=== PATIENT | female | born 1940 | race Caucasian/White ===

== ENCOUNTER → 2024-02-22 | Outpatient (CLI) | payer MEDICARE, BC, SELFPAY ==
[2024-02-22 13:33] LABS: Albumin, Serum 3.7 gm/dL (3.4-4.8); Anion Gap 9 (7-16); BUN/Creatinine Ratio 23 Ratio (12-20); Blood Urea Nitrogen 28 mg/dL (9-23); Calcium 9.8 mg/dL (8.3-10.6); Carbon Dioxide 28.5 mMol/L (20.0-31.0); Chloride 104 mMol/L (98-107); Creatinine (Component) 1.2 mg/dL (0.6-1.3); Glucose 147 mg/dL (74-106); Osmolality,Calculated 289 (275-295); Phosphorous 3.7 mg/dL (2.4-5.1); Sodium 141 mMol/L (136-145); eGFR 45 See Note
== END | disposition home or self-care (01) ==
LOC: COPL 12:21
PROVIDERS: PCP Internal Medicine; Referring Provider Internal Medicine Cardiovascular Disease; Visit Provider Internal Medicine Cardiovascular Disease
DX: Z95.0 Presence of cardiac pacemaker (principal)
CPT/HCPCS: 36415; 80069

== ENCOUNTER → 2024-03-06 | Outpatient (CLI) | payer MEDICARE, BC, SELFPAY ==
[2024-03-06 12:02] LABS: Basophils # (Auto) 0.1 Thou/mm3 (0.0-0.2); Basophils % (Auto) 1 % (0-2.5); Eosinophils # (Auto) 0.3 Thou/mm3 (0.0-0.5); Eosinophils % (Auto) 3 % (0-10); Hematocrit 37.8 % (36.0-46.0); Hemoglobin 12.1 g/dL (12.0-16.0); Immature Granulocytes % (Auto) 1 % (0-0); Immature Granulocytes Auto 0.05 Thou/mm3 (0.00-0.00); Lymphocytes # (Auto) 2.4 Thou/mm3 (1.0-4.8); Lymphocytes % (Auto) 26 % (10-50); Mean Corpuscular Volume 94 fL (80-100); Monocytes # (Auto) 0.6 Thou/mm3 (0.0-0.8); Monocytes % (Auto) 7 % (0-12); Neutrophils # (Auto) 5.5 Thou/mm3 (1.8-7.7); Neutrophils % (Auto) 62 % (37-80); Nucleated Red Blood Cell # 0.02 Thou/mm3 (0.00-0.00); Nucleated Red Blood Cell % 0 /100 WBC (0); Platelet Count 333 Thou/mm3 (140-440); RDW Standard Deviation 49.3 fL (36.4-46.3); Red Blood Count 4.04 Miln/mm3 (4.00-5.20); White Blood Count 8.9 Thou/mm3 (3.6-11.0)
[2024-03-06 12:14] LABS: Glucose Estimated Average 120 mg/dL (80-131); Hemoglobin A1C 5.8 % Hgb (4.8-6.0)
[2024-03-06 12:44] LABS: Alanine Aminotransferase 13 U/L (10-49); Alkaline Phosphatase 56 U/L (46-116); Anion Gap 8 (7-16); Aspartate Amino Transferase 16 U/L (0-34); BUN/Creatinine Ratio 43 Ratio (12-20); Bilirubin,Total 0.5 mg/dL (0.3-1.2); Blood Urea Nitrogen 52 mg/dL (9-23); Calcium 9.7 mg/dL (8.3-10.6); Calcium (Corrected) 9.7 mg/dL (8.5-10.1); Cardiac Risk Estimate 2.6 RATIO (3.7-5.6); Chloride 103 mMol/L (98-107); Cholesterol 130 mg/dL (132-200); Creatinine (Component) 1.2 mg/dL (0.6-1.3); Glucose 77 mg/dL (74-106); HDL Cholesterol 50 mg/dL (40-60); LDL Cholesterol,Calculated 49 mg/dL (0-130); Osmolality,Calculated 297 (275-295); Potassium 3.9 mMol/L (3.4-5.1); Sodium 143 mMol/L (136-145); Thyroid Stimulating Hormone 0.59 uIU/mL (0.55-4.78); Triglycerides 154 mg/dL (30-150); eGFR 45 See Note
[2024-03-06 12:46] LABS: Collection Type, Urine Clean Catch
[2024-03-06 13:51] LABS: Bilirubin,Urine Negative (Negative); Blood,Urine Negative (Negative); Clarity,Urine Clear (Clear/Hazy); Color,Urine Yellow (Lt Yel-Yel); Culture Indicated,Urine Not Indicated; Glucose, Urine Negative (Negative); Ketones,Urine Negative (Negative); Leukocyte Esterase,Urine Negative (Negative); Nitrite,Urine Negative (Negative); Protein,Urine 2+ (Neg - Trace); RBC,Urine 1 /hpf (0-3); Specific Gravity,Urine 1.018 (1.001-1.035); Squamous Epithelial Cell,Urine < 1 /hpf (0-5); Urobilinogen,Urine Negative mg/dL (0.0-1.0); WBC,Urine 2 /hpf (0-5)
[2024-03-06 13:59] LABS: Creatinine MALB Rnd Ur 56 mg/dL (30-125); Microalbumin Creat Ratio 805 mg/gCrea (<30); Microalbumin, Random Urine 451 mg/L (0-300)
== END | disposition home or self-care (01) ==
LOC: COPL 11:06
PROVIDERS: PCP Internal Medicine; Referring Provider Internal Medicine; Visit Provider Internal Medicine Cardiovascular Disease
DX: E11.9 Type 2 diabetes mellitus without complications (principal); I10 Essential (primary) hypertension; E78.5 Hyperlipidemia, unspecified; E03.9 Hypothyroidism, unspecified
CPT/HCPCS: 36415; 80053; 80061; 81001; 82043; 82570; 83036; 84443; 85025

== ENCOUNTER → 2024-03-20 | Outpatient (CLI) | payer MEDICARE, BC, SELFPAY | END | disposition home or self-care (01) | LOC: SWHD 09:54 | PROVIDERS: PCP Internal Medicine; Referring Provider Internal Medicine; Visit Provider Student in an Organized Health Care Education/Training Program | DX: L89.321 Pressure ulcer of left buttock, stage 1 (principal); L97.512 Non-pressure chronic ulcer of other part of right foot with fat layer exposed; I50.9 Heart failure, unspecified; I73.9 Peripheral vascular disease, unspecified; E11.40 Type 2 diabetes mellitus with diabetic neuropathy, unspecified; Z79.4 Long term (current) use of insulin; Z79.84 Long term (current) use of oral hypoglycemic drugs; M19.90 Unspecified osteoarthritis, unspecified site; G47.30 Sleep apnea, unspecified; I25.10 Atherosclerotic heart disease of native coronary artery without angina pectoris | CPT/HCPCS: 11042; 99203; A9270; G0463 ==

== ENCOUNTER → 2024-03-27 | Outpatient (CLI) | payer MEDICARE, BC, SELFPAY | END | disposition home or self-care (01) | LOC: SWHD 10:13 | PROVIDERS: PCP Internal Medicine; Referring Provider Internal Medicine; Visit Provider Student in an Organized Health Care Education/Training Program | DX: I87.312 Chronic venous hypertension (idiopathic) with ulcer of left lower extremity (principal); L97.512 Non-pressure chronic ulcer of other part of right foot with fat layer exposed; L89.322 Pressure ulcer of left buttock, stage 2; I50.9 Heart failure, unspecified; I73.9 Peripheral vascular disease, unspecified; E11.40 Type 2 diabetes mellitus with diabetic neuropathy, unspecified; Z79.4 Long term (current) use of insulin; Z79.84 Long term (current) use of oral hypoglycemic drugs; M19.90 Unspecified osteoarthritis, unspecified site; G47.30 Sleep apnea, unspecified; I25.10 Atherosclerotic heart disease of native coronary artery without angina pectoris | CPT/HCPCS: 11042; A9270 ==

== ENCOUNTER → 2024-04-03 | Outpatient (CLI) | payer MEDICARE, BC, SELFPAY | END | disposition home or self-care (01) | LOC: SWHD 10:41 | PROVIDERS: PCP Internal Medicine; Referring Provider Internal Medicine; Visit Provider Student in an Organized Health Care Education/Training Program | DX: I87.312 Chronic venous hypertension (idiopathic) with ulcer of left lower extremity (principal); L97.512 Non-pressure chronic ulcer of other part of right foot with fat layer exposed; L89.322 Pressure ulcer of left buttock, stage 2; I50.9 Heart failure, unspecified; I73.9 Peripheral vascular disease, unspecified; E11.40 Type 2 diabetes mellitus with diabetic neuropathy, unspecified; Z79.4 Long term (current) use of insulin; Z79.84 Long term (current) use of oral hypoglycemic drugs; M19.90 Unspecified osteoarthritis, unspecified site; G47.30 Sleep apnea, unspecified; I25.10 Atherosclerotic heart disease of native coronary artery without angina pectoris | CPT/HCPCS: 97597; A9270 ==

== ENCOUNTER → 2024-04-10 | Outpatient (CLI) | payer MEDICARE, BC, SELFPAY | END | disposition home or self-care (01) | LOC: SWHD 10:58 | PROVIDERS: PCP Internal Medicine; Referring Provider Internal Medicine; Visit Provider Surgery | DX: I87.312 Chronic venous hypertension (idiopathic) with ulcer of left lower extremity (principal); L97.512 Non-pressure chronic ulcer of other part of right foot with fat layer exposed; L89.322 Pressure ulcer of left buttock, stage 2; I50.9 Heart failure, unspecified; I73.9 Peripheral vascular disease, unspecified; E11.40 Type 2 diabetes mellitus with diabetic neuropathy, unspecified; Z79.84 Long term (current) use of oral hypoglycemic drugs; M19.90 Unspecified osteoarthritis, unspecified site; G47.30 Sleep apnea, unspecified; I25.10 Atherosclerotic heart disease of native coronary artery without angina pectoris | CPT/HCPCS: 29580; A9270 ==

== ENCOUNTER → 2024-04-17 | Outpatient (CLI) | payer MEDICARE, BC, SELFPAY | END | disposition home or self-care (01) | LOC: SWHD 10:55 | PROVIDERS: PCP Internal Medicine; Referring Provider Internal Medicine; Visit Provider Student in an Organized Health Care Education/Training Program | DX: L97.512 Non-pressure chronic ulcer of other part of right foot with fat layer exposed (principal); L89.322 Pressure ulcer of left buttock, stage 2; I50.9 Heart failure, unspecified; I73.9 Peripheral vascular disease, unspecified; E11.40 Type 2 diabetes mellitus with diabetic neuropathy, unspecified; Z79.84 Long term (current) use of oral hypoglycemic drugs; M19.90 Unspecified osteoarthritis, unspecified site; G47.30 Sleep apnea, unspecified; I25.10 Atherosclerotic heart disease of native coronary artery without angina pectoris | CPT/HCPCS: 11042; A9270 ==

== ENCOUNTER → 2024-04-18 | Outpatient (CLI) | payer MEDICARE, BC, SELFPAY ==
[2024-04-18 10:19] LABS: Basophils # (Auto) 0.1 Thou/mm3 (0.0-0.2); Basophils % (Auto) 1 % (0-2.5); Eosinophils # (Auto) 0.6 Thou/mm3 (0.0-0.5); Eosinophils % (Auto) 8 % (0-10); Hematocrit 36.6 % (36.0-46.0); Hemoglobin 11.9 g/dL (12.0-16.0); Immature Granulocytes % (Auto) 0 % (0-0); Immature Granulocytes Auto 0.02 Thou/mm3 (0.00-0.00); Lymphocytes # (Auto) 2.4 Thou/mm3 (1.0-4.8); Lymphocytes % (Auto) 35 % (10-50); Mean Corpuscular HGB Conc 32.5 g/dl (31.0-37.0); Mean Corpuscular Hemoglobin 29.9 pg (25.0-35.0); Mean Corpuscular Volume 92 fL (80-100); Monocytes # (Auto) 0.6 Thou/mm3 (0.0-0.8); Monocytes % (Auto) 8 % (0-12); Neutrophils # (Auto) 3.3 Thou/mm3 (1.8-7.7); Neutrophils % (Auto) 48 % (37-80); Nucleated Red Blood Cell % 0 /100 WBC (0); Platelet Count 281 Thou/mm3 (140-440); RDW Standard Deviation 47.1 fL (36.4-46.3); Red Blood Count 3.98 Miln/mm3 (4.00-5.20); White Blood Count 6.8 Thou/mm3 (3.6-11.0)
[2024-04-18 10:34] LABS: Glucose Estimated Average 123 mg/dL (80-131); Hemoglobin A1C 5.9 % Hgb (4.8-6.0)
[2024-04-18 10:38] LABS: Parathyroid Hormone Intact 57.1 pg/ml (18.5-88.0)
[2024-04-18 10:47] LABS: Alanine Aminotransferase 9 U/L (10-49); Anion Gap 6 (7-16); Aspartate Amino Transferase 15 U/L (0-34); BUN/Creatinine Ratio 37 Ratio (12-20); Bilirubin,Total 0.5 mg/dL (0.3-1.2); Blood Urea Nitrogen 52 mg/dL (9-23); Calcium 9.6 mg/dL (8.3-10.6); Carbon Dioxide 33.2 mMol/L (20.0-31.0); Chloride 103 mMol/L (98-107); Creatinine (Component) 1.4 mg/dL (0.6-1.3); Glucose 92 mg/dL (74-106); Osmolality,Calculated 297 (275-295); Potassium 4.6 mMol/L (3.4-5.1); Sodium 142 mMol/L (136-145); Total Protein 5.8 gm/dL (5.7-8.2); eGFR 38 See Note
[2024-04-18 10:48] LABS: Albumin, Serum 3.6 gm/dL (3.4-4.8); Albumin/Globulin Ratio 1.6 (1.2-2.2); Alkaline Phosphatase 58 U/L (46-116); Calcium (Corrected) 9.9 mg/dL (8.5-10.1); Cardiac Risk Estimate 3.1 RATIO (3.7-5.6); Cholesterol 131 mg/dL (132-200); Globulin 2.2 gm/dL (2.3-3.5); HDL Cholesterol 42 mg/dL (40-60); LDL Cholesterol,Calculated 54 mg/dL (0-130); Thyroid Stimulating Hormone 0.14 uIU/mL (0.55-4.78); Triglycerides 173 mg/dL (30-150)
[2024-04-18 10:49] LABS: Collection Type, Urine Clean Catch
[2024-04-18 11:27] LABS: Bilirubin,Urine Negative (Negative); Blood,Urine Negative (Negative); Clarity,Urine Clear (Clear/Hazy); Color,Urine Yellow (Lt Yel-Yel); Culture Indicated,Urine Not Indicated; Glucose, Urine Negative (Negative); Hyaline Casts,Urine < 1 /hpf (0-1); Ketones,Urine Negative (Negative); Leukocyte Esterase,Urine Positive (Negative); Nitrite,Urine Negative (Negative); Protein,Urine 1+ (Neg - Trace); RBC,Urine 2 /hpf (0-3); Specific Gravity,Urine 1.019 (1.001-1.035); Squamous Epithelial Cell,Urine 2 /hpf (0-5); Urobilinogen,Urine Negative mg/dL (0.0-1.0); WBC,Urine 6 /hpf (0-5)
[2024-04-18 11:45] LABS: Creatinine MALB Rnd Ur 58 mg/dL (30-125)
[2024-04-18 12:07] LABS: Microalbumin Creat Ratio 667 mg/gCrea (<30); Microalbumin, Random Urine 387 mg/L (0-300)
== END | disposition home or self-care (01) ==
LOC: COPL 09:28
PROVIDERS: PCP Internal Medicine; Referring Provider Internal Medicine; Visit Provider Internal Medicine
DX: N17.9 Acute kidney failure, unspecified (principal); I10 Essential (primary) hypertension; E11.9 Type 2 diabetes mellitus without complications; E78.5 Hyperlipidemia, unspecified
CPT/HCPCS: 36415; 80053; 80061; 81001; 82043; 82570; 83036; 83970; 84443; 85025

== ENCOUNTER → 2024-04-24 | Outpatient (CLI) | payer MEDICARE, BC, SELFPAY | END | disposition home or self-care (01) | PROVIDERS: PCP Internal Medicine; Referring Provider Internal Medicine; Visit Provider Student in an Organized Health Care Education/Training Program | DX: L97.512 Non-pressure chronic ulcer of other part of right foot with fat layer exposed (principal); L97.322 Non-pressure chronic ulcer of left ankle with fat layer exposed; M19.90 Unspecified osteoarthritis, unspecified site; G47.30 Sleep apnea, unspecified; I25.10 Atherosclerotic heart disease of native coronary artery without angina pectoris; I50.9 Heart failure, unspecified; I73.9 Peripheral vascular disease, unspecified; E11.40 Type 2 diabetes mellitus with diabetic neuropathy, unspecified; Z79.84 Long term (current) use of oral hypoglycemic drugs | CPT/HCPCS: 97597; A9270 ==

== ENCOUNTER → 2024-04-25 | Outpatient (BNVA) | payer MEDICARE, BC, SELFPAY | END | disposition home or self-care (01) | PROVIDERS: PCP Internal Medicine; Referring Provider Internal Medicine; Visit Provider Urology | DX: N32.81 Overactive bladder (principal); Z87.440 Personal history of urinary (tract) infections; I12.9 Hypertensive chronic kidney disease with stage 1 through stage 4 chronic kidney disease, or unspecified chronic kidney disease; E11.22 Type 2 diabetes mellitus with diabetic chronic kidney disease; N18.30 Chronic kidney disease, stage 3 unspecified; I25.10 Atherosclerotic heart disease of native coronary artery without angina pectoris; Z95.5 Presence of coronary angioplasty implant and graft; Z95.0 Presence of cardiac pacemaker; C50.919 Malignant neoplasm of unspecified site of unspecified female breast; Z92.3 Personal history of irradiation; Z92.21 Personal history of antineoplastic chemotherapy; E66.9 Obesity, unspecified; Z68.30 Body mass index [BMI] 30.0-30.9, adult; Z87.891 Personal history of nicotine dependence | CPT/HCPCS: 81003; 99212; G0463 ==

== ENCOUNTER → 2024-05-01 | Outpatient (CLI) | payer MEDICARE, BC, SELFPAY | END | disposition home or self-care (01) | LOC: SWHD 12:47 | PROVIDERS: PCP Internal Medicine; Referring Provider Internal Medicine; Visit Provider Student in an Organized Health Care Education/Training Program | DX: L97.512 Non-pressure chronic ulcer of other part of right foot with fat layer exposed (principal); L97.322 Non-pressure chronic ulcer of left ankle with fat layer exposed; M19.90 Unspecified osteoarthritis, unspecified site; G47.30 Sleep apnea, unspecified; I25.10 Atherosclerotic heart disease of native coronary artery without angina pectoris; I50.9 Heart failure, unspecified; I73.9 Peripheral vascular disease, unspecified; E11.40 Type 2 diabetes mellitus with diabetic neuropathy, unspecified; Z79.84 Long term (current) use of oral hypoglycemic drugs | CPT/HCPCS: 17250; A9270 ==

== ENCOUNTER → 2024-05-08 | Outpatient (CLI) | payer MEDICARE, BC, SELFPAY | END | disposition home or self-care (01) | LOC: SWHD 13:57 | PROVIDERS: PCP Internal Medicine; Referring Provider Internal Medicine; Visit Provider Student in an Organized Health Care Education/Training Program | DX: I87.312 Chronic venous hypertension (idiopathic) with ulcer of left lower extremity (principal); L97.322 Non-pressure chronic ulcer of left ankle with fat layer exposed; M19.90 Unspecified osteoarthritis, unspecified site; G47.30 Sleep apnea, unspecified; I25.10 Atherosclerotic heart disease of native coronary artery without angina pectoris; I50.9 Heart failure, unspecified; I73.9 Peripheral vascular disease, unspecified; E11.40 Type 2 diabetes mellitus with diabetic neuropathy, unspecified; Z79.84 Long term (current) use of oral hypoglycemic drugs | CPT/HCPCS: 97597; A9270 ==

== ENCOUNTER 2024-05-16 12:43 | Emergency (ER) | payer MEDICARE, BC, SELFPAY ==
[2024-05-16 12:55] VITALS: BP 159/81; PULSE 83; RESP 18; TEMP 36.8; O2SAT 95; BMI 28.5
--- NOTE | 2024-05-16 13:11 | XR_ITS ---
Examination: CT abdomen and pelvis without contrast. Coronal 3-D reconstructions. Sagittal 2-D reconstructions. Date and time of exam:May 16, 2024 1502 hours Comparison November 24, 2022 INDICATIONS: Bilateral flank pain today CTDI: vol (mGy): 12.8 DLP: (mGycm): 715 Technique: Axial images of the abdomen have been obtained, 3 mm slice thickness Intravenous contrast material has not been administered. Low dose protocols were performed. One or more of the following dose reduction techniques were used; automated exposure control, adjustment of the mA and/or KV according to patient size, use of iterative reconstruction technique. Findings: No focal liver lesions Splenic calcifications Tiny gallstones Pancreatic calcifications Minimal nodular thickening adrenal glands Significant bilateral renal parenchymal scar formation 1 mm nonobstructing lower pole right renal calculus image 92 No hydronephrosis or ureteral calculi Aorta normal size No bowel obstruction No pericecal inflammatory change Colonic diverticulosis No bladder mass Absent uterus No pelvic mass Lumbar fusion L4-L5 with satisfactory alignment IMPRESSION: Significant bilateral renal parenchymal scar formation 1 mm nonobstructing lower pole right renal calculus No hydronephrosis or ureteral calculi
--- NOTE | 2024-05-16 13:11 | PD.EDRME ---
Rapid Medical Screening Exam RME Arrival date/time: 05/16/24 12:43 83-year-old female presents emergency department complaint of abdominal pain and back pain Chief Complaint: Back Pain/Injury Time Seen by Provider: 05/16/24 13:02 Vital signs: Vital Signs Temperature 98.2 F 05/16/24 12:55 Pulse Rate 83 05/16/24 12:55 Respiratory Rate 18 05/16/24 12:55 Blood Pressure 159/81 H 05/16/24 12:55 Pulse Oximetry (%) 95 05/16/24 12:55 Oxygen Delivery Method Room Air 05/16/24 12:55
[2024-05-16 13:57] LABS: Collection Type, Urine Clean Catch; Squamous Epithelial Cell,Urine 0 /hpf (0-5)
[2024-05-16 13:58] LABS: Lactate (Lactic Acid) 0.9 mMol/L (0.4-2.0)
[2024-05-16 14:10] LABS: Basophils # (Auto) 0.1 Thou/mm3 (0.0-0.2); Basophils % (Auto) 1 % (0-2.5); Eosinophils # (Auto) 0.4 Thou/mm3 (0.0-0.5); Eosinophils % (Auto) 4 % (0-10); Hematocrit 42.4 % (36.0-46.0); Hemoglobin 13.8 g/dL (12.0-16.0); Immature Granulocytes % (Auto) 0 % (0-0); Immature Granulocytes Auto 0.02 Thou/mm3 (0.00-0.00); Lymphocytes # (Auto) 3.5 Thou/mm3 (1.0-4.8); Lymphocytes % (Auto) 35 % (10-50); Mean Corpuscular HGB Conc 32.5 g/dl (31.0-37.0); Mean Corpuscular Hemoglobin 29.1 pg (25.0-35.0); Mean Corpuscular Volume 90 fL (80-100); Monocytes # (Auto) 0.7 Thou/mm3 (0.0-0.8); Monocytes % (Auto) 7 % (0-12); Neutrophils # (Auto) 5.3 Thou/mm3 (1.8-7.7); Neutrophils % (Auto) 54 % (37-80); Nucleated Red Blood Cell % 0 /100 WBC (0); Platelet Count 322 Thou/mm3 (140-440); Red Blood Count 4.74 Miln/mm3 (4.00-5.20); White Blood Count 9.9 Thou/mm3 (3.6-11.0)
[2024-05-16 14:13] LABS: Bilirubin,Urine Negative (Negative); Blood,Urine Negative (Negative); Clarity,Urine Clear (Clear/Hazy); Color,Urine Lt-Yellow (Lt Yel-Yel); Culture Indicated,Urine Not Indicated; Glucose, Urine Negative (Negative); Ketones,Urine Negative (Negative); Leukocyte Esterase,Urine Negative (Negative); Nitrite,Urine Negative (Negative); Protein,Urine Trace (Neg - Trace); RBC,Urine 2 /hpf (0-3); Specific Gravity,Urine 1.008 (1.001-1.035); Urobilinogen,Urine Negative mg/dL (0.0-1.0); WBC,Urine 1 /hpf (0-5)
[2024-05-16 14:29] LABS: Alanine Aminotransferase < 7 U/L (10-49); Albumin/Globulin Ratio 1.5 (1.2-2.2); Alkaline Phosphatase 63 U/L (46-116); Anion Gap 7 (7-16); Aspartate Amino Transferase 33 U/L (0-34); BUN/Creatinine Ratio 32 Ratio (12-20); Bilirubin,Total 0.3 mg/dL (0.3-1.2); Blood Urea Nitrogen 51 mg/dL (9-23); Calcium 10.1 mg/dL (8.3-10.6); Calcium (Corrected) 10.1 mg/dL (8.5-10.1); Carbon Dioxide 30.7 mMol/L (20.0-31.0); Chloride 102 mMol/L (98-107); Creatinine (Component) 1.6 mg/dL (0.6-1.3); Estimated Creatinine Clearance 34.7 mL/min (>60); Globulin 2.7 gm/dL (2.3-3.5); Glucose 100 mg/dL (74-106); Lipase 26 U/L (12-53); Osmolality,Calculated 293 (275-295); Potassium 5.2 mMol/L (3.4-5.1); Sodium 140 mMol/L (136-145); Total Protein 6.7 gm/dL (5.7-8.2); eGFR 32 See Note
[2024-05-16 16:55] VITALS: BP 156/82; PULSE 80; RESP 16; TEMP 36.8; O2SAT 100
--- NOTE | 2024-05-16 17:51 | PD.EDADULT ---
ED General RME/HPI General Chief complaint: Back Pain/Injury Stated complaint: Left side lower back pain X 2 weeks Time Seen by Provider: 05/16/24 13:02 Arrival date/time: 05/16/24 12:43 CC: Body aches generalized fatigue, but also complains of generalized back pain and mild abdominal pain denies fever shortness of breath or difficulty breathing. Symptoms of bodyaches ongoing for past 3 weeks. Has no contacts that are ill at this time. Patient is seen by Dr. Samayoa and was referred from wound care management where she is having ulcers on her right leg treated. Patient denies chest pain shortness of breath or difficulty breathing. RME / HPI RME / HPI narrative: 05/16/24 12:43 83-year-old female presents emergency department complaint of abdominal pain and back pain Related Data Home Medications ?Medication ?Instructions ?Recorded ?Confirmed gabapentin 100 mg capsule 100 mg PO BID #0 caps 06/09/13 04/25/24 linagliptin 5 mg tablet (Tradjenta) 5 mg PO QDAY ##0 06/09/13 04/25/24 aspirin 81 mg tablet,delayed 81 mg PO HS 12/16/18 04/25/24 release (Aspir-) hydrochlorothiazide 25 mg tablet 12.5 mg PO BID 10/11/20 04/25/24 levothyroxine 175 mcg tablet 175 mcg PO QDAY 10/11/20 04/25/24 (Synthroid) metformin 500 mg tablet 500 mg PO QDAY 10/11/20 04/25/24 Held on 12/20/23. Instructions: Resume on 12/22/23. Hold for 2 days. May resume 12/22/23. nitroglycerin 0.4 mg sublingual 0.4 mg buccal Q3-4HRPRN PRN Chest 10/11/20 04/25/24 tablet (Nitrostat) Pain blood-glucose meter,continuous 01/01/22 04/25/24 (Dexcom G6 Side Panel Hanger) B-complex with vitamin C 1 tab PO QDAY 02/11/22 04/25/24 acetylcarnitine HCl 250 mg capsule 500 mg PO BID 02/11/22 04/25/24 alpha lipoic acid 300 mg capsule 600 mg PO QDAY 02/11/22 04/25/24 biotin 5,000 mcg-lutein 10 mg 1 tab PO DAILY 02/11/22 04/25/24 tablet (Biotin Plus) cinnamon bark 500 mg capsule 1,000 mg PO HS 02/11/22 04/25/24 (Cinnamon) dulaglutide 3 mg/0.5 mL 3 mg subcut QWEEK 02/11/22 04/25/24 subcutaneous pen injector (Trulicity) insulin glargine 100 unit/mL 50 unit subcut DAILY 02/11/22 04/25/24 subcutaneous solution (Lantus U-100 Insulin) insulin glargine 100 unit/mL 60 unit subcut HS 02/11/22 04/25/24 subcutaneous solution (Lantus U-100 Insulin) amlodipine 5 mg tablet (Norvasc) 5 mg PO QDAY 09/04/22 04/25/24 clopidogrel 75 mg tablet (Plavix) 75 mg PO QDAY 09/04/22 04/25/24 fenofibrate 150 mg capsule 145 mg PO DAILY 09/04/22 04/25/24 alpha lipoic acid 300 mg capsule 300 mg PO HS 11/25/22 04/25/24 tamoxifen 10 mg tablet 20 mg PO QDAY 11/25/22 04/25/24 nitrofurantoin 100 mg PO QDAY 10/26/23 04/25/24 monohydrate/macrocrystals 100 mg capsule (Macrobid) vibegron 75 mg tablet (Gemtesa) 75 mg PO QDAY 10/26/23 04/25/24 B-complex with vitamin C 1 tab PO DAILY 12/20/23 04/25/24 ascorbic acid (vitamin C) 500 mg 500 mg PO QDAY 12/20/23 04/25/24 tablet,extended release biotin 1,000 mcg chewable tablet 1,000 mcg PO QDAY 12/20/23 04/25/24 ranolazine 500 mg tablet,extended 500 mg PO BID 12/20/23 04/25/24 release,12 hr sacubitril 97 mg-valsartan 103 mg 1 tab PO BID 12/20/23 04/25/24 tablet (Entresto) spironolactone 25 mg tablet 25 mg PO DAILY 12/20/23 04/25/24 (Aldactone) Previous Rx's ?Medication ?Instructions ?Recorded metoprolol succinate 100 mg 50 mg (1/2 x 100 mg) PO BID #30 ea 10/29/23 capsule sprinkle, ext. release 24 hr oseltamivir 75 mg capsule (Tamiflu) 75 mg PO BID 5 days #10 caps 05/16/24 Allergies Allergy/AdvReac Type Severity Reaction Status Date / Time Sulfa (Sulfonamide Allergy Intermediate THROAT Verified 05/16/24 12:51 Antibiotics) SWELLS SHUT hydralazine Allergy Diarrhea Verified 05/16/24 12:51 codeine AdvReac Intermediate Vomiting Verified 05/16/24 12:51 midazolam (From Versed) AdvReac Insomnia Verified 05/16/24 12:51 Review of Systems Review of Systems Narrative Review of Systems: GEN: No fever, no chills, no weight loss EYES: No discharge, no visual changes, no pain HEENT: No ear pain, no congestion, no sore throat PULM: No shortness of breath, no cough, no congestion CV: No chest pain, no dyspnea on exertion, no palpitations GI: No nausea, no vomiting, no diarrhea, no pain, no constipation : No frequency, no urgency, no dysuria MUSC/SKEL: No joint pain, no back pain SKIN: No rash PSYCH: No hallucinations, no depression HEME/LYMPH: No easy bleeding or bruising tendencies NEURO: No weakness, no headache Past Medical History Past Medical History NEUROLOGIC: Negative Neurological Disorders, Cerebrovascular Accident, Transient Ischemic Attacks (TIA), Dementia, Alzheimer's Disease, Parkinson's Disease, Brain Tumor, Meningitis, Seizures, Epilepsy, Multiple Sclerosis, Cerebral Palsy, Amyotrophic Lateral Sclerosis (ALS/Chrissy Gehrig's), Guillain-[place] Syndrome, Spina Bifida, Paralysis, Peripheral Neuropathy, Grove's Palsy, Subdural Hematoma, Migraine, Head Trauma, Spinal Cord Injury or Traumatic Brain Injury CARDIAC: Positive Cardiac Disorders, Myocardial Infarction, Heart Murmur, Coronary Artery Disease, Atherosclerotic Heart Disease, Hypercholesterolemia, Congestive Heart Failure, Rheumatic Fever and Hypertension; Negative Edema, Cellulitis or Varicose Veins RESPIRATORY: Positive Asthma (in past), Pneumonia and Sleep Apnea (cpap at night); Negative Chronic Obstructive Pulmonary Disease (COPD) or Pulmonary Embolism GASTROINTESTINAL: Positive Gastrointestinal Disorders (open sore on buttock since 07/2023), Colitis, Diverticulitis, Irritable Bowel, Gastroesophageal Reflux Disease and Obesity; Negative Hepatitis or Colorectal Cancer GENITOURINARY: Positive Genitourinary Disorders (sees urologist for incontinance; HX UTI resolved now); Negative Renal Disease REPRODUCTIVE: Positive Breast Cancer (right partial mastectomy), Endometriosis and Previous Pregnancies (x4 ) MUSCULOSKELETAL: Positive Musculoskeletal Disorders, Arthritis and Fractures; Negative Muscular Dystrophy, Myasthenia Gravis, Marfan's Syndrome, Rheumatoid Arthritis, Osteoporosis or Degenerative Disk Disease ENT: Positive Cataracts and Macular Degeneration; Negative Head Trauma ENDOCRINE: Positive Endocrine Disorders, Diabetes Mellitus Type 2 and Hypothyroidism; Negative Diabetes Mellitus Type 1 HEMATOLOGIC: Negative Blood Disorders, Anemia, Leukemia, Hemophilia, Thalassemia, Sickle Cell Disease or Clotting Problems PSYCHO/SOCIAL: Positive Depression and Anxiety; Negative Psychiatric Problems, Schizophrenia, Recreational Drug Use, Bipolar Disorder, Behavior Problems, Self-Mutilation, Attention Deficit Disorder, Attention Deficit Hyperactivity Disorder, Depression, Post Traumatic Stress Disorder or Eating Disorder OTHER HISTORY: Positive Autoimmune Disease, Shingles, Radiation Therapy (august 2022), Chicken Pox, Measles, Mumps, Cancer and Breast Cancer (right partial mastectomy); Negative Hospitalization, Autism, Falls, Blood Transfusions, Anesthesia Reactions, Organ Transplant, Chemotherapy, MRSA, VRSA, Vancomycin-Resistant Enterococci, Clostridium Difficile, Cervical Cancer, Colorectal Cancer, Lung Cancer or Ovarian Cancer Family History FAMILY HISTORY: Positive Family Cardiac Disorders and Family Surgery; Negative Family Psychiatric Problems, Family Respiratory Disorders, Family Gastrointestinal Problems, Family Cancer or Family Anesthesia Reaction Surgical History SURGICAL: Positive Cardiac Surgery, Coronary Stent, Cardiac Catheterization, Pacemaker, Angiogram, Endocrine Surgery, Ear Surgery, Eye Surgery, Oral Surgery, Tonsillectomy, Abdominal Surgery, Joint Replacement, Mastectomy (right (right limb alert)), Lumpectomy and Hysterectomy; Negative Open Heart Surgery, Coronary Artery Bypass Graft, Valve Replacement, Vascular Surgery, Auto Implanted Cardiovert Defib, Carotid Endarterectomy, Thyroidectomy, Gastric Bypass Surgery, Gastrostomy, Bowel Surgery or Organ Transplant Social History SMOKING STATUS: Former smoker ED Exam Narrative Physical exam: [General: Not in any acute distress Head normocephalic HEENT: Within acceptable limits Neck is supple nontender Chest equal chest rise nontender to palpation Respiratory: Clear to auscultation no wheezes crackles or rubs CV: Rate rhythm is regular no murmurs rubs or clicks Abdomen is distended secondary to body habitus soft nontender no masses positive bowel sounds all 4 quadrants Back: No CVA tenderness no spinous process tenderness from cervical spine thoracic and lumbar spine Skin: Intact no petechiae rash induration ulceration or crepitus Extremities: Moving all extremity against resistance cap refill less than 2 seconds neurosensory intact Neuro: Awake alert oriented x3 Glascow coma 15 no focal deficits] Course Quality Measures none Orders Category Date Time Status Bedside Influenza A&B Antigen Test NOW Care 05/16/24 13:[address] abdomen pelvis wo con Stat Exams 05/16/24 13:11 Completed Blood Culture (Lab) Stat Lab 05/16/24 13:45 Received CBC Stat Lab 05/16/24 13:50 Completed Comprehensive Metabolic Panel Stat Lab 05/16/24 13:50 Completed Lactic Acid [Lactate (Lactic Acid)] Stat Lab 05/16/24 13:50 Completed Lipase Stat Lab 05/16/24 13:50 Completed Procalcitonin Stat Lab 05/16/24 13:50 Completed UA, C/S IF [Urinalysis, C/S if Indicated] Stat Lab 05/16/24 13:46 Completed Vital Signs Vital signs: Vital Signs Temperature 98.2 F 05/16/24 12:55 Pulse Rate 83 05/16/24 12:55 Respiratory Rate 18 05/16/24 12:55 Blood Pressure 159/81 H 05/16/24 12:55 Pulse Oximetry (%) 95 05/16/24 12:55 Oxygen Delivery Method Room Air 05/16/24 12:55 [facility] Patient data External records reviewed:: [facility] previous records Clinical information provided by:: patient Social determinants that could affect healthcare access:: none Patient has the following chronic illnesses:: Diabetes hypertension CKD hyperlipidemia CAD How is presenting disease/condition affected by chronic disease/condition?: uneffected by Evaluation data The following diagnostics were reviewed and interpreted by me:: lab results and radiology exam(s) Lab and/or radiology exams considered but not ordered:: Influenza A and B+ CBC shows no leukocytosis anemia thrombocytopenia CMP shows a potassium of 5.2 BUN of 51 creatinine 1.6 GFR of 32 Lactic acid of 0.9 T. bili of 0.3 no transaminitis elevation. Pro-Jaime of 0.10. Urine is negative for urinary tract infection CT of the abdomen shows the patient has parenchymal scarring with a 1 mm stone in the right renal pelvis no other acute finding Interpretation Summary: Influenza positive patient will be discharged home to follow-up with Dr. Samayoa is worsening symptoms return the PET emergency room immediately for further evaluation. Medications Medications considered but not ordered:: None Medication administrations:: None Consultations Consultation(s) initiated? (list below): No Diagnosis Differential Diagnosis ED Complaint MDM: UTI pyelonephritis acute renal failure influenza Most likely diagnosis given after review of the tests above:: Influenza Admission Indicated Admission indicated?: not indicated Explain why admission is indicated or not indicated:: Stable for outpatient follow-up Admission Request Was there a request for admission?: No Disposition Plan Disposition Plan: Discharge Discharge Attestation Discharge Attestation: The patient and all family members were given an opportunity to ask questions and understood the discharge instructions. Discharge instructions specifically effects, indications for sooner follow up or return to the emergency department, and the expected course of current diagnosis. Patient condition: Stable Medical Decision Making Differential Diagnosis Differential Diagnosis: UTI pyelonephritis acute renal failure influenza Lab Data 05/16/24 13:50 05/16/24 13:50 Labs: Lab Results 05/16/24 05/16/24 Range/Units 13:46 13:50 WBC 9.9 (3.6-11.0) Thou/mm3 RBC 4.74 (4.00-5.20) Miln/mm3 Hgb 13.8 (12.0-16.0) g/dL Hct 42.4 (36.0-46.0) % MCV 90 (80-100) fL MCH 29.1 (25.0-35.0) pg MCHC 32.5 (31.0-37.0) g/dl RDW Std Deviation 46.0 (36.4-46.3) fL Plt Count 322 D (140-440) Thou/mm3 Neut % (Auto) 54 (37-80) % Lymph % (Auto) 35 (10-50) % [place] % (Auto) 7 (0-12) % Eos % (Auto) 4 (0-10) % Baso % (Auto) 1 (0-2.5) % Neut # (Auto) 5.3 (1.8-7.7) Thou/mm3 Lymph # (Auto) 3.5 (1.0-4.8) Thou/mm3 [place] # (Auto) 0.7 (0.0-0.8) Thou/mm3 Eos # (Auto) 0.4 (0.0-0.5) Thou/mm3 Baso # (Auto) 0.1 (0.0-0.2) Thou/mm3 Immature Gran # (Auto) 0.02 H (0.00-0.00) Thou/mm3 Absolute Nucleated RBC 0.00 (0.00-0.00) Thou/mm3 Immature Gran % 0 (0-0) % Nucleated RBC % 0 (0) /100 WBC Sodium 140 (136-145) mMol/L Potassium 5.2 H (3.4-5.1) mMol/L Chloride 102 (98-107) mMol/L Carbon Dioxide 30.7 (20.0-31.0) mMol/L Anion Gap 7 (7-16) BUN 51 H (9-23) mg/dL Creatinine 1.6 H (0.6-1.3) mg/dL Estim Creat Clear Calc 34.7 L (>60) mL/min eGFR 32 L (60 - ) See Note BUN/Creatinine Ratio 32 H (12-20) Ratio Glucose 100 (74-106) mg/dL Calculated Osmolality 293 (275-295) Lactic Acid 0.9 (0.4-2.0) mMol/L Calcium 10.1 (8.3-10.6) mg/dL Corrected Calcium 10.1 (8.5-10.1) mg/dL Total Bilirubin 0.3 (0.3-1.2) mg/dL AST 33 (0-34) U/L ALT < 7 L (10-49) U/L Alkaline Phosphatase 63 (46-116) U/L Total Protein 6.7 (5.7-8.2) gm/dL Albumin 4.0 (3.4-4.8) gm/dL Globulin 2.7 (2.3-3.5) gm/dL Albumin/Globulin Ratio 1.5 (1.2-2.2) Lipase 26 (12-53) U/L Procalcitonin 0.10 (0.0-0.49) ng/ml Ur Collection Type Clean Catch Urine Color Lt-Yellow (Lt Yel-Yel) Urine Clarity Clear (Clear/Hazy) Urine pH 6.0 (5.0-7.0) Ur Specific [place] 1.008 (1.001-1.035) Urine Protein Trace (Neg - Trace) Urine Glucose (UA) Negative (Negative) Urine Ketones Negative (Negative) Urine Blood Negative (Negative) Urine Nitrite Negative (Negative) Urine Bilirubin Negative (Negative) Urine Urobilinogen (Auto) Negative (0.0-1.0) mg/dL Ur Leukocyte Esterase Negative (Negative) Urine RBC 2 (0-3) /hpf Urine WBC 1 (0-5) /hpf Ur Squamous Epith Cells 0 (0-5) /hpf Urine Bacteria None (None) Ur Culture Indicated? Not Indicated Discharge Plan Plan Patient Disposition: HOME (Self Care) Patient condition on transfer: Stable Prescriptions/Referrals Prescriptions/Med Rec: New oseltamivir [Tamiflu] 75 mg capsule 75 mg PO BID 5 Days Qty: 10 0RF No Action nitrofurantoin monohyd/m-cryst [Macrobid] 100 mg capsule 100 mg PO QDAY Rx Instructions: must administer with a meal/food Gemtesa 75 mg tablet 75 mg PO QDAY (DME) Dexcom G6 Side Panel Hanger Misc See Rx Instructions .Route Rx Instructions: As directed gabapentin 100 MG capsule 100 mg PO BID Qty: 0 Tradjenta 5 MG tablet 5 mg PO QDAY Qty: 0 aspirin [Aspir-81] 81 mg Tablet,Delayed Release (Dr/Ec) 81 mg PO HS Rx Instructions: take as instructed metformin 500 mg Tablet 500 mg PO QDAY Rx Instructions: Per MD Hold Metformin for 48 hours levothyroxine [Synthroid] 175 mcg Tablet 175 mcg PO QDAY nitroglycerin [Nitrostat] 0.4 mg Tablet, Sublingual 0.4 mg BUCCAL Q3-4HRPRN PRN (Reason: Chest Pain) Rx Instructions: take 1 sublingual tablet every 5 minutes for a max of 3 doses hydrochlorothiazide 25 mg Tablet 12.5 mg PO BID alpha lipoic acid 300 mg Capsule 300 mg PO HS tamoxifen 10 mg Tablet 20 mg PO QDAY insulin glargine [Lantus U-100 Insulin] 100 unit/mL solution 50 unit SUBCUT DAILY Rx Instructions: inject 50 units subcutaneously in the evening insulin glargine [Lantus U-100 Insulin] 100 unit/mL solution 60 unit SUBCUT HS Rx Instructions: inject 60 Subcutaneously in the morning B-complex with vitamin C Tablet 1 tab PO QDAY cinnamon bark [Cinnamon] 500 mg Capsule 1,000 mg PO HS acetylcarnitine HCl 250 mg Capsule 500 mg PO BID alpha lipoic acid 300 mg Capsule 600 mg PO QDAY Trulicity 3 mg/0.5 mL pen injector 3 mg SUBCUT QWEEK Rx Instructions: on wednesday Biotin Plus 5,000 mcg- 10 mg Tablet 1 tab PO DAILY clopidogrel [Plavix] 75 mg Tablet 75 mg PO QDAY amlodipine [Norvasc] 5 mg Tablet 5 mg PO QDAY fenofibrate 150 mg Capsule 145 mg PO DAILY metoprolol succinate 100 mg capsule,sprinkle,ER 24hr 50 mg PO BID Qty: 30 0RF Rx Instructions: start to take metoprolol 50mg twice a day spironolactone [Aldactone] 25 mg Tablet 25 mg PO DAILY ascorbic acid (vitamin C) 500 mg Tablet Extended Release 500 mg PO QDAY B-complex with vitamin C Tablet Extended Release 1 tab PO DAILY ranolazine 500 mg Tablet Extended Release 12 Hr 500 mg PO BID Entresto 97-103 mg Tablet 1 tab PO BID biotin 1,000 mcg Tablet,Chewable 1,000 mcg PO QDAY Referrals: Juan Luis Samayoa MD [Primary Care Provider] - In 1 week Problem List Clinical Impression: Influenza A, Influenza B Patient/Caregiver Discharge Instructions Education Materials: ED Influenza (Adult) Additional Instructions: Take the medications as prescribed rest drink plenty of fluids with his worsening of symptoms return the emergency room for reevaluation. Print Language: Azeri Stand Alone Forms: Nusrat Award Info., Patient Portal Info Letter PA/EXTRUDER TENDER Supervising Physician PA/EXTRUDER TENDER Supervising Physician: Fareed Ha ENP
== END 2024-05-16 18:01 | disposition home or self-care (01) ==
PROVIDERS: Nurse Practitioner Primary Care; Emergency Provider Emergency Medicine; PCP Internal Medicine
DX: J11.1 Influenza due to unidentified influenza virus with other respiratory manifestations (principal); M54.50 Low back pain, unspecified; R10.9 Unspecified abdominal pain
CPT/HCPCS: 36415; 74176; 80053; 81001; 83605; 83690; 84145; 85025; 87040; 87400; 99284

== ENCOUNTER → 2024-05-16 | Outpatient (CLI) | payer MEDICARE, BC, SELFPAY | END | disposition home or self-care (01) | PROVIDERS: PCP Internal Medicine; Referring Provider Internal Medicine; Visit Provider Student in an Organized Health Care Education/Training Program | DX: I87.312 Chronic venous hypertension (idiopathic) with ulcer of left lower extremity (principal); L97.321 Non-pressure chronic ulcer of left ankle limited to breakdown of skin; M19.90 Unspecified osteoarthritis, unspecified site; G47.30 Sleep apnea, unspecified; I25.10 Atherosclerotic heart disease of native coronary artery without angina pectoris; I50.9 Heart failure, unspecified; I73.9 Peripheral vascular disease, unspecified; E11.40 Type 2 diabetes mellitus with diabetic neuropathy, unspecified; Z79.84 Long term (current) use of oral hypoglycemic drugs | CPT/HCPCS: 97597; A9270 ==

== ENCOUNTER → 2024-05-22 | Outpatient (CLI) | payer MEDICARE, BC, SELFPAY | END | disposition home or self-care (01) | LOC: SWHD 10:17 | PROVIDERS: PCP Internal Medicine; Referring Provider Internal Medicine; Visit Provider Surgery | DX: L97.322 Non-pressure chronic ulcer of left ankle with fat layer exposed (principal); S91.104A Unspecified open wound of right lesser toe(s) without damage to nail, initial encounter; X58.XXXA Exposure to other specified factors, initial encounter; M19.90 Unspecified osteoarthritis, unspecified site; G47.30 Sleep apnea, unspecified; I25.10 Atherosclerotic heart disease of native coronary artery without angina pectoris; I50.9 Heart failure, unspecified; I73.9 Peripheral vascular disease, unspecified; E11.40 Type 2 diabetes mellitus with diabetic neuropathy, unspecified; Z79.84 Long term (current) use of oral hypoglycemic drugs; R60.0 Localized edema | CPT/HCPCS: 29580; A9270 ==

== ENCOUNTER → 2024-05-29 | Outpatient (CLI) | payer MEDICARE, BC, SELFPAY | END | disposition home or self-care (01) | LOC: SWHD 10:54 | PROVIDERS: PCP Internal Medicine; Referring Provider Internal Medicine; Visit Provider Student in an Organized Health Care Education/Training Program | DX: L97.322 Non-pressure chronic ulcer of left ankle with fat layer exposed (principal); S91.104A Unspecified open wound of right lesser toe(s) without damage to nail, initial encounter; S91.101A Unspecified open wound of right great toe without damage to nail, initial encounter; X58.XXXA Exposure to other specified factors, initial encounter; M19.90 Unspecified osteoarthritis, unspecified site; G47.30 Sleep apnea, unspecified; I25.10 Atherosclerotic heart disease of native coronary artery without angina pectoris; I50.9 Heart failure, unspecified; I73.9 Peripheral vascular disease, unspecified; E11.40 Type 2 diabetes mellitus with diabetic neuropathy, unspecified; Z79.84 Long term (current) use of oral hypoglycemic drugs | CPT/HCPCS: 97597; A9270 ==

== ENCOUNTER → 2024-06-05 | Outpatient (CLI) | payer MEDICARE, BC, SELFPAY | END | disposition home or self-care (01) | LOC: SWHD 11:00 | PROVIDERS: PCP Internal Medicine; Referring Provider Internal Medicine; Visit Provider Surgery | DX: M19.90 Unspecified osteoarthritis, unspecified site (principal); G47.30 Sleep apnea, unspecified; I25.10 Atherosclerotic heart disease of native coronary artery without angina pectoris; I50.9 Heart failure, unspecified; I73.9 Peripheral vascular disease, unspecified; E11.40 Type 2 diabetes mellitus with diabetic neuropathy, unspecified; Z79.84 Long term (current) use of oral hypoglycemic drugs; R60.0 Localized edema | CPT/HCPCS: 29580; A9270 ==

== ENCOUNTER → 2024-06-08 | Outpatient (CLI) | payer MEDICARE, BC, SELFPAY ==
--- NOTE | 2024-06-08 13:01 | XR_ITS ---
EXAMINATION: Ankle, right 2 views . Technique: Ankle AP, lateral 2 views Date and time of exam: June 08, 2024 at 1312 hrs. Indications: Nonhealing ankle beginning 3 months ago. Findings: Old fractures distal fibular shaft and medial malleolus No maged cortical bone destruction Plantar posterior bony calcaneal spurs. Impression: No maged cortical destruction, consider MRI ankle without contrast follow-up
== END | disposition home or self-care (01) ==
LOC: CDIM 12:48
PROVIDERS: Referring Provider Student in an Organized Health Care Education/Training Program; Visit Provider Student in an Organized Health Care Education/Training Program
DX: E11.621 Type 2 diabetes mellitus with foot ulcer (principal)
CPT/HCPCS: 73600

== ENCOUNTER → 2024-06-12 | Outpatient (CLI) | payer MEDICARE, BC, SELFPAY | END | disposition home or self-care (01) | LOC: SWHD 10:51 | PROVIDERS: PCP Internal Medicine; Referring Provider Internal Medicine; Visit Provider Student in an Organized Health Care Education/Training Program | DX: L97.322 Non-pressure chronic ulcer of left ankle with fat layer exposed (principal); S91.104A Unspecified open wound of right lesser toe(s) without damage to nail, initial encounter; X58.XXXA Exposure to other specified factors, initial encounter; N19 Unspecified kidney failure; I73.9 Peripheral vascular disease, unspecified; M19.90 Unspecified osteoarthritis, unspecified site; G47.30 Sleep apnea, unspecified; E11.40 Type 2 diabetes mellitus with diabetic neuropathy, unspecified; R60.0 Localized edema; Z79.84 Long term (current) use of oral hypoglycemic drugs | CPT/HCPCS: 97597; A9270 ==

== ENCOUNTER → 2024-06-19 | Outpatient (CLI) | payer MEDICARE, BC, SELFPAY | END | disposition home or self-care (01) | LOC: SWHD 13:06 | PROVIDERS: PCP Internal Medicine; Referring Provider Internal Medicine; Visit Provider Student in an Organized Health Care Education/Training Program | DX: L97.322 Non-pressure chronic ulcer of left ankle with fat layer exposed (principal); S91.104A Unspecified open wound of right lesser toe(s) without damage to nail, initial encounter; X58.XXXA Exposure to other specified factors, initial encounter; M19.90 Unspecified osteoarthritis, unspecified site; G47.30 Sleep apnea, unspecified; E11.40 Type 2 diabetes mellitus with diabetic neuropathy, unspecified; R60.0 Localized edema; Z79.84 Long term (current) use of oral hypoglycemic drugs | CPT/HCPCS: 17250; A9270 ==

== ENCOUNTER → 2024-06-21 | Outpatient (CLI) | payer MEDICARE, BC, SELFPAY ==
[2024-06-21 12:31] LABS: Albumin, Serum 3.5 gm/dL (3.4-4.8); Anion Gap 12 (7-16); BUN/Creatinine Ratio 36 Ratio (12-20); Blood Urea Nitrogen 80 mg/dL (9-23); Calcium 9.3 mg/dL (8.3-10.6); Calcium (Corrected) 9.7 mg/dL (8.5-10.1); Carbon Dioxide 25.5 mMol/L (20.0-31.0); Chloride 105 mMol/L (98-107); Creatinine (Component) 2.2 mg/dL (0.6-1.3); Glucose 171 mg/dL (74-106); Osmolality,Calculated 311 (275-295); Phosphorous 4.9 mg/dL (2.4-5.1); Potassium 4.8 mMol/L (3.4-5.1); Sodium 142 mMol/L (136-145); eGFR 22 See Note
== END | disposition home or self-care (01) ==
LOC: COPL 11:35
PROVIDERS: PCP Internal Medicine; Referring Provider Internal Medicine; Visit Provider Internal Medicine
DX: N17.9 Acute kidney failure, unspecified (principal)
CPT/HCPCS: 36415; 80069

== ENCOUNTER → 2024-06-28 | Outpatient (CLI) | payer MEDICARE, BC, SELFPAY ==
[2024-06-28 13:28] LABS: Albumin, Serum 3.5 gm/dL (3.4-4.8); Anion Gap 5 (7-16); BUN/Creatinine Ratio 35 Ratio (12-20); Blood Urea Nitrogen 45 mg/dL (9-23); Calcium 9.5 mg/dL (8.3-10.6); Calcium (Corrected) 9.9 mg/dL (8.5-10.1); Carbon Dioxide 27.2 mMol/L (20.0-31.0); Chloride 106 mMol/L (98-107); Creatinine (Component) 1.3 mg/dL (0.6-1.3); Glucose 186 mg/dL (74-106); Osmolality,Calculated 292 (275-295); Sodium 138 mMol/L (136-145); eGFR 41 See Note
[2024-06-28 14:03] LABS: Collection Type, Urine Clean Catch; WBC,Urine 0 /hpf (0-5)
[2024-06-28 14:36] LABS: Bacteria,Urine Rare; Bilirubin,Urine Negative (Negative); Blood,Urine Negative (Negative); Clarity,Urine Clear (Clear/Hazy); Color,Urine Lt-Yellow (Lt Yel-Yel); Glucose, Urine 1+ (Negative); Ketones,Urine Negative (Negative); Leukocyte Esterase,Urine Positive (Negative); Nitrite,Urine Negative (Negative); Protein,Urine 1+ (Neg - Trace); RBC,Urine 1 /hpf (0-3); Specific Gravity,Urine 1.012 (1.001-1.035); Squamous Epithelial Cell,Urine 4 /hpf (0-5); Urobilinogen,Urine Negative mg/dL (0.0-1.0)
== END | disposition home or self-care (01) ==
PROVIDERS: PCP Internal Medicine; Referring Provider Internal Medicine; Visit Provider Internal Medicine
DX: N17.9 Acute kidney failure, unspecified (principal)
CPT/HCPCS: 36415; 80069; 81001

== ENCOUNTER → 2024-06-28 | Outpatient (CLI) | payer MEDICARE, BC, SELFPAY | END | disposition home or self-care (01) | PROVIDERS: PCP Internal Medicine; Referring Provider Internal Medicine; Visit Provider Student in an Organized Health Care Education/Training Program | DX: L97.322 Non-pressure chronic ulcer of left ankle with fat layer exposed (principal); S91.104A Unspecified open wound of right lesser toe(s) without damage to nail, initial encounter; X58.XXXA Exposure to other specified factors, initial encounter; M19.90 Unspecified osteoarthritis, unspecified site; G47.30 Sleep apnea, unspecified; E11.40 Type 2 diabetes mellitus with diabetic neuropathy, unspecified; R60.0 Localized edema; Z79.84 Long term (current) use of oral hypoglycemic drugs | CPT/HCPCS: 17250; A9270 ==

== ENCOUNTER → 2024-07-05 | Outpatient (CLI) | payer MEDICARE, BC, SELFPAY | END | disposition home or self-care (01) | LOC: SWHD 12:57 | PROVIDERS: PCP Internal Medicine; Referring Provider Internal Medicine; Visit Provider Student in an Organized Health Care Education/Training Program | DX: L97.322 Non-pressure chronic ulcer of left ankle with fat layer exposed (principal); S91.104A Unspecified open wound of right lesser toe(s) without damage to nail, initial encounter; X58.XXXA Exposure to other specified factors, initial encounter; N19 Unspecified kidney failure; I73.9 Peripheral vascular disease, unspecified; M19.90 Unspecified osteoarthritis, unspecified site; G47.30 Sleep apnea, unspecified; E11.40 Type 2 diabetes mellitus with diabetic neuropathy, unspecified; R60.0 Localized edema; Z79.84 Long term (current) use of oral hypoglycemic drugs | CPT/HCPCS: 29580; A9270 ==

== ENCOUNTER → 2024-07-10 | Outpatient (CLI) | payer MEDICARE, BC, SELFPAY | END | disposition home or self-care (01) | LOC: SWHD 13:02 | PROVIDERS: PCP Internal Medicine; Referring Provider Internal Medicine; Visit Provider Surgery | DX: L97.322 Non-pressure chronic ulcer of left ankle with fat layer exposed (principal); S91.104A Unspecified open wound of right lesser toe(s) without damage to nail, initial encounter; X58.XXXA Exposure to other specified factors, initial encounter; N19 Unspecified kidney failure; I73.9 Peripheral vascular disease, unspecified; M19.90 Unspecified osteoarthritis, unspecified site; G47.30 Sleep apnea, unspecified; E11.40 Type 2 diabetes mellitus with diabetic neuropathy, unspecified; R60.0 Localized edema; Z79.84 Long term (current) use of oral hypoglycemic drugs | CPT/HCPCS: 99213; A9270; G0463 ==

== ENCOUNTER 2024-07-12 10:55 | Outpatient (RCR) | payer MEDICARE, BC, SELFPAY ==
--- NOTE | 2024-07-12 11:30 | CTCFLWUP_ITS ---
[facility] [address] [place], [place] [address] FOLLOW-UP NOTE Date: 07/12/2024 MR#: [id number] Name: STACY MEDRANO : 1940 Dx: C50.111 Malignant neoplasm of central portion of right female breast Identification. History of right breast CA [id number] ER positive [facility] negative HER2/saniya negative with right TSA status post right breast partial mastectomy 02/02/2022. Invasive carcinoma 2.8 cm with direct extension of skin hence T4. Low Oncotype DX score of 17 and BRCA gene negative. PET scan 04/17/2022 did not show any obvious mets. Postop XRT to residual right breast tissue and regional node bearing sites 6300 centigray to tumor site and [id number] centigray to the regional node sites completed 06/16/2022. Had bilateral mammogram 08/18/2023 right breast sonogram recommended. Right breast sonogram 09/10/2023 category 3 repeat in 6 months recommended. Right breast sonogram 01/21/2024 BI-RADS 2 benign findings. Exam of the breast bilaterally essentially unremarkable with good cosmetic result of the right breast which received radiation. Has been on tamoxifen under Dr. Mcclellan/DOMITILA Guzman direction I will see her again in 6 months time. Electronically signed by: Monster Jasso M.D. 07/12/2024 11:28 AM
== END 2024-07-26 23:59 | disposition home or self-care (01) ==
LOC: SCTC 10:55
PROVIDERS: PCP Internal Medicine; Referring Provider Internal Medicine; Visit Provider Radiology Therapeutic Radiology
DX: C50.111 Malignant neoplasm of central portion of right female breast (principal); Z17.0 Estrogen receptor positive status [ER+]; Z17.22 Progesterone receptor negative status; Z17.32 Human epidermal growth factor receptor 2 negative status; Z92.3 Personal history of irradiation; Z79.810 Long term (current) use of selective estrogen receptor modulators (SERMs)
CPT/HCPCS: 99213; G0463

== ENCOUNTER → 2024-07-17 | Outpatient (CLI) | payer MEDICARE, BC, SELFPAY | END | disposition home or self-care (01) | LOC: SWHD 12:48 | PROVIDERS: PCP Internal Medicine; Referring Provider Internal Medicine; Visit Provider Surgery | DX: L97.322 Non-pressure chronic ulcer of left ankle with fat layer exposed (principal); S91.104A Unspecified open wound of right lesser toe(s) without damage to nail, initial encounter; X58.XXXA Exposure to other specified factors, initial encounter; N19 Unspecified kidney failure; I73.9 Peripheral vascular disease, unspecified; M19.90 Unspecified osteoarthritis, unspecified site; G47.30 Sleep apnea, unspecified; E11.40 Type 2 diabetes mellitus with diabetic neuropathy, unspecified; R60.0 Localized edema; Z79.84 Long term (current) use of oral hypoglycemic drugs | CPT/HCPCS: 99212; G0463 ==

== ENCOUNTER 2024-07-31 14:00 | Outpatient (RCR) | payer MEDICARE, BC, SELFPAY | END 2024-08-26 23:59 | disposition home or self-care (01) | LOC: SCTC 14:00 | PROVIDERS: PCP Internal Medicine; Referring Provider Internal Medicine; Visit Provider Nurse Practitioner Family | DX: C50.111 Malignant neoplasm of central portion of right female breast (principal); Z17.0 Estrogen receptor positive status [ER+]; Z17.22 Progesterone receptor negative status; Z17.32 Human epidermal growth factor receptor 2 negative status; Z90.11 Acquired absence of right breast and nipple; Z92.3 Personal history of irradiation; Z79.810 Long term (current) use of selective estrogen receptor modulators (SERMs) | CPT/HCPCS: 99212; G0463 ==

== ENCOUNTER → 2024-08-14 | Outpatient (CLI) | payer MEDICARE, BC, SELFPAY ==
[2024-08-14 12:30] LABS: Collection Type, Urine Clean Catch
[2024-08-14 13:10] LABS: Basophils # (Auto) 0.1 Thou/mm3 (0.0-0.2); Basophils % (Auto) 2 % (0-2.5); Eosinophils # (Auto) 0.2 Thou/mm3 (0.0-0.5); Eosinophils % (Auto) 3 % (0-10); Hematocrit 42.3 % (36.0-46.0); Immature Granulocytes % (Auto) 0 % (0-0); Immature Granulocytes Auto 0.03 Thou/mm3 (0.00-0.00); Lymphocytes # (Auto) 2.1 Thou/mm3 (1.0-4.8); Lymphocytes % (Auto) 25 % (10-50); Mean Corpuscular HGB Conc 33.1 g/dl (31.0-37.0); Mean Corpuscular Hemoglobin 29.3 pg (25.0-35.0); Mean Corpuscular Volume 89 fL (80-100); Monocytes # (Auto) 0.6 Thou/mm3 (0.0-0.8); Monocytes % (Auto) 7 % (0-12); Neutrophils # (Auto) 5.1 Thou/mm3 (1.8-7.7); Neutrophils % (Auto) 63 % (37-80); Nucleated Red Blood Cell % 0 /100 WBC (0); Platelet Count 276 Thou/mm3 (140-440); RDW Standard Deviation 43.4 fL (36.4-46.3); Red Blood Count 4.78 Miln/mm3 (4.00-5.20); White Blood Count 8.1 Thou/mm3 (3.6-11.0)
[2024-08-14 13:12] LABS: Bilirubin,Urine Negative (Negative); Blood,Urine Negative (Negative); Clarity,Urine Clear (Clear/Hazy); Color,Urine Lt-Yellow (Lt Yel-Yel); Culture Indicated,Urine Not Indicated; Glucose, Urine Negative (Negative); Ketones,Urine Negative (Negative); Leukocyte Esterase,Urine Negative (Negative); Nitrite,Urine Negative (Negative); PH,Urine 6.5 (5.0-7.0); Protein,Urine Negative (Neg - Trace); RBC,Urine 1 /hpf (0-3); Specific Gravity,Urine 1.007 (1.001-1.035); Squamous Epithelial Cell,Urine 1 /hpf (0-5); Urobilinogen,Urine Negative mg/dL (0.0-1.0); WBC,Urine < 1 /hpf (0-5)
[2024-08-14 13:15] LABS: Alanine Aminotransferase 10 U/L (10-49); Albumin, Serum 3.6 gm/dL (3.4-4.8); Albumin/Globulin Ratio 1.4 (1.2-2.2); Alkaline Phosphatase 97 U/L (46-116); Anion Gap 8 (7-16); Aspartate Amino Transferase 15 U/L (0-34); BUN/Creatinine Ratio 31 Ratio (12-20); Bilirubin,Total 0.5 mg/dL (0.3-1.2); Blood Urea Nitrogen 28 mg/dL (9-23); Calcium 8.7 mg/dL (8.3-10.6); Chloride 102 mMol/L (98-107); Creatinine (Component) 0.9 mg/dL (0.6-1.3); Globulin 2.6 gm/dL (2.3-3.5); Glucose 239 mg/dL (74-106); Osmolality,Calculated 291 (275-295); Phosphorous 2.8 mg/dL (2.4-5.1); Potassium 3.8 mMol/L (3.4-5.1); Sodium 139 mMol/L (136-145); Total Protein 6.2 gm/dL (5.7-8.2); eGFR > 60 See Note
[2024-08-14 14:58] LABS: CA 15-3 24.4 U/mL (<32.4); Carcinoembryonic Antigen 1.6 ng/mL (0.0-5.0)
== END | disposition home or self-care (01) ==
LOC: SCTO 11:52
PROVIDERS: PCP Internal Medicine; Referring Provider Nurse Practitioner Family; Visit Provider Nurse Practitioner Family
DX: C50.111 Malignant neoplasm of central portion of right female breast (principal); I10 Essential (primary) hypertension; N17.9 Acute kidney failure, unspecified
CPT/HCPCS: 36415; 80053; 81001; 82378; 84100; 85025; 86300

== ENCOUNTER → 2024-08-23 | Outpatient (CLI) | payer MEDICARE, BC, SELFPAY ==
--- NOTE | 2024-08-23 12:43 | XR_ITS ---
Examination: Screening digital mammography, bilateral Computer aided detection 3-D breast Tomosynthesis, bilateral Date and time of exam: August 23, 2024 1334 hours Compared to mammograms dating to December 29, 2010 Indication: Screening Technique: Nonmagnified MLO, CC views of the breasts to been obtained, reconstructed from 3-D Tomosynthesis images. R2 computer aided detection program utilized for evaluation of suspicious masses and/or abnormal calcifications. 3-D Tomosynthesis images obtained. Findings: Scattered areas of fibroglandular density. Diffuse scar formation and skin thickening right breast again noted consistent with patient's history of treated right breast cancer Stable numerous calcifications No interval suspicious masses, however please see the right breast sonogram report today indicating 9:00 suspicious nodule right breast 5 x 5 mm Impression: BI-RADS Category 4: Suspicious for malignancy Suspicious mass on today's ultrasound right breast, 9:00 position, 5 x 5 mm, biopsy of this nodule is needed under ultrasound guidance to exclude breast carcinoma
--- NOTE | 2024-08-23 13:00 | XR_ITS ---
Examination: Breast ultrasound complete, bilateral Date and time of exam: August 23, 2024 1310 hours INDICATIONS: Palpable lump upper inner right breast one month, personal history right breast cancer lumpectomy January 2022, family history breast cancer Technique: Real-time grayscale ultrasonographic imaging bilateral breasts, including all 4 quadrants as well as nipple retroareolar and axillary regions. Findings: Sonographic images right breast 9:00 nodule indistinct margins 5 x 5 mm Retroareolar cyst 10 x 13 mm, seroma Sonographic images left breast 3:00 circumscribed nodule 3 x 4 mm IMPRESSION: BI-RADS Category 4: Suspicious for malignancy Suspicious nodule 9:00 position right breast, biopsy is needed to exclude breast carcinoma, this mass is amenable to ultrasound-guided breast biopsy for diagnosis
== END | disposition home or self-care (01) ==
LOC: CDIM 12:35
PROVIDERS: PCP Internal Medicine; Referring Provider Nurse Practitioner Family; Visit Provider Nurse Practitioner Family
DX: Z12.31 Encounter for screening mammogram for malignant neoplasm of breast (principal); R92.343 Mammographic extreme density, bilateral breasts; N63.15 Unspecified lump in the right breast, overlapping quadrants; C50.111 Malignant neoplasm of central portion of right female breast
CPT/HCPCS: 76641; 77063; 77067

== ENCOUNTER 2024-08-31 14:47 | Outpatient (RCR) | payer MEDICARE, BC, SELFPAY | END 2024-09-25 23:59 | disposition home or self-care (01) | LOC: SCTC 14:47 | PROVIDERS: PCP Internal Medicine; Referring Provider Internal Medicine; Visit Provider Nurse Practitioner Family | DX: C50.111 Malignant neoplasm of central portion of right female breast (principal); Z17.0 Estrogen receptor positive status [ER+]; Z17.22 Progesterone receptor negative status; Z17.32 Human epidermal growth factor receptor 2 negative status; Z79.810 Long term (current) use of selective estrogen receptor modulators (SERMs); Z90.11 Acquired absence of right breast and nipple; Z92.3 Personal history of irradiation; R06.02 Shortness of breath; R53.83 Other fatigue | CPT/HCPCS: 99212; G0463 ==

== ENCOUNTER → 2024-09-06 | Outpatient (CLI) | payer MEDICARE, BC, SELFPAY ==
--- NOTE | 2024-09-06 14:31 | XR_ITS ---
Examination: PA lateral chest 2 views TECHNIQUE: Upright PA lateral chest 2 views Date and time: September 06, 2024 1436 hours Comparison September 04, 2022 INDICATIONS: Difficulty breathing this week FINDINGS: Mild to moderate left pleural fluid Mild prominence left ventricle Cardiac leads satisfactory position No pulmonary edema IMPRESSION: Mild to moderate left pleural fluid
== END | disposition home or self-care (01) ==
PROVIDERS: PCP Internal Medicine; Referring Provider Nurse Practitioner Family; Visit Provider Nurse Practitioner Family
DX: C50.111 Malignant neoplasm of central portion of right female breast (principal)
CPT/HCPCS: 71046

== ENCOUNTER → 2024-09-14 | Outpatient (CLI) | payer MEDICARE, BC, SELFPAY ==
[2024-09-14 12:00] LABS: Albumin, Serum 3.9 gm/dL (3.4-4.8); Anion Gap 9 (7-16); BUN/Creatinine Ratio 35 Ratio (12-20); Blood Urea Nitrogen 38 mg/dL (9-23); Calcium 10.1 mg/dL (8.3-10.6); Calcium (Corrected) 10.2 mg/dL (8.5-10.1); Carbon Dioxide 30.7 mMol/L (20.0-31.0); Chloride 101 mMol/L (98-107); Creatinine (Component) 1.1 mg/dL (0.6-1.3); Glucose 115 mg/dL (74-106); Osmolality,Calculated 291 (275-295); Phosphorous 4.4 mg/dL (2.4-5.1); Sodium 141 mMol/L (136-145); eGFR 50 See Note
== END | disposition home or self-care (01) ==
LOC: COPL 10:29
PROVIDERS: PCP Internal Medicine; Referring Provider Internal Medicine Cardiovascular Disease; Visit Provider Internal Medicine Cardiovascular Disease
DX: I73.9 Peripheral vascular disease, unspecified (principal)
CPT/HCPCS: 36415; 80069

== ENCOUNTER → 2024-09-27 | Outpatient (CLI) | payer MEDICARE, BC, SELFPAY ==
--- NOTE | 2024-09-27 15:00 | XR_ITS ---
Examination: CTA chest with intravenous contrast 2-D reconstructions 3-D reconstructions, vascular Date and time of exam: September 27, 2024, 1437 hours INDICATIONS: Diagnosis malignant neoplasm central portion right female breast, shortness of breath 3 months, right breast carcinoma diagnosis 3 years ago CTDI: vol (mGy) 18.7 DLP: (mGycm) 432 Technique: Multiple axial sections of the thorax have been obtained. 3 mm slice thickness, from below the hemidiaphragms to above the apices of the lungs. Mediastinal and lung density settings have been obtained. 2-D sagittal and coronal reconstructions. 3-D angiographic renderings, 3-D volume renderings, 3D post processing, vascular maximum intensity projections obtained. Contrast administered is 100 cc Isovue-370. Intravenous Low dose protocols were performed. One or more of the following dose reduction techniques were used; automated exposure control, adjustment of the mA and/or KV according to patient size, use of iterative reconstruction technique. Findings: No thoracic aortic aneurysm dilatation or dissection No pulmonary artery filling defects Left anterior descending coronary artery stent Moderate enlargement cardiac contour Significant vascular congestion with small bilateral pleural effusions and septal edema at the lung bases Cardiac leads satisfactory position Small bilateral pleural effusions No current breast masses No liver splenic lesion Moderate thoracic spondylosis IMPRESSION: Mild CHF Negative for pulmonary artery emboli
== END | disposition home or self-care (01) ==
PROVIDERS: Referring Provider Nurse Practitioner Family; Visit Provider Nurse Practitioner Family
DX: I50.9 Heart failure, unspecified (principal); C50.111 Malignant neoplasm of central portion of right female breast
CPT/HCPCS: 71275; A4649; Q9967

== ENCOUNTER 2024-10-03 15:20 | Outpatient (RCR) | payer MEDICARE, BC, SELFPAY | END 2024-10-26 23:59 | disposition home or self-care (01) | LOC: SCTC 15:20 | PROVIDERS: PCP Internal Medicine; Referring Provider Internal Medicine; Visit Provider Nurse Practitioner Family | DX: C50.111 Malignant neoplasm of central portion of right female breast (principal); Z17.0 Estrogen receptor positive status [ER+]; Z17.22 Progesterone receptor negative status; Z17.32 Human epidermal growth factor receptor 2 negative status; Z79.810 Long term (current) use of selective estrogen receptor modulators (SERMs); Z90.11 Acquired absence of right breast and nipple; Z92.3 Personal history of irradiation; I50.9 Heart failure, unspecified; N18.9 Chronic kidney disease, unspecified; R53.83 Other fatigue | CPT/HCPCS: 99212; G0463 ==

== ENCOUNTER → 2024-10-05 | Outpatient (CLI) | payer MEDICARE, BC, SELFPAY ==
[2024-10-04 11:06] LABS: Basophils # (Auto) 0.2 Thou/mm3 (0.0-0.2); Basophils % (Auto) 2 % (0-2.5); Eosinophils # (Auto) 0.3 Thou/mm3 (0.0-0.5); Eosinophils % (Auto) 2 % (0-10); Hematocrit 45.5 % (36.0-46.0); Hemoglobin 14.6 g/dL (12.0-16.0); Immature Granulocytes Auto 0.04 Thou/mm3 (0.00-0.00); Lymphocytes # (Auto) 3.0 Thou/mm3 (1.0-4.8); Lymphocytes % (Auto) 28 % (10-50); Mean Corpuscular HGB Conc 32.1 g/dl (31.0-37.0); Mean Corpuscular Hemoglobin 27.9 pg (25.0-35.0); Mean Corpuscular Volume 87 fL (80-100); Monocytes # (Auto) 0.8 Thou/mm3 (0.0-0.8); Monocytes % (Auto) 7 % (0-12); Neutrophils # (Auto) 6.5 Thou/mm3 (1.8-7.7); Neutrophils % (Auto) 60 % (37-80); Nucleated Red Blood Cell # 0.00 Thou/mm3 (0.00-0.00); Nucleated Red Blood Cell % 0 /100 WBC (0); Platelet Count 313 Thou/mm3 (140-440); RDW Standard Deviation 47.3 fL (36.4-46.3); Red Blood Count 5.24 Miln/mm3 (4.00-5.20); White Blood Count 10.7 Thou/mm3 (3.6-11.0)
[2024-10-04 11:11] LABS: INR 1.0 (0.9-1.3); Partial Thromboplastin Time 25.9 Seconds (22.0-36.0); Prothrombin Time 10.8 Seconds (9.0-12.2)
--- NOTE | 2024-10-05 10:30 | XR_ITS ---
Examinations: Ultrasound-guided percutaneous breast biopsy, right breast 9:00 nodule Right breast sonography limited INDICATIONS: Right breast sonogram August 15, 2024 BI-RADS 4 suspicious nodule 9:00 position right breast. Exam date and time: October 05, 2024 1029 hours. Informed consent provided. Technique: A timeout was completed verifying correct patient, procedure, site, positioning, and special equipment if applicable Informed consent provided. The patient was placed in a supine position for the breast biopsy. Sonographic images of the breast were performed for localization of the suspicious nodule The patient's breast was prepped and draped in sterile fashion. Maximum sterile barrier technique, hand hygiene, ultrasound sterile technique 1% lidocaine was used to anesthetize the skin and breast adjacent to the suspicious nodule. Utilizing ultrasonographic guidance, 8 core biopsies were obtained of the suspicious nodule utilizing an 18-gauge BioPince needle. The specimens appears satisfactory. US guided breast biopsy marker placement. Estimated blood loss 3 cc. The patient tolerated the procedure well and there were no complications. Impression: Successful ultrasound-guided percutaneous breast biopsy, right breast 9:00 nodule. Ultrasound guided breast biopsy marker placement.
== END | disposition home or self-care (01) ==
LOC: SDIM 09:51 → SIRX 09:52
PROVIDERS: Radiology Diagnostic Radiology; PCP Internal Medicine; Referring Provider Internal Medicine; Visit Provider Internal Medicine
DX: D24.1 Benign neoplasm of right breast (principal); R92.1 Mammographic calcification found on diagnostic imaging of breast; L92.3 Foreign body granuloma of the skin and subcutaneous tissue; Z01.812 Encounter for preprocedural laboratory examination
CPT/HCPCS: 19083; 36415; 85025; 85610; 85730

== ENCOUNTER → 2024-10-19 | Outpatient (CLI) | payer MEDICARE, BC, SELFPAY ==
[2024-10-19 13:26] LABS: Glucose Estimated Average 148 mg/dL (80-131); Hemoglobin A1C 6.8 % Hgb (4.8-6.0)
[2024-10-19 13:33] LABS: Albumin, Serum 3.6 gm/dL (3.4-4.8); Anion Gap 8 (7-16); BUN/Creatinine Ratio 31 Ratio (12-20); Blood Urea Nitrogen 44 mg/dL (9-23); Calcium 9.4 mg/dL (8.3-10.6); Calcium (Corrected) 9.7 mg/dL (8.5-10.1); Carbon Dioxide 29.1 mMol/L (20.0-31.0); Chloride 105 mMol/L (98-107); Creatinine (Component) 1.4 mg/dL (0.6-1.3); Glucose 134 mg/dL (74-106); Osmolality,Calculated 296 (275-295); Phosphorous 4.0 mg/dL (2.4-5.1); Potassium 4.8 mMol/L (3.4-5.1); Sodium 142 mMol/L (136-145); eGFR 38 See Note
== END | disposition home or self-care (01) ==
LOC: COPL 11:45
PROVIDERS: PCP Internal Medicine; Referring Provider Internal Medicine; Visit Provider Internal Medicine
DX: E11.9 Type 2 diabetes mellitus without complications (principal); N17.9 Acute kidney failure, unspecified
CPT/HCPCS: 36415; 80069; 83036

== ENCOUNTER 2024-10-31 09:26 | Outpatient (RCR) | payer MEDICARE, BC, SELFPAY ==
--- NOTE | 2024-11-06 01:14 | CTCFLWUP_ITS ---
Patient: ADENIKE MEDRANO : 1940 Page 8 of 10 FOLLOW UP NOTE DATE OF SERVICE: 10/31/2024 NAME: ADENIKE MEDRANO ACCOUNT: [id number] : 1940 AGE: 84 INTERVAL HISTORY: Patient is here to follow-up on her history of right breast cancer status postlumpectomy. Patient has multiple medical problems including diabetes hypertension dyslipidemia and hypothyroid us along with coronary stenting. Patient is here to discuss biopsy results from 10/05/2024 which showed benign ce lls ONCOLOGY HISTORY:?[facility] Hx? 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 Low Oncotype DX score of 17. Currently on tamoxifen 10 mg p.o. daily S/p right breast lumpectomy (02/12/2022) S/p radiation therapy (04/22/2022 - 06/26/2022) Right breast invasive ductal carcinoma, s/p ultrasound-guided biopsy (01/27/2022) Sister and niece were diagnosed with breast cancers in last 3 months. BRCA 1 and 2 negative. Sick sinus syndrome. Malignant neoplasm of central portion of right female breast [ICD10] C50.111 DATE OF DIAGNOSIS: 01/27/2022 STAGE/TNM: Right breast T2 N0 M0 2.5 cm nuclear grade 2 ER 95% WY 0% HER2 1+ Ki-67 10% S/p lumpectomy [facility] was negative Oncotype DX score 17 distant recurrence at 9 years with antiendocrine therapy 5% benefit of chemo less than 1% TREATMENT HISTORY: Care?Plan Start?Date Cycle Day Intent HISTORY OF PRESENT ILLNESS: Ms. Medrano is here at [facility]. She is currently on tamoxifen 10 mg p.o. daily. Patient is scheduled for right breast ultrasound 01/21/2024. Denies any cough, chest pain, abdominal pain or leg cramps, weight loss. HISTORY: Adenike Medrano is a 84-year-old ENG speaking female with history of type 2 diabetes currently on insulin, peripheral neuropathy secondary to diabetes, coronary artery disease, s/p stent placements, currently being followed by Angélica Tipton has been having intermittent right breast nipple discharge for last 10 years. 01/21/2021: Ms. Medrano had bilateral breast ultrasound. Patient was complaining hardness of the right nipple a few months duration. 02/10/2021: Bilateral screening mammograms? 03/12/2021: Right breast ultrasound? biopsy was not performed. 12/30/2021: Right breast ultrasound? 01/08/2022: Bilateral diagnostic mammograms? 01/27/2022: Ultrasound-guided right breast biopsy? 02/12/2022: Right breast lumpectomy. [place] lymph node biopsy was not done. 04/21/2022: PET/CT scan 04/30/2022: High risk genetic testing? 04/22/2022 - 06/26/2022: Patient received 6300 cGy radiation therapy to the right breast. 06/18/2022: Density test? OTHER MEDICAL HISTORY/CONDITIONS: Diabetes HTN CA - 2019 CAD Hyperlipedemia Bradycardia Hypothyroid Hx Rheumatic fever Right breast lumpectomy - 02/12/22 Coronary stent x - 2019 Coronary stents x 3 - 4-5 yrs ago Left TKA - 2020 Right TKA - 2017 TVH - 25 yrs ago Appendecctomy - 51 yrs ago T and A - age 7 Stents, following up with [employer] bi consultant, Dr. Miri Green CKD, following up with Dr. 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 acetaminophen - 500 mg 1 tab Twice a Day 2. Acetyl L-CARNitine - 250 mg 2 Capsule Daily 3. alpha lipoic acid - 600 mg 1 Capsule Daily 4. ascorbic acid (vitamin C) - 500 mg 1 Capsule Daily 5. aspirin - 80 mg 1 tab Each Day 6. clopidogrel - 75 mg 1 tab Daily 7. Entresto - 97-103 mg 1 tab Daily 8. Entresto - 24-26 mg 1 tab Twice a Day 9. gabapentin - 100 mg 1 Capsule Twice a Day 10. hydrochlorothiazide - 25 mg 1 tab Daily 11. Lantus - 100 unit/mL As directed 12. levothyroxine - 175 mcg 1 tab Daily 13. metFORMIN - 500 mg 1 tab Daily 14. metoprolol succinate - 50 mg 1 tab Daily 15. nitrofurantoin - 100 mg 1 Capsule Daily 16. nitroglycerin - 0.4 mg 1 tab As directed 17. ranolazine - 500 mg 1 tab Twice a Day 18. spironolactone - 25 mg 1 tab Daily 19. tamoxifen - 10 mg 90 tab Daily 20. Tradjenta - 5 mg 1 tab Daily 21. Tricor - 145 mg 1 tab Daily 22. Trulicity - 3 mg/0.5 mL 3 mg Weekly 23. Tylenol Arthritis Pain - 650 mg 1 tab Twice a Day 24. vibegron - 75 mg 1 tab Daily?Palabra Meds? Medications Last Reconciled by Olivia Gimenez MD on 10/31/2024 ALLERGIES: Sulfa (Sulfonamide Antibiotics); codeine sulfate; midazolam HCl/PF; hydralazine HCl REVIEW OF SYSTEMS: A complete 14-point review of systems was performed and is negative except as noted in interval history. PHYSICAL EXAMINATION:?[facility] PE? VITAL SIGNS: PAIN: 0 - No pain Not done visit was telemedicine LABORATORY DATA: I have personally reviewed and interpreted each of the patient?s relevant lab tests, abnormal findings are below: Date 06/28/24 09/14/24 10/04/24 10/19/24 ??WHITE?BLOOD?COUNT?(Thou/mm3) ? ? 10.7 ? ??RED?BLOOD?COUNT?(Miln/mm3) ? ? 5.24?H ? ??HEMOGLOBIN?(gm/dl) ? ? 14.6 ? ??HEMATOCRIT?(%) ? ? 45.5 ? ??PLATELET?COUNT?(Thou/mm3) ? ? 313 ? ??NEUTROPHILS?%,?AUTO?(%) ? ? 60 ? ??LYMPH?%,?AUTO?(%) ? ? 28 ? ??NEUTROPHILS,?AUTO?(Thou/mm3) ? ? 6.5 ? ??GLUCOSE,RANDOM?(mg/dL) 186?H 115?H ? 134?H ??BLOOD?UREA?NITROGEN?(mg/dL) 45?H 38?H ? 44?H ??CREATININE?(mg/dL) 1.30 1.10 ? 1.40?H ??SODIUM?(mmol/L) 138 141 ? 142 ??POTASSIUM?(mmol/L) 5.0 4.0 ? 4.8 ??CHLORIDE?(mmol/L) 106 101 ? 105 ??CrCl?(CandG)?(ml/min) 40.99 48.41 ? 38.04 ??ALBUMIN,?SERUM?(gm/dl) 3.5 3.9 ? 3.6 ??CALCIUM,?SERUM?(mg/dL) 9.5 10.1 ? 9.4 ??CALCIUM?SERUM?(CORRECTED)?(mg/dL) 9.9 10.2?H ? 9.7 ASSESSMENT/PLAN:?Dirk Mcclellan Assessment/Plan? 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 Low Oncotype DX score of 17. S/p right breast lumpectomy (02/12/2022) S/p radiation therapy (04/22/2022 - 06/26/2022) BRCA 1 and 2 negative. Assessment: Patient has a history of breast cancer and is currently on tamoxifen 10 mg due to intolerance of the [address] scan in 2022 was negative for metastatic disease. Recent chest X-ray and tumor markers (CA 15-3) were within normal limits on 08/14/2024. A right breast biopsy is scheduled for 10/05/2024. Felicitas testing is pending. Given the complex medical history and current symptoms, there was a concern for potential risks associated with tamoxifen use, including pulmonary embolism (as per black-box warnings), CTA was negative for PE. Continue tamoxifen Biopsies negative Congestive Heart Failure Assessment: Patient has a history of congestive heart failure with recent complaints of shortness of breath and fatigue. A CTA was negative for pulmonary embolism but showed mild CHF and mild to moderate pleural effusion. The patient recently saw [employer] bi consultant Dr. Holcomb, who according to patient reviewed the CT and chest X-ray and made adjustments to her diuretic medications. Symptoms have improved with current management compared to previous visit. Plan: - Continue follow-up with [employer] bi consultant Dr. Param Green for management of diuretics and CHF symptoms - Monitor for improvement in shortness of breath and fatigue Chronic Kidney Disease Assessment: Patient has a history of decreased kidney function, which led to discontinuation of diuretics by mine exploration engineer Dr. Samayoa according to patient. The patient continues to follow up with both cardiology and nephrology for management of her complex cardiac and renal conditions. Plan: - Continue follow-up with mine exploration engineer Dr. Samayoa - continue follow up with PCP, cardiology and nephrology for optimal management of CHF and kidney function Fatigue Assessment: Patient reports fatigue, which may be multifactorial given her history of cancer and current CHF. An anemia workup is warranted to rule out potential causes of fatigue. Plan: - Complete previously ordered labs prior to follow-up: - CBC - CMP - Reticulocyte count - Iron panel - Vitamin B12 - Folate - haptoglobin - LDH - Review lab results at next follow-up RETURN TO CLINIC: I reviewed the diagnosis, prognosis, and recommended treatment/procedure options with the patient (and/or their legal welding equipment sales representative), including the potential benefits, risks, side effects and alternative therapies. We also discussed the option of no treatment and the possibility of clinical trial participation, if applicable. All questions were addressed, and they demonstrated understanding. They provided informed consent to proceed with the proposed plan of care. BILLING AND COMPLIANCE: I reviewed external records from providers outside my specialty as summarized above. I spent a total of 50 minutes on this patient?s care on the day of their visit excluding time spent related to any billed procedures. This time includes time spent with the patient as well as time spent documenting in the medical record, reviewing patients records and tests, obtaining history, placing orders, communicating with other healthcare professionals, counseling the patient, family or caregiver, and/or care coordination for the diagnoses above. Electronically Signed by: David Mcclellan MD T: 1:12 AM CC: PCP: Juan Luis Samayoa Referring: Juan Luis Samayoa This document was completed utilizing speech recognition software. Grammatical errors, random word insertions, pronoun errors, and incomplete sentences are an occasional consequence of this system due to software limitations, ambient noise, and hardware issues. Any formal questions or concerns about the content, text or information contained within the body of this dictation should be directly addressed to the provider for clarification.
== END 2024-11-26 23:59 | disposition home or self-care (01) ==
LOC: SCTC 09:26
PROVIDERS: PCP Internal Medicine; Referring Provider Internal Medicine; Visit Provider Internal Medicine Hematology & Oncology
DX: C50.111 Malignant neoplasm of central portion of right female breast (principal); Z17.0 Estrogen receptor positive status [ER+]; Z17.22 Progesterone receptor negative status; Z17.32 Human epidermal growth factor receptor 2 negative status; Z79.810 Long term (current) use of selective estrogen receptor modulators (SERMs); I50.9 Heart failure, unspecified; N18.9 Chronic kidney disease, unspecified
CPT/HCPCS: 99212; G0463

== ENCOUNTER 2024-11-11 16:53 | Inpatient (IN) | payer MEDICARE, BC, SELFPAY ==
[2024-11-11] VITALS (11 sets, daily range): BP systolic 81–104; BP diastolic 52–85; PULSE 83–118; RESP 15–22; TEMP 36.3–37.1; O2SAT 94–100; BMI 29.8
--- NOTE | 2024-11-11 17:07 | XR_ITS ---
Examination: CT abdomen and pelvis without contrast. Coronal 3-D reconstructions. Sagittal 2-D reconstructions. Date and time of exam:November 11, 2024 1820 hours, comparison May 16, 2024 INDICATIONS: Onset abdominal pain today CTDI: vol (mGy): 15.9 DLP: (mGycm): 878 Technique: Axial images of the abdomen have been obtained, 3 mm slice thickness Intravenous contrast material has not been administered. Low dose protocols were performed. One or more of the following dose reduction techniques were used; automated exposure control, adjustment of the mA and/or KV according to patient size, use of iterative reconstruction technique. Findings: Pericardial effusion anteriorly measuring up to 13 mm Pneumonia left base with mild to moderate left pleural effusion Liver is mildly irregular in contour with small calcifications Possible gallstones Spleen is not enlarged Pancreatic calcifications no pancreatic edema Significant bilateral renal scarring with perinephric stranding, no hydronephrosis or renal or ureteral calculi Aorta normal size No pericecal inflammatory change. Colonic diverticulosis, no diverticulitis Absent uterus Urinary bladder is intact Transpedicular lumbar fusion L4-L5 with anatomic alignment Moderate narrowing hip joints IMPRESSION: Pneumonia left base with mild to moderate left pleural fluid Suspect primary hepatocellular disease Recommend hepatobiliary sonography to confirm cholelithiasis Pancreatic calcifications consistent with prior episodes of pancreatitis, no current pancreatitis Significant bilateral renal scarring with perinephric stranding, consider urinary tract infection
--- NOTE | 2024-11-11 17:07 | XR_ITS ---
Examination: AP chest single view TECHNIQUE: AP portable upright chest single view. Date and time: November 11, 2024, 1835 hours, comparison September 06, 2024 INDICATIONS: Chest pain shortness of breath today. FINDINGS: Mildly enlarged right cardiac contour. Atelectasis and/or pneumonia at the left lung base with moderate left pleural fluid. No pulmonary edema Cardiac leads stable position IMPRESSION: Atelectasis and/or pneumonia at the left lung base with moderate left pleural fluid
--- NOTE | 2024-11-11 17:07 | EKG_ITS ---
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
--- NOTE | 2024-11-11 17:07 | PC.NURSE ---
Patient BIBA from home where she resides alone. Patient states lower quadrent ABD pain associated with N/V/D x2 days. Patient also c/o intermittent chest pain x6 months. Patient took nitro at home for her chest pain. Patient in [facility] connected to monitors. No signs of acute distress noted. Dried vomit to chest looks coffee ground. Provider notified. Work up in progress.
--- NOTE | 2024-11-11 17:15 | PD.EDNV ---
Nausea/Vomit./Diarrhea-RME/HPI General Chief complaint: Nausea/Vomiting/Diarrhea Stated complaint: GENERAL WEAKNESS Time Seen by Provider: 11/11/24 17:09 Arrival date/time: 11/11/24 16:53 RME / HPI RME / HPI Narrative: 84-year-old female patient with significant history of diabetes mellitus hypertension, CAD, status post cardiac stent placement total of 9 stents, currently taking aspirin and Plavix was brought in by EMS for evaluation regarding abdominal pain/epigastric pain for 2 days associated with coffee-ground vomiting today. Patient also complained of generalized body weakness. Patient denies any other complaints. Patient road maker is Dr. Green Related Data Home Medications ?Medication ?Instructions ?Recorded ?Confirmed gabapentin 100 mg capsule 100 mg PO BID #0 caps 06/09/13 04/25/24 linagliptin 5 mg tablet (Tradjenta) 5 mg PO QDAY ##0 06/09/13 04/25/24 aspirin 81 mg tablet,delayed 81 mg PO HS 12/16/18 04/25/24 release (Aspir-) hydrochlorothiazide 25 mg tablet 12.5 mg PO BID 10/11/20 04/25/24 levothyroxine 175 mcg tablet 175 mcg PO QDAY 10/11/20 04/25/24 (Synthroid) metformin 500 mg tablet 500 mg PO QDAY 10/11/20 04/25/24 Held on 12/20/23. Instructions: Resume on 12/22/23. Hold for 2 days. May resume 12/22/23. nitroglycerin 0.4 mg sublingual 0.4 mg buccal Q3-4HRPRN PRN Chest 10/11/20 04/25/24 tablet (Nitrostat) Pain blood-glucose,dynamite cartridge crimper,cont 01/01/22 04/25/24 (Dexcom G6 Missile Tracking Technician) B-complex with vitamin C 1 tab PO QDAY 02/11/22 04/25/24 acetylcarnitine HCl 250 mg capsule 500 mg PO BID 02/11/22 04/25/24 alpha lipoic acid 300 mg capsule 600 mg PO QDAY 02/11/22 04/25/24 biotin 5,000 mcg-lutein 10 mg 1 tab PO DAILY 02/11/22 04/25/24 tablet (Biotin Plus) cinnamon bark 500 mg capsule 1,000 mg PO HS 02/11/22 04/25/24 (Cinnamon) dulaglutide 3 mg/0.5 mL 3 mg subcut QWEEK 02/11/22 04/25/24 subcutaneous pen injector (Trulicity) insulin glargine 100 unit/mL 50 unit subcut DAILY 02/11/22 04/25/24 subcutaneous solution (Lantus U-100 Insulin) insulin glargine 100 unit/mL 60 unit subcut HS 02/11/22 04/25/24 subcutaneous solution (Lantus U-100 Insulin) amlodipine 5 mg tablet (Norvasc) 5 mg PO QDAY 09/04/22 04/25/24 clopidogrel 75 mg tablet (Plavix) 75 mg PO QDAY 09/04/22 04/25/24 fenofibrate 150 mg capsule 145 mg PO DAILY 09/04/22 04/25/24 alpha lipoic acid 300 mg capsule 300 mg PO HS 11/25/22 04/25/24 tamoxifen 10 mg tablet 20 mg PO QDAY 11/25/22 04/25/24 nitrofurantoin 100 mg PO QDAY 10/26/23 04/25/24 monohydrate/macrocrystals 100 mg capsule (Macrobid) vibegron 75 mg tablet (Gemtesa) 75 mg PO QDAY 10/26/23 04/25/24 B-complex with vitamin C 1 tab PO DAILY 12/20/23 04/25/24 ascorbic acid (vitamin C) 500 mg 500 mg PO QDAY 12/20/23 04/25/24 tablet,extended release biotin 1,000 mcg chewable tablet 1,000 mcg PO QDAY 12/20/23 04/25/24 ranolazine 500 mg tablet,extended 500 mg PO BID 12/20/23 04/25/24 release,12 hr sacubitril 97 mg-valsartan 103 mg 1 tab PO BID 12/20/23 04/25/24 tablet (Entresto) spironolactone 25 mg tablet 25 mg PO DAILY 12/20/23 04/25/24 (Aldactone) Previous Rx's ?Medication ?Instructions ?Recorded metoprolol succinate 100 mg 50 mg (1/2 x 100 mg) PO BID #30 ea 10/29/23 capsule sprinkle, ext. release 24 hr Allergies Allergy/AdvReac Type Severity Reaction Status Date / Time Sulfa (Sulfonamide Allergy Intermediate THROAT Verified 05/16/24 12:51 Antibiotics) SWELLS SHUT hydralazine Allergy Diarrhea Verified 05/16/24 12:51 codeine AdvReac Intermediate Vomiting Verified 05/16/24 12:51 midazolam (From Versed) AdvReac Insomnia Verified 05/16/24 12:51 Review of Systems Review of Systems Narrative Review of Systems: Review of system reviewed and within normal limits except mentioned in HPI ED Exam Narrative Physical exam: VITAL SIGNS: Reviewed. GENERAL APPEARANCE: Alert and interactive, follows commands, no acute distress, HEAD AND FACE: Non-traumatic. ENT: PERRL,, pale conjunctiva, eyelid no trauma, Mucous membrane moist. NECK: Supple, nontender, no nuchal rigidity. CHEST: No tenderness, no crepitus, no paradoxical movement, no retractions. LUNGS: Clear, well ventilated, symmetric, no rales, no wheezing, no ronchi, no stridor, good breath sounds bilaterally. HEART: Regular rate, regular rhythm, no murmur, no gallops. ABDOMEN: Soft, positive bowel sounds, nondistended, no guarding, nontender, no rebound, no masses, RECTAL: Deferred. GENITAL: Deferred. NEUROLOGICAL: Gross motor function intact sensory function intact, Appropriate for age. MUSCULOSKELETAL: low back nontender, full range of motion. EXTREMITIES: Nontender, full range of motion. SKIN: Color pale, dry, no rash, no lacerations, no abrasions, no contusions. LYMPHATICS: Deferred. Course Quality Measures none Orders Category Date Time Status Bedside Blood Glucose Q2HX3 Care 11/11/24 18:48 Active COVID-19 Screening Questionnaire NOW Care 11/11/24 19:32 Active Decision to Admit X1 Care 11/11/24 19:32 Completed EKG (ED ONLY) *Do not use* NOW Care 11/11/24 17:07 Completed EKG (ED ONLY) *Do not use* NOW Care 11/11/24 19:05 Completed Endoscopy Consents .On arrival Care 11/11/24 19:32 Active NPO NOW Care 11/11/24 19:32 Active Occult Blood,Stool (Nursing) NOW Care 11/11/24 17:07 Active Saline [Insert IV] NOW Care 11/11/24 19:30 Completed Transfuse,blood/blood products ONCE Care 11/11/24 18:24 Active Consult to Gastroenterology Stat Cons 11/11/24 18:53 Ordered Diet NPO (NOW) Diet 11/11/24 19:[address] abdomen pelvis wo con Stat Exams 11/11/24 17:07 Completed EKG (ED Only) Stat Exams 11/11/24 17:07 Draft EKG (ED Only) Stat Exams 11/11/24 19:04 Draft XR chest 1V Stat Exams 11/11/24 17:07 Taken CBC Stat Lab 11/11/24 17:30 Completed Comprehensive Metabolic Panel Stat Lab 11/11/24 17:30 Completed Partial Thromboplastin Time Stat Lab 11/11/24 17:30 Completed Prothrombin Time with INR Stat Lab 11/11/24 17:30 Completed Troponin I Stat Lab 11/11/24 17:30 Completed Type and Screen Stat Lab 11/11/24 17:30 Results Urinalysis Stat Lab 11/11/24 18:00 Completed prbc [Red Blood Cells] Stat Lab 11/11/24 17:30 Results ALBUTEROL RT 0.5ml [Proventil Rt 0.5ml] Med 11/11/24 18:46 Discontinued 5 mg INH X1 ONE Calcium Gluconate 10% Inj Med 11/11/24 18:46 Discontinued 1 gm IV X1 ONE Dextrose 50% Syr [D50w Syringe Abboject] Med 11/11/24 19:07 Discontinued 50 ml IVP X1 ONE Insulin Regular Med 11/11/24 19:02 Discontinued 10 unit IV X1 ONE Insulin Regular Med 11/11/24 18:46 Discontinued 5 unit IV X1 ONE Octreotide Acet Inj [SandoSTATIN Inj] Med 11/11/24 19:32 Discontinued 50 mcg IV X1 ONE Ondansetron Inj [Zofran Inj] Med 11/11/24 17:07 Discontinued 4 mg IVP X1 ONE Pantoprazole Inj [Protonix Inj] Med 11/11/24 17:14 Discontinued 80 mg IVP X1 ONE Ringers Lactated 1000 ml [Lactated Ringers] 1,000 ml Med 11/11/24 17:08 Discontinued IV 999 mls/hr Sodium Chloride 0.9% [Ns] 100 ml Med 11/11/24 19:33 Active Octreotide Acet Inj [SandoSTATIN Inj] 1,000 mcg IV 50 mcg/hr Sodium Chloride Rt [place] 0.9% [NS Rt [place] 0.9%] Med 11/11/24 18:46 Active 3 ml INH PRN PRN Tranexamic Acid 1,000 mg Ivpb [Tranexamic Acid Ivpb] Med 11/11/24 19:32 Active 1,000 mg in 100 ml IV PRNMRX1 cefTRIAXone/D5w 1gm IV premix [Rocephin/D5w 1gm IV Med 11/11/24 18:47 Discontinued premix] 1 gm in 50 ml IV X1 fentaNYL INJ [Sublimaze Inj] Med 11/11/24 19:43 Discontinued 50 mcg IVP X1 ONE Vital Signs Vital signs: Vital Signs Temperature 98.7 F 11/11/24 17:00 Pulse Rate 103 H 11/11/24 17:00 Respiratory Rate 20 11/11/24 17:00 Blood Pressure 103/65 11/11/24 17:00 Pulse Oximetry (%) 97 11/11/24 17:00 Oxygen Delivery Method Room Air 11/11/24 17:00 Nausea/Vomiting/Diarrhea MDM Narrative MDM Narrative:: 84-year-old female patient with significant history of diabetes mellitus hypertension, CAD, pacemaker, status post cardiac stent placement total of 9 stents, currently taking aspirin and Plavix was brought in by EMS for evaluation regarding abdominal pain/epigastric pain for 2 days associated with coffee-ground vomiting today. Patient also complained of generalized body weakness. Patient denies any other complaints. Patient road maker is Dr. Green I did a rectal exam, I did not notice any black tarry stool however it was tested positive for occult blood. I noticed dried vomitus on her chest, and it was coffee-ground in color. Patient was started on IV fluids, IV Protonix, and Zofran Patient was noted to be hypotensive on the mid 90s and complained of chest pain. Patient was given emergency blood transfusion. Total of 2 units packed RBC. Patient was also given fentanyl. Patient's WBC count was noted to be 17.7, hematocrit of 26.4 hemoglobin of 8.6. Patient's potassium was noted to be 6.2, sodium 131 chloride of 96 BUN 137 creatinine 2.4. Patient received calcium gluconate, regular insulin IV, D50 water IV, for hyperkalemia. Patient was also given fentanyl for chest pain. Urinalysis positive for UTI. Patient was given ceftriaxone IV, tranexamic IV, Protonix IV, and Zofran. Spoke with Dr. Bailon, GI specialist traditional maori health practitioner, examined the patient in the emergency room. Spoke with hospitalist who admitted the patient. Currently patient blood pressure was noted to be 104/65, heart rate of 83. Patient data External records reviewed:: None Clinical information provided by:: patient and friend Social determinants that could affect healthcare access:: none Patient has the following chronic illnesses:: Hypertension diabetes mellitus, CAD, status post cardiac stent placement x 9 currently on Plavix and aspirin How is presenting disease/condition affected by chronic disease/condition?: exacerbated by Evaluation data The following diagnostics were reviewed and interpreted by me:: lab results, radiology exam(s) and EKG tracing(s) Lab and/or radiology exams considered but not ordered:: None Interpretation Summary: EKG showed paced rhythm, ventricular rate of 102 bpm, no ST segment elevation or depression noted. Medications / Prescriptions Medications / Prescriptions considered but not ordered:: None Medication administrations:: Medication Administration History Tranexamic Acid (Tranexamic Acid Ivpb) 1,000 mg in 100 mls @ 200 mls/hr IV PRNMRX1 PRN PRN Reason: BLEEDING Last Admin: 11/11/24 20:10 Dose: 200 mls/hr Documented By: RUSS Octreotide Acetate 1,000 mcg/ (Sodium Chloride) 102 mls @ 5.1 mls/hr IV .Q20H ONE; Protocol Stop: 11/12/24 15:32 Last Admin: 11/11/24 20:04 Dose: Not Given Documented By: RUSS Non-Admin Reason: Cancelled by Provider Sodium Chloride (Sodium Chloride Rt [place] 0.9% 3 Ml Nebu) 3 ml INH PRN PRN PRN Reason: SOLN Stop: 12/11/24 18:45 Discontinued Medications Albuterol (Albuterol Rt 2.5 Mg/0.5 Ml Nebu) 5 mg INH X1 ONE Stop: 11/11/24 18:47 Last Admin: 11/11/24 19:26 Dose: Not Given Documented By: CARMELO Non-Admin Reason: Discontinued Calcium Gluconate (Calcium Gluconate 10% Inj 1 Gm/10 Ml Vial) 1 gm IV X1 ONE Stop: 11/11/24 18:47 Last Admin: 11/11/24 19:07 Dose: 1 gm Documented By: CARMELO Dextrose (Dextrose 50%-Water Inj 50 Ml Syringe) 50 ml IVP X1 ONE Stop: 11/11/24 19:08 Last Admin: 11/11/24 19:12 Dose: 50 ml Documented By: CARMELO Fentanyl Citrate (Fentanyl Cit Inj 50 Mcg/Ml Amp 2ml) 50 mcg IVP X1 ONE Stop: 11/11/24 19:44 Last Admin: 11/11/24 20:00 Dose: 50 mcg Documented By: RUSS Lactated Ringer's (Lactated Ringers) 1,000 mls @ 999 mls/hr IV .Q1H1M ONE Stop: 11/11/24 18:08 Last Infusion: 11/11/24 19:26 Dose: Infused Documented By: Admin: 11/11/24 18:03 Dose: 999 mls/hr Documented By: CARMELO Ceftriaxone Sodium/Dextrose (Rocephin/D5w 1gm Iv Premix) 1 gm in 50 mls @ 100 mls/hr IV X1 ONE Stop: 11/11/24 19:16 Insulin Human Regular (Insulin Hum Regular 1 Unit/0.01 Ml (Per Unit)) 5 unit IV X1 ONE Stop: 11/11/24 18:47 Last Admin: 11/11/24 19:18 Dose: Not Given Documented By: SHAHLA Non-Admin Reason: Cancelled by Provider Insulin Human Regular (Insulin Hum Regular 1 Unit/0.01 Ml (Per Unit)) 10 unit IV X1 ONE Stop: 11/11/24 19:03 Last Admin: 11/11/24 19:13 Dose: 10 unit Documented By: CARMELO Co-signed By: RUSS Octreotide Acetate (Octreotide Acet Inj 50 Mcg/Ml Vial) 50 mcg IV X1 ONE Stop: 11/11/24 19:33 Last Admin: 11/11/24 20:04 Dose: Not Given Documented By: RUSS Non-Admin Reason: Cancelled by Provider Ondansetron HCl (Ondansetron Inj 2 Mg/Ml Inj 2 Ml) 4 mg IVP X1 ONE; Protocol Stop: 11/11/24 17:08 Last Admin: 11/11/24 17:50 Dose: 4 mg Documented By: CARMELO Pantoprazole Sodium (Pantoprazole Inj 40 Mg Vial) 80 mg IVP X1 ONE Stop: 11/11/24 17:15 Last Admin: 11/11/24 17:52 Dose: 80 mg Documented By: CARMELO Protonix IV, Zofran IV, insulin IV ceftriaxone IV IV fluids, Bentyl IV D50 water, Consultations Consultation(s) initiated? (list below): Yes Consultation #1 (Physician, Specialty, Details): Dr. Bailon, GI specialist Diagnosis Nausea Differential Diagnosis: gastroenteritis, dehydration and other (Anemia, acute upper GI bleed, hypotensive) Most likely diagnosis given after review of the tests above:: Upper GI bleed, hyperkalemia, hypotension, BETSY Admission Indicated Admission indicated?: indicated Admission Request Was there a request for admission?: Yes Admission Attestation Admission request attestation: Discussed case with [Dr. Ruiz] from Hospitalist service regarding admission. Discussed patients ED course, exam findings, labs, and radiology results. The Hospitalist [agrees to accept the patient for admission. Disposition Plan Disposition Plan: Admit Critical Care Time Critical Care Time Critical Care Time: Yes Total Critical Care Time (min.): 45 Attestation: Critical Care Time The very real possibility of a deterioration of this patient's condition required the highest level of my preparedness for sudden, emergent intervention for the following systems: Cardiac and Metabolic. I provided critical care services, which included medication orders, frequent re-evaluations of the patient's condition and response to treatment, ordering and reviewing test results, and discussing the case with various consultants including: nursing staff, hospitalist, and more. The critical care time associated with the care of this patient was 45 minutes. Discharge Plan Plan Patient Disposition: Admit Acute Care w/in Hospital Prescriptions/Referrals Prescriptions/Med Rec: No Action nitrofurantoin monohyd/m-cryst [Macrobid] 100 mg capsule 100 mg PO QDAY Rx Instructions: must administer with a meal/food Gemtesa 75 mg tablet 75 mg PO QDAY (DME) Dexcom G6 Missile Tracking Technician Misc See Rx Instructions .Route Rx Instructions: As directed gabapentin 100 MG capsule 100 mg PO BID Qty: 0 Tradjenta 5 MG tablet 5 mg PO QDAY Qty: 0 aspirin [Aspir-81] 81 mg Tablet,Delayed Release (Dr/Ec) 81 mg PO HS Rx Instructions: take as instructed metformin 500 mg Tablet 500 mg PO QDAY Rx Instructions: Per MD Hold Metformin for 48 hours levothyroxine [Synthroid] 175 mcg Tablet 175 mcg PO QDAY nitroglycerin [Nitrostat] 0.4 mg Tablet, Sublingual 0.4 mg BUCCAL Q3-4HRPRN PRN (Reason: Chest Pain) Rx Instructions: take 1 sublingual tablet every 5 minutes for a max of 3 doses hydrochlorothiazide 25 mg Tablet 12.5 mg PO BID alpha lipoic acid 300 mg Capsule 300 mg PO HS tamoxifen 10 mg Tablet 20 mg PO QDAY insulin glargine [Lantus U-100 Insulin] 100 unit/mL solution 50 unit SUBCUT DAILY Rx Instructions: inject 50 units subcutaneously in the evening insulin glargine [Lantus U-100 Insulin] 100 unit/mL solution 60 unit SUBCUT HS Rx Instructions: inject 60 Subcutaneously in the morning B-complex with vitamin C Tablet 1 tab PO QDAY cinnamon bark [Cinnamon] 500 mg Capsule 1,000 mg PO HS acetylcarnitine HCl 250 mg Capsule 500 mg PO BID alpha lipoic acid 300 mg Capsule 600 mg PO QDAY Trulicity 3 mg/0.5 mL pen injector 3 mg SUBCUT QWEEK Rx Instructions: on wednesday Biotin Plus 5,000 mcg- 10 mg Tablet 1 tab PO DAILY clopidogrel [Plavix] 75 mg Tablet 75 mg PO QDAY amlodipine [Norvasc] 5 mg Tablet 5 mg PO QDAY fenofibrate 150 mg Capsule 145 mg PO DAILY metoprolol succinate 100 mg capsule,sprinkle,ER 24hr 50 mg PO BID Qty: 30 0RF Rx Instructions: start to take metoprolol 50mg twice a day spironolactone [Aldactone] 25 mg Tablet 25 mg PO DAILY ascorbic acid (vitamin C) 500 mg Tablet Extended Release 500 mg PO QDAY B-complex with vitamin C Tablet Extended Release 1 tab PO DAILY ranolazine 500 mg Tablet Extended Release 12 Hr 500 mg PO BID Entresto 97-103 mg Tablet 1 tab PO BID biotin 1,000 mcg Tablet,Chewable 1,000 mcg PO QDAY Referrals: No Primary/Family,Physician [Primary Care Provider] - In 1 week Problem List Clinical Impression: Acute upper gastrointestinal bleeding, Anemia, Acute hypotension Patient/Caregiver Discharge Instructions Print Language: Yi Stand Alone Forms: Nusrat Award Info., Patient Portal Info Letter
[2024-11-11 17:50] LABS: Basophils # (Auto) 0.1 Thou/mm3 (0.0-0.2); Basophils % (Auto) 1 % (0-2.5); Eosinophils # (Auto) 0.1 Thou/mm3 (0.0-0.5); Eosinophils % (Auto) 0 % (0-10); Hematocrit 26.4 % (36.0-46.0); Immature Granulocytes Auto 0.11 Thou/mm3 (0.00-0.00); Lymphocytes # (Auto) 2.0 Thou/mm3 (1.0-4.8); Lymphocytes % (Auto) 12 % (10-50); Mean Corpuscular HGB Conc 32.6 g/dl (31.0-37.0); Mean Corpuscular Hemoglobin 27.2 pg (25.0-35.0); Mean Corpuscular Volume 84 fL (80-100); Monocytes # (Auto) 0.8 Thou/mm3 (0.0-0.8); Monocytes % (Auto) 5 % (0-12); Neutrophils # (Auto) 14.6 Thou/mm3 (1.8-7.7); Neutrophils % (Auto) 82 % (37-80); Nucleated Red Blood Cell # 0.00 Thou/mm3 (0.00-0.00); Nucleated Red Blood Cell % 0 /100 WBC (0); Platelet Count 545 Thou/mm3 (140-440); RDW Standard Deviation 45.7 fL (36.4-46.3); Red Blood Count 3.16 Miln/mm3 (4.00-5.20); White Blood Count 17.7 Thou/mm3 (3.6-11.0)
[2024-11-11] MEDS: ONDANSETRON INJ 2 MG/ML INJ 2 ML 4 MG IVP (17:50)
[2024-11-11] MEDS: RINGERS LACTATED 1000 ML 1,000 ML 999 ML IV (18:03)
[2024-11-11 18:10] LABS: Hemoglobin 8.6 g/dL (12.0-16.0); INR 1.2 (0.9-1.3); Partial Thromboplastin Time 27.0 Seconds (22.0-36.0); Prothrombin Time 12.5 Seconds (9.0-12.2)
[2024-11-11 18:24] LABS: Collection Type, Urine Clean Catch
[2024-11-11 18:34] LABS: Bacteria,Urine 1+; Bilirubin,Urine Negative (Negative); Blood,Urine Negative (Negative); Clarity,Urine Clear (Clear/Hazy); Color,Urine Yellow (Lt Yel-Yel); Glucose, Urine Negative (Negative); Hyaline Casts,Urine < 1 /hpf (0-1); Ketones,Urine Negative (Negative); Leukocyte Esterase,Urine Negative (Negative); Nitrite,Urine Negative (Negative); PH,Urine 5.0 (5.0-7.0); Protein,Urine Negative (Neg - Trace); RBC,Urine 2 /hpf (0-3); Specific Gravity,Urine 1.014 (1.001-1.035); Squamous Epithelial Cell,Urine 3 /hpf (0-5); Urobilinogen,Urine Negative mg/dL (0.0-1.0); WBC,Urine 11 /hpf (0-5)
[2024-11-11 18:35] LABS: Alanine Aminotransferase < 7 U/L (10-49); Albumin, Serum 3.4 gm/dL (3.4-4.8); Albumin/Globulin Ratio 1.5 (1.2-2.2); Alkaline Phosphatase 68 U/L (46-116); Anion Gap 13 (7-16); Aspartate Amino Transferase < 10 U/L (0-34); BUN/Creatinine Ratio 57 Ratio (12-20); Bilirubin,Total 0.4 mg/dL (0.3-1.2); Blood Urea Nitrogen 137 mg/dL (9-23); Calcium 9.2 mg/dL (8.3-10.6); Calcium (Corrected) 9.7 mg/dL (8.5-10.1); Carbon Dioxide 21.9 mMol/L (20.0-31.0); Chloride 96 mMol/L (98-107); Creatinine (Component) 2.4 mg/dL (0.6-1.3); Estimated Creatinine Clearance 22.5 mL/min (>60); Globulin 2.3 gm/dL (2.3-3.5); Glucose 273 mg/dL (74-106); Osmolality,Calculated 317 (275-295); Sodium 131 mMol/L (136-145); Total Protein 5.7 gm/dL (5.7-8.2); Troponin I < 0.020 ng/mL (0.0-0.045); eGFR 20 See Note
[2024-11-11 18:37] LABS: Potassium 6.2 mMol/L (3.4-5.1)
--- NOTE | 2024-11-11 19:04 | EKG_ITS ---
[facility] Test Date: 2024-11-11 Pat Name: STACY MEDRANO Department: Room: - Gender: Female Primary Teaching Assistant: : 1940 Requested By: Aiden Lin Order Number: [id number] Reading MD: Aiden Lin Measurements Intervals [place] Rate: 107 P: CO: QRS: -39 QRSD: 190 T: 117 QT: 433 QTc: 579 Interpretive Statements ELECTRONIC VENTRICULAR PACEMAKER ABNORMAL RHYTHM ECG Compared to ECG 11/11/2024 17:33:54 No significant changes /store/S0/[id number]/[id number].pdf
[2024-11-11] MEDS: CALCIUM GLUCONATE 10% INJ 1 GM/10 ML VIAL IV (19:07)
[2024-11-11] MEDS: DEXTROSE 50%-WATER INJ 50 ML SYRINGE IVP (19:12)
[2024-11-11] MEDS: INSULIN HUM REGULAR 1 UNIT/0.01 ML (PER UNIT) 10 UNIT IV (19:13)
--- NOTE | 2024-11-11 19:25 | PC.NURSE ---
Patient became hypotensive and c/o chest pain. Provider Delia made aware. Patient moved to ED room 5.
--- NOTE | 2024-11-11 19:32 | PD.IMCONS ---
HPI Data of Consult Primary Care Provider: Physician No Primary/Family Consult Narrative Reason for consult: Pain abdomen coffee-ground hematemesis History of present illness: 89 years of female brought into the emergency room because of abdominal pain and coffee-ground hematemesis Hemoglobin hematocrit dropped down to 8.6 and 26.4 from a baseline on 10/14/2024 of 14.6 and 45[address] scan of the abdomen pelvis done without contrast which showed pneumonia left lower base and pancreatic calcification Patient has a history of coronary artery disease status post PTCA total of [address] currently on aspirin and Plavix She also has a history of diabetes mellitus type 1 essential hypertension Right breast carcinoma with lumpectomy followed by chemoradiation in 2021 followed by her local oncologist cc:: cc: Review of Systems Review of Systems Systems Reviewed: All systems reviewed, normal except as documented Past Medical History Surgical History OTHER SURGICAL HX: As in the history of present illness Meds Home Medications and Allergies Home Medications ?Medication ?Instructions ?Recorded ?Confirmed ?Type gabapentin 100 mg capsule 100 mg PO BID #0 caps 06/09/13 11/12/24 History levothyroxine 175 mcg tablet 175 mcg PO QDAY 10/11/20 11/12/24 History (Synthroid) nitroglycerin 0.4 mg sublingual 0.4 mg buccal Q5MIN PRN Chest Pain 10/11/20 11/12/24 History tablet (Nitrostat) blood-glucose,wet washer machine,cont 01/01/22 11/12/24 History (Dexcom G6 Corporate Ethics Officer) dulaglutide 3 mg/0.5 mL 3 mg subcut QWEEK 02/11/22 11/12/24 History subcutaneous pen injector (Trulicity) insulin glargine 100 unit/mL 50 unit subcut HS 02/11/22 11/12/24 History subcutaneous solution (Lantus U-100 Insulin) insulin glargine 100 unit/mL 60 unit subcut DAILY 02/11/22 11/12/24 History subcutaneous solution (Lantus U-100 Insulin) clopidogrel 75 mg tablet (Plavix) 75 mg PO QDAY 09/04/22 11/12/24 History tamoxifen 10 mg tablet 10 mg PO QDAY 11/25/22 11/12/24 History vibegron 75 mg tablet (Gemtesa) 75 mg PO QDAY 10/26/23 11/12/24 History ranolazine 500 mg tablet,extended 500 mg PO BID 12/20/23 11/12/24 History release,12 hr spironolactone 25 mg tablet 25 mg PO DAILY 12/20/23 11/12/24 History (Aldactone) PresserVision 1 cap PO QDAY 11/12/24 11/12/24 History aspirin 81 mg tablet,delayed 81 mg PO QDAY 11/12/24 11/12/24 History release bumetanide 2 mg tablet 2 mg PO QDAY 11/12/24 11/12/24 History cranberry 500 mg capsule 500 mg PO QDAY 11/12/24 11/12/24 History fatty acid comb no.3-vit E-salmon 1 cap PO QDAY 11/12/24 11/12/24 History oil-soybean oil capsule metoprolol succinate 100 mg 100 mg PO QDAY 11/12/24 11/12/24 History capsule sprinkle, ext. release 24 hr sacubitril 24 mg-valsartan 26 mg 1 tab PO BID 11/12/24 11/12/24 History tablet (Entresto) sodium zirconium cyclosilicate 10 10 g PO QDAY 11/12/24 11/12/24 History gram oral powder packet (Lokelma) Allergies Allergy/AdvReac Type Severity Reaction Status Date / Time Sulfa (Sulfonamide Allergy Intermediate THROAT Verified 05/16/24 12:51 Antibiotics) SWELLS SHUT hydralazine Allergy Diarrhea Verified 05/16/24 12:51 codeine AdvReac Intermediate Vomiting Verified 05/16/24 12:51 midazolam (From Versed) AdvReac Insomnia Verified 05/16/24 12:51 Exam Vital Signs Temp Pulse Resp BP Pulse Ox O2 Del Method 97.4 F 90 20 98/60 97 Room Air 11/11/24 18:20 11/11/24 19:27 11/11/24 19:27 11/11/24 19:27 11/11/24 19:27 11/11/24 19:27 Constitutional Comments: Chronically ill-appearing Routine Respiratory Exam Comments: Normal to auscultation Routine Abdominal Exam Comments: Soft nontender Results Labs 11/14/24 08:18 11/14/24 08:18 Labs: Short CBC 11/11/24 Range/Units 17:30 WBC 17.7 H (3.6-11.0) Thou/mm3 Hgb 8.6 L (12.0-16.0) g/dL Hct 26.4 L (36.0-46.0) % Plt Count 545 H D (140-440) Thou/mm3 BMP 11/11/24 17:30 Sodium 131 L Potassium 6.2 H* Chloride 96 L Carbon Dioxide 21.9 BUN 137 H* Creatinine 2.4 H Glucose 273 H Calcium 9.2 Cardiac Enzymes 11/11/24 Range/Units 17:30 Troponin I < 0.020 (0.0-0.045) ng/mL Liver Function 11/11/24 Range/Units 17:30 Total Bilirubin 0.4 (0.3-1.2) mg/dL AST < 10 (0-34) U/L ALT < 7 L (10-49) U/L Alkaline Phosphatase 68 (46-116) U/L Albumin 3.4 (3.4-4.8) gm/dL Urine 11/11/24 Range/Units 18:00 Urine Color Yellow (Lt Yel-Yel) Urine Clarity Clear (Clear/Hazy) Urine pH 5.0 (5.0-7.0) Ur Specific [place] 1.014 (1.001-1.035) Urine Protein Negative (Neg - Trace) Urine Glucose (UA) Negative (Negative) Assessment and Plan Additional Assessment & Plan Additional Plan: # Coffee-ground hematemesis significant drop in hemoglobin hematocrit# complicated by the use of aspirin and Plavix for her PTCA Plan Serial CBC Fiberoptic esophagogastroduodenoscopy with possible biopsy possible therapeutic intervention under intravenous moderate sedation scheduled for tomorrow N.p.o. IV Protonix Other medical problems include IDDM Coronary artery disease status post PTCA Essential hypertension Right breast carcinoma status post right lumpectomy followed by radiation and chemo currently on tamoxifen followed by a local oncologist Thank you very much for the opportunity to participate in care of this patient
--- NOTE | 2024-11-11 19:52 | PC.NURSE ---
this rn arrived to bedside. upon arrival pts bp was around the 80s. provider at bedside and aware. dayshift nurse at bedside giving pt medication for high potassium. pt states she is having 10/10 chest pain. provider at bedside aware. repeat ekg done. pt moved from room 8 to room 5. per provider requested emergency blood transfusion. blood transfusion started. pt does not report any reactions at this time
[2024-11-11] MEDS: fentaNYL CIT INJ 50 mCg/ML AMP 2ML IVP (20:00)
[2024-11-11] MEDS: TRANEXAMIC ACID 1,000 MG IVPB 1,000 MG/100 ML BAG 200 MG IV ×2 (20:06→20:37)
--- NOTE | 2024-11-11 20:41 | PC.NURSE ---
BLOOD TRANSFUSION STILL IN PROGRESS. RATE AT 150ML/HR. PT DENIES ANY SOB OR CHEST PAIN, BP IS INCREASING (SEE WORKLIST). FRIEND AT BEDSIDE.
--- NOTE | 2024-11-11 21:03 | ESHP_ITS ---
<Statement entered by Harry Acosta MD - 11/13/24 10:00> I have discussed and was present for the essential components of the history, physical examination, diagnosis, and treatment plan with the resident. I agree with the patient's care as documented by the resident and amended herein by me. Harry Acosta MD FACP. Documentation for date of: 11/11/24 HPI History of Present Illness Chief complaint: Coffee ground emesis History of present illness: 84 y/o F with PMHx significant for CAD (9 stents), hypertension, DM, CKD, breast cancer (status post partial mastectomy and radiation therapy, on chemotherapy) presenting to ED with chief complaint of abdominal pain and coffee-ground emesis x 2 days. Per patient she has also had increasing shortness of breath and fatigue for past week, with worsened fatigue and lightheadedness today. Denies having similar symptoms in the past. Of note patient takes aspirin and Plavix for CAD. Patient denies fevers, chills, chest pain, diarrhea, melena, constipation, dysuria. ED COURSE: Labs significant for: WBC 17.7, hemoglobin 8.6 (down from 14.6 one month ago), potassium 6.2, BUN 137, creatinine 2.4, EGFR 20, troponin negative, occult blood positive. UA shows 11 WBCs, 1+ bacteria. Imaging significant for: EKG shows paced rhythm, CT A/P shows left base pneumonia and renal scarring with perinephric stranding. Patient received 80 mg IV Protonix, 1 L bolus lactated Ringer's, amp of D50, insulin 10, calcium gluconate 1 g, and 2 units PRBC in the ED. GI was consulted, will perform EGD tomorrow, patient NPO. PMH: CAD, HTN, DM, CKD, breast cancer PSH: Partial right mastectomy SH: Denies alcohol, tobacco, illicit drug use. Allergies:?Hydralazine, codeine, sulfa drugs, Versed Medications: Gabapentin, metoprolol succinate, Gemtesa, Plavix, aspirin, Bumex, spironolactone, tamoxifen, Entresto, Ranexa, levothyroxine, nitro as needed Review of Systems Review of Systems Systems Reviewed: All systems reviewed, normal except as documented Past Medical History Past Medical History Comments PMH COMMENT: PMH: CAD, HTN, DM, CKD, breast cancer PSH: Partial right mastectomy SH: Denies alcohol, tobacco, illicit drug use. Allergies:?Hydralazine, codeine, sulfa drugs, Versed Medications: Gabapentin, metoprolol succinate, Gemtesa, Plavix, aspirin, Bumex, spironolactone, tamoxifen, Entresto, Ranexa, levothyroxine, nitro as needed Exam Vital Signs Temp Pulse Resp BP Pulse Ox O2 Del Method 98.7 F 83 17 104/65 94 L Room Air 11/11/24 20:15 11/11/24 20:15 11/11/24 20:15 11/11/24 20:15 11/11/24 20:15 11/11/24 19:27 Narrative Exam PE: Gen: Well-developed and well-nourished. Pale, fatigued. HEENT: NCAT, PERRLA, EOMI, MMM, pale conjunctiva CVS: normal S1 and S2. RRR. No M/R/G. Resp: CTA B/L. No rhonchi, rales, crackles or wheezing. Abd: soft, non-distended. Mild diffuse tenderness. MSK: Good ROM in BUE & BLE. No edema or rash. Neuro: CN II-XII grossly intact. Strength 5/5 in BUE & BLE. Alert and oriented x3. No tremors. Psych: appropriate mood and affect. Results: Labs 11/11/24 17:30 11/11/24 17:30 Labs: Short CBC 11/11/24 Range/Units 17:30 WBC 17.7 H (3.6-11.0) Thou/mm3 Hgb 8.6 L (12.0-16.0) g/dL Hct 26.4 L (36.0-46.0) % Plt Count 545 H D (140-440) Thou/mm3 BMP 11/11/24 17:30 Sodium 131 L Potassium 6.2 H* Chloride 96 L Carbon Dioxide 21.9 BUN 137 H* Creatinine 2.4 H Glucose 273 H Calcium 9.2 Cardiac Enzymes 11/11/24 Range/Units 17:30 Troponin I < 0.020 (0.0-0.045) ng/mL Liver Function 11/11/24 Range/Units 17:30 Total Bilirubin 0.4 (0.3-1.2) mg/dL AST < 10 (0-34) U/L ALT < 7 L (10-49) U/L Alkaline Phosphatase 68 (46-116) U/L Albumin 3.4 (3.4-4.8) gm/dL Urine 11/11/24 Range/Units 18:00 Urine Color Yellow (Lt Yel-Yel) Urine Clarity Clear (Clear/Hazy) Urine pH 5.0 (5.0-7.0) Ur Specific [place] 1.014 (1.001-1.035) Urine Protein Negative (Neg - Trace) Urine Glucose (UA) Negative (Negative) Quality Measures Quality Measures VTE prophylaxis Advance care planning discussed with:: patient Medications Home Medications and Allergies Home Medications ?Medication ?Instructions ?Recorded ?Confirmed ?Type gabapentin 100 mg capsule 100 mg PO BID #0 caps 04/25/24 History linagliptin 5 mg tablet (Tradjenta) 5 mg PO QDAY ##0 0 06/09/13 04/25/24 History aspirin 81 mg tablet,delayed 81 mg PO HS 12/16/1803/30 History release (Aspir-) hydrochlorothiazide 25 mg tablet 12.5 mg PO BID 04/25/24 History levothyroxine 175 mcg tablet 175 mcg PO QDAY 10/11/20 04/25/24 History (Synthroid) metformin 500 mg tablet 500 mg PO QDAY 10/11/2003/30 History Held on 12/20/23. Instructions: Resume on 12/22/23. Hold for 2 days. May resume 12/22/23. nitroglycerin 0.4 mg sublingual 0.4 mg buccal Q3-4HRPR N PRN Chest 10/11/20 04/25/24 History tablet (Nitrostat) Pain blood-glucose,utilization review rn,cont 01/01/22 04/25/24 History ([employer]) B-complex with vitamin C 1 tab PO QDAY 02/11/2204/25 History acetylcarnitine HCl 250 mg capsule 500 mg PO BID 02/1104/25/24 History alpha lipoic acid 300 mg capsule 600 mg PO QDAY 04/25/24 History biotin 5,000 mcg-lutein 10 mg 1 tab PO DAILY 02/11/22 04/25/24 History tablet (Biotin Plus) cinnamon bark 500 mg capsule 1,000 mg PO HS 02/11/22 0 04/25/24 History (Cinnamon) dulaglutide 3 mg/0.5 mL 3 mg subcut QWEEK 02/11/22 0 04/25/24 History subcutaneous pen injector (Trulicity) insulin glargine 100 unit/mL 50 unit subcut DAILY 01/2704/25/24 History subcutaneous solution (Lantus U-100 Insulin) insulin glargine 100 unit/mL 60 unit subcut HS 2 04/25/24 History subcutaneous solution (Lantus U-100 Insulin) amlodipine 5 mg tablet (Norvasc) 5 mg PO QDAY 09/04/22 04/25/24 History clopidogrel 75 mg tablet (Plavix) 75 mg PO QDAY 04/25/24 History fenofibrate 150 mg capsule 145 mg PO DAILY 09/04/22 History alpha lipoic acid 300 mg capsule 300 mg PO HS 11/25/22 04/25/24 History tamoxifen 10 mg tablet 20 mg PO QDAY 11/25/2204/25 History nitrofurantoin 100 mg PO QDAY 10/26/2303/30 History monohydrate/macrocrystals 100 mg capsule (Macrobid) vibegron 75 mg tablet (Gemtesa) 75 mg PO QDAY 10/26/23 04/25/24 History B-complex with vitamin C 1 tab PO DAILY 12/20/2303/30 History ascorbic acid (vitamin C) 500 mg 500 mg PO QDAY 04/25/24 History tablet,extended release biotin 1,000 mcg chewable tablet 1,000 mcg PO QDAY 04/25/24 History ranolazine 500 mg tablet,extended 500 mg PO BID 04/25/24 History release,12 hr sacubitril 97 mg-valsartan 103 mg 1 tab PO BID 4 04/25/24 History tablet (Entresto) spironolactone 25 mg tablet 25 mg PO DAILY 12/20/23 History (Aldactone) Allergies Allergy/AdvReac Type Severity Reaction Status Date / Time Sulfa (Sulfonamide Allergy Intermediate THROAT Verified 05/16/24 12:51 Antibiotics) DEV SHUT hydralazine Allergy Diarrhea Verified 05/16/24 12:51 codeine AdvReac Intermediate Vomiting Verified 05/16/24 12:51 midazolam (From Versed) AdvReac Insomnia Verified 05/16/24 12:51 Visit Medications Acetaminophen (Acetaminophen 325 Mg Tablet) 650 mg PO Q6H PRN PRN Reason: Fever >100.4 or pain Stop: 12/11/24 20:24 Dextrose (Dextrose 50%-Water Inj 50 Ml Syringe) 25 ml IV Q15MIN PRN PRN Reason: BG 50-70 responsive npo pt Stop: 12/11/24 20:29 Dextrose (Dextrose 50%-Water Inj 50 Ml Syringe) 50 ml IV Q15MIN PRN PRN Reason: BG <50 OR BG <70 & pt unresponsive Stop: 12/11/24 20:29 Glucagon (Glucagon Inj 1 Mg Vial) 1 mg IM Q15MIN PRN PRN Reason: BG <70, and no IV access Octreotide Acetate 1,000 mcg/ (Sodium Chloride) 102 mls @ 5.1 mls/hr IV .Q20H ONE; Protocol Stop: 11/12/24 15:32 Last Admin: 11/11/24 20:04 Dose: Not Given Insulin Human Lispro (Insulin Lispro (Admelog) 1 Unit/0.01 Ml Unit) 0 unit SC Q6HR TRINH; Protocol Stop: 12/12/24 00:00 Pantoprazole Sodium (Pantoprazole Inj 40 Mg Vial) 40 mg IVP Q12HR TRINH Stop: 12/12/24 08:59 Sodium Chloride (Sodium Chloride Rt [place] 0.9% 3 Ml Nebu) 3 ml INH PRN PRN PRN Reason: SOLN Stop: 12/11/24 18:45 Discontinued Medications Albuterol (Albuterol Rt 2.5 Mg/0.5 Ml Nebu) 5 mg INH X1 ONE Stop: 11/11/24 18:47 Last Admin: 11/11/24 19:26 Dose: Not Given Calcium Gluconate (Calcium Gluconate 10% Inj 1 Gm/10 Ml Vial) 1 gm IV X1 ONE Stop: 11/11/24 18:47 Last Admin: 11/11/24 19:07 Dose: 1 gm Dextrose (Dextrose 50%-Water Inj 50 Ml Syringe) 50 ml IVP X1 ONE Stop: 11/11/24 19:08 Last Admin: 11/11/24 19:12 Dose: 50 ml Fentanyl Citrate (Fentanyl Cit Inj 50 Mcg/Ml Amp 2ml) 50 mcg IVP X1 ONE Stop: 11/11/24 19:44 Last Admin: 11/11/24 20:00 Dose: 50 mcg Lactated Ringer's (Lactated Ringers) 1,000 mls @ 999 mls/hr IV .Q1H1M ONE Stop: 11/11/24 18:08 Last Infusion: 11/11/24 19:26 Dose: Infused Ceftriaxone Sodium/Dextrose (Rocephin/D5w 1gm Iv Premix) 1 gm in 50 mls @ 100 mls/hr IV X1 ONE Stop: 11/11/24 19:16 Tranexamic Acid (Tranexamic Acid Ivpb) 1,000 mg in 100 mls @ 200 mls/hr IV PRNMRX1 PRN PRN Reason: BLEEDING Last Admin: 11/11/24 20:37 Dose: 200 mls/hr Insulin Human Regular (Insulin Hum Regular 1 Unit/0.01 Ml (Per Unit)) 5 unit IV X1 ONE Stop: 11/11/24 18:47 Last Admin: 11/11/24 19:18 Dose: Not Given Insulin Human Regular (Insulin Hum Regular 1 Unit/0.01 Ml (Per Unit)) 10 unit IV X1 ONE Stop: 11/11/24 19:03 Last Admin: 11/11/24 19:13 Dose: 10 unit Octreotide Acetate (Octreotide Acet Inj 50 Mcg/Ml Vial) 50 mcg IV X1 ONE Stop: 11/11/24 19:33 Last Admin: 11/11/24 20:04 Dose: Not Given Ondansetron HCl (Ondansetron Inj 2 Mg/Ml Inj 2 Ml) 4 mg IVP X1 ONE; Protocol Stop: 11/11/24 17:08 Last Admin: 11/11/24 17:50 Dose: 4 mg Pantoprazole Sodium (Pantoprazole Inj 40 Mg Vial) 80 mg IVP X1 ONE Stop: 11/11/24 17:15 Last Admin: 11/11/24 17:52 Dose: 80 mg Assessment & Plan Plan 84 y/o F with PMHx significant for CAD (9 stents), hypertension, DM, CKD, breast cancer (status post partial mastectomy and radiation therapy, on chemotherapy) presenting to ED with chief complaint of abdominal pain and coffee-ground emesis x 2 day, admitted for upper GI bleed. #Upper GI bleed #Symptomatic anemia Patient presenting with coffee-ground emesis x 2 days. Signs of upper GI bleed include significantly increased BUN 137. Noted to have diffuse abdominal tenderness on exam. Hemoglobin 8.6 on presentation, previously 14.6 a month ago. Patient notably pale, fatigued on exam. Patient takes aspirin and Plavix for CAD. GI on board, plan for EGD tomorrow. Patient stated 1 L bolus lactated Ringer's, 80 mg Protonix IV, 2 units PRBC in the ED. Occult stool positive. - Posttransfusion H&H - Monitor hemoglobin, transfuse as needed - N.p.o. - GI on board, appreciate recommendations - Plan for EGD tomorrow - Protonix 40 mg IV twice daily - Avoid anticoagulants and NSAIDs #BETSY on CKD Patient presents with BUN 137, creatinine 2.4, EGFR 20, off of patient's baseline CKD status. Suspect prerenal due to dehydration/anemia versus ATN due to anemia. Patient reports making good urine. Received 2 units PRBCs, 1 L bolus LR in the ED. - Manage anemia as above - Daily renal panel - Avoid nephrotoxins - Renally dose meds as appropriate - Monitor urine output #Community-acquired pneumonia #UTI, possible pyelonephritis Patient's presented with leukocytosis 17.7, reports increased shortness of breath over past week. Denies dysuria. However labs show 11 WBCs, 1+ bacteria in urinalysis. CT A/P shows left base pneumonia, and renal scarring with perinephric stranding. No CVA tenderness noted, however patient has a nausea and vomiting, could be secondary to GI bleed as above. - Rocephin 1 g IV daily (started 11/11) - Azithromycin 500 mg IV daily (started 11/11) - Urine cultures ordered, follow-up #Hyperkalemia On presentation patient potassium 6.2. Patient has history of hyperkalemia treated with [facility], not typically this high. EKG showed paced rhythm. Patient received amp D50, 10 units insulin, 1 g calcium gluconate in the ED. - Recheck BMP - Continue to treat as needed #Right-sided breast cancer, s/p partial mastectomy and radiotherapy Patient history as stated. Follows with Dr. Mcclellan for chemotherapy - Resume home med tamoxifen 10 mg p.o. daily #CAD s/p stents #HTN Patient history as stated. Treated with aspirin and Plavix. Follows with Dr. Green. - Holding home antihypertensives and anticoagulation in setting of acute GI bleed and symptomatic anemia. - Consider resuming home meds when appropriate #DM Patient history as stated. A1c 6.8% as of 10/15/2024. - ISS DVT prophylaxis: SCDs GI prophylaxis: Protonix twice daily Diet: N.p.o. pending EGD Lines: Peripheral IV Code status: Full code Plan of care discussed with attending Dr. Acosta. Anthony Pugh MD PGY?2
[2024-11-11] MEDS: cefTRIAXone/D5w 1gm IV premix 1 GM/50 ML BAG IV (21:17)
[2024-11-11] MEDS: AZITHROMYCIN INJ 500 MG in SODIUM CHLORIDE 0.9% 250 ML 250 ML 250 MG IV (21:58)
[2024-11-11] MEDS: INSULIN LISPRO (AdmeLOG) 1 UNIT/0.01 ML UNIT SC (23:25)
[2024-11-11 23:58] LABS: Anion Gap 13 (7-16); BUN/Creatinine Ratio 60 Ratio (12-20); Blood Urea Nitrogen 156 mg/dL (9-23); Calcium 8.6 mg/dL (8.3-10.6); Carbon Dioxide 20.6 mMol/L (20.0-31.0); Chloride 97 mMol/L (98-107); Creatinine (Component) 2.6 mg/dL (0.6-1.3); Estimated Creatinine Clearance 20.8 mL/min (>60); Glucose 319 mg/dL (74-106); Osmolality,Calculated 325 (275-295); Potassium 5.6 mMol/L (3.4-5.1); Sodium 131 mMol/L (136-145); eGFR 18 See Note
[2024-11-12] VITALS (18 sets, daily range): BP systolic 95–151; BP diastolic 57–89; PULSE 64–98; RESP 13–26; TEMP 35.8–36.9; O2SAT 93–100; BMI 29.0
--- NOTE | 2024-11-12 00:51 | PC.NURSE ---
Patient does not have a list of her home meds so med rec could not be done. I asked her if there is anyone we can contact and she said she wants her caregiver Tonya Murphy as her customer contact specialist. She does not recall her phone number and number not found in chart. She said her caregiver will be here in the morning and she will let her know to bring her list
[2024-11-12 03:53] LABS: Basophils # (Auto) 0.1 Thou/mm3 (0.0-0.2); Basophils % (Auto) 0 % (0-2.5); Eosinophils # (Auto) 0.0 Thou/mm3 (0.0-0.5); Eosinophils % (Auto) 0 % (0-10); Hematocrit 32.8 % (36.0-46.0); Hemoglobin 10.9 g/dL (12.0-16.0); Immature Granulocytes Auto 0.07 Thou/mm3 (0.00-0.00); Lymphocytes # (Auto) 2.1 Thou/mm3 (1.0-4.8); Lymphocytes % (Auto) 15 % (10-50); Mean Corpuscular HGB Conc 33.2 g/dl (31.0-37.0); Mean Corpuscular Hemoglobin 28.2 pg (25.0-35.0); Mean Corpuscular Volume 85 fL (80-100); Monocytes # (Auto) 1.0 Thou/mm3 (0.0-0.8); Monocytes % (Auto) 7 % (0-12); Neutrophils # (Auto) 11.1 Thou/mm3 (1.8-7.7); Neutrophils % (Auto) 78 % (37-80); Nucleated Red Blood Cell # 0.00 Thou/mm3 (0.00-0.00); Nucleated Red Blood Cell % 0 /100 WBC (0); Platelet Count 368 Thou/mm3 (140-440); RDW Standard Deviation 44.6 fL (36.4-46.3); Red Blood Count 3.86 Miln/mm3 (4.00-5.20); White Blood Count 14.2 Thou/mm3 (3.6-11.0)
[2024-11-12 04:20] LABS: Alanine Aminotransferase < 7 U/L (10-49); Albumin, Serum 3.3 gm/dL (3.4-4.8); Albumin/Globulin Ratio 1.4 (1.2-2.2); Alkaline Phosphatase 66 U/L (46-116); Anion Gap 13 (7-16); Aspartate Amino Transferase 13 U/L (0-34); BUN/Creatinine Ratio 61 Ratio (12-20); Bilirubin,Total 0.4 mg/dL (0.3-1.2); Blood Urea Nitrogen 153 mg/dL (9-23); Calcium 9.5 mg/dL (8.3-10.6); Calcium (Corrected) 10.1 mg/dL (8.5-10.1); Carbon Dioxide 22.3 mMol/L (20.0-31.0); Chloride 100 mMol/L (98-107); Creatinine (Component) 2.5 mg/dL (0.6-1.3); Estimated Creatinine Clearance 21.6 mL/min (>60); Globulin 2.4 gm/dL (2.3-3.5); Glucose 241 mg/dL (74-106); Magnesium 2.1 mg/dL (1.6-2.6); Osmolality,Calculated 328 (275-295); Phosphorous 5.4 mg/dL (2.4-5.1); Potassium 5.2 mMol/L (3.4-5.1); Sodium 135 mMol/L (136-145); Total Protein 5.7 gm/dL (5.7-8.2); eGFR 19 See Note
[2024-11-12] MEDS: INSULIN LISPRO (AdmeLOG) 1 UNIT/0.01 ML UNIT SC (05:54)
--- NOTE | 2024-11-12 07:45 | ESPR_ITS ---
<Statement entered by Elijah Boothe MD - 11/12/24 12:33> Patient was examined and case was reviewed with team including attending physician. Note reviewed, I agree with most of its contents and agree with the patient's care as documented by Dr. Moura Patient seen today at the bedside found awake, alert, orientedx3. No overnight events reported. Vitals and labs reviewed. Patient was admitted due to multiple episodes of coffee-ground emesis. Patient denies any use of Pepto-Bismol or iron supplementation or darkening of the stools. Only 2 episodes of coffee- ground emesis reported. Gastroenterology was consulted have upper endoscopy during the day today. Will reevaluate postoperatively. Patient continues on Protonix 40 mg twice daily at this time as well as octreotide drip. Case discussed with my attending Dr. Purvi Boothe MD PGY-2 Disclaimer: Despite multiple revisions, due to the dictation software being used, the document bellow may not be free of grammatical errors including phonetic/typographic errors. However, this does not deter from our commitment to providing health care in the patient's best interest in mind. Documentation for date of: 11/12/24 Subjective Subjective Interval history: Patient was evaluated at bedside. She reported chest pain radiating down both arms, consistent with prior episodes for which she typically takes nitroglycerin at home for relief. The patient was advised to have someone bring in her home medication list to facilitate medication reconciliation. She was informed that nitroglycerin cannot be administered at this time due to her low blood pressure. The patient was instructed to notify nursing staff if her pain worsens. She is aware that she is scheduled to undergo an EGD today. Exam Vital Signs Temp Pulse Resp BP Pulse Ox O2 Del Method 97.1 F 64 19 114/59 L 94 L Room Air 11/12/24 04:00 11/12/24 04:00 11/12/24 04:00 11/12/24 04:00 11/12/24 04:00 11/12/24 04:00 Narrative Exam Physical Exam General: Awake and in no acute distress. Conversational and non-toxic appearing. Pale. HEENT: Normocephalic, atraumatic. Heart: Regular rate and rhythm, no murmurs. Lungs: Clear to auscultation with no wheezing or crackles. Abdomen: Soft, nondistended, mild diffuse tenderness. No guarding or rebound tenderness. Neurologic: Alert and oriented x3, no gross neurological deficit, and patient able to move all 4 extremities. Extremities: No edema. Skin: No rash or ecchymoses. Objective Labs 11/13/24 04:30 11/13/24 04:30 Labs: Laboratory Results - last 24 hr 11/11/24 11/11/24 11/11/24 17:30 18:00 23:05 WBC 17.7 H RBC 3.16 L Hgb 8.6 L Hct 26.4 L MCV 84 MCH 27.2 MCHC 32.6 RDW Std Deviation 45.7 Plt Count 545 H D Neut % (Auto) 82 H Lymph % (Auto) 12 [place] % (Auto) 5 Eos % (Auto) 0 Baso % (Auto) 1 Neut # (Auto) 14.6 H Lymph # (Auto) 2.0 [place] # (Auto) 0.8 Eos # (Auto) 0.1 Baso # (Auto) 0.1 Immature Gran # (Auto) 0.11 H Absolute Nucleated RBC 0.00 Immature Gran % 1 H Nucleated RBC % 0 PT 12.5 H INR 1.2 APTT 27.0 Sodium 131 L 131 L Potassium 6.2 H* 5.6 H D Chloride 96 L 97 L Carbon Dioxide 21.9 20.6 Anion Gap 13 13 BUN 137 H* 156 H* Creatinine 2.4 H 2.6 H Estim Creat Clear Calc 22.5 L 20.8 L eGFR 20 L 18 L BUN/Creatinine Ratio 57 H 60 H Glucose 273 H 319 H Calculated Osmolality 317 H 325 H Calcium 9.2 8.6 Corrected Calcium 9.7 Phosphorus Magnesium Total Bilirubin 0.4 AST < 10 ALT < 7 L Alkaline Phosphatase 68 Troponin I < 0.020 Total Protein 5.7 Albumin 3.4 Globulin 2.3 Albumin/Globulin Ratio 1.5 Ur Collection Type Clean Catch Urine Color Yellow Urine Clarity Clear Urine pH 5.0 Ur Specific [place] 1.014 Urine Protein Negative Urine Glucose (UA) Negative Urine Ketones Negative Urine Blood Negative Urine Nitrite Negative Urine Bilirubin Negative Urine Urobilinogen (Auto) Negative Ur Leukocyte Esterase Negative Urine RBC 2 Urine WBC 11 H Ur Squamous Epith Cells 3 Urine Bacteria 1+ A Hyaline Casts < 1 Blood Type O Positive Antibody Screen NEGATIVE Crossmatch See Detail Blood Bank Wristband ID Yes 11/12/24 03:38 WBC 14.2 H RBC 3.86 L Hgb 10.9 L D Hct 32.8 L MCV 85 MCH 28.2 MCHC 33.2 RDW Std Deviation 44.6 Plt Count 368 D Neut % (Auto) 78 Lymph % (Auto) 15 [place] % (Auto) 7 Eos % (Auto) 0 Baso % (Auto) 0 Neut # (Auto) 11.1 H Lymph # (Auto) 2.1 [place] # (Auto) 1.0 H Eos # (Auto) 0.0 Baso # (Auto) 0.1 Immature Gran # (Auto) 0.07 H Absolute Nucleated RBC 0.00 Immature Gran % 1 H Nucleated RBC % 0 PT INR APTT Sodium 135 L Potassium 5.2 H Chloride 100 Carbon Dioxide 22.3 Anion Gap 13 BUN 153 H* Creatinine 2.5 H Estim Creat Clear Calc 21.6 L eGFR 19 L BUN/Creatinine Ratio 61 H Glucose 241 H D Calculated Osmolality 328 H Calcium 9.5 Corrected Calcium 10.1 Phosphorus 5.4 H Magnesium 2.1 Total Bilirubin 0.4 AST 13 ALT < 7 L Alkaline Phosphatase 66 Troponin I Total Protein 5.7 Albumin 3.3 L Globulin 2.4 Albumin/Globulin Ratio 1.4 Ur Collection Type Urine Color Urine Clarity Urine pH Ur Specific [place] Urine Protein Urine Glucose (UA) Urine Ketones Urine Blood Urine Nitrite Urine Bilirubin Urine Urobilinogen (Auto) Ur Leukocyte Esterase Urine RBC Urine WBC Ur Squamous Epith Cells Urine Bacteria Hyaline Casts Blood Type Antibody Screen Crossmatch Blood Bank Wristband ID Quality Measures Quality Measures VTE prophylaxis Advance care planning discussed with:: patient Assessment & Plan Assessment Current Active Medications: Generic Name Dose Route Start Last Admin Trade Name Freq PRN Reason Stop Dose Admin Acetaminophen 650 mg 11/11/24 20:25 Acetaminophen 325 Mg Tablet PO 12/11/24 20:24 Q6H PRN Fever >100.4 or pain Dextrose 25 ml 11/11/24 20:30 Dextrose 50%-Water Inj 50 Ml Syringe IV 12/11/24 20:29 Q15MIN PRN BG 50-70 responsive npo pt Dextrose 50 ml 11/11/24 20:30 Dextrose 50%-Water Inj 50 Ml Syringe IV 12/11/24 20:29 Q15MIN PRN BG <50 OR BG <70 & pt unresponsive Glucagon 1 mg 11/11/24 20:30 Glucagon Inj 1 Mg Vial IM Q15MIN PRN BG <70, and no IV access Octreotide Acetate 1,000 mcg/ 102 mls @ 5.1 mls/hr 11/11/24 19:33 11/11/24 20:04 Sodium Chloride IV 11/12/24 15:32 Not Given .Q20H ONE Protocol 50 MCG/HR Ceftriaxone Sodium 1,000 mg/ 50 mls @ 100 mls/hr 11/12/24 09:00 Sodium Chloride IV 11/19/24 08:59 QDAY TRINH Azithromycin 500 mg/ Sodium 250 mls @ 250 mls/hr 11/12/24 09:00 Chloride IV 11/19/24 08:59 QDAY TRINH Insulin Human Lispro 0 unit 11/12/24 00:00 11/12/24 05:54 Insulin Lispro (Admelog) 1 Unit/0.01 Ml Unit SC 12/12/24 00:00 1 unit Q6HR TRINH Administration Protocol Levothyroxine Sodium 175 mcg 11/12/24 09:00 Levothyroxine Sodium 25 Mcg Tablet PO 12/12/24 08:59 QDAY TRINH Pantoprazole Sodium 40 mg 11/12/24 09:00 Pantoprazole Inj 40 Mg Vial IVP 12/12/24 08:59 Q12HR TRINH Sodium Chloride 3 ml 11/11/24 18:46 Sodium Chloride Rt [place] 0.9% 3 Ml Nebu INH 12/11/24 18:45 PRN PRN SOLN Tamoxifen Citrate 20 mg 11/12/24 09:00 Tamoxifen Citrate 10 Mg Tablet PO 12/12/24 08:59 QDAY TRINH Plan 84 year-old female with past medical history of CAD s/p 9 stents, hypertension, diabetes, CKD, CHF, invasive ductal carcinoma in situ (ER+) s/p right breast partial lumpectomy and radiation (Jan 2012) on chemotherapy, presented to 11/11 with abdominal pain and coffee-ground emesis for 2 days, admitted for GI bleed. #GI bleed (Likely lower source vs unknown origin; upper GI bleed ruled out) #Acute post hemorrhagic anemia Coffee-ground emesis for two days. Diffuse abdominal tenderness and pallor on exam. FOBT positive. BUN elevated at 137. Initial hemoglobin on admission was 8.6 (baseline was ~14.6 one month ago). Received 2 units pRBCs in ED, with post-transfusion hemoglobin improved to 10.9. Patient is on aspirin and Plavix at home for CAD. EGD (11/12): esophagitis, erythematous mucosa in the antrum and duodenopathy, with no active bleeding source identified. Plan - Monitor H&H. - Transfuse if Hgb <8 or if symptomatic. - Continue IV Pantoprazole 40 mg BID. - Plan for colonoscopy for tomorrow 11/13, to evaluate for lower GI bleeding source. - Clear liquid diet with Golytely prep, then NPO. - Hold aspirin and Plavix during hospitalization (per cardiology). - Plan to resume Plavix outpatient once bleeding is identified and controlled as it is less irritating to GI tract than aspirin (per cardiology). - GI consulted - appreciate recs. #Acute Kidney Injury on CKD Patient with known CKD, now presenting with acute worsening of renal function. Follows Dr. Samayoa (nephrology). Admission labs: BUN 137, Cr 2.4, eGFR 20. Baseline Cr: 0.9?1.3 (per chart review). BUN:Cr ratio 57, suggestive of a prerenal etiology (hypovolemia from GI bleed vs anemia-induced hypoperfusion). Renal Ultrasound 11/12: Bilateral renal cortical thinning. No hydronephrosis. Mild bilateral renal parenchymal scar formation. Plan - Continue anemia management (as per GI bleed plan) to improve renal perfusion. - Daily renal panel to trend BUN, Cr, and electrolytes. - Avoid nephrotoxins - Renally dose meds as appropriate - Strict I&Os, monitor urine output closely - Monitor for signs of volume overload or uremic symptoms - Nephrology consulted - appreciate recs. #Hyperkalemia On presentation patient potassium 6.2. Patient has a history of chronic hyperkalemia, managed with Lokelma at home, however, potassium levels are not typically this elevated per chart review. Initial EKG showed paced rhythm. In the ED, patient was treated with D50, IV Insulin 10 units, IV calcium gluconate 1 gram. Following treatment, potassium decreased to 5.6. Plan: - Recheck BMP to monitor potassium trend and renal function. - Continue treatment as needed based on repeat labs and clinical status. - Maintain close electrolyte monitoring given underlying CKD and BETSY. #Coronary artery disease status post stents #Chronic systolic heart failure (HFrEF, EF 40%) #Hypertension #History of [facility] (2019) CTA 09/27/24: Mild CHF. Echo (11/12): normal LV size and wall thickness with septal dyskinesi global hypokinesis. Estimated at 40%. Grade II diastolic dysfunction. RV is normal in size and systolic function. Moderate to severe calcific aortic stenosis. Moderate to heavy mitral annulus and apparatus calcification with mild to moderate MR. Mild TR. Plan: - Cardiology recommends continuing to hold aspirin and Plavix during hospital stay. - Continue to hold antihypertensives. - Follow-up with Dr. Green outpatient. #Community-acquired pneumonia #Leukocytosis Patient reports increased shortness of breath over past week, currently afebrile. 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 ER positive, NH negative, HER2 negative. S/p right breast lumpectomy (02/12/2022). S/p radiation therapy (04/22/2022 - 06/26/2022). BRCA 1 and 2 negative. Plan - Follows with Dr. Mcclellan. - Resume home med tamoxifen 10 mg p.o. daily. #Hypothyroidism - Continue home Levothyroxine 175 mg daily. #Type 2 Diabetes Mellitus Hemoglobin A1c 6.8% as of 10/15/2024. Per chart review, patient's home medications include metformin - 500 mg daily, Tradjenta - 5 mg daily, Trulicity - 3 mg/0.5 mL 3 mg Weekly. Plan: - Held home medications. - Bedside blood glucose checks ACHS. - ISS, adjust as necessary. Health Maintenance: DVT prophylaxis: SCDs GI prophylaxis: Protonix twice daily Diet: N.p.o. pending colonoscopy Lines: Peripheral IV Code status: Full code Patient plan of care was discussed with the senior resident, Dr. Moulton, and attending physician, . Huber Moura DO PGY-1 Attending Provider Attestation/Addendum Kirill, Teresita Loja DO, attest that I was physically present for the tena portions of the service and evaluated the patient with the resident and I reviewed and discussed the case with the resident and agree with the resident's findings and plans of care as documented above Patient seen and evaluated following EGD. Patient states she is feeling well, but continues to have nausea. She states that she has had poor PO intake, nausea and vomiting since . She reports taking ASA and plavix at home. Patient underwent EGD today during which she was found to have esophagitis in the lower third of the esophagus, erythema of antrum of stomach and duodenum. Reviewed results with patient and senior net software developer. Started on GoLytely for tentative colonoscopy tomorrow. Elevated BUN due to GI Bleed. BETSY likely due to dehydration from vomiting and poor PO intake. Patient received 2 units of PRBCs. Patient states she has history of CHF. Will hold off on IV fluids and monitor renal function and volume status. Last stent was placed about 1 year ago. Holding ASA and plavix. Cardiology consulted for this reason. Will continue to trend H/H. If Hgb <8, will transfuse. 2 units of PRBCs on hold at this time.
[2024-11-12] MEDS: DEXTROSE 50%-WATER INJ 50 ML SYRINGE IVP (08:26)
[2024-11-12] MEDS: cefTRIAXone 1,000 MG in SODIUM CHLORIDE 0.9% (Popper) 50 ML 100 MG IV (08:27)
[2024-11-12] MEDS: INSULIN HUM REGULAR 1 UNIT/0.01 ML (PER UNIT) 5 UNIT IV (08:39)
[2024-11-12] MEDS: AZITHROMYCIN INJ 500 MG in SODIUM CHLORIDE 0.9% 250 ML 250 ML 250 MG IV (09:05)
--- NOTE | 2024-11-12 09:43 | ECHO_ITS ---
Transthoracic Echo Report Ht (in): 70 Wt (lb): 202 Exam Location: Echo Lab Status: Inpatient Fleet Salesperson: Kelly Gomez Indications: Procedure Performed: BP: 105 / 75 HR: 77 MEASUREMENTS (Male / Female) Normal Values 2D ECHO LV Diastolic Diameter PLAX 6.0 cm 4.2 - 5.9 / 3.9 - 5.3 cm LV Systolic Diameter PLAX 4.5 cm IVS Diastolic Thickness 0.9 cm 0.6 - 1.0 / 0.6 - 0.9 cm LVPW Diastolic Thickness 1.0 cm 0.6 - 1.0 / 0.6 - 0.9 cm LV Relative Wall Thickness 0.3 LVOT Diameter 1.8 cm DOPPLER AV Peak Velocity 329.7 cm/s AV Peak Gradient 43.5 mmHg AV Mean Gradient 26.5 mmHg AV Velocity Time Integral 79.0 cm LVOT Peak Velocity 96.8 cm/s LVOT Peak Gradient 3.7 mmHg LVOT Velocity Time Integral 20.2 cm LVOT Cardiac Index 1842.7 cm?/min?m? AV Area Cont Eq vti 0.7 cm? AV Area Cont Eq pk 0.7 cm? MV Area PHT 6.1 cm? MR Peak Velocity 594.0 cm/s MR Peak Gradient 141.1 mmHg Mitral E Point Velocity 141.0 cm/s Mitral A Point Velocity 30.6 cm/s Mitral E to A Ratio 4.6 LV E' Lateral Velocity 8.4 cm/s Mitral E to LV E' Lateral Ratio 16.8 LV E' Septal Velocity 3.4 cm/s Mitral E to LV E' Septal Ratio 41.8 TR Peak Velocity 209.0 cm/s TR Peak Gradient 17.5 mmHg FINDINGS Left Ventricle Normal left ventricular size and wall thickness. The ejection fraction is visually estimated at 40 %. There is grade II diastolic dysfunction of the left ventricle (pseudonormal filling pattern). Global left ventricular systolic function is mildly decreased.- Right Ventricle The right ventricle is normal in size and systolic function. Right Atrium The right atrium is normal by two-dimensional imaging, color flow and Doppler imaging with no structural abnormalities, no thrombus formation present. Atrial Septum The interatrial septum appears normal with no evidence of a shunt. Aorta The aorta is normal by two-dimensional, color flow and Doppler interrogation. Mitral Valve Moderate mitral regurgitation. Moderate mitral annular calcification. Aortic Valve Moderate aortic valve stenosis. Tricuspid Valve The tricuspid valve is normal by two-dimensional, color flow and Doppler interrogation. There is trace tricuspid valve regurgitation. Pulmonic Valve The pulmonic valve is not well visualized. There is no significant pulmonic valve regurgitation. Vessels Inferior vena cava not well visualized. Pericardium The pericardium is normal by two-dimensional imaging. There is no significant pericardial effusion. There is a small pleural effusion. CONCLUSIONS Indication: CAD 9 stents Normal LV size and wall thickness wit septal dyskinesi global hypokinesis . Estimated at 40 %. There is grade II diastolic dysfunction. The RV is normal in size and systolic function. Moderate to severe calcific aortic stenosis V max 3.3m/ sec Mean gradient 27mm hG Moderate to heavy mitral annulus and apparatus calcification with mild to moderate mitral regurgittion Mild TR Mercedes Goel (Electronically Signed) Final Date: 12 November 2024 17:53
--- NOTE | 2024-11-12 09:49 | XR_ITS ---
Examination: Renal sonogram Renal Doppler sonographic evaluation of the kidneys Date and time: November 12, 2024 10:17 AM Indications: History renal failure diagnosis chronic kidney disease 3 months ago Technique And Findings: Sonographic images of the kidneys, assessment peak arterial systolic velocities, calculation resistive indices and renal aortic ratios Right kidney 9.3 cm renal cortex 1.1 cm Left kidney 10.2 cm cortex 1.4 cm Normal examination systolic velocities bilaterally No significant elevation of resistive indices Normal renal aortic ratios Impression: Small kidneys with bilateral renal cortical thinning No hydronephrosis No Doppler sonographic findings of renal artery stenosis is
--- NOTE | 2024-11-12 11:47 | SUR.PHASEI ---
Pt. arrived to recovery via gurney, eyes open, AAox3, VSS, lung sounds clear, diminished at bases, equal expansion kurtis., Dr. Sellers at bedside with interns, pt. has c/o chest pain, per pt. pain goes away when she presses on area or uses a cold compress, per Dr. Sellers, that pain is not angina possibly just soreness . Report received from Saima MARSHALL.
--- NOTE | 2024-11-12 11:51 | XR_ITS ---
Examination: Retroperitoneal ultrasound, complete Technique: Multiple high resolution grayscale images of the retroperitoneum obtained, including kidneys and bladder. Exam date and time:November 12, 2024 1500 hrs. Indications: Chronic kidney disease diagnosis 3 months ago. Findings: Right kidney 10.5 cm cortex 1.6 cm Left kidney 9.2 cm cortex 1.5 cm No hydronephrosis or renal calculi No bladder mass or bladder calculi, bladder prevoid volume 890 cc Mild renal parenchymal scar formation Impression: Bilateral renal cortical thinning No hydronephrosis Mild bilateral renal parenchymal scar formation
--- NOTE | 2024-11-12 12:20 | SUR.PHASEI ---
Pt. transferred to room 271 via gurney, no c/o pain or nausea at this time, VSS, IV flushed and saline locked, Vijaya MARSHALL assumed care of pt.
--- NOTE | 2024-11-12 12:39 | ESCONSULT_ITS ---
<Statement entered by Akiko Green MD - 11/12/24 19:24> I personally evaluated examined this patient postprocedure following endoscopy she is very well-known to me has a longstanding history of CAD multiple stents placed ischemic cardiomyopathy chronic systolic heart failure ejection fraction 40 to 45% has been bluntly doing fairly well recently she came with GI bleeding 4 days ago she stopped taking blood thinners aspirin and Plavix came to the hospital with drop in hemoglobin underwent endoscopy open negative Dr. Bailon wants to colonoscopy for now we can stop the aspirin Plavix temporarily when we resume Resume Plavix no aspirin because of bleeding. Cardiac echo was performed. Showed evidence of moderate LV dysfunction EF 40% and heavy mitral annulus calcification mild mitral regurgitation. Will continue to monitor the patient closely no evidence any acute heart failure at this point but recommend resuming all the heart failure medications but aspirin Plavix can be discontinued. Evaluate the patient with resident physician Dr. Armin Méndez will continue to follow the patient closely HPI Data of Consult Requesting Physician: Harry Acosta MD Admitting Provider: Harry Acosta MD Attending Provider: Harry Acosta MD Primary Care Provider: Physician No Primary/Family Consult Narrative History of present illness: 84-year-old female with a PMH of CAD with 9 stents, hypertension, diabetes, CKD, breast cancer status post partial mastectomy and radiation therapy on chemo, who presented to the ED on 11/11/2024 with abdominal pain and coffee-ground emesis for the past 2 days. She had also mentioned increasing shortness of breath and fatigue over the past week with worsening fatigue and lightheadedness on the day of the admission. She denied having similar symptoms in the past. She denied fever chills chest pain diarrhea melena constipation or dysuria. She is on aspirin and Plavix for CAD at home. ED COURSE: Labs significant for: WBC 17.7, hemoglobin 8.6 (down from 14.6 one month ago), potassium 6.2, BUN 137, creatinine 2.4, EGFR 20, troponin negative, occult blood positive. UA shows 11 WBCs, 1+ bacteria. Imaging significant for: EKG shows paced rhythm, CT A/P shows left base pneumonia and renal scarring with perinephric stranding. Patient received 80 mg IV Protonix, 1 L bolus lactated Ringer's, amp of D50, insulin 10, calcium gluconate 1 g, and 2 units PRBC in the ED. GI was consulted, will perform EGD tomorrow, patient NPO. History: PMH: CAD, HTN, DM, CKD, breast cancer PSH: Partial right mastectomy SH: Denies alcohol, tobacco, illicit drug use. Allergies: Hydralazine, codeine, sulfa drugs, Versed Medications: Gabapentin, metoprolol succinate, Gemtesa, Plavix, aspirin, Bumex, spironolactone, tamoxifen, Entresto, Ranexa, levothyroxine, nitro as needed. Reason for consult: Cardiology was consulted for management of the patient's history of coronary artery disease on anticoagulation status post 9 stents in the presence of a possible GI bleed. cc:: cc: Harry Acosta MD Review of Systems Review of Systems Narrative Review of Systems: Review of Systems: * General: Denies fevers, chills. * HEENT: Denies headache, congestion, or sore throat. * Cardiac: Patient admits to chest pain. * Pulmonary: Patient admits to feeling short of breath. * GI: Denies nausea, vomiting, diarrhea, constipation, melena, or hematochezia. * : Denies dysuria, hematuria, frequency, or urgency. * MSK: Denies pain in the extremities, joints, or myalgias. * Neuro: Denies weakness, numbness, vision changes, or speech difficulty. Exam Vital Signs Temp Pulse Resp BP Pulse Ox O2 Del Method O2 Flow Rate 97.2 F 85 16 118/60 97 Room Air 3 11/12/24 12:10 11/12/24 12:10 11/12/24 12:10 11/12/24 12:10 11/12/24 12:10 11/12/24 08:00 11/12/24 11:40 Narrative Exam Patient was examined immediately after her endoscopy procedure by the cardiology team. General: Lethargic, pale, obese lady. Conversational and non-toxic appearing. Neurologic: GCS 15. Alert and oriented x3, no gross neurological deficit, and patient able to move all 4 extremities. HEENT: Normocephalic, atraumatic, mucous membranes moist. Pupils reactive to light. Heart: Grade 3 systolic ejection murmur. Regular rate and rhythm, normal S1 and S2, no murmurs. Lungs: Clear to auscultation bilaterally with no wheezing or crackles. Abdomen: Obese, soft, nondistended, slightly tender to palpation, positive bowel sounds. No guarding or rebound tenderness. Extremities: No edema. 2+ radial and dorsalis pedis pulses bilaterally. Skin: Warm. Dry. No rash or ecchymoses. Results Labs 11/12/24 03:38 11/12/24 03:38 Labs: Short CBC 11/11/24 11/12/24 Range/Units 17:30 03:38 WBC 17.7 H 14.2 H (3.6-11.0) Thou/mm3 Hgb 8.6 L 10.9 L D (12.0-16.0) g/dL Hct 26.4 L 32.8 L (36.0-46.0) % Plt Count 545 H D 368 D (140-440) Thou/mm3 BMP 11/11/24 11/11/24 11/12/24 17:30 23:05 03:38 Sodium 131 L 131 L 135 L Potassium 6.2 H* 5.6 H D 5.2 H Chloride 96 L 97 L 100 Carbon Dioxide 21.9 20.6 22.3 BUN 137 H* 156 H* 153 H* Creatinine 2.4 H 2.6 H 2.5 H Glucose 273 H 319 H 241 H D Calcium 9.2 8.6 9.5 Cardiac Enzymes 11/11/24 Range/Units 17:30 Troponin I < 0.020 (0.0-0.045) ng/mL Liver Function 11/11/24 11/12/24 Range/Units 17:30 03:38 Total Bilirubin 0.4 0.4 (0.3-1.2) mg/dL AST < 10 13 (0-34) U/L ALT < 7 L < 7 L (10-49) U/L Alkaline Phosphatase 68 66 (46-116) U/L Albumin 3.4 3.3 L (3.4-4.8) gm/dL Urine 11/11/24 Range/Units 18:00 Urine Color Yellow (Lt Yel-Yel) Urine Clarity Clear (Clear/Hazy) Urine pH 5.0 (5.0-7.0) Ur Specific [place] 1.014 (1.001-1.035) Urine Protein Negative (Neg - Trace) Urine Glucose (UA) Negative (Negative) Quality Measures Quality Measures VTE prophylaxis Advance care planning discussed with:: patient Medications Home Medications and Allergies Home Medications ?Medication ?Instructions ?Recorded ?Confirmed ?Type gabapentin 100 mg capsule 100 mg PO BID #0 caps 04/25/24 History linagliptin 5 mg tablet (Tradjenta) 5 mg PO QDAY ##0 0 06/09/13 04/25/24 History aspirin 81 mg tablet,delayed 81 mg PO HS 12/16/1803/30 History release (Aspir-) hydrochlorothiazide 25 mg tablet 12.5 mg PO BID 04/25/24 History levothyroxine 175 mcg tablet 175 mcg PO QDAY 10/11/20 04/25/24 History (Synthroid) metformin 500 mg tablet 500 mg PO QDAY 10/11/2003/30 History Held on 12/20/23. Instructions: Resume on 12/22/23. Hold for 2 days. May resume 12/22/23. nitroglycerin 0.4 mg sublingual 0.4 mg buccal Q3-4HRPR N PRN Chest 10/11/20 04/25/24 History tablet (Nitrostat) Pain blood-glucose,slip cover sewer,cont 01/01/22 04/25/24 History (Dexcom G6 Transfer Car [employer] Drier) B-complex with vitamin C 1 tab PO QDAY 02/11/2204/25 History acetylcarnitine HCl 250 mg capsule 500 mg PO BID 02/1104/25/24 History alpha lipoic acid 300 mg capsule 600 mg PO QDAY 04/25/24 History biotin 5,000 mcg-lutein 10 mg 1 tab PO DAILY 02/11/22 04/25/24 History tablet (Biotin Plus) cinnamon bark 500 mg capsule 1,000 mg PO HS 02/11/22 0 04/25/24 History (Cinnamon) dulaglutide 3 mg/0.5 mL 3 mg subcut QWEEK 02/11/22 0 04/25/24 History subcutaneous pen injector (Trulicity) insulin glargine 100 unit/mL 50 unit subcut DAILY 01/2704/25/24 History subcutaneous solution (Lantus U-100 Insulin) insulin glargine 100 unit/mL 60 unit subcut HS 2 04/25/24 History subcutaneous solution (Lantus U-100 Insulin) amlodipine 5 mg tablet (Norvasc) 5 mg PO QDAY 09/04/22 04/25/24 History clopidogrel 75 mg tablet (Plavix) 75 mg PO QDAY 04/25/24 History fenofibrate 150 mg capsule 145 mg PO DAILY 09/04/22 History alpha lipoic acid 300 mg capsule 300 mg PO HS 11/25/22 04/25/24 History tamoxifen 10 mg tablet 20 mg PO QDAY 11/25/2204/25 History nitrofurantoin 100 mg PO QDAY 10/26/2303/30 History monohydrate/macrocrystals 100 mg capsule (Macrobid) vibegron 75 mg tablet (Gemtesa) 75 mg PO QDAY 10/26/23 04/25/24 History B-complex with vitamin C 1 tab PO DAILY 12/20/2303/30 History ascorbic acid (vitamin C) 500 mg 500 mg PO QDAY 04/25/24 History tablet,extended release biotin 1,000 mcg chewable tablet 1,000 mcg PO QDAY 04/25/24 History ranolazine 500 mg tablet,extended 500 mg PO BID 04/25/24 History release,12 hr sacubitril 97 mg-valsartan 103 mg 1 tab PO BID 4 04/25/24 History tablet (Entresto) spironolactone 25 mg tablet 25 mg PO DAILY 12/20/23 History (Aldactone) Allergies Allergy/AdvReac Type Severity Reaction Status Date / Time Sulfa (Sulfonamide Allergy Intermediate THROAT Verified 05/16/24 12:51 Antibiotics) SWELLS SHUT hydralazine Allergy Diarrhea Verified 05/16/24 12:51 codeine AdvReac Intermediate Vomiting Verified 05/16/24 12:51 midazolam (From Versed) AdvReac Insomnia Verified 05/16/24 12:51 Visit Medications Acetaminophen (Acetaminophen 325 Mg Tablet) 650 mg PO Q6H PRN PRN Reason: Fever >100.4 or pain Stop: 12/11/24 20:24 Dextrose (Dextrose 50%-Water Inj 50 Ml Syringe) 25 ml IV Q15MIN PRN PRN Reason: BG 50-70 responsive npo pt Stop: 12/11/24 20:29 Dextrose (Dextrose 50%-Water Inj 50 Ml Syringe) 50 ml IV Q15MIN PRN PRN Reason: BG <50 OR BG <70 & pt unresponsive Stop: 12/11/24 20:29 Glucagon (Glucagon Inj 1 Mg Vial) 1 mg IM Q15MIN PRN PRN Reason: BG <70, and no IV access Octreotide Acetate 1,000 mcg/ (Sodium Chloride) 102 mls @ 5.1 mls/hr IV .Q20H ONE; Protocol Stop: 11/12/24 15:32 Last Admin: 11/11/24 20:04 Dose: Not Given Azithromycin 500 mg/ Sodium (Chloride) 250 mls @ 250 mls/hr IV QDAY [facility] Stop: 11/19/24 08:59 Last Admin: 11/12/24 09:05 Dose: 250 mls/hr Ceftriaxone Sodium/Dextrose (Rocephin/D5w 1gm Iv Premix) 1 gm in 50 mls @ 100 mls/hr IV QDAY [facility] Stop: 11/19/24 08:59 Insulin Human Lispro (Insulin Lispro (Admelog) 1 Unit/0.01 Ml Unit) 0 unit SC Q6HR [facility]; Protocol Stop: 12/12/24 00:00 Last Admin: 11/12/24 05:54 Dose: 1 unit Levothyroxine Sodium (Levothyroxine Sodium 25 Mcg Tablet) 175 mcg PO QDAY [facility] Stop: 12/12/24 08:59 Last Admin: 11/12/24 09:06 Dose: Not Given Pantoprazole Sodium (Pantoprazole Inj 40 Mg Vial) 40 mg IVP Q12HR [facility] Stop: 12/12/24 08:59 Last Admin: 11/12/24 08:27 Dose: 40 mg Sodium Chloride (Sodium Chloride Rt [place] 0.9% 3 Ml Nebu) 3 ml INH PRN PRN PRN Reason: SOLN Stop: 12/11/24 18:45 Tamoxifen Citrate (Tamoxifen Citrate 10 Mg Tablet) 20 mg PO QDAY [facility] Stop: 12/12/24 08:59 Last Admin: 11/12/24 09:06 Dose: Not Given Discontinued Medications Albuterol (Albuterol Rt 2.5 Mg/0.5 Ml Nebu) 5 mg INH X1 ONE Stop: 11/11/24 18:47 Last Admin: 11/11/24 19:26 Dose: Not Given Calcium Gluconate (Calcium Gluconate 10% Inj 1 Gm/10 Ml Vial) 1 gm IV X1 ONE Stop: 11/11/24 18:47 Last Admin: 11/11/24 19:07 Dose: 1 gm Dextrose (Dextrose 50%-Water Inj 50 Ml Syringe) 50 ml IVP X1 ONE Stop: 11/11/24 19:08 Last Admin: 11/11/24 19:12 Dose: 50 ml Dextrose (Dextrose 50%-Water Inj 50 Ml Syringe) 50 ml IVP X1 ONE Stop: 11/12/24 07:28 Last Admin: 11/12/24 08:26 Dose: 50 ml Fentanyl Citrate (Fentanyl Cit Inj 50 Mcg/Ml Amp 2ml) 50 mcg IVP X1 ONE Stop: 11/11/24 19:44 Last Admin: 11/11/24 20:00 Dose: 50 mcg Fentanyl Citrate (Fentanyl Cit Inj 50 Mcg/Ml Amp 2ml) 50 mcg IVP Q2M PRN PRN Reason: MODERATE SEDATION Stop: 11/12/24 13:04 Lactated Ringer's (Lactated Ringers) 1,000 mls @ 999 mls/hr IV .Q1H1M ONE Stop: 11/11/24 18:08 Last Infusion: 11/11/24 19:26 Dose: Infused Ceftriaxone Sodium/Dextrose (Rocephin/D5w 1gm Iv Premix) 1 gm in 50 mls @ 100 mls/hr IV X1 ONE Stop: 11/11/24 19:16 Last Infusion: 11/11/24 21:57 Dose: Infused Tranexamic Acid (Tranexamic Acid Ivpb) 1,000 mg in 100 mls @ 200 mls/hr IV [id number] PRN PRN Reason: BLEEDING Last Infusion: 11/11/24 21:10 Dose: Infused Ceftriaxone Sodium 1,000 mg/ (Sodium Chloride) 50 mls @ 100 mls/hr IV QDAY [facility] Stop: 11/19/24 08:59 Last Admin: 11/12/24 08:27 Dose: 100 mls/hr Azithromycin 500 mg/ Sodium (Chloride) 250 mls @ 250 mls/hr IV X1 ONE Stop: 11/11/24 22:44 Last Admin: 11/11/24 21:58 Dose: 250 mls/hr Insulin Human Regular (Insulin Hum Regular 1 Unit/0.01 Ml (Per Unit)) 5 unit IV X1 ONE Stop: 11/11/24 18:47 Last Admin: 11/11/24 19:18 Dose: Not Given Insulin Human Regular (Insulin Hum Regular 1 Unit/0.01 Ml (Per Unit)) 10 unit IV X1 ONE Stop: 11/11/24 19:03 Last Admin: 11/11/24 19:13 Dose: 10 unit Insulin Human Regular (Insulin Hum Regular 1 Unit/0.01 Ml (Per Unit)) 5 unit IV X1 ONE Stop: 11/12/24 07:28 Last Admin: 11/12/24 08:39 Dose: 5 unit Meperidine HCl (Meperidine Inj 50 Mg/Ml Vial) 50 mg IVP Q2M PRN PRN Reason: Moderate Sedation Stop: 11/12/24 13:30 Midazolam HCl (Midazolam Inj 1 Mg/Ml Vial 2 Ml) 2 mg IVP Q2M PRN PRN Reason: Moderate Sedation Stop: 11/12/24 13:04 Octreotide Acetate (Octreotide Acet Inj 50 Mcg/Ml Vial) 50 mcg IV X1 ONE Stop: 11/11/24 19:33 Last Admin: 11/11/24 20:04 Dose: Not Given Ondansetron HCl (Ondansetron Inj 2 Mg/Ml Inj 2 Ml) 4 mg IVP X1 ONE; Protocol Stop: 11/11/24 17:08 Last Admin: 11/11/24 17:50 Dose: 4 mg Pantoprazole Sodium (Pantoprazole Inj 40 Mg Vial) 80 mg IVP X1 ONE Stop: 11/11/24 17:15 Last Admin: 11/11/24 17:52 Dose: 80 mg Polyethylene Glycol/Electrolytes ([place]/Nahco3/Tonny/Peg (Golytely) 4,000 Ml Btl) 4,000 ml PO X1 ONE Stop: 11/12/24 11:50 Sodium Polystyrene Sulfonate (Sod Polystyrene Sulfon Susp 15 Gm/60 Ml Btl) 30 gm PO X1 ONE Stop: 11/12/24 07:28 Last Admin: 11/12/24 09:06 Dose: Not Given Assessment & Plan Plan 84-year-old female with a PMH of CAD with 9 stents, hypertension, diabetes, CKD, breast cancer status post partial mastectomy and radiation therapy on chemo, who presented to the ED on 11/11/2024 with abdominal pain and coffee-ground emesis for the past 2 days. The patient was admitted for GI bleed. Cardiology was consulted for management of the patient's history of coronary artery disease on anticoagulation status post 9 stents in the presence of a possible GI bleed. #CAD status post stents #Hypertension #GI bleed * The patient's most previous stent was in November 2023 * The patient was examined by cardiology after a negative upper endoscopy by GI * Patient is currently not on any anticoagulation or antihypertensives per the primary team Plan: * Cardiology recommends continuing to hold aspirin and Plavix during hospital stay * Will resume Plavix outpatient after GI bleed is addressed due to Plavix having less of a GI irritating component * Continue to hold antihypertensives * Follow-up with Dr. Green outpatient after discharge #Upper GI bleed #Symptomatic anemia #BETSY on CKD #Community-acquired pneumonia #UTI, possible pyelonephritis #Hyperkalemia #Right-sided breast cancer status postmastectomy and radiotherapy #Diabetes The remainder of the patient's hospital problems will be managed per the primary team. Patient was seen and discussed with my attending physician Dr. Green. Armin Méndez DO PGY-1.
[2024-11-12] MEDS: NA SU/NAHCO3/KC/PEG (Golytely) 4,000 ML BTL 4000 ML PO (13:09)
[2024-11-12 14:32] LABS: Hematocrit 30.2 % (36.0-46.0); Hemoglobin 10.0 g/dL (12.0-16.0)
[2024-11-12 14:40] LABS: Potassium 5.3 mMol/L (3.4-5.1)
--- NOTE | 2024-11-12 15:43 | PC.SS ---
This is 84-year-old, , male who presented to the ED due to suffering from general weakness. Patient appeared alert and oriented to self, place and situation. Patient was pleasant. Patient verified her address and phone number. Patient resides alone at home. Patient uses a rollator. Patient reported that she weak and was needing more support at home. Patient reported that she has a friend that checks on her on Wednesday. However, it is not enough support. SW discussed home health PT and private caregiving vs. SNF placement. Patient reported that she will think about her options. Patient assigned her sister, Jessie or son, Rasheed as her medical decision makers. Patient's PCP is Dr. Samayoa. Social Workers will follow-up with patient to inquire about her discharge plan. Discharge plan: home health PT and private caregiving vs. SNF placement
[2024-11-13] VITALS (27 sets, daily range): BP systolic 112–142; BP diastolic 58–92; PULSE 92–136; RESP 13–18; TEMP 36.2–36.8; O2SAT 93–100; BMI 31.1
[2024-11-13] MEDS: NA SU/NAHCO3/KC/PEG (Golytely) 4,000 ML BTL 4000 ML PO (05:25)
--- NOTE | 2024-11-13 05:39 | PC.NURSE ---
applied O2 inh on per pt request, at 1L/min/nc.
[2024-11-13 06:13] LABS: Basophils # (Auto) 0.1 Thou/mm3 (0.0-0.2); Basophils % (Auto) 1 % (0-2.5); Eosinophils # (Auto) 0.5 Thou/mm3 (0.0-0.5); Eosinophils % (Auto) 4 % (0-10); Hematocrit 28.5 % (36.0-46.0); Hemoglobin 9.4 g/dL (12.0-16.0); Immature Granulocytes Auto 0.07 Thou/mm3 (0.00-0.00); Lymphocytes # (Auto) 2.0 Thou/mm3 (1.0-4.8); Lymphocytes % (Auto) 17 % (10-50); Mean Corpuscular HGB Conc 33.0 g/dl (31.0-37.0); Mean Corpuscular Hemoglobin 28.2 pg (25.0-35.0); Mean Corpuscular Volume 86 fL (80-100); Monocytes # (Auto) 0.9 Thou/mm3 (0.0-0.8); Monocytes % (Auto) 8 % (0-12); Neutrophils # (Auto) 8.3 Thou/mm3 (1.8-7.7); Neutrophils % (Auto) 70 % (37-80); Nucleated Red Blood Cell # 0.00 Thou/mm3 (0.00-0.00); Nucleated Red Blood Cell % 0 /100 WBC (0); Platelet Count 331 Thou/mm3 (140-440); RDW Standard Deviation 46.0 fL (36.4-46.3); Red Blood Count 3.33 Miln/mm3 (4.00-5.20); White Blood Count 11.9 Thou/mm3 (3.6-11.0)
[2024-11-13 07:11] LABS: Alanine Aminotransferase < 7 U/L (10-49); Albumin, Serum 3.0 gm/dL (3.4-4.8); Albumin/Globulin Ratio 1.5 (1.2-2.2); Alkaline Phosphatase 61 U/L (46-116); Anion Gap 12 (7-16); Aspartate Amino Transferase 19 U/L (0-34); BUN/Creatinine Ratio 61 Ratio (12-20); Bilirubin,Total 0.3 mg/dL (0.3-1.2); Blood Urea Nitrogen 128 mg/dL (9-23); Calcium 9.2 mg/dL (8.3-10.6); Calcium (Corrected) 10.0 mg/dL (8.5-10.1); Carbon Dioxide 23.3 mMol/L (20.0-31.0); Chloride 104 mMol/L (98-107); Creatinine (Component) 2.1 mg/dL (0.6-1.3); Estimated Creatinine Clearance 26.2 mL/min (>60); Globulin 2.0 gm/dL (2.3-3.5); Glucose 153 mg/dL (74-106); Magnesium 2.2 mg/dL (1.6-2.6); Osmolality,Calculated 321 (275-295); Phosphorous 3.6 mg/dL (2.4-5.1); Potassium 4.7 mMol/L (3.4-5.1); Sodium 139 mMol/L (136-145); Total Protein 5.0 gm/dL (5.7-8.2); eGFR 23 See Note
[2024-11-13] MEDS: LEVOTHYROXINE SODIUM 25 MCG TABLET 175 MCG PO (08:05)
[2024-11-13] MEDS: cefTRIAXone/D5w 1gm IV premix 1 GM/50 ML BAG IV (08:05)
[2024-11-13] MEDS: ONDANSETRON ODT 4 MG TABRAP PO (08:06)
[2024-11-13] MEDS: TAMOXIFEN CITRATE 10 MG TABLET PO (08:27)
[2024-11-13] MEDS: ACETAMINOPHEN 325 MG TABLET 650 MG PO ×2 (09:00→20:54)
[2024-11-13] MEDS: AZITHROMYCIN INJ 500 MG in SODIUM CHLORIDE 0.9% 250 ML 250 ML 250 MG IV (09:00)
--- NOTE | 2024-11-13 09:14 | ESPR_ITS ---
<Statement entered by Elijah Boothe MD - 11/13/24 15:23> Patient was examined and case was reviewed with team including attending physician. Note reviewed, I agree with most of its contents and agree with the patient's care as documented by Dr. Moura Patient seen today at the bedside found awake, alert, orientedx3. No overnight events reported. Vitals and labs reviewed. Patient complaining of nausea while drinking the GoLytely. Patient is status post upper endoscopy by GI specialist found to have esophagitis. At this time GI specialist recommended to pursue colonoscopy to find source of bleeding. Case discussed with my attending Dr. Purvi Boothe MD PGY-2 Disclaimer: Despite multiple revisions, due to the dictation software being used, the document bellow may not be free of grammatical errors including phonetic/typographic errors. However, this does not deter from our commitment to providing health care in the patient's best interest in mind. Documentation for date of: 11/13/24 Subjective Subjective Interval history: Patient was seen at the bedside this morning. At that time, she was on her second liter of Golytely prep since she wasn't clear yet. Patient reported nausea, for which Zofran was given. In the afternoon, the patient complained of chest pain and pressure radiating down both arms. She described the pain as similar to her typical episodes at home, which are usually relieved with nitroglycerin. An EKG and troponin were ordered, and nitroglycerin was administered. Following treatment, the patient reported significant improvement in her symptoms. Exam Vital Signs Temp Pulse Resp BP Pulse Ox O2 Del Method O2 Flow Rate 97.4 F 100 17 130/72 98 Nasal Cannula 1 11/13/24 07:51 11/13/24 07:51 11/13/24 07:51 11/13/24 07:51 11/13/24 07:51 11/13/24 07:51 11/13/24 07:51 Narrative Exam Physical Exam General: Awake and in no acute distress. Conversational and non-toxic appearing. Pale. HEENT: Normocephalic, atraumatic. Heart: Regular rate and rhythm, no murmurs. Lungs: Clear to auscultation with no wheezing or crackles. Abdomen: Soft, nondistended, mild diffuse tenderness. No guarding or rebound tenderness. Neurologic: Alert and oriented x3, no gross neurological deficit, and patient able to move all 4 extremities. Extremities: No edema. Skin: No rash or ecchymoses. Objective Labs 11/14/24 08:18 11/14/24 08:18 Labs: Laboratory Results - last 24 hr 11/11/24 11/12/24 11/13/24 17:30 14:18 04:30 WBC 11.9 H RBC 3.33 L Hgb 10.0 L 9.4 L Hct 30.2 L 28.5 L MCV 86 MCH 28.2 MCHC 33.0 RDW Std Deviation 46.0 Plt Count 331 D Neut % (Auto) 70 Lymph % (Auto) 17 [place] % (Auto) 8 Eos % (Auto) 4 Baso % (Auto) 1 Neut # (Auto) 8.3 H Lymph # (Auto) 2.0 [place] # (Auto) 0.9 H Eos # (Auto) 0.5 Baso # (Auto) 0.1 Immature Gran # (Auto) 0.07 H Absolute Nucleated RBC 0.00 Immature Gran % 1 H Nucleated RBC % 0 Sodium 139 Potassium 5.3 H 4.7 D Chloride 104 Carbon Dioxide 23.3 Anion Gap 12 BUN 128 H* Creatinine 2.1 H Estim Creat Clear Calc 26.2 L eGFR 23 L BUN/Creatinine Ratio 61 H Glucose 153 H D Calculated Osmolality 321 H Calcium 9.2 Corrected Calcium 10.0 Phosphorus 3.6 Magnesium 2.2 Total Bilirubin 0.3 AST 19 ALT < 7 L Alkaline Phosphatase 61 Total Protein 5.0 L Albumin 3.0 L Globulin 2.0 L Albumin/Globulin Ratio 1.5 Blood Type O Positive Antibody Screen NEGATIVE Crossmatch See Detail Blood Bank Wristband ID Yes Quality Measures Quality Measures VTE prophylaxis Advance care planning discussed with:: patient Assessment & Plan Assessment Current Active Medications: Generic Name Dose Route Start Last Admin Trade Name Freq PRN Reason Stop Dose Admin Acetaminophen 650 mg 11/11/24 20:25 11/13/24 09:00 Acetaminophen 325 Mg Tablet PO 12/11/24 20:24 650 mg Q6H PRN Administration Fever >100.4 or pain Dextrose 25 ml 11/11/24 20:30 Dextrose 50%-Water Inj 50 Ml Syringe IV 12/11/24 20:29 Q15MIN PRN BG 50-70 responsive npo pt Dextrose 50 ml 11/11/24 20:30 Dextrose 50%-Water Inj 50 Ml Syringe IV 12/11/24 20:29 Q15MIN PRN BG <50 OR BG <70 & pt unresponsive Glucagon 1 mg 11/11/24 20:30 Glucagon Inj 1 Mg Vial IM Q15MIN PRN BG <70, and no IV access Azithromycin 500 mg/ Sodium 250 mls @ 250 mls/hr 11/12/24 09:00 11/13/24 09:00 Chloride IV 11/19/24 08:59 250 mls/hr QDAY TRINH Administration Ceftriaxone Sodium/Dextrose 1 gm in 50 mls @ 100 mls/hr 11/13/24 09:00 11/13/24 08:05 Rocephin/D5w 1gm Iv Premix IV 11/19/24 08:59 100 mls/hr QDAY TRINH Administration Insulin Human Lispro 0 unit 11/12/24 00:00 11/13/24 05:29 Insulin Lispro (Admelog) 1 Unit/0.01 Ml Unit SC 12/12/24 00:00 Not Given Q6HR TRINH Protocol Levothyroxine Sodium 175 mcg 11/12/24 09:00 11/13/24 08:05 Levothyroxine Sodium 25 Mcg Tablet PO 12/12/24 08:59 175 mcg QDAY TRINH Administration Ondansetron HCl 4 mg 11/13/24 07:42 11/13/24 08:06 Ondansetron Odt 4 Mg Tabrap PO 12/13/24 07:41 4 mg Q6HR PRN Administration NAUSEA OR VOMITING Protocol Pantoprazole Sodium 40 mg 11/12/24 09:00 11/13/24 08:04 Pantoprazole Inj 40 Mg Vial IVP 12/12/24 08:59 40 mg Q12HR TRINH Administration Sodium Chloride 3 ml 11/11/24 18:46 Sodium Chloride Rt [place] 0.9% 3 Ml Nebu INH 12/11/24 18:45 PRN PRN SOLN Tamoxifen Citrate 10 mg 11/13/24 09:00 11/13/24 08:27 Tamoxifen Citrate 10 Mg Tablet PO 12/13/24 08:59 10 mg QDAY TRINH Administration Plan 84 year-old female with past medical history of CAD s/p 9 stents, hypertension, diabetes, CKD, CHF, invasive ductal carcinoma in situ (ER+) s/p right breast partial lumpectomy and radiation (Jan 2012) on chemotherapy, presented to 11/11 with abdominal pain and coffee-ground emesis for 2 days, admitted for GI bleed. #GI bleed (Likely lower source vs unknown origin; upper GI bleed ruled out) #Acute post hemorrhagic anemia Coffee-ground emesis for two days. Diffuse abdominal tenderness and pallor on exam. FOBT positive. BUN elevated at 137. Initial hemoglobin on admission was 8.6 (baseline was ~14.6 one month ago). Received 2 units pRBCs in ED, with post-transfusion hemoglobin improved to 10.9. Patient is on aspirin and Plavix at home for CAD. EGD (11/12): esophagitis, erythematous mucosa in the antrum and duodenopathy, with no active bleeding source identified. Plan - Monitor H&H. - Transfuse if Hgb <8 or if symptomatic. - Continue IV Pantoprazole 40 mg BID. - Plan for colonoscopy for today 11/13, to evaluate for lower GI bleeding source. - Clear liquid diet with Golytely prep, then NPO. Plan for fluid restriction (1500 mL) when start diet after colonoscopy. - Hold aspirin and Plavix during hospitalization (per cardiology). - Plan to resume Plavix outpatient once bleeding is identified and controlled as it is less irritating to GI tract than aspirin (per cardiology). - GI consulted - appreciate recs. #Coronary artery disease status post stents #Chronic systolic heart failure (HFrEF, EF 40%) #Hypertension Patient has AV sequential dual-chamber pacemaker. CTA 09/27/24: Mild CHF. Echo (11/12): normal LV size and wall thickness with septal dyskinesi global hypokinesis. Estimated at 40%. Grade II diastolic dysfunction. RV is normal in size and systolic function. Moderate to severe calcific aortic stenosis. Moderate to heavy mitral annulus and apparatus calcification with mild to moderate MR. Mild TR. Plan: - Cardiology recommends continuing to hold aspirin, Plavix, antihypertensives. - Follow-up with Dr. Green outpatient. - Restarted home nitroglycerin PRN for chest pain. 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 Follows Dr. Samayoa (nephrology). Admission labs: BUN 137, Cr 2.4, eGFR 20. Baseline Cr: 0.9?1.3 (per chart review). BUN:Cr ratio 57, suggestive of a prerenal etiology (hypovolemia from GI bleed vs anemia-induced hypoperfusion). Renal Ultrasound 11/12: Bilateral renal cortical thinning. No hydronephrosis. Mild bilateral renal parenchymal scar formation. Plan - Continue anemia management (as per GI bleed plan) to improve renal perfusion. - Daily renal panel to trend BUN, Cr, and electrolytes. - Avoid nephrotoxins. - Renally dose meds as appropriate. - Strict I&Os, monitor urine output closely. - Monitor for signs of volume overload or uremic symptoms. - Nephrology consulted - appreciate recs. #Hyperkalemia (resolved) On presentation patient potassium 6.2. Patient has a history of chronic hyperkalemia, managed with Lokelma at home, however, potassium levels are not typically this elevated per chart review. Initial EKG showed paced rhythm. In the ED, patient was treated with D50, IV Insulin 10 units, IV calcium gluconate 1 gram. Following treatment, potassium decreased to 5.6. Plan: - Recheck BMP to monitor potassium trend and renal function. - Treatment as needed based on repeat labs and clinical status. - Maintain close electrolyte monitoring given underlying CKD and BETSY. #Community-acquired pneumonia #Leukocytosis (improving) Patient reports increased shortness of breath over past week, currently afebrile. CXR: atelectasis and/or pneumonia at the left lung base with moderate left pleural fluid. CTAP: pneumonia left base with mild to moderate left pleural fluid. WBC 17.7 Plan: - Continue Rocephin 1 g IV daily (started 11/11). - Continue Azithromycin 500 mg IV daily (started 11/11). #[place] tract infection Denies dysuria, no CVA tenderness. CTAP: Significant bilateral renal scarring with perinephric stranding. UA: WBC 11, bacteria 1+ Plan: - Continue Rocephin 1 g IV daily (started 11/11). - Urine cultures ordered, follow-up. 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 ER positive, NE negative, HER2 negative. S/p right breast lumpectomy (02/12/2022). S/p radiation therapy (04/22/2022 - 06/26/2022). BRCA 1 and 2 negative. Plan - Follows with Dr. Mcclellan. - Resume home med tamoxifen 10 mg p.o. daily. #Hypothyroidism - Continue home Levothyroxine 175 mg daily. #Type 2 Diabetes Mellitus Hemoglobin A1c 6.8% as of 10/15/2024. Per chart review, patient's home medications include metformin - 500 mg daily, Tradjenta - 5 mg daily, Trulicity - 3 mg/0.5 mL 3 mg Weekly. Plan: - Held home medications. - Bedside blood glucose checks ACHS. - ISS, adjust as necessary. Health Maintenance: DVT prophylaxis: SCDs GI prophylaxis: Protonix twice daily Diet: N.p.o. pending colonoscopy Lines: Peripheral IV Code status: Full code Patient plan of care was discussed with the senior resident, Dr. Moulton, and attending physician, . Huber Moura DO PGY-1 Attending Provider Attestation/Addendum Teresita Roy DO, attest that I was physically present for the tena portions of the service and evaluated the patient with the resident and I reviewed and discussed the case with the resident and agree with the resident's findings and plans of care as documented above Patient seen and eval this a.m. No acute events overnight. Patient has been drinking her second gallon of GoLytely. Patient states that she has exhausted and does not want to drink anymore colon prep. Patient still is not clear, but is scheduled for colonoscopy this evening. She endorses chest pain which she describes as a soreness in her right chest. Patient received nitroglycerin. EKG shows tachycardia and paced rhythm. Troponin is 1.019 which cardiology was made aware. Will continue to trend troponin. Nitroglycerin as needed for chest pain. Will follow-up with colonoscopy results.
--- NOTE | 2024-11-13 10:03 | PD.RESCONSUL ---
HPI Data of Consult Consult date: 11/13/24 Requesting Physician: Teresita Loja DO Admitting Provider: Harry Acosta MD Attending Provider: Teresita Loja DO Primary Care Provider: Physician No Primary/Family Consult Narrative Reason for consult: BETSY on CKD-- BUN 156, Yao is PCP History of present illness: Ms Levy is an 84 yo woman with a hx of CVD s/p 9 stents with pacemaker on asa and plavix , htn, dm, ckd, breast cancer (s/p partial mastectomy and radiation on chemo) who presented to the ED with cc of abdominal pain and coffee ground emesis for 2 days. pt reports having increasing shortness of breath and fatigue over the past week. She endorses lightheadedness and fatigue. she denies fevers, chills, chest pain, diarrhea, melena, constipation, dysuria. ED COURSE: Labs significant for: WBC 17.7, hemoglobin 8.6 (down from 14.6 one month ago), potassium 6.2, BUN 137, creatinine 2.4, EGFR 20, troponin negative, FOBT positive. UA shows 11 WBCs, 1+ bacteria. Imaging significant for: EKG shows paced rhythm, CT A/P shows left base pneumonia and renal scarring with perinephric stranding. Patient received 80 mg IV Protonix, 1 L bolus lactated Ringer's, amp of D50, insulin 10, calcium gluconate 1 g, and 2 units PRBC in the ED. GI was consulted, for EGD. PMH: CAD, HTN, DM, CKD, breast cancer Family hx: Breast cancer in sister and niece BRCA 1 and 2 negative. PSH: Partial right mastectomy SH: Denies alcohol, tobacco, illicit drug use. Allergies:?Hydralazine, codeine, sulfa drugs, Versed Medications: Gabapentin, metoprolol succinate, Gemtesa, Plavix, aspirin, Bumex, spironolactone, tamoxifen, Entresto, Ranexa, levothyroxine, nitro as needed Interval history: 11/12/2024: EGD performed: esophagitis in lower third of esophagus, diffuse moderately erythematpus mucosa without bleeding in the gastric antrum, erythematous duodenopathy. patchy mildly erythematous mucosa without active bleeding and with no stigmata of bleeding was found in the duodenal bulb. pending colonoscopy, golytely prep. BUN 156, Cr 2.5. Renal US Bilateral renal cortical thinning No hydronephrosis Mild bilateral renal parenchymal scar formation. Renal Artery duplex No Doppler sonographic findings of renal artery stenosis, Small kidneys with bilateral renal cortical thinning. TTE with EF 40% 11/13/2024: Nephrology consulted. Patient seen and examined at bedside. pt with ongoing prep for colonoscopy with golytely. Pt is alert and oriented x3. BUN 128, Cr 2.1. Given pt has significant cardiac history, c/f volume overload, BUN is downtrending, and Cr is downtrending, reccomend holding IV fluids. reassess after colonoscopy. No HD. cc:: cc: Teresita Loja DO Review of Systems Review of Systems Narrative Review of Systems: as per hpi Past Medical History Past Medical History NEUROLOGIC: Negative Neurological Disorders, Cerebrovascular Accident, Transient Ischemic Attacks (TIA), Dementia, Alzheimer's Disease, Parkinson's Disease, Brain Tumor, Meningitis, Seizures, Epilepsy, Multiple Sclerosis, Cerebral Palsy, Amyotrophic Lateral Sclerosis (ALS/Chrissy Gehrig's), Guillain-Yoder Syndrome, Spina Bifida, Paralysis, Peripheral Neuropathy, Grove's Palsy, Subdural Hematoma, Migraine, Head Trauma, Spinal Cord Injury or Traumatic Brain Injury CARDIAC: Positive Cardiac Disorders, Myocardial Infarction, Heart Murmur, Coronary Artery Disease, Atherosclerotic Heart Disease, Hypercholesterolemia, Congestive Heart Failure, Rheumatic Fever and Hypertension; Negative Edema, Cellulitis or Varicose Veins RESPIRATORY: Positive Asthma, Pneumonia and Sleep Apnea; Negative Chronic Obstructive Pulmonary Disease (COPD) or Pulmonary Embolism GASTROINTESTINAL: Positive Gastrointestinal Disorders, Colitis, Diverticulitis, Irritable Bowel, Gastroesophageal Reflux Disease and Obesity; Negative Hepatitis or Colorectal Cancer GENITOURINARY: Positive Genitourinary Disorders; Negative Renal Disease REPRODUCTIVE: Positive Breast Cancer, Endometriosis and Previous Pregnancies MUSCULOSKELETAL: Positive Musculoskeletal Disorders, Arthritis and Fractures; Negative Muscular Dystrophy, Myasthenia Gravis, Marfan's Syndrome, Rheumatoid Arthritis, Osteoporosis or Degenerative Disk Disease ENT: Positive Cataracts and Macular Degeneration; Negative Head Trauma ENDOCRINE: Positive Endocrine Disorders, Diabetes Mellitus Type 2 and Hypothyroidism; Negative Diabetes Mellitus Type 1 HEMATOLOGIC: Negative Blood Disorders, Anemia, Leukemia, Hemophilia, Thalassemia, Sickle Cell Disease or Clotting Problems PSYCHO/SOCIAL: Positive Depression and Anxiety; Negative Psychiatric Problems, Schizophrenia, Recreational Drug Use, Bipolar Disorder, Behavior Problems, Self-Mutilation, Attention Deficit Disorder, Attention Deficit Hyperactivity Disorder, Depression, Post Traumatic Stress Disorder or Eating Disorder OTHER HISTORY: Positive Autoimmune Disease, Shingles, Blood Transfusions, Radiation Therapy, Chicken Pox, Measles, Mumps, Cancer and Breast Cancer; Negative Hospitalization, Autism, Falls, Blood Transfusion Reaction, Anesthesia Reactions, Organ Transplant, Chemotherapy, MRSA, VRSA, Vancomycin-Resistant Enterococci, Clostridium Difficile, Cervical Cancer, Colorectal Cancer, Lung Cancer or Ovarian Cancer Family History FAMILY HISTORY: Positive Family Cardiac Disorders and Family Surgery; Negative Family Psychiatric Problems, Family Respiratory Disorders, Family Gastrointestinal Problems, Family Cancer or Family Anesthesia Reaction Surgical History SURGICAL: Positive Cardiac Surgery, Coronary Stent, Cardiac Catheterization, Pacemaker, Angiogram, Endocrine Surgery, Ear Surgery, Eye Surgery, Oral Surgery, Tonsillectomy, Abdominal Surgery, Joint Replacement, Mastectomy (right (right limb alert)), Lumpectomy and Hysterectomy; Negative Open Heart Surgery, Coronary Artery Bypass Graft, Valve Replacement, Vascular Surgery, Auto Implanted Cardiovert Defib, Carotid Endarterectomy, Thyroidectomy, Gastric Bypass Surgery, Gastrostomy, Bowel Surgery or Organ Transplant OTHER SURGICAL HX: as per hpi Social History SOCIAL: as per hpi SMOKING STATUS: Never smoker Past Medical History Comments PMH COMMENT: PMH: CAD, HTN, DM, CKD, breast cancer PSH: Partial right mastectomy SH: Denies alcohol, tobacco, illicit drug use. Allergies:?Hydralazine, codeine, sulfa drugs, Versed Medications: Gabapentin, metoprolol succinate, Gemtesa, Plavix, aspirin, Bumex, spironolactone, tamoxifen, Entresto, Ranexa, levothyroxine, nitro as needed Exam Vital Signs Temp Pulse Resp BP Pulse Ox O2 Del Method O2 Flow Rate 97.4 F 100 17 130/72 98 Nasal Cannula 1 11/13/24 07:51 11/13/24 07:51 11/13/24 07:51 11/13/24 07:51 11/13/24 07:51 11/13/24 07:51 11/13/24 07:51 Narrative Exam General: Lethargic, pale. Conversational and non-toxic appearing Alert and oriented x3 Neurologic: no gross neurological deficit, and patient able to move all 4 extremities. HEENT: Normocephalic, atraumatic, mucous membranes moist. Pupils reactive to light. Heart: systolic murmur. Regular rate and rhythm, normal S1 and S2, Lungs: Clear to auscultation bilaterally with no wheezing or crackles. Abdomen: Obese, soft, nondistended, non tender to palpation, positive bowel sounds. No guarding or rebound tenderness. Extremities: No edema. 2+ radial and dorsalis pedis pulses bilaterally. Skin: Warm. Dry. Results Labs 11/14/24 03:03 11/13/24 04:30 Labs: Short CBC 11/12/24 11/13/24 Range/Units 14:18 04:30 WBC 11.9 H (3.6-11.0) Thou/mm3 Hgb 10.0 L 9.4 L (12.0-16.0) g/dL Hct 30.2 L 28.5 L (36.0-46.0) % Plt Count 331 D (140-440) Thou/mm3 BMP 11/12/24 11/13/24 14:18 04:30 Sodium 139 Potassium 5.3 H 4.7 D Chloride 104 Carbon Dioxide 23.3 BUN 128 H* Creatinine 2.1 H Glucose 153 H D Calcium 9.2 Liver Function 11/13/24 Range/Units 04:30 Total Bilirubin 0.3 (0.3-1.2) mg/dL AST 19 (0-34) U/L ALT < 7 L (10-49) U/L Alkaline Phosphatase 61 (46-116) U/L Albumin 3.0 L (3.4-4.8) gm/dL Quality Measures Quality Measures VTE prophylaxis Advance care planning discussed with:: patient Medications Home Medications and Allergies Home Medications ?Medication ?Instructions ?Recorded ?Confirmed ?Type gabapentin 100 mg capsule 100 mg PO BID #0 caps 06/09/13 11/12/24 History levothyroxine 175 mcg tablet 175 mcg PO QDAY 10/11/20 11/12/24 History (Synthroid) nitroglycerin 0.4 mg sublingual 0.4 mg buccal Q5MIN PRN Chest Pain 10/11/20 11/12/24 History tablet (Nitrostat) blood-glucose,ammonia box tender,cont 01/01/22 11/12/24 History (Dexcom G6 Electro Optical Engineer) dulaglutide 3 mg/0.5 mL 3 mg subcut QWEEK 02/11/22 11/12/24 History subcutaneous pen injector (Trulicity) insulin glargine 100 unit/mL 50 unit subcut HS 02/11/22 11/12/24 History subcutaneous solution (Lantus U-100 Insulin) insulin glargine 100 unit/mL 60 unit subcut DAILY 02/11/22 11/12/24 History subcutaneous solution (Lantus U-100 Insulin) clopidogrel 75 mg tablet (Plavix) 75 mg PO QDAY 09/04/22 11/12/24 History tamoxifen 10 mg tablet 10 mg PO QDAY 11/25/22 11/12/24 History vibegron 75 mg tablet (Gemtesa) 75 mg PO QDAY 10/26/23 11/12/24 History ranolazine 500 mg tablet,extended 500 mg PO BID 12/20/23 11/12/24 History release,12 hr spironolactone 25 mg tablet 25 mg PO DAILY 12/20/23 11/12/24 History (Aldactone) PresserVision 1 cap PO QDAY 11/12/24 11/12/24 History aspirin 81 mg tablet,delayed 81 mg PO QDAY 11/12/24 11/12/24 History release bumetanide 2 mg tablet 2 mg PO QDAY 11/12/24 11/12/24 History cranberry 500 mg capsule 500 mg PO QDAY 11/12/24 11/12/24 History fatty acid comb no.3-vit E-salmon 1 cap PO QDAY 11/12/24 11/12/24 History oil-soybean oil capsule metoprolol succinate 100 mg 100 mg PO QDAY 11/12/24 11/12/24 History capsule sprinkle, ext. release 24 hr sacubitril 24 mg-valsartan 26 mg 1 tab PO BID 11/12/24 11/12/24 History tablet (Entresto) sodium zirconium cyclosilicate 10 10 g PO QDAY 11/12/24 11/12/24 History gram oral powder packet (Lokelma) Allergies Allergy/AdvReac Type Severity Reaction Status Date / Time Sulfa (Sulfonamide Allergy Intermediate THROAT Verified 05/16/24 12:51 Antibiotics) SWELLS SHUT hydralazine Allergy Diarrhea Verified 05/16/24 12:51 codeine AdvReac Intermediate Vomiting Verified 05/16/24 12:51 midazolam (From Versed) AdvReac Insomnia Verified 05/16/24 12:51 Visit Medications Acetaminophen (Acetaminophen 325 Mg Tablet) 650 mg PO Q6H PRN PRN Reason: Fever >100.4 or pain Stop: 12/11/24 20:24 Last Admin: 11/13/24 09:00 Dose: 650 mg Dextrose (Dextrose 50%-Water Inj 50 Ml Syringe) 25 ml IV Q15MIN PRN PRN Reason: BG 50-70 responsive npo pt Stop: 12/11/24 20:29 Dextrose (Dextrose 50%-Water Inj 50 Ml Syringe) 50 ml IV Q15MIN PRN PRN Reason: BG <50 OR BG <70 & pt unresponsive Stop: 12/11/24 20:29 Glucagon (Glucagon Inj 1 Mg Vial) 1 mg IM Q15MIN PRN PRN Reason: BG <70, and no IV access Azithromycin 500 mg/ Sodium (Chloride) 250 mls @ 250 mls/hr IV QDAY [facility] Stop: 11/19/24 08:59 Last Admin: 11/13/24 09:00 Dose: 250 mls/hr Ceftriaxone Sodium/Dextrose (Rocephin/D5w 1gm Iv Premix) 1 gm in 50 mls @ 100 mls/hr IV QDAY [facility] Stop: 11/19/24 08:59 Last Admin: 11/13/24 08:05 Dose: 100 mls/hr Insulin Human Lispro (Insulin Lispro (Admelog) 1 Unit/0.01 Ml Unit) 0 unit SC Q6HR [facility]; Protocol Stop: 12/12/24 00:00 Last Admin: 11/13/24 05:29 Dose: Not Given Levothyroxine Sodium (Levothyroxine Sodium 25 Mcg Tablet) 175 mcg PO QDAY [facility] Stop: 12/12/24 08:59 Last Admin: 11/13/24 08:05 Dose: 175 mcg Ondansetron HCl (Ondansetron Odt 4 Mg Tabrap) 4 mg PO Q6HR PRN; Protocol PRN Reason: NAUSEA OR VOMITING Stop: 12/13/24 07:41 Last Admin: 11/13/24 08:06 Dose: 4 mg Pantoprazole Sodium (Pantoprazole Inj 40 Mg Vial) 40 mg IVP Q12HR [facility] Stop: 12/12/24 08:59 Last Admin: 11/13/24 08:04 Dose: 40 mg Sodium Chloride (Sodium Chloride Rt [place] 0.9% 3 Ml Nebu) 3 ml INH PRN PRN PRN Reason: SOLN Stop: 12/11/24 18:45 Tamoxifen Citrate (Tamoxifen Citrate 10 Mg Tablet) 10 mg PO QDAY [facility] Stop: 12/13/24 08:59 Last Admin: 11/13/24 08:27 Dose: 10 mg Discontinued Medications Albuterol (Albuterol Rt 2.5 Mg/0.5 Ml Nebu) 5 mg INH X1 ONE Stop: 11/11/24 18:47 Last Admin: 11/11/24 19:26 Dose: Not Given Calcium Gluconate (Calcium Gluconate 10% Inj 1 Gm/10 Ml Vial) 1 gm IV X1 ONE Stop: 11/11/24 18:47 Last Admin: 11/11/24 19:07 Dose: 1 gm Dextrose (Dextrose 50%-Water Inj 50 Ml Syringe) 50 ml IVP X1 ONE Stop: 11/11/24 19:08 Last Admin: 11/11/24 19:12 Dose: 50 ml Dextrose (Dextrose 50%-Water Inj 50 Ml Syringe) 50 ml IVP X1 ONE Stop: 11/12/24 07:28 Last Admin: 11/12/24 08:26 Dose: 50 ml Fentanyl Citrate (Fentanyl Cit Inj 50 Mcg/Ml Amp 2ml) 50 mcg IVP X1 ONE Stop: 11/11/24 19:44 Last Admin: 11/11/24 20:00 Dose: 50 mcg Fentanyl Citrate (Fentanyl Cit Inj 50 Mcg/Ml Amp 2ml) 50 mcg IVP Q2M PRN PRN Reason: MODERATE SEDATION Stop: 11/12/24 13:04 Lactated Ringer's (Lactated Ringers) 1,000 mls @ 999 mls/hr IV .Q1H1M ONE Stop: 11/11/24 18:08 Last Infusion: 11/11/24 19:26 Dose: Infused Ceftriaxone Sodium/Dextrose (Rocephin/D5w 1gm Iv Premix) 1 gm in 50 mls @ 100 mls/hr IV X1 ONE Stop: 11/11/24 19:16 Last Infusion: 11/11/24 21:57 Dose: Infused Tranexamic Acid (Tranexamic Acid Ivpb) 1,000 mg in 100 mls @ 200 mls/hr IV PRNMRX1 PRN PRN Reason: BLEEDING Last Infusion: 11/11/24 21:10 Dose: Infused Octreotide Acetate 1,000 mcg/ (Sodium Chloride) 102 mls @ 5.1 mls/hr IV .Q20H ONE; Protocol Stop: 11/12/24 15:32 Last Admin: 11/11/24 20:04 Dose: Not Given Ceftriaxone Sodium 1,000 mg/ (Sodium Chloride) 50 mls @ 100 mls/hr IV QDAY [facility] Stop: 11/19/24 08:59 Last Infusion: 11/12/24 08:57 Dose: Infused Azithromycin 500 mg/ Sodium (Chloride) 250 mls @ 250 mls/hr IV X1 ONE Stop: 11/11/24 22:44 Last Admin: 11/11/24 21:58 Dose: 250 mls/hr Insulin Human Regular (Insulin Hum Regular 1 Unit/0.01 Ml (Per Unit)) 5 unit IV X1 ONE Stop: 11/11/24 18:47 Last Admin: 11/11/24 19:18 Dose: Not Given Insulin Human Regular (Insulin Hum Regular 1 Unit/0.01 Ml (Per Unit)) 10 unit IV X1 ONE Stop: 11/11/24 19:03 Last Admin: 11/11/24 19:13 Dose: 10 unit Insulin Human Regular (Insulin Hum Regular 1 Unit/0.01 Ml (Per Unit)) 5 unit IV X1 ONE Stop: 11/12/24 07:28 Last Admin: 11/12/24 08:39 Dose: 5 unit Meperidine HCl (Meperidine Inj 50 Mg/Ml Vial) 50 mg IVP Q2M PRN PRN Reason: Moderate Sedation Stop: 11/12/24 13:30 Midazolam HCl (Midazolam Inj 1 Mg/Ml Vial 2 Ml) 2 mg IVP Q2M PRN PRN Reason: Moderate Sedation Stop: 11/12/24 13:04 Octreotide Acetate (Octreotide Acet Inj 50 Mcg/Ml Vial) 50 mcg IV X1 ONE Stop: 11/11/24 19:33 Last Admin: 11/11/24 20:04 Dose: Not Given Ondansetron HCl (Ondansetron Inj 2 Mg/Ml Inj 2 Ml) 4 mg IVP X1 ONE; Protocol Stop: 11/11/24 17:08 Last Admin: 11/11/24 17:50 Dose: 4 mg Pantoprazole Sodium (Pantoprazole Inj 40 Mg Vial) 80 mg IVP X1 ONE Stop: 11/11/24 17:15 Last Admin: 11/11/24 17:52 Dose: 80 mg Polyethylene Glycol/Electrolytes ([place]/Nahco3/Tonny/Peg (Golytely) 4,000 Ml Btl) 4,000 ml PO X1 ONE Stop: 11/12/24 11:50 Last Admin: 11/12/24 13:09 Dose: 4,000 ml Polyethylene Glycol/Electrolytes ([place]/Nahco3/Tonny/Peg (Golytely) 4,000 Ml Btl) 4,000 ml PO X1 ONE Stop: 11/13/24 04:37 Last Admin: 11/13/24 05:25 Dose: 4,000 ml Sodium Polystyrene Sulfonate (Sod Polystyrene Sulfon Susp 15 Gm/60 Ml Btl) 30 gm PO X1 ONE Stop: 11/12/24 07:28 Last Admin: 11/12/24 09:06 Dose: Not Given Tamoxifen Citrate (Tamoxifen Citrate 10 Mg Tablet) 20 mg PO QDAY [facility] Stop: 12/12/24 08:59 Last Admin: 11/13/24 08:21 Dose: Not Given Assessment & Plan Plan Ms Levy is an 84 yo woman with a hx of CAD s/p 9 stents on asa and plavix, HFrEF (EF40% on 10/2024), breast cancer s/p partial mastectomy, radiation, and chemo, HTN, HLD, HF, and hypothyroidism undergoing workup for GI bleed, s/p egd pending colonoscopy. BUN very elevated on admission, now downtrending, no HD at this time. #BETSY on CKD IV Yao PCP On admission BUN 156, Cr 2.4, eGFR 20 renal US: no hydronephrosis, Bilateral renal cortical thinning, Mild bilateral renal parenchymal scar formation Renal duplex: no renal artery stenosis, Small kidneys with bilateral renal cortical thinning On 11/13: BUN 128 from 156, Cr 2.1 from 2.5 Plan: -given BUN is downtrending, no HD reccomended at this time. given hx of CAD and HF, reccomend being judicious with fluids. pt is ongoing golytely prep so HOLD IV fluids -avoid nephrotoxic agents -renally dose medications -f/u pth -f/u vit d #HFrEF (EF 40% 10/2024) #T2DM on insulin A1c: 6.8 in 09/2024 AM FBS: 102 home medications include metformin - 500 mg daily, Tradjenta - 5 mg daily, Trulicity - 3 mg/0.5 mL 3 mg Weekly. #CAD status post 9 stents #Hypertension #GI bleed #Upper GI bleed- ruled out #Lower GI bleed- pending colonoscopy #Symptomatic anemia s/p 2 units PRBC #Community-acquired pneumonia #UTI, possible pyelonephritis #Hyperkalemia- resolved #Right-sided breast cancer status postmastectomy and radiotherapy- Followed by Dr. Mcclellan S/p right breast lumpectomy (02/12/2022) S/p radiation therapy (04/22/2022 - 06/26/2022) - managment per primary team Plan discussed with nephrology attending Dr. Yao Keller MD Internal Medicine PGY-1 Attending Provider Attestation/Addendum Patient seen and examined with resident physician Dr. Keller. Note reviewed, agree with findings and recommendations. Patient has extensive cardiac history and is on Aspirin, Plavix. Under the care of Dr. Goel. Has underlying CKD and is under my care. Presented with GI bleed and severe azotemia. BUN out of proportion to the creatinine. Agree with fluids and blood transfusion. No need for dialysis. BUN improving. Patient going for endoscopy. Thank you Dr. Loja for allowing me to participate in the care of Ms. Levy
[2024-11-13] MEDS: INSULIN LISPRO (AdmeLOG) 1 UNIT/0.01 ML UNIT SC ×3 (12:08→23:50)
--- NOTE | 2024-11-13 12:20 | PC.SS ---
HEALTH EDITOR met with patient at bedside to discuss d/c options. Patient stated that she would like to return home. HEALTH EDITOR informed patient that recommendation are HH vs SNF. Patient stated that HH would be preferred option. HEALTH EDITOR provided patient with private home care coordinator agency list per her request.
--- NOTE | 2024-11-13 12:44 | EKG_ITS ---
[facility] Test Date: 2024-11-13 Pat Name: STACY MEDRANO [facility] Nuclear Equipment Sales Engineer: NATHANIEL : 1940 Requested By: Huber Gerber Order Number: [id number] Reading MD: Huber Gerber Measurements Intervals [place] Rate: 103 P: 188 CA: 130 QRS: -67 QRSD: 208 T: 108 QT: 433 QTc: 568 Interpretive Statements ELECTRONIC VENTRICULAR PACEMAKER ABNORMAL RHYTHM ECG Compared to ECG 11/11/2024 19:17:17 No significant changes /store/S0/[id number]
[2024-11-13] MEDS: NITROGLYCERIN 0.4 MG SUBL BTL #25 SL ×4 (13:00→23:15)
[2024-11-13 15:24] LABS: Troponin I 1.019 ng/mL (0.0-0.045)
--- NOTE | 2024-11-13 16:01 | PC.SS ---
[employer] IMAGE CONSULTANT made doctors aware that patient is wanting HH.
[2024-11-13] MEDS: SODIUM CHLORIDE 0.9% 500 ML 500 ML 20 ML IV (17:04)
[2024-11-13] MEDS: GENTAMICIN/NS 80 MG IVPB 80 MG in PRE-MIXED 1 BAG 50 MG IV (17:24)
[2024-11-13 17:27] LABS: Hematocrit 29.1 % (36.0-46.0); Hemoglobin 9.7 g/dL (12.0-16.0)
[2024-11-13 17:35] LABS: Troponin I 1.000 ng/mL (0.0-0.045)
[2024-11-13] MEDS: Ampicillin Inj 2,000 MG in SODIUM CHLORIDE 0.9% (POP) 100 ML 200 MG IV (17:56)
--- NOTE | 2024-11-13 18:00 | SUR.PHASEI ---
pt received from OR in recovery bay 1. pt asleep but responds to voice, breathing unlabored on nc 4. v/s stable. report received from Shruti MARSHALL and Dr. Morillo.
--- NOTE | 2024-11-13 18:45 | SUR.PHASEI ---
pt awake and alert, breathing unlabored on 2l nc. v/s stable. report called to Vijaya MARSHALL. pt will be transferred to room at this time.
[2024-11-13] MEDS: SPIRONOLACTONE 25 MG TABLET PO (19:10)
[2024-11-13] MEDS: BUMETANIDE 0.5 MG TABLET 2 MG PO (19:11)
[2024-11-13] MEDS: METOPROLOL SUCCINATE XL 25 MG TABCR 50 MG PO (19:32)
--- NOTE | 2024-11-13 19:36 | EKG_ITS ---
[facility] Test Date: 2024-11-13 Pat Name: STACY MEDRANO [facility] Accountant Auditor: MIRIAM : 1940 Requested By: Minerva Guzman Order Number: [id number] Reading MD: Minerva Guzman Measurements Intervals [place] Rate: 137 P: 29 RI: 183 QRS: 70 QRSD: 158 T: 269 QT: 326 QTc: 494 Interpretive Statements SINUS TACHYCARDIA LEFT BUNDLE BRANCH BLOCK Compared to ECG 11/13/2024 13:04:00 Left bundle-branch block now present Ventricular-paced complex(es) or rhythm no longer present /store/S0/[id number]
[2024-11-13] MEDS: RANOLAZINE 500 MG TABER (NON FORMULARY) PO (20:45)
--- NOTE | 2024-11-13 21:50 | ESPR_ITS ---
<Statement entered by Akiko Green MD - 11/16/24 22:57> I personally evaluated the patient examined today on telemetry floor with resident physician PGY 2 Dr.FADEL HARE patient doing much better but still having some chest discomfort occasionally after transfusion hemoglobin went up chest pain went away heart failure well compensated troponin mild elevation due to type II troponin not due to myocardial infarction no plans for angiogram. Continue present medical management will require physical therapy rehabilitation told of aspirin Plavix for now until patient has no further bleeding issues since has been more than 12 months following stent placement. Will continue to monitor patient. Documentation for date of: 11/13/24 Subjective Subjective Interval history: Patient had an episode of chest pain and was given her home nitroglycerin. The patient's troponins rey to 1, likely demand ischemia. Patient has colonoscopy today. Continue to hold Plavix. Will restart home heart failure medications. Exam Vital Signs Temp Pulse Resp BP Pulse Ox O2 Del Method O2 Flow Rate 97.2 F 105 H 16 123/87 H 95 Nasal Cannula 1 11/13/24 18:30 11/13/24 21:33 11/13/24 19:00 11/13/24 21:33 11/13/24 19:00 11/13/24 19:00 11/13/24 19:00 Narrative Exam The cardiology team did not physically see or examine the patient today, for she was in her colonoscopy procedure. Objective Labs 11/13/24 16:44 11/13/24 04:30 Labs: Laboratory Results - last 24 hr 11/13/24 11/13/24 11/13/24 04:30 14:17 16:44 WBC 11.9 H RBC 3.33 L Hgb 9.4 L 9.7 L Hct 28.5 L 29.1 L MCV 86 MCH 28.2 MCHC 33.0 RDW Std Deviation 46.0 Plt Count 331 D Neut % (Auto) 70 Lymph % (Auto) 17 [place] % (Auto) 8 Eos % (Auto) 4 Baso % (Auto) 1 Neut # (Auto) 8.3 H Lymph # (Auto) 2.0 [place] # (Auto) 0.9 H Eos # (Auto) 0.5 Baso # (Auto) 0.1 Immature Gran # (Auto) 0.07 H Absolute Nucleated RBC 0.00 Immature Gran % 1 H Nucleated RBC % 0 Sodium 139 Potassium 4.7 D Chloride 104 Carbon Dioxide 23.3 Anion Gap 12 BUN 128 H* Creatinine 2.1 H Estim Creat Clear Calc 26.2 L eGFR 23 L BUN/Creatinine Ratio 61 H Glucose 153 H D Calculated Osmolality 321 H Calcium 9.2 Corrected Calcium 10.0 Phosphorus 3.6 Magnesium 2.2 Total Bilirubin 0.3 AST 19 ALT < 7 L Alkaline Phosphatase 61 Troponin I 1.019 H* D 1.000 H* Total Protein 5.0 L Albumin 3.0 L Globulin 2.0 L Albumin/Globulin Ratio 1.5 Quality Measures Quality Measures VTE prophylaxis Advance care planning discussed with:: patient Assessment & Plan Assessment Current Active Medications: Generic Name Dose Route Start Last Admin Trade Name Freq PRN Reason Stop Dose Admin Acetaminophen 650 mg 11/11/24 20:25 11/13/24 20:54 Acetaminophen 325 Mg Tablet PO 12/11/24 20:24 650 mg Q6H PRN Administration Fever >100.4 or pain Bumetanide 2 mg 11/13/24 18:00 11/13/24 19:11 Bumetanide 0.5 Mg Tablet PO 12/13/24 17:59 2 mg QDAY TRINH Administration Dextrose 25 ml 11/11/24 20:30 Dextrose 50%-Water Inj 50 Ml Syringe IV 12/11/24 20:29 Q15MIN PRN BG 50-70 responsive npo pt Dextrose 50 ml 11/11/24 20:30 Dextrose 50%-Water Inj 50 Ml Syringe IV 12/11/24 20:29 Q15MIN PRN BG <50 OR BG <70 & pt unresponsive Glucagon 1 mg 11/11/24 20:30 Glucagon Inj 1 Mg Vial IM Q15MIN PRN BG <70, and no IV access Azithromycin 500 mg/ Sodium 250 mls @ 250 mls/hr 11/12/24 09:00 11/13/24 10:00 Chloride IV 11/19/24 08:59 Infused QDAY TRINH Infusion Ceftriaxone Sodium/Dextrose 1 gm in 50 mls @ 100 mls/hr 11/13/24 09:00 11/13/24 08:35 Rocephin/D5w 1gm Iv Premix IV 11/19/24 08:59 Infused QDAY TRINH Infusion Sodium Chloride 500 mls @ 20 mls/hr 11/13/24 17:25 11/13/24 17:04 Ns IV 11/14/24 17:24 20 mls/hr .Q24H ONE Administration Insulin Human Lispro 0 unit 11/12/24 00:00 11/13/24 19:12 Insulin Lispro (Admelog) 1 Unit/0.01 Ml Unit SC 12/12/24 00:00 1 unit Q6HR TRINH Administration Protocol Levothyroxine Sodium 175 mcg 11/14/24 06:00 Levothyroxine Sodium 25 Mcg Tablet PO 12/14/24 05:59 ACBR TRINH Metoprolol Succinate 50 mg 11/13/24 19:15 11/13/24 19:32 Metoprolol Succinate Xl 25 Mg Tabcr PO 12/13/24 19:14 50 mg BID TRINH Administration Nitroglycerin 0.4 mg 11/13/24 13:03 11/13/24 21:33 Nitroglycerin 0.4 Mg Subl Btl #25 SL 12/13/24 13:02 0.4 mg Q5MIN PRN Administration Chest Pain Ondansetron HCl 4 mg 11/13/24 07:42 11/13/24 08:06 Ondansetron Odt 4 Mg Tabrap PO 12/13/24 07:41 4 mg Q6HR PRN Administration NAUSEA OR VOMITING Protocol Pantoprazole Sodium 40 mg 11/12/24 09:00 11/13/24 20:45 Pantoprazole Inj 40 Mg Vial IVP 12/12/24 08:59 40 mg Q12HR TRINH Administration Ranolazine 500 mg 11/13/24 21:00 11/13/24 20:45 Ranolazine 500 Mg Julia (Non Formulary) PO 12/13/24 20:59 500 mg BID TRINH Administration Sacubitril/Valsartan 1 tab 11/13/24 21:00 11/13/24 20:45 Sacubitril 24 Mg/Valsartan 26 Mg Tablet PO 12/13/24 20:59 1 tab BID TRINH Administration Sodium Chloride 3 ml 11/11/24 18:46 Sodium Chloride Rt [place] 0.9% 3 Ml Nebu INH 12/11/24 18:45 PRN PRN SOLN Spironolactone 25 mg 11/13/24 18:00 11/13/24 19:10 Spironolactone 25 Mg Tablet PO 12/13/24 17:59 25 mg DAILY TRINH Administration Tamoxifen Citrate 10 mg 11/13/24 09:00 11/13/24 08:27 Tamoxifen Citrate 10 Mg Tablet PO 12/13/24 08:59 10 mg QDAY TRINH Administration Plan 84-year-old female with a PMH of CAD with 9 stents, hypertension, diabetes, CKD, breast cancer status post partial mastectomy and radiation therapy on chemo, who presented to the ED on 11/11/2024 with abdominal pain and coffee-ground emesis for the past 2 days. The patient was admitted for GI bleed. Cardiology was consulted for management of the patient's history of coronary artery disease on anticoagulation status post 9 stents in the presence of a possible GI bleed. #CAD status post stents #Hypertension #GI bleed * The patient's most previous stent was in November 2023 * Patient has colonoscopy procedure 11/13/2024 * The patient's chest pain and elevated troponins are likely ischemic in nature * EKG on 11/13/2024 was significant for sinus tachycardia, no significant ST segment changes * No indication for coronary angiogram at this time Plan: * Restart home medications for heart failure: Entresto, Bumex, Metoprolol, Ranolazine, and Spironolactone * Cardiology recommends continuing to hold aspirin and Plavix during hospital stay * Will resume Plavix outpatient after GI bleed is addressed due to Plavix having less of a GI irritating component * Follow-up with Dr. Green outpatient after discharge #Upper GI bleed #Symptomatic anemia #BETSY on CKD #Community-acquired pneumonia #UTI, possible pyelonephritis #Hyperkalemia #Right-sided breast cancer status postmastectomy and radiotherapy #Diabetes The remainder of the patient's hospital problems will be managed per the primary team. Patient was seen and discussed with my attending physician Dr. Green. Armin Méndez DO PGY-1.
[2024-11-14] VITALS (14 sets, daily range): BP systolic 104–150; BP diastolic 56–85; PULSE 61–123; RESP 16–27; TEMP 36.2–37; O2SAT 94–98; BMI 31.1
[2024-11-14 03:25] LABS: Hematocrit 32.2 % (36.0-46.0); Hemoglobin 10.9 g/dL (12.0-16.0)
[2024-11-14] MEDS: LEVOTHYROXINE SODIUM 25 MCG TABLET 175 MCG PO (06:29)
[2024-11-14] MEDS: INSULIN LISPRO (AdmeLOG) 1 UNIT/0.01 ML UNIT SC ×4 (06:31→20:26)
[2024-11-14 08:58] LABS: Basophils # (Auto) 0.1 Thou/mm3 (0.0-0.2); Basophils % (Auto) 1 % (0-2.5); Eosinophils # (Auto) 0.2 Thou/mm3 (0.0-0.5); Eosinophils % (Auto) 2 % (0-10); Hematocrit 37.5 % (36.0-46.0); Hemoglobin 12.3 g/dL (12.0-16.0); Immature Granulocytes Auto 0.09 Thou/mm3 (0.00-0.00); Lymphocytes # (Auto) 1.8 Thou/mm3 (1.0-4.8); Lymphocytes % (Auto) 12 % (10-50); Mean Corpuscular HGB Conc 32.8 g/dl (31.0-37.0); Mean Corpuscular Hemoglobin 28.5 pg (25.0-35.0); Mean Corpuscular Volume 87 fL (80-100); Monocytes # (Auto) 1.0 Thou/mm3 (0.0-0.8); Monocytes % (Auto) 7 % (0-12); Neutrophils # (Auto) 11.5 Thou/mm3 (1.8-7.7); Neutrophils % (Auto) 78 % (37-80); Nucleated Red Blood Cell # 0.00 Thou/mm3 (0.00-0.00); Nucleated Red Blood Cell % 0 /100 WBC (0); Platelet Count 359 Thou/mm3 (140-440); RDW Standard Deviation 48.0 fL (36.4-46.3); Red Blood Count 4.31 Miln/mm3 (4.00-5.20); White Blood Count 14.8 Thou/mm3 (3.6-11.0)
[2024-11-14 09:08] LABS: Parathyroid Hormone Intact 100.6 pg/ml (18.5-88.0)
[2024-11-14 09:13] LABS: Vitamin D 25 Hydroxy Total 33.9 ng/mL (7.3-40.2)
[2024-11-14] MEDS: SPIRONOLACTONE 25 MG TABLET PO (09:27)
[2024-11-14] MEDS: RANOLAZINE 500 MG TABER (NON FORMULARY) PO ×2 (09:28→20:25)
[2024-11-14] MEDS: cefTRIAXone/D5w 1gm IV premix 1 GM/50 ML BAG IV (09:29)
[2024-11-14] MEDS: METOPROLOL SUCCINATE XL 25 MG TABCR 50 MG PO ×2 (09:29→20:22)
[2024-11-14] MEDS: BUMETANIDE 0.5 MG TABLET 2 MG PO (09:29)
[2024-11-14 09:33] LABS: Alanine Aminotransferase 8 U/L (10-49); Albumin, Serum 3.3 gm/dL (3.4-4.8); Albumin/Globulin Ratio 1.6 (1.2-2.2); Alkaline Phosphatase 74 U/L (46-116); Anion Gap 12 (7-16); Aspartate Amino Transferase 17 U/L (0-34); BUN/Creatinine Ratio 61 Ratio (12-20); Bilirubin,Total 0.5 mg/dL (0.3-1.2); Blood Urea Nitrogen 104 mg/dL (9-23); Calcium 9.6 mg/dL (8.3-10.6); Calcium (Corrected) 10.2 mg/dL (8.5-10.1); Carbon Dioxide 24.7 mMol/L (20.0-31.0); Chloride 103 mMol/L (98-107); Creatinine (Component) 1.7 mg/dL (0.6-1.3); Estimated Creatinine Clearance 32.4 mL/min (>60); Globulin 2.1 gm/dL (2.3-3.5); Glucose 248 mg/dL (74-106); Magnesium 1.8 mg/dL (1.6-2.6); Osmolality,Calculated 320 (275-295); Phosphorous 4.1 mg/dL (2.4-5.1); Potassium 5.0 mMol/L (3.4-5.1); Sodium 140 mMol/L (136-145); Total Protein 5.4 gm/dL (5.7-8.2); eGFR 30 See Note
[2024-11-14] MEDS: TAMOXIFEN CITRATE 10 MG TABLET PO (09:40)
[2024-11-14] MEDS: AZITHROMYCIN INJ 500 MG in SODIUM CHLORIDE 0.9% 250 ML 250 ML 250 MG IV (10:31)
--- NOTE | 2024-11-14 10:38 | PD.RESPRO ---
Documentation for date of: 11/14/24 Subjective Subjective Interval history: Ms Levy is an 84 yo woman with a hx of CVD s/p 9 stents with pacemaker on asa and plavix , htn, dm, ckd, breast cancer (s/p partial mastectomy and radiation on chemo) who presented to the ED with cc of abdominal pain and coffee ground emesis for 2 days. pt reports having increasing shortness of breath and fatigue over the past week. She endorses lightheadedness and fatigue. she denies fevers, chills, chest pain, diarrhea, melena, constipation, dysuria. ED COURSE: Labs significant for: WBC 17.7, hemoglobin 8.6 (down from 14.6 one month ago), potassium 6.2, BUN 137, creatinine 2.4, EGFR 20, troponin negative, FOBT positive. UA shows 11 WBCs, 1+ bacteria. Imaging significant for: EKG shows paced rhythm, CT A/P shows left base pneumonia and renal scarring with perinephric stranding. Patient received 80 mg IV Protonix, 1 L bolus lactated Ringer's, amp of D50, insulin 10, calcium gluconate 1 g, and 2 units PRBC in the ED. GI was consulted, for EGD. Interval history: 11/12/2024: EGD performed: esophagitis in lower third of esophagus, diffuse moderately erythematpus mucosa without bleeding in the gastric antrum, erythematous duodenopathy. patchy mildly erythematous mucosa without active bleeding and with no stigmata of bleeding was found in the duodenal bulb. pending colonoscopy, golytely prep. BUN 156, Cr 2.5. Renal US Bilateral renal cortical thinning No hydronephrosis Mild bilateral renal parenchymal scar formation. Renal Artery duplex No Doppler sonographic findings of renal artery stenosis, Small kidneys with bilateral renal cortical thinning. TTE with EF 40% 11/13/2024: Nephrology consulted. Patient seen and examined at bedside. pt with ongoing prep for colonoscopy with golytely. Pt is alert and oriented x3. BUN 128, Cr 2.1. Given pt has significant cardiac history, c/f volume overload, BUN is downtrending, and Cr is downtrending, reccomend holding IV fluids. reassess after colonoscopy. No HD. 11/14/2024: pt is s/p colonoscopy, internal hemrrhoids banded, large polyp resected, 1 medium polyp biopsied. pt had episode of chest pain yesterday that resolved with nitroglycerin, pt recieved 1 unit prbc, trop was elevated to 1.019, now 1.0. BUN downtrending to 104 from 128, Cr downtrending 1.7 from 2.1. Exam Vital Signs Temp Pulse Resp BP Pulse Ox O2 Del Method O2 Flow Rate 98.6 F 97 16 127/76 98 Nasal Cannula 1 11/14/24 08:00 11/14/24 09:29 11/14/24 08:00 11/14/24 09:29 11/14/24 08:00 11/14/24 08:00 11/14/24 08:00 Narrative Exam General: Lethargic, pale. Conversational and non-toxic appearing Alert and oriented x3 Neurologic: no gross neurological deficit, and patient able to move all 4 extremities. HEENT: Normocephalic, atraumatic, mucous membranes moist. Pupils reactive to light. Heart: systolic murmur. Regular rate and rhythm, normal S1 and S2 Lungs: Clear to auscultation bilaterally with no wheezing or crackles. Abdomen: Obese, soft, nondistended, non tender to palpation, positive bowel sounds. No guarding or rebound tenderness. Extremities: No edema. 2+ radial and dorsalis pedis pulses bilaterally. Skin: Warm. Dry. Objective Labs 11/14/24 08:18 11/14/24 08:18 Labs: Laboratory Results - last 24 hr 11/11/24 11/13/24 11/13/24 17:30 14:17 16:44 WBC RBC Hgb 9.7 L Hct 29.1 L MCV MCH MCHC RDW Std Deviation Plt Count Neut % (Auto) Lymph % (Auto) [place] % (Auto) Eos % (Auto) Baso % (Auto) Neut # (Auto) Lymph # (Auto) [place] # (Auto) Eos # (Auto) Baso # (Auto) Immature Gran # (Auto) Absolute Nucleated RBC Immature Gran % Nucleated RBC % Sodium Potassium Chloride Carbon Dioxide Anion Gap BUN Creatinine Estim Creat Clear Calc eGFR BUN/Creatinine Ratio Glucose Calculated Osmolality Calcium Corrected Calcium Phosphorus Magnesium Total Bilirubin AST ALT Alkaline Phosphatase Troponin I 1.019 H* D 1.000 H* Total Protein Albumin Globulin Albumin/Globulin Ratio 25-OH Vitamin D Total PTH Intact Blood Type O Positive Antibody Screen NEGATIVE Crossmatch See Detail Blood Bank Wristband ID Yes 11/14/24 11/14/24 03:03 08:18 WBC 14.8 H RBC 4.31 Hgb 10.9 L 12.3 Hct 32.2 L 37.5 MCV 87 MCH 28.5 MCHC 32.8 RDW Std Deviation 48.0 H Plt Count 359 Neut % (Auto) 78 Lymph % (Auto) 12 [place] % (Auto) 7 Eos % (Auto) 2 Baso % (Auto) 1 Neut # (Auto) 11.5 H Lymph # (Auto) 1.8 [place] # (Auto) 1.0 H Eos # (Auto) 0.2 Baso # (Auto) 0.1 Immature Gran # (Auto) 0.09 H Absolute Nucleated RBC 0.00 Immature Gran % 1 H Nucleated RBC % 0 Sodium 140 Potassium 5.0 Chloride 103 Carbon Dioxide 24.7 Anion Gap 12 BUN 104 H* Creatinine 1.7 H Estim Creat Clear Calc 32.4 L eGFR 30 L BUN/Creatinine Ratio 61 H Glucose 248 H D Calculated Osmolality 320 H Calcium 9.6 Corrected Calcium 10.2 H Phosphorus 4.1 Magnesium 1.8 Total Bilirubin 0.5 AST 17 ALT 8 L Alkaline Phosphatase 74 D Troponin I Total Protein 5.4 L Albumin 3.3 L Globulin 2.1 L Albumin/Globulin Ratio 1.6 25-OH Vitamin D Total 33.9 PTH Intact 100.6 H Blood Type Antibody Screen Crossmatch Blood Bank Wristband ID Quality Measures Quality Measures VTE prophylaxis Advance care planning discussed with:: patient Assessment & Plan Assessment Current Active Medications: Generic Name Dose Route Start Last Admin Trade Name Freq PRN Reason Stop Dose Admin Acetaminophen 650 mg 11/14/24 08:45 Acetaminophen 325 Mg Tablet PO 12/11/24 20:24 Q6H PRN Fever >100.4 or pain 1-3 Bumetanide 2 mg 11/13/24 18:00 11/14/24 09:29 Bumetanide 0.5 Mg Tablet PO 12/13/24 17:59 2 mg QDAY TRINH Administration Dextrose 25 ml 11/11/24 20:30 Dextrose 50%-Water Inj 50 Ml Syringe IV 12/11/24 20:29 Q15MIN PRN BG 50-70 responsive npo pt Dextrose 50 ml 11/11/24 20:30 Dextrose 50%-Water Inj 50 Ml Syringe IV 12/11/24 20:29 Q15MIN PRN BG <50 OR BG <70 & pt unresponsive Glucagon 1 mg 11/11/24 20:30 Glucagon Inj 1 Mg Vial IM Q15MIN PRN BG <70, and no IV access Azithromycin 500 mg/ Sodium 250 mls @ 250 mls/hr 11/12/24 09:00 11/14/24 10:31 Chloride IV 11/19/24 08:59 250 mls/hr QDAY TRINH Administration Ceftriaxone Sodium/Dextrose 1 gm in 50 mls @ 100 mls/hr 11/13/24 09:00 11/14/24 09:29 Rocephin/D5w 1gm Iv Premix IV 11/19/24 08:59 100 mls/hr QDAY TRINH Administration Sodium Chloride 500 mls @ 20 mls/hr 11/13/24 17:25 11/13/24 17:04 Ns IV 11/14/24 17:24 20 mls/hr .Q24H ONE Administration Insulin Human Lispro 0 unit 11/12/24 00:00 11/14/24 06:31 Insulin Lispro (Admelog) 1 Unit/0.01 Ml Unit SC 12/12/24 00:00 1 unit Q6HR TRINH Administration Protocol Levothyroxine Sodium 175 mcg 11/14/24 06:00 11/14/24 06:29 Levothyroxine Sodium 25 Mcg Tablet PO 12/14/24 05:59 175 mcg ACBR TRINH Administration Metoprolol Succinate 50 mg 11/13/24 19:15 11/14/24 09:29 Metoprolol Succinate Xl 25 Mg Tabcr PO 12/13/24 19:14 50 mg BID TRINH Administration Nitroglycerin 0.4 mg 11/13/24 13:03 11/13/24 23:15 Nitroglycerin 0.4 Mg Subl Btl #25 SL 12/13/24 13:02 0.4 mg Q5MIN PRN Administration Chest Pain Ondansetron HCl 4 mg 11/13/24 07:42 11/13/24 08:06 Ondansetron Odt 4 Mg Tabrap PO 12/13/24 07:41 4 mg Q6HR PRN Administration NAUSEA OR VOMITING Protocol Pantoprazole Sodium 40 mg 11/12/24 09:00 11/14/24 09:30 Pantoprazole Inj 40 Mg Vial IVP 12/12/24 08:59 40 mg Q12HR TRINH Administration Ranolazine 500 mg 11/13/24 21:00 11/14/24 09:28 Ranolazine 500 Mg Julia (Non Formulary) PO 12/13/24 20:59 500 mg BID TRINH Administration Sodium Chloride 3 ml 11/11/24 18:46 Sodium Chloride Rt [place] 0.9% 3 Ml Nebu INH 12/11/24 18:45 PRN PRN SOLN Tamoxifen Citrate 10 mg 11/13/24 09:00 11/14/24 09:40 Tamoxifen Citrate 10 Mg Tablet PO 12/13/24 08:59 10 mg QDAY TRINH Administration Plan Ms Levy is an 84 yo woman with a hx of CAD s/p 9 stents on asa and plavix, HFrEF (EF40% on 10/2024), breast cancer s/p partial mastectomy, radiation, and chemo, HTN, HLD, HF, and hypothyroidism undergoing workup for GI bleed, s/p egd s/p colonoscopy with biopsy and large polyp removal and internal hemorrhoids banded. BUN very elevated on admission, now downtrending, no HD at this time. #BETSY on CKD IV Yao PCP On admission BUN 156, Cr 2.4, eGFR 20 renal US: no hydronephrosis, Bilateral renal cortical thinning, Mild bilateral renal parenchymal scar formation Renal duplex: no renal artery stenosis, Small kidneys with bilateral renal cortical thinning On 11/13: BUN 128 from 156, Cr 2.1 from 2.5 On 11/14: BUN 104 from 128, Cr 1.7 from 2.1 Plan: -no HD at this time -given BUN is downtrending, no HD recommended at this time. given hx of CAD and HF, reccomend being judicious with fluids. pt is ongoing golytely prep so HOLD IV fluids -avoid nephrotoxic agents -renally dose medications -pth elevated -vit d wnl #HFrEF (EF 40% 10/2024) #T2DM on insulin A1c: 6.8 in 09/2024 AM FBS: 176 home medications include metformin - 500 mg daily, Tradjenta - 5 mg daily, Trulicity - 3 mg/0.5 mL 3 mg Weekly. #CAD status post 9 stents #Hypertension #GI bleed #Upper GI bleed- ruled out #Lower GI bleed- s/p colonoscopy -1 large polyp removed, 1 medium polyp biopsied, internal hemrrhoids banded. #Symptomatic anemia s/p 3 units PRBC #Community-acquired pneumonia #UTI, possible pyelonephritis #Hyperkalemia- resolved #Right-sided breast cancer status postmastectomy and radiotherapy- Followed by Dr. Mcclellan S/p right breast lumpectomy (02/12/2022) S/p radiation therapy (04/22/2022 - 06/26/2022) - managment per primary team Plan discussed with nephrology attending Dr. Yao Keller MD Internal Medicine PGY-1 Attending Provider Attestation/Addendum Patient seen and examined with resident physician Dr. Keller. Note reviewed, agree with findings and recommendations. Patient has extensive cardiac history and is on Aspirin, Plavix. Under the care of Dr. Goel. Has underlying CKD and is under my care. Presented with GI bleed and severe azotemia. BUN out of proportion to the creatinine. Agree with fluids and blood transfusion. No need for dialysis. BUN improving. Status post endoscopy and colonoscopy. No active bleeding. Polyps were removed.
--- NOTE | 2024-11-14 12:09 | PC.SS ---
COMMUNICATIONS EQUIPMENT OPERATOR spoke to patient about D/C with HH. Patient stated she spoke to her friend and she would now like short term rehab and she feels it is too much pressure to put on friend to care for her. COMMUNICATIONS EQUIPMENT OPERATOR made doctor Purvi.
--- NOTE | 2024-11-14 14:17 | ESPR_ITS ---
<Statement entered by Elijah Boothe MD - 11/15/24 06:37> Patient was examined and case was reviewed with team including attending physician. Note reviewed, I agree with most of its contents and agree with the patient's care Elijah Boothe MD PGY-2 Documentation for date of: 11/14/24 Subjective Subjective Interval history: Patient was seen at the bedside this morning. The overnight team reported episodes of sinus tachycardia with heart rates in the 130s?140s. The patient endorsed experiencing palpitations. EKG was obtained and revealed a left bundle branch block (LBBB). She was treated with nitroglycerin x3, ranolazine, and one unit of pRBCs. This morning, the patient reports significant improvement. She denies ongoing chest pain but notes some soreness on palpation over the right chest. Her creatinine remains above baseline and will continue to be monitored. Physical therapy has been ordered. Initiated insulin degludec due to rising blood glucose levels following the patient starting diet after colonoscopy. Discussed the case with Dr. Bailon regarding next steps. He plans to proceed with outpatient capsule endoscopy. Exam Vital Signs Temp Pulse Resp BP Pulse Ox O2 Del Method O2 Flow Rate 97.6 F 92 19 121/64 97 Nasal Cannula 1 11/14/24 12:00 11/14/24 12:00 11/14/24 12:00 11/14/24 12:00 11/14/24 12:00 11/14/24 12:11/14/24 12:00 Narrative Exam Physical Exam General: Awake and in no acute distress. Conversational and non-toxic appearing. Pale. HEENT: Normocephalic, atraumatic. Heart: Regular rate and rhythm, no murmurs. Lungs: Clear to auscultation with no wheezing or crackles. Abdomen: Soft, nondistended, mild diffuse tenderness. No guarding or rebound tenderness. Neurologic: Alert and oriented x3, no gross neurological deficit, and patient able to move all 4 extremities. Extremities: No edema. Skin: No rash or ecchymoses. Objective Labs 11/15/24 05:00 11/15/24 05:00 Labs: Laboratory Results - last 24 hr 11/11/24 11/13/24 11/13/24 17:30 14:17 16:44 WBC RBC Hgb 9.7 L Hct 29.1 L MCV MCH MCHC RDW Std Deviation Plt Count Neut % (Auto) Lymph % (Auto) [place] % (Auto) Eos % (Auto) Baso % (Auto) Neut # (Auto) Lymph # (Auto) [place] # (Auto) Eos # (Auto) Baso # (Auto) Immature Gran # (Auto) Absolute Nucleated RBC Immature Gran % Nucleated RBC % Sodium Potassium Chloride Carbon Dioxide Anion Gap BUN Creatinine Estim Creat Clear Calc eGFR BUN/Creatinine Ratio Glucose Calculated Osmolality Calcium Corrected Calcium Phosphorus Magnesium Total Bilirubin AST ALT Alkaline Phosphatase Troponin I 1.019 H* D 1.000 H* Total Protein Albumin Globulin Albumin/Globulin Ratio 25-OH Vitamin D Total PTH Intact Blood Type O Positive Antibody Screen NEGATIVE Crossmatch See Detail Blood Bank Wristband ID Yes 11/14/24 11/14/24 03:03 08:18 WBC 14.8 H RBC 4.31 Hgb 10.9 L 12.3 Hct 32.2 L 37.5 MCV 87 MCH 28.5 MCHC 32.8 RDW Std Deviation 48.0 H Plt Count 359 Neut % (Auto) 78 Lymph % (Auto) 12 [place] % (Auto) 7 Eos % (Auto) 2 Baso % (Auto) 1 Neut # (Auto) 11.5 H Lymph # (Auto) 1.8 [place] # (Auto) 1.0 H Eos # (Auto) 0.2 Baso # (Auto) 0.1 Immature Gran # (Auto) 0.09 H Absolute Nucleated RBC 0.00 Immature Gran % 1 H Nucleated RBC % 0 Sodium 140 Potassium 5.0 Chloride 103 Carbon Dioxide 24.7 Anion Gap 12 BUN 104 H* Creatinine 1.7 H Estim Creat Clear Calc 32.4 L eGFR 30 L BUN/Creatinine Ratio 61 H Glucose 248 H D Calculated Osmolality 320 H Calcium 9.6 Corrected Calcium 10.2 H Phosphorus 4.1 Magnesium 1.8 Total Bilirubin 0.5 AST 17 ALT 8 L Alkaline Phosphatase 74 D Troponin I Total Protein 5.4 L Albumin 3.3 L Globulin 2.1 L Albumin/Globulin Ratio 1.6 25-OH Vitamin D Total 33.9 PTH Intact 100.6 H Blood Type Antibody Screen Crossmatch Blood Bank Wristband ID Quality Measures Quality Measures VTE prophylaxis Advance care planning discussed with:: patient Assessment & Plan Assessment Current Active Medications: Generic Name Dose Route Start Last Admin Trade Name Freq PRN Reason Stop Dose Admin Acetaminophen 650 mg 11/14/24 08:45 Acetaminophen 325 Mg Tablet PO 12/11/24 20:24 Q6H PRN Fever >100.4 or pain 1-3 Aspirin 81 mg 11/14/24 14:00 Aspirin Ec 81 Mg Tabec PO 12/14/24 13:59 QDAY TRINH Azithromycin 500 mg 11/15/24 09:00 Azithromycin 250 Mg Tablet PO 11/18/24 09:01 QDAY [facility] Protocol Bumetanide 2 mg 11/13/24 18:00 11/14/24 09:29 Bumetanide 0.5 Mg Tablet PO 12/13/24 17:59 2 mg QDAY TRINH Administration Clopidogrel Bisulfate 75 mg 11/14/24 14:00 Clopidogrel Bisulfate 75 Mg Tablet PO 12/14/24 13:59 QDAY TRINH Dextrose 25 ml 11/11/24 20:30 Dextrose 50%-Water Inj 50 Ml Syringe IV 12/11/24 20:29 Q15MIN PRN BG 50-70 responsive npo pt Dextrose 50 ml 11/11/24 20:30 Dextrose 50%-Water Inj 50 Ml Syringe IV 12/11/24 20:29 Q15MIN PRN BG <50 OR BG <70 & pt unresponsive Glucagon 1 mg 11/11/24 20:30 Glucagon Inj 1 Mg Vial IM Q15MIN PRN BG <70, and no IV access Ceftriaxone Sodium/Dextrose 1 gm in 50 mls @ 100 mls/hr 11/13/24 09:00 11/14/24 09:29 Rocephin/D5w 1gm Iv Premix IV 11/19/24 08:59 100 mls/hr QDAY TRINH Administration Sodium Chloride 500 mls @ 20 mls/hr 11/13/24 17:25 11/13/24 17:04 Ns IV 11/14/24 17:24 20 mls/hr .Q24H ONE Administration Insulin Degludec 20 unit 11/14/24 14:00 Insulin Degludec 5 Unit/0.05 Ml (Per 5 Units) SC 12/14/24 13:59 QDAY TRINH Insulin Human Lispro 0 unit 11/12/24 00:00 11/14/24 11:52 Insulin Lispro (Admelog) 1 Unit/0.01 Ml Unit SC 12/12/24 00:00 4 unit Q6HR TRINH Administration Protocol Levothyroxine Sodium 175 mcg 11/14/24 06:00 11/14/24 06:29 Levothyroxine Sodium 25 Mcg Tablet PO 12/14/24 05:59 175 mcg ACBR TRINH Administration Metoprolol Succinate 50 mg 11/13/24 19:15 11/14/24 09:29 Metoprolol Succinate Xl 25 Mg Tabcr PO 12/13/24 19:14 50 mg BID TRINH Administration Nitroglycerin 0.4 mg 11/13/24 13:03 11/13/24 23:15 Nitroglycerin 0.4 Mg Subl Btl #25 SL 12/13/24 13:02 0.4 mg Q5MIN PRN Administration Chest Pain Ondansetron HCl 4 mg 11/13/24 07:42 11/13/24 08:06 Ondansetron Odt 4 Mg Tabrap PO 12/13/24 07:41 4 mg Q6HR PRN Administration NAUSEA OR VOMITING Protocol Pantoprazole Sodium 40 mg 11/14/24 21:00 Pantoprazole Inj 40 Mg Vial IVP 12/14/24 20:59 Q12HR TRINH Ranolazine 500 mg 11/13/24 21:00 11/14/24 09:28 Ranolazine 500 Mg Julia (Non Formulary) PO 12/13/24 20:59 500 mg BID TRINH Administration Sodium Chloride 3 ml 11/11/24 18:46 Sodium Chloride Rt [place] 0.9% 3 Ml Nebu INH 12/11/24 18:45 PRN PRN SOLN Tamoxifen Citrate 10 mg 11/13/24 09:00 11/14/24 09:40 Tamoxifen Citrate 10 Mg Tablet PO 12/13/24 08:59 10 mg QDAY TRINH Administration Plan 84 year-old female with past medical history of CAD s/p 9 stents, hypertension, diabetes, CKD, CHF, invasive ductal carcinoma in situ (ER+) s/p right breast partial lumpectomy and radiation on chemotherapy, presented with abdominal pain and coffee-ground emesis for 2 days, admitted for GI bleed. #GI bleed (unknown origin) #Acute post hemorrhagic anemia Coffee-ground emesis for two days. Diffuse abdominal tenderness and pallor on exam. FOBT positive. BUN elevated at 137. Initial hemoglobin on admission was 8.6 (baseline was ~14.6 one month ago). Received 2 units pRBCs in ED, with post-transfusion hemoglobin improved to 10.9. Patient is on aspirin and Plavix at home for CAD. EGD (11/12): esophagitis, erythematous mucosa in the antrum and duodenopathy, with no active bleeding source identified. Colonscopy (11/13): internal hemorrhoids (banded), one large (1 cm or greater) polyp in the sigmoid colon which was removed. One medium (7-9 mm) polyp in the cecum which was biopsied. Moderate diverticulosis in the sigmoid colon and in the descending colon. Received 1 unit of pRBCs (11/13). Hemoglobin is now 12.3 (normalized). Plan - Monitor H&H. - Transfuse if Hgb <8 or if symptomatic. - Continue IV Pantoprazole 40 mg BID. - Hold aspirin and Plavix for max of 1 week per cardiology. - Dr. Bailon plans for outpatient capsule endoscopy since EGD and colonoscopy did not identify source of bleed. #Type 2 Diabetes Mellitus Hemoglobin A1c 6.8% as of 10/15/2024. Per chart review, patient's home medications include metformin - 500 mg daily, Tradjenta - 5 mg daily, Trulicity - 3 mg/0.5 mL 3 mg weekly. Plan: - Insulin Degludec for better glucose control. - ISS, adjust as necessary. - Hold home medications. - Bedside blood glucose checks ACHS. - Diet: carb consistent with fluid restriction of 1500 mL. #Coronary artery disease status post stents #Chronic systolic heart failure (HFrEF, EF 40%) #Hypertension Patient has AV sequential dual-chamber pacemaker. CTA 09/27/24: Mild CHF. Echo (11/12): normal LV size and wall thickness with septal dyskinesi global hypokinesis. Estimated at 40%. Grade II diastolic dysfunction. RV is normal in size and systolic function. Moderate to severe calcific aortic stenosis. Moderate to heavy mitral annulus and apparatus calcification with mild to moderate MR. Mild TR. Troponin 1.019 on 11/14 with chest pain. Restarted home nitroglycerin. Cardiology restarted home medications for heart failure on 11/13: Entresto, Bumex, Metoprolol, Ranolazine, and Spironolactone Plan: - Hold aspirin and Plavix for max of 1 week per cardiology. - Continue home nitroglyercin PRN chest pain. - Discontinued Entresto and Spironolactone until kidney function is back to patient's baseline. - Follow-up with Dr. Green outpatient. 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 Follows Dr. Samayoa (nephrology). Admission labs: BUN 137, Cr 2.4, eGFR 20. Baseline Cr: 0.9?1.3 (per chart review). BUN:Cr ratio 57, suggestive of a prerenal etiology (hypovolemia from GI bleed vs anemia-induced hypoperfusion). Renal Ultrasound 11/12: Bilateral renal cortical thinning. No hydronephrosis. Mild bilateral renal parenchymal scar formation. Plan - Continue anemia management (as per GI bleed plan) to improve renal perfusion. - Daily renal panel to trend BUN, Cr, and electrolytes. - Avoid nephrotoxins. - Renally dose meds as appropriate. - Strict I&Os, monitor urine output closely. - Monitor for signs of volume overload or uremic symptoms. - Nephrology consulted - appreciate recs. - Discontinued Entresto and Spironolactone until kidney function is back to patient's baseline. #Hyperkalemia (resolved) On presentation patient potassium 6.2. Patient has a history of chronic hyperkalemia, managed with Lokelma at home, however, potassium levels are not typically this elevated per chart review. Initial EKG showed paced rhythm. In the ED, patient was treated with D50, IV Insulin 10 units, IV calcium gluconate 1 gram. Following treatment, potassium decreased to 5.6. Plan: - Recheck BMP to monitor potassium trend and renal function. - Treatment as needed based on repeat labs and clinical status. - Maintain close electrolyte monitoring given underlying CKD and BETSY. #Community-acquired pneumonia #Leukocytosis Patient reports increased shortness of breath over past week, currently afebrile. CXR: atelectasis and/or pneumonia at the left lung base with moderate left pleural fluid. CTAP: pneumonia left base with mild to moderate left pleural fluid. WBC 17.7 Plan: - Continue Rocephin 1 g IV daily (started 11/11). - Continue Azithromycin 500 mg IV daily (started 11/11). #[place] tract infection Denies dysuria, no CVA tenderness. CTAP: Significant bilateral renal scarring with perinephric stranding. UA: WBC 11, bacteria 1+ Plan: - Continue Rocephin 1 g IV daily (started 11/11). - Urine cultures ordered, follow-up. 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 ER positive, TX negative, HER2 negative. S/p right breast lumpectomy (02/12/2022). S/p radiation therapy (04/22/2022 - 06/26/2022). BRCA 1 and 2 negative. Plan - Follows with Dr. Mcclellan. - Resume home med tamoxifen 10 mg p.o. daily. #Hypothyroidism - Continue home Levothyroxine 175 mg daily. Health Maintenance: DVT prophylaxis: SCDs GI prophylaxis: Protonix twice daily Diet: Carb consistent with fluid restriction 1500 mL. Lines: Peripheral IV Code status: Full code Patient plan of care was discussed with the senior resident, Dr. Moulton, and attending physician, . Huber Moura DO PGY-1 Attending Provider Attestation/Addendum Kirill, Teresita Loja DO, attest that I was physically present for the tena portions of the service and evaluated the patient with the resident and I reviewed and discussed the case with the resident and agree with the resident's findings and plans of care as documented above Patient seen and evaluated this AM. Patient states she is feeling better today as she was able to rest overnight. She reports resolution of her chest pain. Colonoscopy did not show any obvious sources of bleeding. Pt will ultimately need a capsule endoscopy outpatient. Per cardio, ok to hold ASA and plavix for 1 week. Will monitor H/H closely and advance diet as tolerated. Ucx positive GPC. F/u final cultures and sensitivities.
--- NOTE | 2024-11-14 14:40 | PC.SS ---
[employer] submitted SNF referral to [facility], [facility], [facility], and [facility] per patient request. [facility] not [facility]. PT note is still pending, SS will submit PT note once available.
--- NOTE | 2024-11-14 14:42 | PC.SS ---
Rounding note: leia Irizarry. recommendation
[2024-11-14] MEDS: INSULIN DEGLUDEC 5 UNIT/0.05 ML (PER 5 UNITS) 20 UNIT SC (14:48)
[2024-11-14] MEDS: CLOPIDOGREL BISULFATE 75 MG TABLET PO (14:48)
--- NOTE | 2024-11-14 15:20 | ESPR_ITS ---
<Statement entered by Akiko Green MD - 11/16/24 22:59> I personally examined evaluated the patient telemetry floor with PGY 2 Dr.FADEL HARE patient did have an episode of chest pain relieved with nitro but she is feeling better now no shortness of breath heart failure compensated evaluated patient in great detail and agree with treatment plan recommendations documented no further lines per angiogram patient can be transferred to [facility] facility whenever she is stable from GI point of view no antiplatelet therapy dispo another week or 2 at this point a month when I see her back in follow-up in my office I will reevaluate before starting possibly Plavix without any aspirin. Documentation for date of: 11/14/24 Subjective Subjective Interval history: No acute overnight event. She had an episode of chest pain today and improved with NITROGLYCERINE, but appears reproducible on exam. Trop was downtrending adn EKG showed no acute ST changes. Denies fever, chills, headaches, chest pain, sob, cough, GI or urinary symptoms. Exam Vital Signs Temp Pulse Resp BP Pulse Ox O2 Del Method O2 Flow Rate 97.6 F 61 18 121/64 98 Nasal Cannula 3 11/14/24 12:00 11/14/24 15:07 11/14/24 15:07 11/14/24 12:00 11/14/24 15:07 11/14/24 12:00 11/14/24 15:07 Narrative Exam General: Lethargic, pale, obese lady. Conversational and non-toxic appearing. Neurologic: GCS 15. Alert and oriented x3, no gross neurological deficit, and patient able to move all 4 extremities. HEENT: Normocephalic, atraumatic, mucous membranes moist. Pupils reactive to light. Heart: Grade 3 systolic ejection murmur. Regular rate and rhythm, normal S1 and S2, no murmurs. Lungs: Clear to auscultation bilaterally with no wheezing or crackles. Abdomen: Obese, soft, nondistended, slightly tender to palpation, positive bowel sounds. No guarding or rebound tenderness. Extremities: No edema. 2+ radial and dorsalis pedis pulses bilaterally. Skin: Warm. Dry. No rash or ecchymoses. Objective Labs 11/14/24 08:18 11/14/24 08:18 Labs: Laboratory Results - last 24 hr 0811/13/24 11/13/24 17:30 14:17 16:44 WBC RBC Hgb 9.7 L Hct 29.1 L MCV MCH MCHC RDW Std Deviation Plt Count Neut % (Auto) Lymph % (Auto) [place] % (Auto) Eos % (Auto) Baso % (Auto) Neut # (Auto) Lymph # (Auto) [place] # (Auto) Eos # (Auto) Baso # (Auto) Immature Gran # (Auto) Absolute Nucleated RBC Immature Gran % Nucleated RBC % Sodium Potassium Chloride Carbon Dioxide Anion Gap BUN Creatinine Estim Creat Clear Calc eGFR BUN/Creatinine Ratio Glucose Calculated Osmolality Calcium Corrected Calcium Phosphorus Magnesium Total Bilirubin AST ALT Alkaline Phosphatase Troponin I 1.019 H* D 1.000 H* Total Protein Albumin Globulin Albumin/Globulin Ratio 25-OH Vitamin D Total PTH Intact Blood Type O Positive Antibody Screen NEGATIVE Crossmatch See Detail Blood Bank Wristband ID Yes 11/14/24 11/14/24 03:03 08:18 WBC 14.8 H RBC 4.31 Hgb 10.9 L 12.3 Hct 32.2 L 37.5 MCV 87 MCH 28.5 MCHC 32.8 RDW Std Deviation 48.0 H Plt Count 359 Neut % (Auto) 78 Lymph % (Auto) 12 [place] % (Auto) 7 Eos % (Auto) 2 Baso % (Auto) 1 Neut # (Auto) 11.5 H Lymph # (Auto) 1.8 [place] # (Auto) 1.0 H Eos # (Auto) 0.2 Baso # (Auto) 0.1 Immature Gran # (Auto) 0.09 H Absolute Nucleated RBC 0.00 Immature Gran % 1 H Nucleated RBC % 0 Sodium 140 Potassium 5.0 Chloride 103 Carbon Dioxide 24.7 Anion Gap 12 BUN 104 H* Creatinine 1.7 H Estim Creat Clear Calc 32.4 L eGFR 30 L BUN/Creatinine Ratio 61 H Glucose 248 H D Calculated Osmolality 320 H Calcium 9.6 Corrected Calcium 10.2 H Phosphorus 4.1 Magnesium 1.8 Total Bilirubin 0.5 AST 17 ALT 8 L Alkaline Phosphatase 74 D Troponin I Total Protein 5.4 L Albumin 3.3 L Globulin 2.1 L Albumin/Globulin Ratio 1.6 25-OH Vitamin D Total 33.9 PTH Intact 100.6 H Blood Type Antibody Screen Crossmatch Blood Bank Wristband ID Quality Measures Quality Measures VTE prophylaxis Advance care planning discussed with:: patient Assessment & Plan Assessment Current Active Medications: Generic Name Dose Route Start Last Admin Trade Name Bill PRN Reason Stop Dose Admin Acetaminophen 650 mg 11/14/24 08:45 Acetaminophen 325 Mg Tablet PO 12/11/24 20:24 Q6H PRN Fever >100.4 or pain 1-3 Aspirin 81 mg 11/14/24 14:00 11/14/24 14:45 Aspirin Ec 81 Mg Tabec PO 12/14/24 13:59 Not Given QDAY TRINH Azithromycin 500 mg 11/15/24 09:00 Azithromycin 250 Mg Tablet PO 11/18/24 09:01 QDAY TRINH Protocol Bumetanide 2 mg 11/13/24 18:00 11/14/24 09:29 Bumetanide 0.5 Mg Tablet PO 12/13/24 17:59 2 mg QDAY TRINH Administration Clopidogrel Bisulfate 75 mg 11/14/24 14:00 11/14/24 14:48 Clopidogrel Bisulfate 75 Mg Tablet PO 12/14/24 13:59 75 mg QDAY TRINH Administration Dextrose 25 ml 11/11/24 20:30 Dextrose 50%-Water Inj 50 Ml Syringe IV 12/11/24 20:29 Q15MIN PRN BG 50-70 responsive npo pt Dextrose 50 ml 11/11/24 20:30 Dextrose 50%-Water Inj 50 Ml Syringe IV 12/11/24 20:29 Q15MIN PRN BG <50 OR BG <70 & pt unresponsive Glucagon 1 mg 11/11/24 20:30 Glucagon Inj 1 Mg Vial IM Q15MIN PRN BG <70, and no IV access Ceftriaxone Sodium/Dextrose 1 gm in 50 mls @ 100 mls/hr 11/13/24 09:00 11/14/24 09:29 Rocephin/D5w 1gm Iv Premix IV 11/19/24 08:59 100 mls/hr QDAY TRINH Administration Sodium Chloride 500 mls @ 20 mls/hr 11/13/24 17:25 11/13/24 17:04 Ns IV 11/14/24 17:24 20 mls/hr .Q24H ONE Administration Insulin Degludec 20 unit 11/14/24 14:00 11/14/24 14:48 Insulin Degludec 5 Unit/0.05 Ml (Per 5 Units) SC 12/14/24 13:59 20 unit QDAY TRINH Administration Insulin Human Lispro 0 unit 11/12/24 00:00 11/14/24 11:52 Insulin Lispro (Admelog) 1 Unit/0.01 Ml Unit SC 12/12/24 00:00 4 unit Q6HR TRINH Administration Protocol Levothyroxine Sodium 175 mcg 11/14/24 06:00 11/14/24 06:29 Levothyroxine Sodium 25 Mcg Tablet PO 12/14/24 05:59 175 mcg ACBR TRINH Administration Metoprolol Succinate 50 mg 11/13/24 19:15 11/14/24 09:29 Metoprolol Succinate Xl 25 Mg Tabcr PO 12/13/24 19:14 50 mg BID TRINH Administration Nitroglycerin 0.4 mg 11/13/24 13:03 11/13/24 23:15 Nitroglycerin 0.4 Mg Subl Btl #25 SL 12/13/24 13:02 0.4 mg Q5MIN PRN Administration Chest Pain Ondansetron HCl 4 mg 11/13/24 07:42 11/13/24 08:06 Ondansetron Odt 4 Mg Tabrap PO 12/13/24 07:41 4 mg Q6HR PRN Administration NAUSEA OR VOMITING Protocol Pantoprazole Sodium 40 mg 11/14/24 21:00 Pantoprazole Inj 40 Mg Vial IVP 12/14/24 20:59 Q12HR TRINH Ranolazine 500 mg 11/13/24 21:00 11/14/24 09:28 Ranolazine 500 Mg Julia (Non Formulary) PO 12/13/24 20:59 500 mg BID TRINH Administration Sodium Chloride 3 ml 11/11/24 18:46 Sodium Chloride Rt [place] 0.9% 3 Ml Nebu INH 12/11/24 18:45 PRN PRN SOLN Tamoxifen Citrate 10 mg 11/13/24 09:00 11/14/24 09:40 Tamoxifen Citrate 10 Mg Tablet PO 12/13/24 08:59 10 mg QDAY TRINH Administration Plan 84-year-old female with a PMH of CAD with 9 stents, hypertension, diabetes, CKD, breast cancer status post partial mastectomy and radiation therapy on chemo, who presented to the ED on 11/11/2024 with abdominal pain and coffee-ground emesis for the past 2 days. The patient was admitted for GI bleed. Cardiology was consulted for management of the patient's history of coronary artery disease on anticoagulation status post 9 stents in the presence of a possible GI bleed. #CAD status post stents #Hypertension #GI bleed #Angina pectoralis * The patient's most previous stent was in November 2023 * The patient's chest pain and elevated troponins are likely ischemic in nature * EKG on 11/13/2024 was significant for sinus tachycardia, no significant ST segment changes, pacemaker rhythm on background afib * No indication for coronary angiogram at this time Cath showed left ventricle is normal in size and thickness with septal dyskinesis, global hypokinesis, and an EF of ~40%, along with grade II diastolic dysfunction. The right ventricle is normal. There is moderate to severe calcific aortic stenosis (Vmax 3.3 m/sec, mean gradient 27 mmHg), moderate mitral annular calcification with mild?moderate regurgitation, and mild tricuspid regurgitation. 11/14/2024 complained of chest pain that appears reproducible on exam but reported improvement with nitro, and following 1 unit PRBC transfusion. Currently asymptomatic without chest pain or shortness of breath. She had EGD and colonoscopy showing no evidence of active bleed. May need to endoscopy. RECOMMENDATIONS: Maintain hemoglobin >10 to prevent further episode of angina pectoralis. May hold PLAVIX/ASPIRIN up to 10 days in settings of GI bleed, anemia. Continue with diuresis and working towards GDMT as tolerated. Maintain K>4.0 and Mag>2.0. Continue with diuresis to prevent CHF exacerbation, tachyarrhythmia. #Upper GI bleed #Symptomatic anemia #BETSY on CKD #Community-acquired pneumonia #UTI, possible pyelonephritis #Hyperkalemia #Right-sided breast cancer status postmastectomy and radiotherapy #Diabetes The remainder of the patient's hospital problems will be managed per the primary team. Case was discussed with attending physician, Dr. Green. Isauro Hare, PGY II This document was transcribed using voice recognition technology. Minor inaccuracies may be present.
--- NOTE | 2024-11-14 20:20 | PD.IMPROG ---
Documentation for date of: 11/14/24 Subjective Subjective Interval history: Patient evaluated BUN/creatinine 104 and 1.7 Hemoglobin hematocrit 12.3 and 37.5 with a platelet count of 359,000 pro time INR at 1.2 Upper endoscopy showed gastritis and duodenitis Colonoscopy showed cecal polyp and sigmoid colon polyp along with diverticulosis both were resected pathology pending Outpatient capsule endoscopy as I discussed with the internal medicine team Exam Vital Signs Temp Pulse Resp BP Pulse Ox O2 Del Method O2 Flow Rate 98.0 F 98 27 H 114/56 L 94 L Nasal Cannula 3 11/14/24 16:00 11/14/24 16:00 11/14/24 16:00 11/14/24 16:00 11/14/24 16:00 11/14/24 16:00 11/14/24 16:00 Objective Labs 11/14/24 08:18 11/14/24 08:18 Labs: Laboratory Results - last 24 hr 11/11/24 11/14/24 11/14/24 17:30 03:03 08:18 WBC 14.8 H RBC 4.31 Hgb 10.9 L 12.3 Hct 32.2 L 37.5 MCV 87 MCH 28.5 MCHC 32.8 RDW Std Deviation 48.0 H Plt Count 359 Neut % (Auto) 78 Lymph % (Auto) 12 [place] % (Auto) 7 Eos % (Auto) 2 Baso % (Auto) 1 Neut # (Auto) 11.5 H Lymph # (Auto) 1.8 [place] # (Auto) 1.0 H Eos # (Auto) 0.2 Baso # (Auto) 0.1 Immature Gran # (Auto) 0.09 H Absolute Nucleated RBC 0.00 Immature Gran % 1 H Nucleated RBC % 0 Sodium 140 Potassium 5.0 Chloride 103 Carbon Dioxide 24.7 Anion Gap 12 BUN 104 H* Creatinine 1.7 H Estim Creat Clear Calc 32.4 L eGFR 30 L BUN/Creatinine Ratio 61 H Glucose 248 H D Calculated Osmolality 320 H Calcium 9.6 Corrected Calcium 10.2 H Phosphorus 4.1 Magnesium 1.8 Total Bilirubin 0.5 AST 17 ALT 8 L Alkaline Phosphatase 74 D Total Protein 5.4 L Albumin 3.3 L Globulin 2.1 L Albumin/Globulin Ratio 1.6 25-OH Vitamin D Total 33.9 PTH Intact 100.6 H Blood Type O Positive Antibody Screen NEGATIVE Crossmatch See Detail Blood Bank Wristband ID Yes Impressions Impression: Gastritis Duodenitis Cecal polyp endoscopically resected Sigmoid colon polyp endoscopically resected BETSY on CKD Continue current management Outpatient capsule endoscopy Assessment & Plan A&P Narrative # Coffee-ground hematemesis significant drop in hemoglobin hematocrit# complicated by the use of aspirin and Plavix for her PTCA Plan Serial CBC Fiberoptic esophagogastroduodenoscopy with possible biopsy possible therapeutic intervention under intravenous moderate sedation scheduled for tomorrow N.p.o. IV Protonix Other medical problems include IDDM Coronary artery disease status post PTCA Essential hypertension Right breast carcinoma status post right lumpectomy followed by radiation and chemo currently on tamoxifen followed by a local oncologist Thank you very much for the opportunity to participate in care of this patient Time Spent With Patient Time: Total time spent is greater than 50% in coordination of care (as documented) at patient's floor/unit and/or counseling patient:
[2024-11-15] VITALS (14 sets, daily range): BP systolic 121–153; BP diastolic 9–94; PULSE 60–104; RESP 19–28; TEMP 35.9–36.7; O2SAT 93–96; BMI 31.1
[2024-11-15] MEDS: LEVOTHYROXINE SODIUM 25 MCG TABLET 175 MCG PO (05:18)
[2024-11-15 06:13] LABS: Basophils # (Auto) 0.1 Thou/mm3 (0.0-0.2); Basophils % (Auto) 1 % (0-2.5); Eosinophils # (Auto) 0.1 Thou/mm3 (0.0-0.5); Eosinophils % (Auto) 1 % (0-10); Hematocrit 35.6 % (36.0-46.0); Hemoglobin 11.9 g/dL (12.0-16.0); Immature Granulocytes Auto 0.15 Thou/mm3 (0.00-0.00); Lymphocytes # (Auto) 2.1 Thou/mm3 (1.0-4.8); Lymphocytes % (Auto) 12 % (10-50); Mean Corpuscular HGB Conc 33.4 g/dl (31.0-37.0); Mean Corpuscular Hemoglobin 29.1 pg (25.0-35.0); Mean Corpuscular Volume 87 fL (80-100); Monocytes # (Auto) 1.3 Thou/mm3 (0.0-0.8); Monocytes % (Auto) 8 % (0-12); Neutrophils # (Auto) 12.9 Thou/mm3 (1.8-7.7); Neutrophils % (Auto) 78 % (37-80); Nucleated Red Blood Cell # 0.00 Thou/mm3 (0.00-0.00); Nucleated Red Blood Cell % 0 /100 WBC (0); Platelet Count 365 Thou/mm3 (140-440); RDW Standard Deviation 48.0 fL (36.4-46.3); Red Blood Count 4.09 Miln/mm3 (4.00-5.20); White Blood Count 16.6 Thou/mm3 (3.6-11.0)
[2024-11-15 06:40] LABS: Alanine Aminotransferase < 7 U/L (10-49); Albumin, Serum 3.6 gm/dL (3.4-4.8); Albumin/Globulin Ratio 1.5 (1.2-2.2); Alkaline Phosphatase 74 U/L (46-116); Anion Gap 11 (7-16); Aspartate Amino Transferase 20 U/L (0-34); BUN/Creatinine Ratio 39 Ratio (12-20); Bilirubin,Total 0.5 mg/dL (0.3-1.2); Blood Urea Nitrogen 71 mg/dL (9-23); Calcium 9.7 mg/dL (8.3-10.6); Calcium (Corrected) 10.0 mg/dL (8.5-10.1); Carbon Dioxide 22.0 mMol/L (20.0-31.0); Chloride 103 mMol/L (98-107); Creatinine (Component) 1.8 mg/dL (0.6-1.3); Estimated Creatinine Clearance 30.6 mL/min (>60); Globulin 2.4 gm/dL (2.3-3.5); Glucose 211 mg/dL (74-106); Magnesium 1.9 mg/dL (1.6-2.6); Osmolality,Calculated 298 (275-295); Phosphorous 3.2 mg/dL (2.4-5.1); Potassium 4.9 mMol/L (3.4-5.1); Sodium 136 mMol/L (136-145); Total Protein 6.0 gm/dL (5.7-8.2); eGFR 28 See Note
[2024-11-15] MEDS: INSULIN LISPRO (AdmeLOG) 1 UNIT/0.01 ML UNIT SC ×2 (07:11→18:02)
[2024-11-15] MEDS: cefTRIAXone/D5w 1gm IV premix 1 GM/50 ML BAG IV (08:07)
[2024-11-15] MEDS: TAMOXIFEN CITRATE 10 MG TABLET PO (08:07)
[2024-11-15] MEDS: AZITHROMYCIN 250 MG TABLET 500 MG PO (08:10)
[2024-11-15] MEDS: RANOLAZINE 500 MG TABER (NON FORMULARY) PO ×2 (08:18→21:12)
[2024-11-15] MEDS: METOPROLOL SUCCINATE XL 25 MG TABCR 50 MG PO ×2 (08:18→21:17)
[2024-11-15] MEDS: INSULIN DEGLUDEC 5 UNIT/0.05 ML (PER 5 UNITS) 25 UNIT SC (08:21)
--- NOTE | 2024-11-15 08:49 | PD.RESPRO ---
Documentation for date of: 11/15/24 Subjective Subjective Interval history: Ms Levy is an 84 yo woman with a hx of CVD s/p 9 stents with pacemaker on asa and plavix , htn, dm, ckd, breast cancer (s/p partial mastectomy and radiation on chemo) who presented to the ED with cc of abdominal pain and coffee ground emesis for 2 days. pt reports having increasing shortness of breath and fatigue over the past week. She endorses lightheadedness and fatigue. she denies fevers, chills, chest pain, diarrhea, melena, constipation, dysuria. ED COURSE: Labs significant for: WBC 17.7, hemoglobin 8.6 (down from 14.6 one month ago), potassium 6.2, BUN 137, creatinine 2.4, EGFR 20, troponin negative, FOBT positive. UA shows 11 WBCs, 1+ bacteria. Imaging significant for: EKG shows paced rhythm, CT A/P shows left base pneumonia and renal scarring with perinephric stranding. Patient received 80 mg IV Protonix, 1 L bolus lactated Ringer's, amp of D50, insulin 10, calcium gluconate 1 g, and 2 units PRBC in the ED. GI was consulted, for EGD. Interval history: 11/12/2024: EGD performed: esophagitis in lower third of esophagus, diffuse moderately erythematpus mucosa without bleeding in the gastric antrum, erythematous duodenopathy. patchy mildly erythematous mucosa without active bleeding and with no stigmata of bleeding was found in the duodenal bulb. pending colonoscopy, golytely prep. BUN 156, Cr 2.5. Renal US Bilateral renal cortical thinning No hydronephrosis Mild bilateral renal parenchymal scar formation. Renal Artery duplex No Doppler sonographic findings of renal artery stenosis, Small kidneys with bilateral renal cortical thinning. TTE with EF 40% 11/13/2024: Nephrology consulted. Patient seen and examined at bedside. pt with ongoing prep for colonoscopy with golytely. Pt is alert and oriented x3. BUN 128, Cr 2.1. Given pt has significant cardiac history, c/f volume overload, BUN is downtrending, and Cr is downtrending, reccomend holding IV fluids. reassess after colonoscopy. No HD. 11/14/2024: pt is s/p colonoscopy, internal hemrrhoids banded, large polyp resected, 1 medium polyp biopsied. pt had episode of chest pain yesterday that resolved with nitroglycerin, pt recieved 1 unit prbc, trop was elevated to 1.019, now 1.0. BUN downtrending to 104 from 128, Cr downtrending 1.7 from 2.1. 11/15/2024: Patient seen and examined at bedside, she is sitting upright in bed following breakfast. pt has no new complaints, no chest pain, no shortness of breath. Labs are significant for: Hgb stable 11, BUN 71 from 104, Cr 1.8 from 1.7, On exam she does not appear volume overloaded, no LE edema, lungs aree CTAB, OK to discharge from nephro perspective BUN is resolving, dispo per primary team. Exam Vital Signs Temp Pulse Resp BP Pulse Ox O2 Del Method O2 Flow Rate 97.1 F 101 H 24 H 138/90 H 93 L Nasal Cannula 3 11/15/24 08:00 11/15/24 08:18 11/15/24 08:00 11/15/24 08:18 11/15/24 08:00 11/15/24 08:00 11/15/24 08:00 Narrative Exam GENERAL: no acute distress, AAO x3, sitting upright in bed. HEENT: Head AT/ NC. Mucous membranes moist. PERRL. NECK: Supple, no lymphadenopathy, no carotid bruits. CARDIOVASCULAR: RRR. Normal S1/S2, +systolic murmor. No pitting edema of bilateral LEs. RESPIRATORY: CTAB. No wheezing, rhonchi, crackles. GASTROINTESTINAL: Obese, Abdomen soft, non tender no palpable masses. Bowel sounds present MUSCULOSKELETAL:? No cyanosis or edema, no visible joint swelling. NEUROLOGICAL: CN II-XII grossly intact. No focal deficits. Sensation intact, symmetric. PSYCHIATRIC: Awake and alert, not agitated, normal mood and affect. SKIN: No obvious rashes, no jaundice, normal turgor. Objective Labs 11/15/24 05:00 11/15/24 05:00 Labs: Laboratory Results - last 24 hr 11/11/24 11/14/24 11/15/24 17:30 08:18 05:00 WBC 14.8 H 16.6 H RBC 4.31 4.09 Hgb 12.3 11.9 L Hct 37.5 35.6 L MCV 87 87 MCH 28.5 29.1 MCHC 32.8 33.4 RDW Std Deviation 48.0 H 48.0 H Plt Count 359 365 Neut % (Auto) 78 78 Lymph % (Auto) 12 12 [place] % (Auto) 7 8 Eos % (Auto) 2 1 Baso % (Auto) 1 1 Neut # (Auto) 11.5 H 12.9 H Lymph # (Auto) 1.8 2.1 [place] # (Auto) 1.0 H 1.3 H Eos # (Auto) 0.2 0.1 Baso # (Auto) 0.1 0.1 Immature Gran # (Auto) 0.09 H 0.15 H Absolute Nucleated RBC 0.00 0.00 Immature Gran % 1 H 1 H Nucleated RBC % 0 0 Sodium 140 136 Potassium 5.0 4.9 Chloride 103 103 Carbon Dioxide 24.7 22.0 Anion Gap 12 11 BUN 104 H* 71 H Creatinine 1.7 H 1.8 H Estim Creat Clear Calc 32.4 L 30.6 L eGFR 30 L 28 L BUN/Creatinine Ratio 61 H 39 H Glucose 248 H D 211 H Calculated Osmolality 320 H 298 H Calcium 9.6 9.7 Corrected Calcium 10.2 H 10.0 Phosphorus 4.1 3.2 Magnesium 1.8 1.9 Total Bilirubin 0.5 0.5 AST 17 20 ALT 8 L < 7 L Alkaline Phosphatase 74 D 74 Total Protein 5.4 L 6.0 Albumin 3.3 L 3.6 Globulin 2.1 L 2.4 Albumin/Globulin Ratio 1.6 1.5 25-OH Vitamin D Total 33.9 PTH Intact 100.6 H Crossmatch See Detail Quality Measures Quality Measures VTE prophylaxis Advance care planning discussed with:: patient Assessment & Plan Assessment Current Active Medications: Generic Name Dose Route Start Last Admin Trade Name Freq PRN Reason Stop Dose Admin Acetaminophen 650 mg 11/14/24 08:45 Acetaminophen 325 Mg Tablet PO 12/11/24 20:24 Q6H PRN Fever >100.4 or pain 1-3 Aspirin 81 mg 11/14/24 14:00 11/14/24 14:45 Aspirin Ec 81 Mg Tabec PO 12/14/24 13:59 Not Given [facility] Azithromycin 500 mg 11/15/24 09:00 11/15/24 08:10 Azithromycin 250 Mg Tablet PO 11/18/24 09:01 500 mg [facility]DAY [facility] Administration Protocol Bumetanide 2 mg 11/13/24 18:00 11/14/24 09:29 Bumetanide 0.5 Mg Tablet PO 12/13/24 17:59 2 mg [facility]DAY [facility] Administration Clopidogrel Bisulfate 75 mg 11/14/24 14:00 11/14/24 14:48 Clopidogrel Bisulfate 75 Mg Tablet PO 12/14/24 13:59 75 mg QDAY TRINH Administration Dextrose 25 ml 11/11/24 20:30 Dextrose 50%-Water Inj 50 Ml Syringe IV 12/11/24 20:29 Q15MIN PRN BG 50-70 responsive npo pt Dextrose 50 ml 11/11/24 20:30 Dextrose 50%-Water Inj 50 Ml Syringe IV 12/11/24 20:29 Q15MIN PRN BG <50 OR BG <70 & pt unresponsive Glucagon 1 mg 11/11/24 20:30 Glucagon Inj 1 Mg Vial IM Q15MIN PRN BG <70, and no IV access Ceftriaxone Sodium/Dextrose 1 gm in 50 mls @ 100 mls/hr 11/13/24 09:00 11/15/24 08:07 Rocephin/D5w 1gm Iv Premix IV 11/19/24 08:59 100 mls/hr [facility]DAY [facility] Administration Magnesium Sulfate 2 gm in 50 mls @ 25 mls/hr 11/15/24 08:05 Magnesium Sulfate Ivpb IV 11/15/24 10:04 X1 ONE Insulin Degludec 25 unit 11/15/24 09:00 11/15/24 08:21 Insulin Degludec 5 Unit/0.05 Ml (Per 5 Units) SC 12/15/24 08:59 25 unit QDAY TRIN[facility] Administration Insulin Human Lispro 2 unit 11/15/24 11:30 Insulin Lispro (Admelog) 1 Unit/0.01 Ml Unit SC 12/15/24 11:29 AC TRINH Levothyroxine Sodium 175 mcg 11/14/24 06:00 11/15/24 05:18 Levothyroxine Sodium 25 Mcg Tablet PO 12/14/24 05:59 175 mcg ACBR TRINH Administration Metoprolol Succinate 50 mg 11/13/24 19:15 11/15/24 08:18 Metoprolol Succinate Xl 25 Mg Tabcr PO 12/13/24 19:14 50 mg BID TRINH Administration Nitroglycerin 0.4 mg 11/13/24 13:03 11/13/24 23:15 Nitroglycerin 0.4 Mg Subl Btl #25 SL 12/13/24 13:02 0.4 mg Q5MIN PRN Administration Chest Pain Ondansetron HCl 4 mg 11/13/24 07:42 11/13/24 08:06 Ondansetron Odt 4 Mg Tabrap PO 12/13/24 07:41 4 mg Q6HR PRN Administration NAUSEA OR VOMITING Protocol Pantoprazole Sodium 40 mg 11/14/24 21:00 11/15/24 08:09 Pantoprazole Inj 40 Mg Vial IVP 12/14/24 20:59 40 mg Q12HR TRINH Administration Ranolazine 500 mg 11/13/24 21:00 11/15/24 08:18 Ranolazine 500 Mg Julia (Non Formulary) PO 12/13/24 20:59 500 mg BID TRINH Administration Sodium Chloride 3 ml 11/11/24 18:46 Sodium Chloride Rt [place] 0.9% 3 Ml Nebu INH 12/11/24 18:45 PRN PRN SOLN Tamoxifen Citrate 10 mg 11/13/24 09:00 11/15/24 08:07 Tamoxifen Citrate 10 Mg Tablet PO 12/13/24 08:59 10 mg QDAY TRIN[facility] Administration Plan Ms Levy is an 84 yo woman with a hx of CAD s/p 9 stents on asa and plavix, HFrEF (EF40% on 10/2024), breast cancer s/p partial mastectomy, radiation, and chemo, HTN, HLD, HF, and hypothyroidism undergoing workup for GI bleed, s/p egd s/p colonoscopy with biopsy and large polyp removal and internal hemorrhoids banded. BUN very elevated on admission, continues to dwontrend no HD indicated at this time, OK to discharge from nephrology perspective, pending dispo per primary team. #BETSY on CKD IV Yao PCP On admission BUN 156, Cr 2.4, eGFR 20 renal US: no hydronephrosis, Bilateral renal cortical thinning, Mild bilateral renal parenchymal scar formation Renal duplex: no renal artery stenosis, Small kidneys with bilateral renal cortical thinning On 11/13: BUN 128 from 156, Cr 2.1 from 2.5 On 11/14: BUN 104 from 128, Cr 1.7 from 2.1 ON 11/15: BUN 71 from 104, Cr 1.8 from 1.7 Plan: -no HD at this time -given BUN is downtrending, no HD recommended at this time. -avoid nephrotoxic agents -renally dose medications -ok to d/c from nephro perspective, dispo per primary team. #HFrEF (EF 40% 10/2024) #T2DM on insulin - poorly controlled A1c: 6.8 in 09/2024 AM FBS: 224 home medications include metformin - 500 mg daily, Tradjenta - 5 mg daily, Trulicity - 3 mg/0.5 mL 3 mg Weekly. #CAD status post 9 stents #Hypertension SBP 130s-150s #GI bleed- ruled out, hgb stable #Upper GI bleed- ruled out #Lower GI bleed- s/p colonoscopy -1 large polyp removed, 1 medium polyp biopsied, internal hemrrhoids banded. #Symptomatic anemia s/p 3 units PRBC #Community-acquired pneumonia #UTI, possible pyelonephritis- WBC uptrending 16 from 14 #Hyperkalemia- resolved #Right-sided breast cancer status postmastectomy and radiotherapy- Followed by Dr. Mcclellan S/p right breast lumpectomy (02/12/2022) S/p radiation therapy (04/22/2022 - 06/26/2022) - managment per primary team Plan discussed with nephrology attending Dr. Yao Keller MD Internal Medicine PGY-1 Attending Provider Attestation/Addendum Patient seen and examined with resident physician Dr. Keller. Note reviewed, agree with findings and recommendations. Patient has extensive cardiac history and is on Aspirin, Plavix. Under the care of Dr. Goel. Has underlying CKD and is under my care. Presented with GI bleed and severe azotemia. BUN out of proportion to the creatinine. Agree with fluids and blood transfusion. BUN improving. Status post endoscopy and colonoscopy. No active bleeding. Polyps were removed. Noted WBC still elevated. Urine cultures positive for gram-positive cocci. Spoke to Dr. Loja-on antibiotics
[2024-11-15] MEDS: Magnesium Sulfate 2 GM Ivpb 2 GM/50 ML BAG IV (09:19)
[2024-11-15] MEDS: NITROGLYCERIN 0.4 MG SUBL BTL #25 SL ×3 (09:23→20:27)
[2024-11-15] MEDS: AMOXICILLIN 250 MG CAPSULE 500 MG PO ×3 (09:27→21:11)
[2024-11-15] MEDS: INSULIN LISPRO (AdmeLOG) 1 UNIT/0.01 ML UNIT 2 UNIT SC ×2 (11:15→17:01)
--- NOTE | 2024-11-15 11:56 | ESPR_ITS ---
<Statement entered by Gracie Lind MD - 11/15/24 18:07> Ms. 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 Patient has received 1 unit of PRBCs. Colonoscopy showed internal hemorrhoids which were banded, and 1 large polyp removed, and 1 medium polyp biopsy. EGD showed esophagitis and erythematous mucosa in the antrum. GI recommends patient to get an outpatient capsule endoscopy to further assess source of bleed. Cardiology is also on board, and is okay with holding aspirin/Plavix for about a week and lieu of patient's GI bleed. This morning, patient presented with similar chest pain as felt yesterday, and nitroglycerin as well as an ice pack helped alleviate symptoms. Patient also would like to go to rehab to regain her mobility and strength. Will remove patient's fluid restriction and continue to hold patient's home heart failure medications. Anticipate discharge within 24 to 48 hours, and resume patient's home meds. Will continue to monitor patient's glucose for better glucose control. Will transition patient from IV Rocephin/azithromycin to amoxicillin 500 mg 3 times daily as Enterococcus faecalis is sensitive on urine culture. At bedside, patient states that she does feel short of breath at times, encourage patient to use incentive spirometer. I discussed with and supervised the graphics intern physician who took care of this patient. I personally saw and examined the patient and discussed the assessment and plan with the entire medicine team, including my attending Dr. Loja, I agree with most of the assessment and plan as documented below Gracie Lind M.D. PGY-3 Disclaimer: Despite multiple revisions, due to the dictation software being used, the document bellow may not be free of grammatical errors including phonetic/typographic errors. However, this does not deter from our commitment to providing health care in the patient's best interest in mind. Documentation for date of: 11/15/24 Subjective Subjective Interval history: Patient was seen at the bedside this morning. She reports ongoing right-sided chest discomfort, which improves with applied pressure. She has been using an ice pack on the area, which has provided some relief, in addition to using nitroglycerin. The patient mentioned that her current diet includes a high amount of sweet foods, diet adjustments were made. She was able to participate in physical therapy yesterday. She has not had a bowel movement since admission, likely due to bowel prep for her colonoscopy. Her diet was only restarted yesterday, and oral intake remains minimal. Bumex will be held today due to leukocytosis. Fluid restriction has been discontinued, and the patient was encouraged to increase oral fluid intake. She also reports experiencing some difficulty breathing and a non-productive cough. She was reassured that she is currently receiving antibiotics for treatment of pneumonia. Discharge planning is in place, and the patient will be going to rehab upon discharge. Exam Vital Signs Temp Pulse Resp BP Pulse Ox O2 Del Method O2 Flow Rate 97.1 F 96 24 H 153/93 H 93 L Nasal Cannula 3 11/15/24 08:00 11/15/24 09:32 11/15/24 08:00 11/15/24 09:32 11/15/24 08:00 11/15/24 08:00 11/15/24 08:00 Narrative Exam Physical Exam General: Awake and in no acute distress. Conversational and non-toxic appearing. Pale. HEENT: Normocephalic, atraumatic. Heart: Regular rate and rhythm, no murmurs. Lungs: Clear to auscultation with no wheezing or crackles. Abdomen: Soft, nondistended, mild diffuse tenderness. No guarding or rebound tenderness. Neurologic: Alert and oriented x3, no gross neurological deficit, and patient able to move all 4 extremities. Extremities: No edema. Skin: No rash or ecchymoses. Objective Labs 11/16/24 05:34 11/16/24 05:34 Labs: Laboratory Results - last 24 hr 11/11/24 11/15/24 17:30 05:00 WBC 16.6 H RBC 4.09 Hgb 11.9 L Hct 35.6 L MCV 87 MCH 29.1 MCHC 33.4 RDW Std Deviation 48.0 H Plt Count 365 Neut % (Auto) 78 Lymph % (Auto) 12 [place] % (Auto) 8 Eos % (Auto) 1 Baso % (Auto) 1 Neut # (Auto) 12.9 H Lymph # (Auto) 2.1 [place] # (Auto) 1.3 H Eos # (Auto) 0.1 Baso # (Auto) 0.1 Immature Gran # (Auto) 0.15 H Absolute Nucleated RBC 0.00 Immature Gran % 1 H Nucleated RBC % 0 Sodium 136 Potassium 4.9 Chloride 103 Carbon Dioxide 22.0 Anion Gap 11 BUN 71 H Creatinine 1.8 H Estim Creat Clear Calc 30.6 L eGFR 28 L BUN/Creatinine Ratio 39 H Glucose 211 H Calculated Osmolality 298 H Calcium 9.7 Corrected Calcium 10.0 Phosphorus 3.2 Magnesium 1.9 Total Bilirubin 0.5 AST 20 ALT < 7 L Alkaline Phosphatase 74 Total Protein 6.0 Albumin 3.6 Globulin 2.4 Albumin/Globulin Ratio 1.5 Crossmatch See Detail Quality Measures Quality Measures VTE prophylaxis Advance care planning discussed with:: patient Assessment & Plan Assessment Current Active Medications: Generic Name Dose Route Start Last Admin Trade Name Freq PRN Reason Stop Dose Admin Acetaminophen 650 mg 11/14/24 08:45 Acetaminophen 325 Mg Tablet PO 12/11/24 20:24 Q6H PRN Fever >100.4 or pain 1-3 Amoxicillin 500 mg 11/15/24 09:30 11/15/24 09:27 Amoxicillin 250 Mg Capsule PO 11/22/24 09:29 500 mg TID TRINH Administration Aspirin 81 mg 11/14/24 14:00 11/14/24 14:45 Aspirin Ec 81 Mg Tabec PO 12/14/24 13:59 Not Given QDAY TRINH Azithromycin 500 mg 11/15/24 09:00 11/15/24 08:10 Azithromycin 250 Mg Tablet PO 11/18/24 09:01 500 mg QDAY TRINH Administration Protocol Bumetanide 2 mg 11/13/24 18:00 11/14/24 09:29 Bumetanide 0.5 Mg Tablet PO 12/13/24 17:59 2 mg QDAY TRINH Administration Clopidogrel Bisulfate 75 mg 11/14/24 14:00 11/14/24 14:48 Clopidogrel Bisulfate 75 Mg Tablet PO 12/14/24 13:59 75 mg QDAY TRINH Administration Dextrose 25 ml 11/11/24 20:30 Dextrose 50%-Water Inj 50 Ml Syringe IV 12/11/24 20:29 Q15MIN PRN BG 50-70 responsive npo pt Dextrose 50 ml 11/11/24 20:30 Dextrose 50%-Water Inj 50 Ml Syringe IV 12/11/24 20:29 Q15MIN PRN BG <50 OR BG <70 & pt unresponsive Glucagon 1 mg 11/11/24 20:30 Glucagon Inj 1 Mg Vial IM Q15MIN PRN BG <70, and no IV access Insulin Degludec 25 unit 11/15/24 09:00 11/15/24 08:21 Insulin Degludec 5 Unit/0.05 Ml (Per 5 Units) SC 12/15/24 08:59 25 unit QDAY TRINH Administration Insulin Human Lispro 2 unit 11/15/24 11:30 11/15/24 11:15 Insulin Lispro (Admelog) 1 Unit/0.01 Ml Unit SC 12/15/24 11:29 2 unit AC TRINH Administration Levothyroxine Sodium 175 mcg 11/14/24 06:00 11/15/24 05:18 Levothyroxine Sodium 25 Mcg Tablet PO 12/14/24 05:59 175 mcg ACBR TRINH Administration Metoprolol Succinate 50 mg 11/13/24 19:15 11/15/24 08:18 Metoprolol Succinate Xl 25 Mg Tabcr PO 12/13/24 19:14 50 mg BID TRINH Administration Nitroglycerin 0.4 mg 11/13/24 13:03 11/15/24 09:32 Nitroglycerin 0.4 Mg Subl Btl #25 SL 12/13/24 13:02 0.4 mg Q5MIN PRN Administration Chest Pain Ondansetron HCl 4 mg 11/13/24 07:42 11/13/24 08:06 Ondansetron Odt 4 Mg Tabrap PO 12/13/24 07:41 4 mg Q6HR PRN Administration NAUSEA OR VOMITING Protocol Pantoprazole Sodium 40 mg 11/14/24 21:00 11/15/24 08:09 Pantoprazole Inj 40 Mg Vial IVP 12/14/24 20:59 40 mg Q12HR TRINH Administration Ranolazine 500 mg 11/13/24 21:00 11/15/24 08:18 Ranolazine 500 Mg Julia (Non Formulary) PO 12/13/24 20:59 500 mg BID TRINH Administration Sodium Chloride 3 ml 11/11/24 18:46 Sodium Chloride Rt [place] 0.9% 3 Ml Nebu INH 12/11/24 18:45 PRN PRN SOLN Tamoxifen Citrate 10 mg 11/13/24 09:00 11/15/24 08:07 Tamoxifen Citrate 10 Mg Tablet PO 12/13/24 08:59 10 mg QDAY TRINH Administration Plan 84 year-old female with past medical history of CAD s/p 9 stents, hypertension, diabetes, CKD, CHF, invasive ductal carcinoma in situ (ER+) s/p right breast partial lumpectomy and radiation on chemotherapy, presented with abdominal pain and coffee-ground emesis for 2 days, admitted for GI bleed. #GI bleed (unknown origin) #Acute post hemorrhagic anemia Coffee-ground emesis for two days. Diffuse abdominal tenderness and pallor on exam. FOBT positive. BUN elevated at 137. Initial hemoglobin on admission was 8.6 (baseline was ~14.6 one month ago). Received 2 units pRBCs in ED, with post-transfusion hemoglobin improved to 10.9. Patient is on aspirin and Plavix at home for CAD. EGD (11/12): esophagitis, erythematous mucosa in the antrum and duodenopathy, with no active bleeding source identified. Colonscopy (11/13): internal hemorrhoids (banded), one large (1 cm or greater) polyp in the sigmoid colon which was removed. One medium (7-9 mm) polyp in the cecum which was biopsied. Moderate diverticulosis in the sigmoid colon and in the descending colon. Received 1 unit of pRBCs (11/13). Plan - Monitor H&H. - Transfuse if Hgb <8 or if symptomatic. - Continue IV Pantoprazole 40 mg BID. - Hold aspirin and Plavix for max of 1 week per cardiology. - Dr. Bailon plans for outpatient capsule endoscopy since EGD and colonoscopy did not identify source of bleed. #Coronary artery disease status post stents #Chronic systolic heart failure (HFrEF, EF 40%) #Hypertension Patient has AV sequential dual-chamber pacemaker. CTA 09/27/24: Mild CHF. Echo (11/12): normal LV size and wall thickness with septal dyskinesi global hypokinesis. Estimated at 40%. Grade II diastolic dysfunction. RV is normal in size and systolic function. Moderate to severe calcific aortic stenosis. Moderate to heavy mitral annulus and apparatus calcification with mild to moderate MR. Mild TR. Troponin 1.019 on 11/14 with chest pain. Restarted home nitroglycerin. Cardiology restarted home medications for heart failure on 11/13: Entresto, Bumex, Metoprolol, Ranolazine, and Spironolactone. Plan: - Hold aspirin and Plavix for max of 1 week per cardiology. - Continue home nitroglyercin PRN chest pain. - Discontinued Entresto and Spironolactone until kidney function is back to patient's baseline. - Follow-up with Dr. Green outpatient. - Held Bumex today (11/15) to see if leukocytosis improves. - Fluid restriction removed. #Type 2 Diabetes Mellitus Hemoglobin A1c 6.8% as of 10/15/2024. Per chart review, patient's home medications include metformin - 500 mg daily, Tradjenta - 5 mg daily, Trulicity - 3 mg/0.5 mL 3 mg weekly. Plan: - Increased Insulin Degludec from 20 units to 25 units for better glucose control. - Changed ISS to scheduled before meals. Adjust as necessary. - Hold home medications. - Bedside blood glucose checks ACHS. - Diet changed to carb consistent low. - Removed fluid restriction since Bumex was held for leukocytosis. 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 Follows Dr. Samayoa (nephrology). Admission labs: BUN 137, Cr 2.4, eGFR 20. Baseline Cr: 0.9?1.3 (per chart review). BUN:Cr ratio 57, suggestive of a prerenal etiology (hypovolemia from GI bleed vs anemia-induced hypoperfusion). Renal Ultrasound 11/12: Bilateral renal cortical thinning. No hydronephrosis. Mild bilateral renal parenchymal scar formation. Plan - Continue anemia management (as per GI bleed plan) to improve renal perfusion. - Daily renal panel to trend BUN, Cr, and electrolytes. - Avoid nephrotoxins. - Renally dose meds as appropriate. - Strict I&Os, monitor urine output closely. - Monitor for signs of volume overload or uremic symptoms. - Cleared for discharge per nephrology service. - Discontinued Entresto and Spironolactone until kidney function is back to patient's baseline. #Hyperkalemia (resolved) On presentation patient potassium 6.2. Patient has a history of chronic hyperkalemia, managed with Lokelma at home, however, potassium levels are not typically this elevated per chart review. Initial EKG showed paced rhythm. In the ED, patient was treated with D50, IV Insulin 10 units, IV calcium gluconate 1 gram. Following treatment, potassium decreased to 5.6. Plan: - Recheck BMP to monitor potassium trend and renal function. - Treatment as needed based on repeat labs and clinical status. - Maintain close electrolyte monitoring given underlying CKD and BETSY. #Community-acquired pneumonia #Leukocytosis Patient reports increased shortness of breath over past week, currently afebrile. CXR: atelectasis and/or pneumonia at the left lung base with moderate left pleural fluid. CTAP: pneumonia left base with mild to moderate left pleural fluid. WBC 17.7 Plan: - Continue Rocephin 1 g IV daily (started 11/11). - Continue Azithromycin 500 mg IV daily (started 11/11). - Encourage use of incentive spirometry. #[place] tract infection Denies dysuria, no CVA tenderness. CTAP: Significant bilateral renal scarring with perinephric stranding. UA: WBC 11, bacteria 1+ Plan: - Continue Rocephin 1 g IV daily (started 11/11). - Urine culture showed Enterococcus faecalis. - Start Amoxicilllin 500 mg TID. Dosing will be adjusted based on renal function if eGFR declines. 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 ER positive, [place] negative, HER2 negative. S/p right breast lumpectomy (02/12/2022). S/p radiation therapy (04/22/2022 - 06/26/2022). BRCA 1 and 2 negative. Plan - Follows with Dr. Mcclellan. - Resume home med tamoxifen 10 mg p.o. daily. #Hypothyroidism - Continue home Levothyroxine 175 mg daily. Health Maintenance: DVT prophylaxis: SCDs GI prophylaxis: Protonix twice daily Diet: Carb consistent low. Lines: Peripheral IV Code status: Full code Patient plan of care was discussed with the senior resident, Dr. Lind, and attending physician, . Huber Moura DO PGY-1 Attending Provider Attestation/Addendum Teresita Roy DO, attest that I was physically present for the tena portions of the service and evaluated the patient with the resident and I reviewed and discussed the case with the resident and agree with the resident's findings and plans of care as documented above Patient seen and evaluated this AM. She states she is feeling improved as she was able to rest. Patient endorses some right sided chest discomfort, improved with cold compress. She is noted to have leukocytosis, but has been afebrile. H/H has been stable. Ucx positive for enterococcus, sensitive to ampicillin. Will start on amoxicillin 500 PO TID. Patient appears dry and has not had much PO intake. Will hold bumex and hold fluid restriction for today.
--- NOTE | 2024-11-15 15:23 | ESPR_ITS ---
Documentation for date of: 11/15/24 Subjective Subjective Interval history: Patient evaluated Hemoglobin hematocrit relatively stable Exam Vital Signs Temp Pulse Resp BP Pulse Ox O2 Del Method O2 Flow Rate 96.8 F 98 19 149/94 H 94 L Nasal Cannula 3 11/15/24 12:00 11/15/24 12:00 11/15/24 12:00 11/15/24 12:00 11/15/24 12:00 11/15/24 12:00 11/15/24 12:00 Objective Labs 11/15/24 05:00 11/15/24 05:00 Labs: Laboratory Results - last 24 hr 11/11/24 11/15/24 17:30 05:00 WBC 16.6 H RBC 4.09 Hgb 11.9 L Hct 35.6 L MCV 87 MCH 29.1 MCHC 33.4 RDW Std Deviation 48.0 H Plt Count 365 Neut % (Auto) 78 Lymph % (Auto) 12 [place] % (Auto) 8 Eos % (Auto) 1 Baso % (Auto) 1 Neut # (Auto) 12.9 H Lymph # (Auto) 2.1 [place] # (Auto) 1.3 H Eos # (Auto) 0.1 Baso # (Auto) 0.1 Immature Gran # (Auto) 0.15 H Absolute Nucleated RBC 0.00 Immature Gran % 1 H Nucleated RBC % 0 Sodium 136 Potassium 4.9 Chloride 103 Carbon Dioxide 22.0 Anion Gap 11 BUN 71 H Creatinine 1.8 H Estim Creat Clear Calc 30.6 L eGFR 28 L BUN/Creatinine Ratio 39 H Glucose 211 H Calculated Osmolality 298 H Calcium 9.7 Corrected Calcium 10.0 Phosphorus 3.2 Magnesium 1.9 Total Bilirubin 0.5 AST 20 ALT < 7 L Alkaline Phosphatase 74 Total Protein 6.0 Albumin 3.6 Globulin 2.4 Albumin/Globulin Ratio 1.5 Crossmatch See Detail Impressions Impression: Gastritis Esophagitis Cecal polyp and sigmoid colon polyp Continue current management Outpatient capsule endoscopy Patient can be anticoagulated Assessment & Plan A&P Narrative # Coffee-ground hematemesis significant drop in hemoglobin hematocrit# complicated by the use of aspirin and Plavix for her PTCA Plan Serial CBC Fiberoptic esophagogastroduodenoscopy with possible biopsy possible therapeutic intervention under intravenous moderate sedation scheduled for tomorrow N.p.o. IV Protonix Other medical problems include IDDM Coronary artery disease status post PTCA Essential hypertension Right breast carcinoma status post right lumpectomy followed by radiation and chemo currently on tamoxifen followed by a local oncologist Thank you very much for the opportunity to participate in care of this patient Time Spent With Patient Time: Total time spent is greater than 50% in coordination of care (as documented) at patient's floor/unit and/or counseling patient:
--- NOTE | 2024-11-15 16:00 | PC.SS ---
GROUND SERVICE EQUIPMENT MECHANIC provided patient with update on placement referrals. [facility] and [facility] Acute Rehab remain pending. [place] and [facility] have accepted for placement. Patient requesting time to decide on placement.
[2024-11-15] MEDS: ACETAMINOPHEN 325 MG TABLET 650 MG PO (18:07)
--- NOTE | 2024-11-15 19:43 | ESPR_ITS ---
<Statement entered by Akiko Green MD - 11/16/24 23:00> I personally examined evaluated the patient appears to be clinically doing much better not having shortness of the chest pain today but did not ambulate yet hemoglobin is holding stable no further bleeding. Will the patient presentation Dr.FADEL HARE I agree with the treatment plan recommendation as documented. Documentation for date of: 11/15/24 Subjective Subjective Interval history: No acute overnight events. Denies new or worsening symptoms. Denies fever, chills, headaches, chest pain, sob, cough, GI or urinary symptoms. Exam Vital Signs Temp Pulse Resp BP Pulse Ox O2 Del Method O2 Flow Rate 96.7 F L 98 26 H 129/90 H 96 Nasal Cannula 3 11/15/24 16:00 11/15/24 18:22 11/15/24 18:22 11/15/24 16:00 11/15/24 18:22 11/15/24 16:00 11/15/24 18:22 Narrative Exam General: Lethargic, pale, obese lady. Conversational and non-toxic appearing. Neurologic: GCS 15. Alert and oriented x3, no gross neurological deficit, and patient able to move all 4 extremities. HEENT: Normocephalic, atraumatic, mucous membranes moist. Pupils reactive to light. Heart: Grade 3 systolic ejection murmur. Regular rate and rhythm, normal S1 and S2, no murmurs. Lungs: Clear to auscultation bilaterally with no wheezing or crackles. Abdomen: Obese, soft, nondistended, slightly tender to palpation, positive bowel sounds. No guarding or rebound tenderness. Extremities: No edema. 2+ radial and dorsalis pedis pulses bilaterally. Skin: Warm. Dry. No rash or ecchymoses. Objective Labs 11/15/24 05:00 11/15/24 05:00 Labs: Laboratory Results - last 24 hr 11/15/24 05:00 WBC 16.6 H RBC 4.09 Hgb 11.9 L Hct 35.6 L MCV 87 MCH 29.1 MCHC 33.4 RDW Std Deviation 48.0 H Plt Count 365 Neut % (Auto) 78 Lymph % (Auto) 12 [place] % (Auto) 8 Eos % (Auto) 1 Baso % (Auto) 1 Neut # (Auto) 12.9 H Lymph # (Auto) 2.1 [place] # (Auto) 1.3 H Eos # (Auto) 0.1 Baso # (Auto) 0.1 Immature Gran # (Auto) 0.15 H Absolute Nucleated RBC 0.00 Immature Gran % 1 H Nucleated RBC % 0 Sodium 136 Potassium 4.9 Chloride 103 Carbon Dioxide 22.0 Anion Gap 11 BUN 71 H Creatinine 1.8 H Estim Creat Clear Calc 30.6 L eGFR 28 L BUN/Creatinine Ratio 39 H Glucose 211 H Calculated Osmolality 298 H Calcium 9.7 Corrected Calcium 10.0 Phosphorus 3.2 Magnesium 1.9 Total Bilirubin 0.5 AST 20 ALT < 7 L Alkaline Phosphatase 74 Total Protein 6.0 Albumin 3.6 Globulin 2.4 Albumin/Globulin Ratio 1.5 Quality Measures Quality Measures VTE prophylaxis Advance care planning discussed with:: patient Assessment & Plan Assessment Current Active Medications: Generic Name Dose Route Start Last Admin Trade Name Freq PRN Reason Stop Dose Admin Acetaminophen 650 mg 11/14/24 08:45 11/15/24 18:07 Acetaminophen 325 Mg Tablet PO 12/11/24 20:24 650 mg Q6H PRN Administration Fever >100.4 or pain 1-3 Amoxicillin 500 mg 11/15/24 09:30 11/15/24 15:08 Amoxicillin 250 Mg Capsule PO 11/22/24 09:29 500 mg TID TRINH Administration Aspirin 81 mg 11/14/24 14:00 11/14/24 14:45 Aspirin Ec 81 Mg Tabec PO 12/14/24 13:59 Not Given QDAY TRINH Azithromycin 500 mg 11/15/24 09:00 11/15/24 08:10 Azithromycin 250 Mg Tablet PO 11/18/24 09:01 500 mg QDAY TRINH Administration Protocol Bumetanide 2 mg 11/13/24 18:00 11/14/24 09:29 Bumetanide 0.5 Mg Tablet PO 12/13/24 17:59 2 mg QDAY TRINH Administration Clopidogrel Bisulfate 75 mg 11/14/24 14:00 11/14/24 14:48 Clopidogrel Bisulfate 75 Mg Tablet PO 12/14/24 13:59 75 mg QDAY TRINH Administration Dextrose 25 ml 11/11/24 20:30 Dextrose 50%-Water Inj 50 Ml Syringe IV 12/11/24 20:29 Q15MIN PRN BG 50-70 responsive npo pt Dextrose 50 ml 11/11/24 20:30 Dextrose 50%-Water Inj 50 Ml Syringe IV 12/11/24 20:29 Q15MIN PRN BG <50 OR BG <70 & pt unresponsive Dextrose 25 ml 11/15/24 17:03 Dextrose 50%-Water Inj 50 Ml Syringe IV 12/15/24 17:02 Q15MIN PRN BG 50-70 responsive npo pt Dextrose 50 ml 11/15/24 17:03 Dextrose 50%-Water Inj 50 Ml Syringe IV 12/15/24 17:02 Q15MIN PRN BG <50 OR BG <70 & pt unresponsive Docusate Sodium 100 mg 11/15/24 12:04 Docusate Sod 100 Mg Capsule PO 12/15/24 12:03 QDAY PRN CONSTIPATION Protocol Glucagon 1 mg 11/11/24 20:30 Glucagon Inj 1 Mg Vial IM Q15MIN PRN BG <70, and no IV access Glucagon 1 mg 11/15/24 17:03 Glucagon Inj 1 Mg Vial IM Q15MIN PRN BG <70, and no IV access Insulin Degludec 25 unit 11/15/24 09:00 11/15/24 08:21 Insulin Degludec 5 Unit/0.05 Ml (Per 5 Units) SC 12/15/24 08:59 25 unit QDAY TRINH Administration Insulin Human Lispro 2 unit 11/15/24 11:30 11/15/24 17:01 Insulin Lispro (Admelog) 1 Unit/0.01 Ml Unit SC 12/15/24 11:29 2 unit AC TRINH Administration Insulin Human Lispro 0 unit 11/15/24 17:10 11/15/24 18:02 Insulin Lispro (Admelog) 1 Unit/0.01 Ml Unit AK 12/15/24 17:09 2 unit AC TRINH Administration Protocol Levothyroxine Sodium 175 mcg 11/14/24 06:00 11/15/24 05:18 Levothyroxine Sodium 25 Mcg Tablet PO 12/14/24 05:59 175 mcg ACBR TRINH Administration Metoprolol Succinate 50 mg 11/13/24 19:15 11/15/24 08:18 Metoprolol Succinate Xl 25 Mg Tabcr PO 12/13/24 19:14 50 mg BID TRINH Administration Nitroglycerin 0.4 mg 11/13/24 13:03 11/15/24 09:32 Nitroglycerin 0.4 Mg Subl Btl #25 SL 12/13/24 13:02 0.4 mg Q5MIN PRN Administration Chest Pain Ondansetron HCl 4 mg 11/13/24 07:42 11/13/24 08:06 Ondansetron Odt 4 Mg Tabrap PO 12/13/24 07:41 4 mg Q6HR PRN Administration NAUSEA OR VOMITING Protocol Pantoprazole Sodium 40 mg 11/14/24 21:00 11/15/24 08:09 Pantoprazole Inj 40 Mg Vial IVP 12/14/24 20:59 40 mg Q12HR TRINH Administration Ranolazine 500 mg 11/13/24 21:00 11/15/24 08:18 Ranolazine 500 Mg Julia (Non Formulary) PO 12/13/24 20:59 500 mg BID TRINH Administration Sennosides 1 tab 11/15/24 12:04 Senna Tablet PO 12/15/24 12:03 QDAY PRN CONSTIPATION Protocol Sodium Chloride 3 ml 11/11/24 18:46 Sodium Chloride Rt [place] 0.9% 3 Ml Nebu INH 12/11/24 18:45 PRN PRN SOLN Tamoxifen Citrate 10 mg 11/13/24 09:00 11/15/24 08:07 Tamoxifen Citrate 10 Mg Tablet PO 12/13/24 08:59 10 mg QDAY TRINH Administration Plan 84-year-old female with a PMH of CAD with 9 stents, hypertension, diabetes, CKD, breast cancer status post partial mastectomy and radiation therapy on chemo, who presented to the ED on 11/11/2024 with abdominal pain and coffee-ground emesis for the past 2 days. The patient was admitted for GI bleed. Cardiology was consulted for management of the patient's history of coronary artery disease on anticoagulation status post 9 stents in the presence of a possible GI bleed. #CAD status post stents #Hypertension #GI bleed #Angina pectoralis * The patient's most previous stent was in November 2023 * The patient's chest pain and elevated troponins are likely ischemic in nature * EKG on 11/13/2024 was significant for sinus tachycardia, no significant ST segment changes, pacemaker rhythm on background afib * No indication for coronary angiogram at this time Cath showed left ventricle is normal in size and thickness with septal dyskinesis, global hypokinesis, and an EF of ~40%, along with grade II diastolic dysfunction. The right ventricle is normal. There is moderate to severe calcific aortic stenosis (Vmax 3.3 m/sec, mean gradient 27 mmHg), moderate mitral annular calcification with mild?moderate regurgitation, and mild tricuspid regurgitation. 11/14/2024 complained of chest pain that appears reproducible on exam but reported improvement with nitro, and following 1 unit PRBC transfusion. Currently asymptomatic without chest pain or shortness of breath. She had EGD and colonoscopy showing no evidence of active bleed. May need to endoscopy. RECOMMENDATIONS: Maintain hemoglobin >10 to prevent further episode of angina pectoralis. May hold PLAVIX/ASPIRIN up to 10 days in settings of GI bleed, anemia. Continue with diuresis and working towards GDMT as tolerated. Maintain K>4.0 and Mag>2.0. Continue with diuresis to prevent CHF exacerbation, tachyarrhythmia. #Upper GI bleed #Symptomatic anemia #BETSY on CKD #Community-acquired pneumonia #UTI, possible pyelonephritis #Hyperkalemia #Right-sided breast cancer status postmastectomy and radiotherapy #Diabetes The remainder of the patient's hospital problems will be managed per the primary team. Case was discussed with attending physician, Dr. Green. Isauro Hare, DO PGY II This document was transcribed using voice recognition technology. Minor inaccuracies may be present.
--- NOTE | 2024-11-15 21:08 | PC.NURSE ---
Spoke to resident Dr. Pugh, made aware bedside glucose 283 however, no scheduled dose of insulin ordered for tonight. ordered insulin lispro 3 unit SC x1.
[2024-11-15] MEDS: INSULIN LISPRO (AdmeLOG) 1 UNIT/0.01 ML UNIT 3 UNIT SC (21:51)
[2024-11-16] VITALS (15 sets, daily range): BP systolic 129–158; BP diastolic 88–100; PULSE 61–104; RESP 19–36; TEMP 35.9–37.3; O2SAT 95–99; BMI 31.1
[2024-11-16] MEDS: AMOXICILLIN 250 MG CAPSULE 500 MG PO ×3 (05:09→20:54)
--- NOTE | 2024-11-16 05:13 | PC.NURSE ---
Called hospitalist spoke to resident Dr. Pugh made aware pt feeling more short of breath, noted increased work of breathing, respiratory rate 22-24, SpO2 97% on 3Lnc. Pt is alert/oriented x3, per pt states she uses a cpap at night. Per MD, will order CPAP for pt.
[2024-11-16] MEDS: LEVOTHYROXINE SODIUM 25 MCG TABLET 175 MCG PO (05:20)
[2024-11-16 06:08] LABS: Basophils # (Auto) 0.1 Thou/mm3 (0.0-0.2); Basophils % (Auto) 1 % (0-2.5); Eosinophils # (Auto) 0.2 Thou/mm3 (0.0-0.5); Eosinophils % (Auto) 1 % (0-10); Hematocrit 40.0 % (36.0-46.0); Hemoglobin 13.0 g/dL (12.0-16.0); Immature Granulocytes Auto 0.16 Thou/mm3 (0.00-0.00); Lymphocytes # (Auto) 3.1 Thou/mm3 (1.0-4.8); Lymphocytes % (Auto) 20 % (10-50); Mean Corpuscular HGB Conc 32.5 g/dl (31.0-37.0); Mean Corpuscular Hemoglobin 28.3 pg (25.0-35.0); Mean Corpuscular Volume 87 fL (80-100); Monocytes # (Auto) 1.1 Thou/mm3 (0.0-0.8); Monocytes % (Auto) 7 % (0-12); Neutrophils # (Auto) 11.0 Thou/mm3 (1.8-7.7); Neutrophils % (Auto) 71 % (37-80); Nucleated Red Blood Cell # 0.00 Thou/mm3 (0.00-0.00); Nucleated Red Blood Cell % 0 /100 WBC (0); Platelet Count 369 Thou/mm3 (140-440); RDW Standard Deviation 47.8 fL (36.4-46.3); Red Blood Count 4.60 Miln/mm3 (4.00-5.20); White Blood Count 15.5 Thou/mm3 (3.6-11.0)
[2024-11-16 06:58] LABS: Alanine Aminotransferase 9 U/L (10-49); Albumin, Serum 3.8 gm/dL (3.4-4.8); Albumin/Globulin Ratio 1.5 (1.2-2.2); Alkaline Phosphatase 94 U/L (46-116); Anion Gap 13 (7-16); Aspartate Amino Transferase 14 U/L (0-34); BUN/Creatinine Ratio 40 Ratio (12-20); Bilirubin,Total 0.5 mg/dL (0.3-1.2); Blood Urea Nitrogen 85 mg/dL (9-23); Calcium 10.1 mg/dL (8.3-10.6); Calcium (Corrected) 10.3 mg/dL (8.5-10.1); Carbon Dioxide 20.8 mMol/L (20.0-31.0); Chloride 100 mMol/L (98-107); Creatinine (Component) 2.1 mg/dL (0.6-1.3); Estimated Creatinine Clearance 26.3 mL/min (>60); Globulin 2.6 gm/dL (2.3-3.5); Glucose 195 mg/dL (74-106); Magnesium 2.1 mg/dL (1.6-2.6); Osmolality,Calculated 299 (275-295); Phosphorous 4.3 mg/dL (2.4-5.1); Potassium 4.7 mMol/L (3.4-5.1); Sodium 134 mMol/L (136-145); Total Protein 6.4 gm/dL (5.7-8.2); eGFR 23 See Note
[2024-11-16] MEDS: INSULIN LISPRO (AdmeLOG) 1 UNIT/0.01 ML UNIT SC ×3 (07:53→17:23)
[2024-11-16] MEDS: INSULIN LISPRO (AdmeLOG) 1 UNIT/0.01 ML UNIT 2 UNIT SC ×3 (07:53→17:22)
[2024-11-16] MEDS: INSULIN DEGLUDEC 5 UNIT/0.05 ML (PER 5 UNITS) 25 UNIT SC (08:05)
[2024-11-16] MEDS: TAMOXIFEN CITRATE 10 MG TABLET PO (08:06)
[2024-11-16] MEDS: RANOLAZINE 500 MG TABER (NON FORMULARY) PO ×2 (08:07→20:54)
[2024-11-16] MEDS: AZITHROMYCIN 250 MG TABLET 500 MG PO (08:08)
[2024-11-16] MEDS: METOPROLOL SUCCINATE XL 25 MG TABCR 50 MG PO ×2 (08:08→20:55)
--- NOTE | 2024-11-16 08:32 | XR_ITS ---
Examination: AP chest single view TECHNIQUE: AP portable semiupright chest single view Date and time: November 16, 2024 0933 hours, comparison November 11, 2024 INDICATIONS: Shortness of breath this week. FINDINGS: Mild heart failure Mild to moderate enlargement left ventricle Prominent vascular congestion with perihilar edema Moderate left pleural effusion Cardiac leads satisfactory position IMPRESSION: Mild heart failure
--- NOTE | 2024-11-16 08:55 | ESPR_ITS ---
Documentation for date of: 11/16/24 Subjective Subjective Interval history: Ms Levy is an 84 yo woman with a hx of CVD s/p 9 stents with pacemaker on asa and plavix , htn, dm, ckd, breast cancer (s/p partial mastectomy and radiation on chemo) who presented to the ED with cc of abdominal pain and coffee ground emesis for 2 days. pt reports having increasing shortness of breath and fatigue over the past week. She endorses lightheadedness and fatigue. she denies fevers, chills, chest pain, diarrhea, melena, constipation, dysuria. ED COURSE: Labs significant for: WBC 17.7, hemoglobin 8.6 (down from 14.6 one month ago), potassium 6.2, BUN 137, creatinine 2.4, EGFR 20, troponin negative, FOBT positive. UA shows 11 WBCs, 1+ bacteria. Imaging significant for: EKG shows paced rhythm, CT A/P shows left base pneumonia and renal scarring with perinephric stranding. Patient received 80 mg IV Protonix, 1 L bolus lactated Ringer's, amp of D50, insulin 10, calcium gluconate 1 g, and 2 units PRBC in the ED. GI was consulted, for EGD. Interval history: 11/12/2024: EGD performed: esophagitis in lower third of esophagus, diffuse moderately erythematpus mucosa without bleeding in the gastric antrum, erythematous duodenopathy. patchy mildly erythematous mucosa without active bleeding and with no stigmata of bleeding was found in the duodenal bulb. pending colonoscopy, golytely prep. BUN 156, Cr 2.5. Renal US Bilateral renal cortical thinning No hydronephrosis Mild bilateral renal parenchymal scar f ormation. Renal Artery duplex No Doppler sonographic findings of renal artery stenosis, Small kidneys with bilateral renal cortical thinning. TTE with EF 40% 11/13/2024: Nephrology consulted. Patient seen and examined at bedside. pt with ongoing prep for colonoscopy with golytely. Pt is alert and oriented x3. BUN 128, Cr 2.1. Given pt has significant cardiac history, c/f volume overload, BUN is downtrending, and Cr is downtrending, reccomend holding IV fluids. reassess after colonoscopy. No HD. 11/14/2024: pt is s/p colonoscopy, internal hemrrhoids banded, large polyp resected, 1 medium polyp biopsied. pt had episode of chest pain yesterday that resolved with nitroglycerin, pt recieved 1 unit prbc, trop was elevated to 1.019, now 1.0. BUN downtrending to 104 from 128, Cr downtrending 1.7 from 2.1. 11/15/2024: Patient seen and examined at bedside, she is sitting upright in bed following breakfast. pt has no new complaints, no chest pain, no shortness of breath. Labs are significant for: Hgb stable 11, BUN 71 from 104, Cr 1.8 from 1.7, On exam she does not appear volume overloaded, no LE edema, lungs aree CTAB, OK to discharge from nephro perspective BUN is resolving, dispo per primary team. 11/16/2024: Patient seen and examined at bedside, she is sitting upright in bed with nasal cannula in place. She did not eat much of breakfast. Patient reports feeling like she cannot breathe if patient is satting 95% on 3 L nasal cannula, heart rate within normal limits,normotensive,bilateral clear to auscultation, no lower extremity edema. BUN 85 from 71, creatinine 2.1 from 1.8. BUN and creatinine were previously downtrending now rising unclear etiology. Of note patient not on anticoagulation, query PE, plan for VQ scan and chest x-ray per primary team Exam Vital Signs Temp Pulse Resp BP Pulse Ox O2 Del Method O2 Flow Rate 96.7 F L 95 36 H 150/97 H 98 Nasal Cannula 3 11/16/24 04:00 11/16/24 08:08 11/16/24 05:32 11/16/24 08:08 11/16/24 05:32 11/16/24 04:00 11/16/24 04:00 FiO2 30 11/16/24 05:32 Narrative Exam GENERAL:c/o shortness of breath, AAO x3, sitting upright in bed. HEENT: Head AT/ NC. Mucous membranes moist. PERRL. NECK: Supple, no lymphadenopathy, no carotid bruits. CARDIOVASCULAR: RRR. Normal S1/S2, +systolic murmor. No pitting edema of bilateral LEs. RESPIRATORY: CTAB. No wheezing, rhonchi, crackles c/o shortness of breath, satting 95% on 3L, tachypnic . GASTROINTESTINAL: Obese, Abdomen soft, non tender no palpable masses. Bowel sounds present MUSCULOSKELETAL:? No cyanosis or edema, no visible joint swelling. NEUROLOGICAL: CN II-XII grossly intact. No focal deficits. Sensation intact, symmetric. PSYCHIATRIC: Awake and alert, not agitated, normal mood and affect. SKIN: No obvious rashes, no jaundice, normal turgor. Objective Labs 11/16/24 05:34 11/16/24 05:34 Labs: Laboratory Results - last 24 hr 11/16/24 05:34 WBC 15.5 H RBC 4.60 Hgb 13.0 Hct 40.0 MCV 87 MCH 28.3 MCHC 32.5 RDW Std Deviation 47.8 H Plt Count 369 Neut % (Auto) 71 Lymph % (Auto) 20 [place] % (Auto) 7 Eos % (Auto) 1 Baso % (Auto) 1 Neut # (Auto) 11.0 H Lymph # (Auto) 3.1 [place] # (Auto) 1.1 H Eos # (Auto) 0.2 Baso # (Auto) 0.1 Immature Gran # (Auto) 0.16 H Absolute Nucleated RBC 0.00 Immature Gran % 1 H Nucleated RBC % 0 Sodium 134 L Potassium 4.7 Chloride 100 Carbon Dioxide 20.8 Anion Gap 13 BUN 85 H Creatinine 2.1 H Estim Creat Clear Calc 26.3 L eGFR 23 L BUN/Creatinine Ratio 40 H Glucose 195 H Calculated Osmolality 299 H Calcium 10.1 Corrected Calcium 10.3 H Phosphorus 4.3 Magnesium 2.1 Total Bilirubin 0.5 AST 14 ALT 9 L Alkaline Phosphatase 94 D Total Protein 6.4 Albumin 3.8 Globulin 2.6 Albumin/Globulin Ratio 1.5 Quality Measures Quality Measures VTE prophylaxis Advance care planning discussed with:: patient Assessment & Plan Assessment Current Active Medications: Generic Name Dose Route Start Last Admin Trade Name Freq PRN Reason Stop Dose Admin Acetaminophen 650 mg 11/14/24 08:45 11/15/24 18:07 Acetaminophen 325 Mg Tablet PO 12/11/24 20:24 650 mg Q6H PRN Administration Fever >100.4 or pain 1-3 Amoxicillin 500 mg 11/16/24 09:00 Amoxicillin 250 Mg Capsule PO 11/23/24 08:59 BID TRINH Aspirin 81 mg 11/14/24 14:00 11/14/24 14:45 Aspirin Ec 81 Mg Tabec PO 12/14/24 13:59 Not Given QDAY TRINH Azithromycin 500 mg 11/15/24 09:00 11/16/24 08:08 Azithromycin 250 Mg Tablet PO 11/18/24 09:01 500 mg QDAY TRINH Administration Protocol Bumetanide 2 mg 11/13/24 18:00 11/14/24 09:29 Bumetanide 0.5 Mg Tablet PO 12/13/24 17:59 2 mg QDAY TRINH Administration Clopidogrel Bisulfate 75 mg 11/14/24 14:00 11/14/24 14:48 Clopidogrel Bisulfate 75 Mg Tablet PO 12/14/24 13:59 75 mg QDAY TRINH Administration Dextrose 25 ml 11/11/24 20:30 Dextrose 50%-Water Inj 50 Ml Syringe IV 12/11/24 20:29 Q15MIN PRN BG 50-70 responsive npo pt Dextrose 50 ml 11/11/24 20:30 Dextrose 50%-Water Inj 50 Ml Syringe IV 12/11/24 20:29 Q15MIN PRN BG <50 OR BG <70 & pt unresponsive Dextrose 25 ml 11/15/24 17:03 Dextrose 50%-Water Inj 50 Ml Syringe IV 12/15/24 17:02 Q15MIN PRN BG 50-70 responsive npo pt Dextrose 50 ml 11/15/24 17:03 Dextrose 50%-Water Inj 50 Ml Syringe IV 12/15/24 17:02 Q15MIN PRN BG <50 OR BG <70 & pt unresponsive Docusate Sodium 100 mg 11/15/24 12:04 Docusate Sod 100 Mg Capsule PO 12/15/24 12:03 QDAY PRN CONSTIPATION Protocol Glucagon 1 mg 11/11/24 20:30 Glucagon Inj 1 Mg Vial IM Q15MIN PRN BG <70, and no IV access Glucagon 1 mg 11/15/24 17:03 Glucagon Inj 1 Mg Vial IM Q15MIN PRN BG <70, and no IV access Insulin Degludec 25 unit 11/15/24 09:00 11/16/24 08:05 Insulin Degludec 5 Unit/0.05 Ml (Per 5 Units) SC 12/15/24 08:59 25 unit QDAY TRINH Administration Insulin Human Lispro 2 unit 11/15/24 11:30 11/16/24 07:53 Insulin Lispro (Admelog) 1 Unit/0.01 Ml Unit SC 12/15/24 11:29 2 unit AC TRINH Administration Insulin Human Lispro 0 unit 11/16/24 07:56 Insulin Lispro (Admelog) 1 Unit/0.01 Ml Unit SC 12/15/24 17:09 AC TRINH Protocol Levothyroxine Sodium 175 mcg 11/14/24 06:00 11/16/24 05:20 Levothyroxine Sodium 25 Mcg Tablet PO 12/14/24 05:59 175 mcg ACBR TRINH Administration Metoprolol Succinate 50 mg 11/13/24 19:15 11/16/24 08:08 Metoprolol Succinate Xl 25 Mg Tabcr PO 12/13/24 19:14 50 mg BID TRINH Administration Nitroglycerin 0.4 mg 11/13/24 13:03 11/15/24 20:27 Nitroglycerin 0.4 Mg Subl Btl #25 SL 12/13/24 13:02 0.4 mg Q5MIN PRN Administration Chest Pain Ondansetron HCl 4 mg 11/13/24 07:42 11/13/24 08:06 Ondansetron Odt 4 Mg Tabrap PO 12/13/24 07:41 4 mg Q6HR PRN Administration NAUSEA OR VOMITING Protocol Pantoprazole Sodium 40 mg 11/14/24 21:00 11/16/24 08:04 Pantoprazole Inj 40 Mg Vial IVP 12/14/24 20:59 40 mg Q12HR TRINH Administration Ranolazine 500 mg 11/13/24 21:00 11/16/24 08:07 Ranolazine 500 Mg Julia (Non Formulary) PO 12/13/24 20:59 500 mg BID TRINH Administration Sennosides 1 tab 11/15/24 12:04 Senna Tablet PO 12/15/24 12:03 QDAY PRN CONSTIPATION Protocol Sodium Chloride 3 ml 11/11/24 18:46 Sodium Chloride Rt [place] 0.9% 3 Ml Nebu INH 12/11/24 18:45 PRN PRN SOLN Tamoxifen Citrate 10 mg 11/13/24 09:00 11/16/24 08:06 Tamoxifen Citrate 10 Mg Tablet PO 12/13/24 08:59 10 mg QDAY TRINH Administration Plan Ms Levy is an 84 yo woman with a hx of CAD s/p 9 stents on asa and plavix, HFrEF (EF40% on 10/2024), breast cancer s/p partial mastectomy, radiation, and chemo, HTN, HLD, HF, and hypothyroidism undergoing workup for GI bleed, s/p egd s/p colonoscopy with biopsy and large polyp removal and internal hemorrhoids banded. BUN very elevated on admission, initially downtrending to 71 now up to 85. Creatinine also was initially downtrending up to 2.1. Patient not on anticoagulation. Pending VQ scan and chest x-ray per primary team to rule out PE. #BETSY on CKD IV Yao PCP On admission BUN 156, Cr 2.4, eGFR 20 renal US: no hydronephrosis, Bilateral renal cortical thinning, Mild bilateral renal parenchymal scar formation Renal duplex: no renal artery stenosis, Small kidneys with bilateral renal cortical thinning On 11/13: BUN 128 from 156, Cr 2.1 from 2.5 On 11/14: BUN 104 from 128, Cr 1.7 from 2.1 ON 11/15: BUN 71 from 104, Cr 1.8 from 1.7 On 11/16: BUN 85 from 71, Cr 2.1 from 1.8, does not appear hypervolemic on exam, no LE edema. Plan: -no HD at this time -Hold Bumex, -BUN initially downtrending, now up today, why - give iv fluids -avoid nephrotoxic agents -renally dose medications #HFrEF (EF 40% 10/2024) #T2DM on insulin - A1c: 6.8 in 09/2024 AM FBS: 193 home medications include metformin - 500 mg daily, Tradjenta - 5 mg daily, Trulicity - 3 mg/0.5 mL 3 mg Weekly. - 2 units lispro with meals scheduled #query PE pt not on medical dvt ppx, pt c/o shortness of breath, satting well on 3 L NC, normotensive, hr wnl -pending vq scan and cxr, cannot do CTA given acute bump in Cr to 2.1 from 1.8 #CAD status post 9 stents #Hypertension SBP 130s-150s #GI bleed- ruled out, hgb stable #Upper GI bleed- ruled out #Lower GI bleed- s/p colonoscopy -1 large polyp removed, 1 medium polyp biopsied, internal hemrrhoids banded. #Symptomatic anemia s/p 3 units PRBC #Community-acquired pneumonia #UTI, possible pyelonephritis- WBC uptrending 16 from 14 #Hyperkalemia- resolved #Right-sided breast cancer status postmastectomy and radiotherapy- Followed by Dr. Mcclellan S/p right breast lumpectomy (02/12/2022) S/p radiation therapy (04/22/2022 - 06/26/2022) - managment per primary team Plan discussed with nephrology attending Dr. Yao Keller MD Internal Medicine PGY-1 Attending Provider Attestation/Addendum Patient seen and examined with resident physician Dr. Keller. Note reviewed, agree with findings and recommendations. Patient has extensive cardiac history and is on Aspirin, Plavix. Under the care of Dr. Goel. Has underlying CKD and is under my care. Presented with GI bleed and severe azotemia. BUN out of proportion to the creatinine. Agree with fluids and blood transfusion. BUN improving. Status post endoscopy and colonoscopy. No active bleeding. Polyps were removed. Noted WBC still elevated-15.5. urine cultures positive for Enterococcus faecalis. Spoke to primary team-on antibiotics
[2024-11-16] MEDS: BUMETANIDE INJ 0.25 MG/ML VIAL 4 ML 1 MG IVP ×2 (10:15→19:39)
--- NOTE | 2024-11-16 10:23 | ESPR_ITS ---
<Statement entered by Akil Thomason MD - 11/16/24 17:29> Senior Resident Attestation: I supervised/discussed management plan with creative services intern physician Dr. Moura, and was involved in the care of this patient. I personally saw and examined the patient and discussed the assessment and plan with the entire medicine team, including my attending. I agree with the assessment and plan as documented. Overnight patient was noticed to have significant hyperglycemia and was given additional insulin. Today her insulin sliding scale was increased to step 2. Patient was complaining of significant shortness of breath however saturating well, per nephrology recommendations VQ scan was ordered to rule out PE. Patient was also given IV 1 mg of Bumex IV with good urinary output and improvement in her respiratory status. Continue current management, will give additional Bumex 1 mg tonight and will monitor her urinary output and respiratory status. Patient's care was discussed with attending physician, Dr. Loja. Akil Thomason MD PGY-3. Documentation for date of: 11/16/24 Subjective Subjective Interval history: Patient was seen at the bedside this morning. She reports ongoing shortness of breath that began overnight and feels different from the chest pain-associated shortness of breath she typically experiences. She states that she has been using the incentive spirometer, which provides some mild relief, but she continues to feel winded with minimal exertion. She is now experiencing shortness of breath even when using the bedside commode. She was able to walk about 20 steps with physical therapy but became very fatigued. Patient reports using CPAP at home while sleeping and tried the hospital- provided CPAP overnight but found the mask too tight and uncomfortable. She asked a friend to bring her personal CPAP machine from home. She also reports that she has not had a bowel movement, which she attributes to decreased oral intake secondary to shortness of breath. Dr. Samayoa recommended CTA to rule out PE but patient is allergic to contrast. A V/Q scan has been ordered. Of note, patient reported that she had a V/Q scan about six weeks ago which was ordered by Dr. Jasso and it was negative. Overnight, she was also treated for hyperglycemia, with a blood glucose of 283 managed with 3 units of insulin lispro. Patient's creatinine had increased and her amoxicillin dose was reduced to twice daily. Bumex was restarted due to concern for fluid overload as a contributing factor to her respiratory symptoms. Exam Vital Signs Temp Pulse Resp BP Pulse Ox O2 Del Method O2 Flow Rate 97.5 F 100 32 H 134/99 H 97 Nasal Cannula 3 11/16/24 08:00 11/16/24 10:15 11/16/24 08:00 11/16/24 10:15 11/16/24 08:00 11/16/24 08:00 11/16/24 08:00 FiO2 30 11/16/24 08:00 Narrative Exam Physical Exam General: Awake and in no acute distress. Conversational and non-toxic appearing. Pale. HEENT: Normocephalic, atraumatic. Heart: Regular rate and rhythm, no murmurs. Lungs: Clear to auscultation with no wheezing or crackles. Using accessory muscles when taking breaths. Abdomen: Soft, nondistended, nontender. No guarding or rebound tenderness. Neurologic: Alert and oriented x3, no gross neurological deficit, and patient able to move all 4 extremities. Extremities: No edema. Skin: No rash or ecchymoses. Objective Labs 11/17/24 07:23 11/16/24 05:34 Labs: Laboratory Results - last 24 hr 11/16/24 05:34 WBC 15.5 H RBC 4.60 Hgb 13.0 Hct 40.0 MCV 87 MCH 28.3 MCHC 32.5 RDW Std Deviation 47.8 H Plt Count 369 Neut % (Auto) 71 Lymph % (Auto) 20 [place] % (Auto) 7 Eos % (Auto) 1 Baso % (Auto) 1 Neut # (Auto) 11.0 H Lymph # (Auto) 3.1 [place] # (Auto) 1.1 H Eos # (Auto) 0.2 Baso # (Auto) 0.1 Immature Gran # (Auto) 0.16 H Absolute Nucleated RBC 0.00 Immature Gran % 1 H Nucleated RBC % 0 Sodium 134 L Potassium 4.7 Chloride 100 Carbon Dioxide 20.8 Anion Gap 13 BUN 85 H Creatinine 2.1 H Estim Creat Clear Calc 26.3 L eGFR 23 L BUN/Creatinine Ratio 40 H Glucose 195 H Calculated Osmolality 299 H Calcium 10.1 Corrected Calcium 10.3 H Phosphorus 4.3 Magnesium 2.1 Total Bilirubin 0.5 AST 14 ALT 9 L Alkaline Phosphatase 94 D Total Protein 6.4 Albumin 3.8 Globulin 2.6 Albumin/Globulin Ratio 1.5 Quality Measures Quality Measures VTE prophylaxis Advance care planning discussed with:: patient Assessment & Plan Assessment Current Active Medications: Generic Name Dose Route Start Last Admin Trade Name Bill PRN Reason Stop Dose Admin Acetaminophen 650 mg 11/14/24 08:45 11/15/24 18:07 Acetaminophen 325 Mg Tablet PO 12/11/24 20:24 650 mg Q6H PRN Administration Fever >100.4 or pain 1-3 Amoxicillin 500 mg 11/16/24 09:00 11/16/24 10:10 Amoxicillin 250 Mg Capsule PO 11/23/24 08:59 500 mg BID TRINH Administration Aspirin 81 mg 11/14/24 14:00 11/14/24 14:45 Aspirin Ec 81 Mg Tabec PO 12/14/24 13:59 Not Given QDAY TRINH Azithromycin 500 mg 11/15/24 09:00 11/16/24 08:08 Azithromycin 250 Mg Tablet PO 11/18/24 09:01 500 mg QDAY TRINH Administration Protocol Bumetanide 2 mg 11/13/24 18:00 11/14/24 09:29 Bumetanide 0.5 Mg Tablet PO 12/13/24 17:59 2 mg QDAY TRINH Administration Bumetanide 1 mg 11/16/24 10:00 11/16/24 10:15 Bumetanide Inj 0.25 Mg/Ml Vial 4 Ml IVP 12/16/24 09:59 1 mg QDAY TRINH Administration Clopidogrel Bisulfate 75 mg 11/14/24 14:00 11/14/24 14:48 Clopidogrel Bisulfate 75 Mg Tablet PO 12/14/24 13:59 75 mg QDAY TRINH Administration Dextrose 25 ml 11/11/24 20:30 Dextrose 50%-Water Inj 50 Ml Syringe IV 12/11/24 20:29 Q15MIN PRN BG 50-70 responsive npo pt Dextrose 50 ml 11/11/24 20:30 Dextrose 50%-Water Inj 50 Ml Syringe IV 12/11/24 20:29 Q15MIN PRN BG <50 OR BG <70 & pt unresponsive Dextrose 25 ml 11/15/24 17:03 Dextrose 50%-Water Inj 50 Ml Syringe IV 12/15/24 17:02 Q15MIN PRN BG 50-70 responsive npo pt Dextrose 50 ml 11/15/24 17:03 Dextrose 50%-Water Inj 50 Ml Syringe IV 12/15/24 17:02 Q15MIN PRN BG <50 OR BG <70 & pt unresponsive Docusate Sodium 100 mg 11/15/24 12:04 Docusate Sod 100 Mg Capsule PO 12/15/24 12:03 QDAY PRN CONSTIPATION Protocol Glucagon 1 mg 11/11/24 20:30 Glucagon Inj 1 Mg Vial IM Q15MIN PRN BG <70, and no IV access Glucagon 1 mg 11/15/24 17:03 Glucagon Inj 1 Mg Vial IM Q15MIN PRN BG <70, and no IV access Insulin Degludec 25 unit 11/15/24 09:00 11/16/24 08:05 Insulin Degludec 5 Unit/0.05 Ml (Per 5 Units) SC 12/15/24 08:59 25 unit QDAY TRINH Administration Insulin Human Lispro 2 unit 11/15/24 11:30 11/16/24 07:53 Insulin Lispro (Admelog) 1 Unit/0.01 Ml Unit SC 12/15/24 11:29 2 unit AC TRINH Administration Insulin Human Lispro 0 unit 11/16/24 07:56 Insulin Lispro (Admelog) 1 Unit/0.01 Ml Unit SC 12/15/24 17:09 AC TRINH Protocol Levothyroxine Sodium 175 mcg 11/14/24 06:00 11/16/24 05:20 Levothyroxine Sodium 25 Mcg Tablet PO 12/14/24 05:59 175 mcg ACBR TRINH Administration Metoprolol Succinate 50 mg 11/13/24 19:15 11/16/24 08:08 Metoprolol Succinate Xl 25 Mg Tabcr PO 12/13/24 19:14 50 mg BID TRINH Administration Nitroglycerin 0.4 mg 11/13/24 13:03 11/15/24 20:27 Nitroglycerin 0.4 Mg Subl Btl #25 SL 12/13/24 13:02 0.4 mg Q5MIN PRN Administration Chest Pain Ondansetron HCl 4 mg 11/13/24 07:42 11/13/24 08:06 Ondansetron Odt 4 Mg Tabrap PO 12/13/24 07:41 4 mg Q6HR PRN Administration NAUSEA OR VOMITING Protocol Pantoprazole Sodium 40 mg 11/14/24 21:00 11/16/24 08:04 Pantoprazole Inj 40 Mg Vial IVP 12/14/24 20:59 40 mg Q12HR TRINH Administration Ranolazine 500 mg 11/13/24 21:00 11/16/24 08:07 Ranolazine 500 Mg Julia (Non Formulary) PO 12/13/24 20:59 500 mg BID TRINH Administration Sennosides 1 tab 11/15/24 12:04 Senna Tablet PO 12/15/24 12:03 QDAY PRN CONSTIPATION Protocol Sodium Chloride 3 ml 11/11/24 18:46 Sodium Chloride Rt [place] 0.9% 3 Ml Nebu INH 12/11/24 18:45 PRN PRN SOLN Tamoxifen Citrate 10 mg 11/13/24 09:00 11/16/24 08:06 Tamoxifen Citrate 10 Mg Tablet PO 12/13/24 08:59 10 mg QDAY TRINH Administration Plan 84 year-old female with past medical history of CAD s/p 9 stents, hypertension, diabetes, CKD, CHF, invasive ductal carcinoma in situ (ER+) s/p right breast partial lumpectomy and radiation on chemotherapy, presented with abdominal pain and coffee-ground emesis, EGD and colonscopy did nto identify a source of bleed, planning for outpatient capsule endoscopy. #Coronary artery disease status post stents #Chronic systolic heart failure (HFrEF, EF 40%) #Hypertension Patient has AV sequential dual-chamber pacemaker. CTA (09/27): Mild CHF. Echo (11/12): normal LV size and wall thickness with septal dyskinesi global hypokinesis. Estimated at 40%. Grade II diastolic dysfunction. RV is normal in size and systolic function. Moderate to severe calcific aortic stenosis. Moderate to heavy mitral annulus and apparatus calcification with mild to moderate MR. Mild TR. Troponin 1.019 on 11/14 with chest pain. Restarted home nitroglycerin. Cardiology restarted home medications for heart failure on 11/13: Entresto, Bumex, Metoprolol, Ranolazine, and Spironolactone. Held Bumex and fluid restriction removed on 11/15 for leukocytosis. CXR (11/16): mild HF, moderate left pleural effusion. Plan: - Restarted IV Bumex at 1 mg today. Scheduled another IV Bumex at 1 mg for tonight at 20:00. - Hold aspirin and Plavix for max of 1 week per cardiology. - Continue home nitroglyercin PRN chest pain. - Discontinued Entresto and Spironolactone until kidney function is back to patient's baseline. - Follow-up with Dr. Green outpatient. #Type 2 Diabetes Mellitus Hemoglobin A1c 6.8% as of 10/15/2024. Per chart review, patient's home medications include metformin - 500 mg daily, Tradjenta - 5 mg daily, Trulicity - 3 mg/0.5 mL 3 mg weekly. Plan: - Continue Insulin Degludec 25 units. - ISS Step 2. - Hold home medications. - Bedside blood glucose checks ACHS. - Diet changed to carb consistent low. #GI bleed (unknown origin) #Acute post hemorrhagic anemia (resolved). Coffee-ground emesis for two days. Diffuse abdominal tenderness and pallor on exam. FOBT positive. BUN elevated at 137. Initial hemoglobin on admission was 8.6 (baseline was ~14.6 one month ago). Received 2 units pRBCs in ED, with post-transfusion hemoglobin improved to 10.9. Patient is on aspirin and Plavix at home for CAD. EGD (11/12): esophagitis, erythematous mucosa in the antrum and duodenopathy, with no active bleeding source identified. Colonscopy (11/13): internal hemorrhoids (banded), one large (1 cm or greater) polyp in the sigmoid colon which was removed. One medium (7-9 mm) polyp in the cecum which was biopsied. Moderate diverticulosis in the sigmoid colon and in the descending colon. Received 1 unit of pRBCs (11/13). Plan - Monitor H&H. - Transfuse if Hgb <8 or if symptomatic. - Continue IV Pantoprazole 40 mg BID. - Hold aspirin and Plavix for max of 1 week per cardiology. - Dr. Bailon plans for outpatient capsule endoscopy since EGD and colonoscopy did not identify source of bleed. 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 Follows Dr. Samayoa (nephrology). Admission labs: BUN 137, Cr 2.4, eGFR 20. Baseline Cr: 0.9?1.3 (per chart review). BUN:Cr ratio 57, suggestive of a prerenal etiology (hypovolemia from GI bleed vs anemia-induced hypoperfusion). Renal Ultrasound 11/12: Bilateral renal cortical thinning. No hydronephrosis. Mild bilateral renal parenchymal scar formation. BUN 85 from 71, creatinine 2.1 from 1.8. BUN and creatinine were previously downtrending now rising unclear etiology. Plan - Continue anemia management (as per GI bleed plan) to improve renal perfusion. - Daily renal panel to trend BUN, Cr, and electrolytes. - Avoid nephrotoxins. - Renally dose meds as appropriate. - Strict I&Os, monitor urine output closely. - Monitor for signs of volume overload or uremic symptoms. - Discontinued Entresto and Spironolactone until kidney function is back to patient's baseline. - Plan for V/Q scan per nephrology team to rule out PE. #Hyperkalemia (resolved) On presentation patient potassium 6.2. Patient has a history of chronic hyperkalemia, managed with Lokelma at home, however, potassium levels are not typically this elevated per chart review. Initial EKG showed paced rhythm. In the ED, patient was treated with D50, IV Insulin 10 units, IV calcium gluconate 1 gram. Following treatment, potassium decreased to 5.6. Plan: - Recheck BMP to monitor potassium trend and renal function. - Treatment as needed based on repeat labs and clinical status. - Maintain close electrolyte monitoring given underlying CKD and BETSY. #Community-acquired pneumonia #Leukocytosis Patient reports increased shortness of breath over past week, currently afebrile. CXR: atelectasis and/or pneumonia at the left lung base with moderate left pleural fluid. CTAP: pneumonia left base with mild to moderate left pleural fluid. WBC 17.7 Plan: - Continue Rocephin 1 g IV daily (started 11/11). - Continue Azithromycin 500 mg IV daily (started 11/11). - Encourage use of incentive spirometry. #[place] tract infection Denies dysuria, no CVA tenderness. CTAP: Significant bilateral renal scarring with perinephric stranding. UA: WBC 11, bacteria 1+ Urine culture showed Enterococcus faecalis. Plan: - Continue Rocephin 1 g IV daily (started 11/11). - Decrease Amoxicilllin 500 mg TID to BID. 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 ER positive, CT negative, HER2 negative. S/p right breast lumpectomy (02/12/2022). S/p radiation therapy (04/22/2022 - 06/26/2022). BRCA 1 and 2 negative. Plan - Follows with Dr. Mcclellan. - Resume home med tamoxifen 10 mg p.o. daily. #Hypothyroidism - Continue home Levothyroxine 175 mg daily. Health Maintenance: DVT prophylaxis: SCDs GI prophylaxis: Protonix twice daily Diet: Carb consistent low. Lines: Peripheral IV Code status: Full code Patient plan of care was discussed with the senior resident, , and attending physician, . Huber Moura DO PGY-1 Attending Provider Attestation/Addendum Teresita Roy DO, attest that I was physically present for the tena portions of the service and evaluated the patient with the resident and I reviewed and discussed the case with the resident and agree with the resident's findings and plans of care as documented above Patient seen and evaluated this AM. She states that she has been more short of breath upon waking up this morning. She endorses orthopnea and PIERRE upon going to the commode. BETSY noted. Bumex had been held yesterday. Patient reports PO intake as she easily gets short of breath while eating. Bumex 1mg IVP was given and respiratory status improved upon re-evaluation. A second dose of bumex 1mg IV was given. Patient does not appear overtly fluid overloaded. However, CXR did show increased vascular congestion and new infiltrate in right perihilar region. Patient reports improvement of chest pain otherwise which is very atypical as it improves with pressure.
--- NOTE | 2024-11-16 16:52 | PC.SS ---
Rounding Note: Patient still receiving antibiotics.
--- NOTE | 2024-11-16 17:02 | PC.SS ---
HOUSING ASSISTANT informed patient that [facility] has declined due to no capacity. Patient stated that she did not want to purse [facility]. HOUSING ASSISTANT notified patient that the following SNF's have accepted: [facility], [place], [facility] and [facility] (SNF has female bed available). SNF decision pending.
--- NOTE | 2024-11-16 19:48 | ESPR_ITS ---
Documentation for date of: 11/16/24 Subjective Subjective Interval history: Hemoglobin hematocrit stable at 13.0 and 40.0 Biopsy report from the colonoscopy is back the cecal polyp is a tubular adenoma and the second polyp is hyperplastic Exam Vital Signs Temp Pulse Resp BP Pulse Ox O2 Del Method O2 Flow Rate 98.2 F 86 22 H 146/96 H 99 Nasal Cannula 3 11/16/24 16:00 11/16/24 19:39 11/16/24 16:00 11/16/24 19:39 11/16/24 16:00 11/16/24 16:00 11/16/24 16:00 FiO2 30 11/16/24 12:00 Routine Respiratory Exam Comments: Normal to auscultation Routine Abdominal Exam Comments: Soft nontender Objective Labs 11/16/24 05:34 11/16/24 05:34 Labs: Laboratory Results - last 24 hr 11/16/24 05:34 WBC 15.5 H RBC 4.60 Hgb 13.0 Hct 40.0 MCV 87 MCH 28.3 MCHC 32.5 RDW Std Deviation 47.8 H Plt Count 369 Neut % (Auto) 71 Lymph % (Auto) 20 [place] % (Auto) 7 Eos % (Auto) 1 Baso % (Auto) 1 Neut # (Auto) 11.0 H Lymph # (Auto) 3.1 [place] # (Auto) 1.1 H Eos # (Auto) 0.2 Baso # (Auto) 0.1 Immature Gran # (Auto) 0.16 H Absolute Nucleated RBC 0.00 Immature Gran % 1 H Nucleated RBC % 0 Sodium 134 L Potassium 4.7 Chloride 100 Carbon Dioxide 20.8 Anion Gap 13 BUN 85 H Creatinine 2.1 H Estim Creat Clear Calc 26.3 L eGFR 23 L BUN/Creatinine Ratio 40 H Glucose 195 H Calculated Osmolality 299 H Calcium 10.1 Corrected Calcium 10.3 H Phosphorus 4.3 Magnesium 2.1 Total Bilirubin 0.5 AST 14 ALT 9 L Alkaline Phosphatase 94 D Total Protein 6.4 Albumin 3.8 Globulin 2.6 Albumin/Globulin Ratio 1.5 Impressions Impression: Tubular adenoma cecum Hyperplastic polyp sigmoid Gastritis stable hemoglobin hematocrit continue current management Assessment & Plan A&P Narrative # Coffee-ground hematemesis significant drop in hemoglobin hematocrit# complicated by the use of aspirin and Plavix for her PTCA Plan Serial CBC Fiberoptic esophagogastroduodenoscopy with possible biopsy possible therapeutic intervention under intravenous moderate sedation scheduled for tomorrow N.p.o. IV Protonix Other medical problems include IDDM Coronary artery disease status post PTCA Essential hypertension Right breast carcinoma status post right lumpectomy followed by radiation and chemo currently on tamoxifen followed by a local oncologist Thank you very much for the opportunity to participate in care of this patient Time Spent With Patient Time: Total time spent is greater than 50% in coordination of care (as documented) at patient's floor/unit and/or counseling patient:
--- NOTE | 2024-11-16 20:53 | ESPR_ITS ---
<Statement entered by Akiko Green MD - 11/16/24 23:01> I personally examined evaluated the patient in telemetry floor with PGY 1 Dr. Méndez agree with treatment plan recommendations documented patient can be discharged to correction facility with no antiplatelet drug therapy at least for the rest of the month and possibly next month I will reassess her as an outpatient. Clinically stable not have any shortness of breath chest pain no anginal symptoms today back to her baseline condition. Documentation for date of: 11/16/24 Subjective Subjective Interval history: No overnight events. The patient mentions that she is feeling better today. Patient is slightly hypertensive. Will continue to hold blood thinners and follow-up outpatient. Exam Vital Signs Temp Pulse Resp BP Pulse Ox O2 Del Method O2 Flow Rate 99.2 F 86 23 H 146/96 H 98 Nasal Cannula 3 11/16/24 20:00 11/16/24 20:00 11/16/24 20:00 11/16/24 20:00 11/16/24 20:00 11/16/24 20:00 11/16/24 20:00 FiO2 30 11/16/24 12:00 Narrative Exam General: Pale, obese lady. Conversational and non-toxic appearing. Neurologic: GCS 15. Alert and oriented x3, no gross neurological deficit, and patient able to move all 4 extremities. HEENT: Normocephalic, atraumatic, mucous membranes moist. Pupils reactive to light. Heart: Grade 3 systolic ejection murmur. Regular rate and rhythm, normal S1 and S2, no murmurs. Lungs: Clear to auscultation bilaterally with no wheezing or crackles. Abdomen: Obese, soft, nondistended, slightly tender to palpation, positive bowel sounds. No guarding or rebound tenderness. Extremities: No edema. 2+ radial and dorsalis pedis pulses bilaterally. Skin: Warm. Dry. No rash or ecchymoses. Objective Labs 11/16/24 05:34 11/16/24 05:34 Labs: Laboratory Results - last 24 hr 11/16/24 05:34 WBC 15.5 H RBC 4.60 Hgb 13.0 Hct 40.0 MCV 87 MCH 28.3 MCHC 32.5 RDW Std Deviation 47.8 H Plt Count 369 Neut % (Auto) 71 Lymph % (Auto) 20 [place] % (Auto) 7 Eos % (Auto) 1 Baso % (Auto) 1 Neut # (Auto) 11.0 H Lymph # (Auto) 3.1 [place] # (Auto) 1.1 H Eos # (Auto) 0.2 Baso # (Auto) 0.1 Immature Gran # (Auto) 0.16 H Absolute Nucleated RBC 0.00 Immature Gran % 1 H Nucleated RBC % 0 Sodium 134 L Potassium 4.7 Chloride 100 Carbon Dioxide 20.8 Anion Gap 13 BUN 85 H Creatinine 2.1 H Estim Creat Clear Calc 26.3 L eGFR 23 L BUN/Creatinine Ratio 40 H Glucose 195 H Calculated Osmolality 299 H Calcium 10.1 Corrected Calcium 10.3 H Phosphorus 4.3 Magnesium 2.1 Total Bilirubin 0.5 AST 14 ALT 9 L Alkaline Phosphatase 94 D Total Protein 6.4 Albumin 3.8 Globulin 2.6 Albumin/Globulin Ratio 1.5 Quality Measures Quality Measures VTE prophylaxis Advance care planning discussed with:: patient Assessment & Plan Assessment Current Active Medications: Generic Name Dose Route Start Last Admin Trade Name Freq PRN Reason Stop Dose Admin Acetaminophen 650 mg 11/14/24 08:45 11/15/24 18:07 Acetaminophen 325 Mg Tablet PO 12/11/24 20:24 650 mg Q6H PRN Administration Fever >100.4 or pain 1-3 Amoxicillin 500 mg 11/16/24 09:00 11/16/24 10:10 Amoxicillin 250 Mg Capsule PO 11/23/24 08:59 500 mg BID TRINH Administration Aspirin 81 mg 11/14/24 14:00 11/14/24 14:45 Aspirin Ec 81 Mg Tabec PO 12/14/24 13:59 Not Given QDAY TRINH Azithromycin 500 mg 11/15/24 09:00 11/16/24 08:08 Azithromycin 250 Mg Tablet PO 11/18/24 09:01 500 mg QDAY TRINH Administration Protocol Bumetanide 2 mg 11/13/24 18:00 11/14/24 09:29 Bumetanide 0.5 Mg Tablet PO 12/13/24 17:59 2 mg QDAY TRINH Administration Bumetanide 1 mg 11/16/24 10:00 11/16/24 10:15 Bumetanide Inj 0.25 Mg/Ml Vial 4 Ml IVP 12/16/24 09:59 1 mg QDAY TRINH Administration Clopidogrel Bisulfate 75 mg 11/14/24 14:00 11/14/24 14:48 Clopidogrel Bisulfate 75 Mg Tablet PO 12/14/24 13:59 75 mg QDAY TRINH Administration Dextrose 25 ml 11/11/24 20:30 Dextrose 50%-Water Inj 50 Ml Syringe IV 12/11/24 20:29 Q15MIN PRN BG 50-70 responsive npo pt Dextrose 50 ml 11/11/24 20:30 Dextrose 50%-Water Inj 50 Ml Syringe IV 12/11/24 20:29 Q15MIN PRN BG <50 OR BG <70 & pt unresponsive Dextrose 25 ml 11/15/24 17:03 Dextrose 50%-Water Inj 50 Ml Syringe IV 12/15/24 17:02 Q15MIN PRN BG 50-70 responsive npo pt Dextrose 50 ml 11/15/24 17:03 Dextrose 50%-Water Inj 50 Ml Syringe IV 12/15/24 17:02 Q15MIN PRN BG <50 OR BG <70 & pt unresponsive Docusate Sodium 100 mg 11/15/24 12:04 Docusate Sod 100 Mg Capsule PO 12/15/24 12:03 QDAY PRN CONSTIPATION Protocol Glucagon 1 mg 11/11/24 20:30 Glucagon Inj 1 Mg Vial IM Q15MIN PRN BG <70, and no IV access Glucagon 1 mg 11/15/24 17:03 Glucagon Inj 1 Mg Vial IM Q15MIN PRN BG <70, and no IV access Insulin Degludec 25 unit 11/15/24 09:00 11/16/24 08:05 Insulin Degludec 5 Unit/0.05 Ml (Per 5 Units) SC 12/15/24 08:59 25 unit QDAY TRINH Administration Insulin Human Lispro 2 unit 11/15/24 11:30 11/16/24 17:22 Insulin Lispro (Admelog) 1 Unit/0.01 Ml Unit SC 12/15/24 11:29 2 unit AC TRINH Administration Insulin Human Lispro 0 unit 11/16/24 07:56 11/16/24 17:23 Insulin Lispro (Admelog) 1 Unit/0.01 Ml Unit SC 12/15/24 17:09 4 unit AC TRINH Administration Protocol Levothyroxine Sodium 175 mcg 11/14/24 06:00 11/16/24 05:20 Levothyroxine Sodium 25 Mcg Tablet PO 12/14/24 05:59 175 mcg ACBR TRINH Administration Metoprolol Succinate 50 mg 11/13/24 19:15 11/16/24 08:08 Metoprolol Succinate Xl 25 Mg Tabcr PO 12/13/24 19:14 50 mg BID TRINH Administration Nitroglycerin 0.4 mg 11/13/24 13:03 11/15/24 20:27 Nitroglycerin 0.4 Mg Subl Btl #25 SL 12/13/24 13:02 0.4 mg Q5MIN PRN Administration Chest Pain Ondansetron HCl 4 mg 11/13/24 07:42 11/13/24 08:06 Ondansetron Odt 4 Mg Tabrap PO 12/13/24 07:41 4 mg Q6HR PRN Administration NAUSEA OR VOMITING Protocol Pantoprazole Sodium 40 mg 11/14/24 21:00 11/16/24 08:04 Pantoprazole Inj 40 Mg Vial IVP 12/14/24 20:59 40 mg Q12HR TRINH Administration Ranolazine 500 mg 11/13/24 21:00 11/16/24 08:07 Ranolazine 500 Mg Julia (Non Formulary) PO 12/13/24 20:59 500 mg BID TRINH Administration Sennosides 1 tab 11/15/24 12:04 Senna Tablet PO 12/15/24 12:03 QDAY PRN CONSTIPATION Protocol Sodium Chloride 3 ml 11/11/24 18:46 Sodium Chloride Rt [place] 0.9% 3 Ml Nebu INH 12/11/24 18:45 PRN PRN SOLN Tamoxifen Citrate 10 mg 11/13/24 09:00 11/16/24 08:06 Tamoxifen Citrate 10 Mg Tablet PO 12/13/24 08:59 10 mg QDAY TRINH Administration Plan 84-year-old female with a PMH of CAD with 9 stents, hypertension, diabetes, CKD, breast cancer status post partial mastectomy and radiation therapy on chemo, who presented to the ED on 11/11/2024 with abdominal pain and coffee-ground emesis for the past 2 days. The patient was admitted for GI bleed. Cardiology was consulted for management of the patient's history of coronary artery disease on anticoagulation status post 9 stents in the presence of a possible GI bleed. #CAD status post stents #Hypertension #GI bleed #Angina pectoralis * The patient's most previous stent was in November 2023 * The patient's chest pain and elevated troponins are likely ischemic in nature * EKG on 11/13/2024 was significant for sinus tachycardia, no significant ST segment changes, pacemaker rhythm on background afib * No indication for coronary angiogram at this time Cath showed left ventricle is normal in size and thickness with septal dyskinesis, global hypokinesis, and an EF of ~40%, along with grade II diastolic dysfunction. The right ventricle is normal. There is moderate to severe calcific aortic stenosis (Vmax 3.3 m/sec, mean gradient 27 mmHg), moderate mitral annular calcification with mild?moderate regurgitation, and mild tricuspid regurgitation. 11/14/2024 complained of chest pain that appears reproducible on exam but reported improvement with nitro, and following 1 unit PRBC transfusion. Currently asymptomatic without chest pain or shortness of breath. She had EGD and colonoscopy showing no evidence of active bleed. RECOMMENDATIONS: Maintain hemoglobin >10 to prevent further episode of angina pectoralis. May hold PLAVIX/ASPIRIN up to 10 days in settings of GI bleed, anemia. Continue with diuresis and working towards GDMT as tolerated. Maintain K>4.0 and Mag>2.0. Continue with diuresis to prevent CHF exacerbation, tachyarrhythmia. Continue hold on all anticoagulants. Follow-up with Dr. Green outpatient. #Upper GI bleed #Symptomatic anemia #BETSY on CKD #Community-acquired pneumonia #UTI, possible pyelonephritis #Hyperkalemia #Right-sided breast cancer status postmastectomy and radiotherapy #Diabetes The remainder of the patient's hospital problems will be managed per the primary team. Patient was seen and discussed with my attending physician Dr. Green. Armin Méndez DO PGY-1
[2024-11-17] VITALS (10 sets, daily range): BP systolic 113–155; BP diastolic 70–99; PULSE 67–132; RESP 17–30; TEMP 36.4–37.1; O2SAT 98–100; BMI 31.5
[2024-11-17] MEDS: LEVOTHYROXINE SODIUM 25 MCG TABLET 175 MCG PO (05:04)
[2024-11-17 08:02] LABS: Basophils # (Auto) 0.1 Thou/mm3 (0.0-0.2); Basophils % (Auto) 1 % (0-2.5); Eosinophils # (Auto) 0.4 Thou/mm3 (0.0-0.5); Eosinophils % (Auto) 3 % (0-10); Hematocrit 39.5 % (36.0-46.0); Hemoglobin 12.9 g/dL (12.0-16.0); Immature Granulocytes Auto 0.17 Thou/mm3 (0.00-0.00); Lymphocytes # (Auto) 1.8 Thou/mm3 (1.0-4.8); Lymphocytes % (Auto) 15 % (10-50); Mean Corpuscular HGB Conc 32.7 g/dl (31.0-37.0); Mean Corpuscular Hemoglobin 28.3 pg (25.0-35.0); Mean Corpuscular Volume 87 fL (80-100); Monocytes # (Auto) 0.9 Thou/mm3 (0.0-0.8); Monocytes % (Auto) 7 % (0-12); Neutrophils # (Auto) 9.2 Thou/mm3 (1.8-7.7); Neutrophils % (Auto) 73 % (37-80); Nucleated Red Blood Cell # 0.00 Thou/mm3 (0.00-0.00); Nucleated Red Blood Cell % 0 /100 WBC (0); Platelet Count 364 Thou/mm3 (140-440); RDW Standard Deviation 47.8 fL (36.4-46.3); Red Blood Count 4.56 Miln/mm3 (4.00-5.20); White Blood Count 12.6 Thou/mm3 (3.6-11.0)
--- NOTE | 2024-11-17 08:08 | XR_ITS ---
Examination: Nuclear medicine perfusion ventilatory scan Date and time: November 03, 2024 1428 hours INDICATIONS: Diagnosis breast cancer, chronic kidney disease, shortness of breath fatigue chest pain over the last several weeks, elevated creatinine TECHNIQUE AND FINDINGS: Ventilation scan 43.8 mCi 90 9M technetium DTPA aerosol Perfusion study 4.4 mCi 90 9M technetium macroaggregated albumin Matching anterior posterior right and left lateral right and left oblique images Heterogeneous ventilation No pulmonary perfusion mismatches IMPRESSION: Negative for pulmonary artery emboli
[2024-11-17] MEDS: RANOLAZINE 500 MG TABER (NON FORMULARY) PO ×2 (08:17→20:30)
[2024-11-17] MEDS: BUMETANIDE INJ 0.25 MG/ML VIAL 4 ML 1 MG IVP (08:17)
[2024-11-17] MEDS: AZITHROMYCIN 250 MG TABLET 500 MG PO (08:19)
[2024-11-17] MEDS: METOPROLOL SUCCINATE XL 25 MG TABCR 50 MG PO ×2 (08:19→20:30)
[2024-11-17] MEDS: INSULIN DEGLUDEC 5 UNIT/0.05 ML (PER 5 UNITS) 25 UNIT SC (08:20)
[2024-11-17] MEDS: AMOXICILLIN 250 MG CAPSULE 500 MG PO ×2 (08:20→20:30)
[2024-11-17] MEDS: INSULIN LISPRO (AdmeLOG) 1 UNIT/0.01 ML UNIT 2 UNIT SC ×3 (08:21→16:44)
[2024-11-17 08:28] LABS: Alanine Aminotransferase 36 U/L (10-49); Albumin, Serum 3.6 gm/dL (3.4-4.8); Albumin/Globulin Ratio 1.3 (1.2-2.2); Alkaline Phosphatase 109 U/L (46-116); Anion Gap 12 (7-16); Aspartate Amino Transferase 25 U/L (0-34); BUN/Creatinine Ratio 45 Ratio (12-20); Bilirubin,Total 0.4 mg/dL (0.3-1.2); Blood Urea Nitrogen 95 mg/dL (9-23); Calcium 10.1 mg/dL (8.3-10.6); Calcium (Corrected) 10.4 mg/dL (8.5-10.1); Carbon Dioxide 26.6 mMol/L (20.0-31.0); Chloride 98 mMol/L (98-107); Creatinine (Component) 2.1 mg/dL (0.6-1.3); Estimated Creatinine Clearance 26.4 mL/min (>60); Globulin 2.8 gm/dL (2.3-3.5); Glucose 129 mg/dL (74-106); Magnesium 2.3 mg/dL (1.6-2.6); Osmolality,Calculated 305 (275-295); Phosphorous 4.4 mg/dL (2.4-5.1); Potassium 5.0 mMol/L (3.4-5.1); Sodium 137 mMol/L (136-145); Total Protein 6.4 gm/dL (5.7-8.2); eGFR 23 See Note
--- NOTE | 2024-11-17 09:48 | PD.NEPHPROG ---
Documentation for date of: 11/17/24 Subjective Subjective Interval history: Ms Levy is an 84 yo woman with a hx of CVD s/p 9 stents with pacemaker on asa and plavix , htn, dm, ckd, breast cancer (s/p partial mastectomy and radiation on chemo) who presented to the ED with cc of abdominal pain and coffee ground emesis for 2 days. pt reports having increasing shortness of breath and fatigue over the past week. She endorses lightheadedness and fatigue. she denies fevers, chills, chest pain, diarrhea, melena, constipation, dysuria. ED COURSE: Labs significant for: WBC 17.7, hemoglobin 8.6 (down from 14.6 one month ago), potassium 6.2, BUN 137, creatinine 2.4, EGFR 20, troponin negative, FOBT positive. UA shows 11 WBCs, 1+ bacteria. Imaging significant for: EKG shows paced rhythm, CT A/P shows left base pneumonia and renal scarring with perinephric stranding. Patient received 80 mg IV Protonix, 1 L bolus lactated Ringer's, amp of D50, insulin 10, calcium gluconate 1 g, and 2 units PRBC in the ED. GI was consulted, for EGD. Interval history: 11/12/2024: EGD performed: esophagitis in lower third of esophagus, diffuse moderately erythematpus mucosa without bleeding in the gastric antrum, erythematous duodenopathy. patchy mildly erythematous mucosa without active bleeding and with no stigmata of bleeding was found in the duodenal bulb. pending colonoscopy, golytely prep. BUN 156, Cr 2.5. Renal US Bilateral renal cortical thinning No hydronephrosis Mild bilateral renal parenchymal scar formation. Renal Artery duplex No Doppler sonographic findings of renal artery stenosis, Small kidneys with bilateral renal cortical thinning. TTE with EF 40% 11/13/2024: Nephrology consulted. Patient seen and examined at bedside. pt with ongoing prep for colonoscopy with golytely. Pt is alert and oriented x3. BUN 128, Cr 2.1. Given pt has significant cardiac history, c/f volume overload, BUN is downtrending, and Cr is downtrending, reccomend holding IV fluids. reassess after colonoscopy. No HD. 11/14/2024: pt is s/p colonoscopy, internal hemrrhoids banded, large polyp resected, 1 medium polyp biopsied. pt had episode of chest pain yesterday that resolved with nitroglycerin, pt recieved 1 unit prbc, trop was elevated to 1.019, now 1.0. BUN downtrending to 104 from 128, Cr downtrending 1.7 from 2.1. 11/15/2024: Patient seen and examined at bedside, she is sitting upright in bed following breakfast. pt has no new complaints, no chest pain, no shortness of breath. Labs are significant for: Hgb stable 11, BUN 71 from 104, Cr 1.8 from 1.7, On exam she does not appear volume overloaded, no LE edema, lungs aree CTAB, OK to discharge from nephro perspective BUN is resolving, dispo per primary team. 11/16/2024: Patient seen and examined at bedside, she is sitting upright in bed with nasal cannula in place. She did not eat much of breakfast. Patient reports feeling like she cannot breathe if patient is satting 95% on 3 L nasal cannula, heart rate within normal limits,normotensive,bilateral clear to auscultation, no lower extremity edema. BUN 85 from 71, creatinine 2.1 from 1.8. BUN and creatinine were previously downtrending now rising unclear etiology. Of note patient not on anticoagulation, query PE, plan for VQ scan and chest x-ray per primary team 11/17/2024 patient currently seen in telemetry. Breathing seems to be much better on CPAP. Pending placement. Creatinine tad elevated. Encouraged p.o. fluids. Hold Bumex today. Review of Systems Review of Systems Narrative Review of Systems: Patient denies any fever, chills.? Obesity HEENT: Denies any visual disturbances or hearing problems. CARDIOVASCULAR: Patient denies any chest pain, shortness of breath, swelling in the lower extremities. PULMONARY: Patient denies any shortness of breath, cough. GASTROINTESTINAL: Patient denies any abdominal pain, constipation, nausea, vomiting, diarrhea. GENITOURINARY: Patient denies any urinary symptoms of burning or frequency or hematuria, denies any form in the urine. SKIN: Denies any rash. MUSCULOSKELETAL: Denies any pain. Functional decline NEUROLOGICAL: Denies any neurological problems of strokes, seizures or confusion.? Denies any memory problems. ? Exam Vital Signs Temp Pulse Resp BP Pulse Ox O2 Del Method O2 Flow Rate 36.1 C 60 15 113/58 L 99 Room Air 2 11/18/24 08:00 11/18/24 11:43 11/18/24 09:00 11/18/24 09:45 11/18/24 08:00 11/18/24 08:00 11/18/24 04:00 FiO2 30 11/18/24 00:00 Narrative Exam Patient currently seen in telemetry. Comfortable today. NECK: Neck supple, no JVD or bruit CARDIOVASCULAR: Heart regular, 2/6 murmurs LUNGS/CHEST: few expiratory wheeze noted ABDOMEN: Soft, nontender, nondistended. No masses. Normal bowel sounds. EXTREMITIES: trace edema noted in the lower extremities SKIN: Skin exam normal without any rashes MUSCULOSKELETAL: In bed NEUROLOGICAL : No neurological deficits Objective Labs 11/18/24 06:12 11/18/24 06:12 Labs: Laboratory Results - last 24 hr 11/18/24 06:12 WBC 9.6 RBC 4.28 Hgb 12.2 Hct 36.9 MCV 86 MCH 28.5 MCHC 33.1 RDW Std Deviation 47.8 H Plt Count 364 Neut % (Auto) 62 Lymph % (Auto) 24 [place] % (Auto) 8 Eos % (Auto) 5 Baso % (Auto) 1 Neut # (Auto) 5.9 Lymph # (Auto) 2.3 [place] # (Auto) 0.8 Eos # (Auto) 0.5 Baso # (Auto) 0.1 Immature Gran # (Auto) 0.10 H Absolute Nucleated RBC 0.00 Immature Gran % 1 H Nucleated RBC % 0 Sodium 138 Potassium 4.5 D Chloride 102 Carbon Dioxide 25.7 Anion Gap 10 BUN 65 H Creatinine 2.0 H Estim Creat Clear Calc 27.7 L eGFR 24 L BUN/Creatinine Ratio 33 H Glucose 112 H Calculated Osmolality 295 Calcium 9.5 Corrected Calcium 10.2 H Phosphorus 3.8 Magnesium 2.0 Total Bilirubin 0.4 AST 23 ALT 34 Alkaline Phosphatase 86 D Total Protein 5.5 L Albumin 3.1 L D Globulin 2.4 Albumin/Globulin Ratio 1.3 Assessment & Plan Additional Assessment & Plan Additional Plan: Ms Levy is an 84 yo woman with a hx of CAD s/p 9 stents on asa and plavix, HFrEF (EF40% on 10/2024), breast cancer s/p partial mastectomy, radiation, and chemo, HTN, HLD, HF, and hypothyroidism undergoing workup for GI bleed, s/p egd s/p colonoscopy with biopsy and large polyp removal and internal hemorrhoids banded. BUN very elevated on admission, initially downtrending to 71 now up to 85. Creatinine also was initially downtrending up to 2.1. Patient not on anticoagulation. Pending VQ scan and chest x-ray per primary team to rule out PE. #BETSY on CKD IV Yao PCP On admission BUN 156, Cr 2.4, eGFR 20 renal US: no hydronephrosis, Bilateral renal cortical thinning, Mild bilateral renal parenchymal scar formation Renal duplex: no renal artery stenosis, Small kidneys with bilateral renal cortical thinning On 11/13: BUN 128 from 156, Cr 2.1 from 2.5 On 11/14: BUN 104 from 128, Cr 1.7 from 2.1 ON 11/15: BUN 71 from 104, Cr 1.8 from 1.7 On 11/16: BUN 85 from 71, Cr 2.1 from 1.8, does not appear hypervolemic on exam, no LE edema. 11/17-BUN slightly elevated. Will increase p.o. fluids and hold Bumex. Plan: -no HD at this time -Hold Bumex, -avoid nephrotoxic agents -renally dose medications #HFrEF (EF 40% 10/2024) #T2DM on insulin - A1c: 6.8 in 09/2024 AM FBS: 193 home medications include metformin - 500 mg daily, Tradjenta - 5 mg daily, Trulicity - 3 mg/0.5 mL 3 mg Weekly. - 2 units lispro with meals scheduled #shantell- on CPAP #CAD status post 9 stents #Hypertension SBP 130s-150s #GI bleed- ruled out, hgb stable #Upper GI bleed- ruled out #Lower GI bleed- s/p colonoscopy -1 large polyp removed, 1 medium polyp biopsied, internal hemrrhoids banded. #Symptomatic anemia s/p 3 units PRBC #Community-acquired pneumonia #UTI, possible pyelonephritis- WBC uptrending 16 from 14 #Hyperkalemia- resolved #Right-sided breast cancer status postmastectomy and radiotherapy- Followed by Dr. Mcclellan S/p right breast lumpectomy (02/12/2022) S/p radiation therapy (04/22/2022 - 06/26/2022) - managment per primary team
[2024-11-17] MEDS: TAMOXIFEN CITRATE 10 MG TABLET PO (10:47)
[2024-11-17] MEDS: LIDOCAINE 2% VISCOUS 10 ML, DiphenhydrAMINE 25 MG, MG HYD/AL HYD/SIME SUSP 30 ML, NYSTA... PO (10:51)
[2024-11-17] MEDS: INSULIN LISPRO (AdmeLOG) 1 UNIT/0.01 ML UNIT SC ×2 (11:37→16:45)
--- NOTE | 2024-11-17 15:16 | ESPR_ITS ---
<Statement entered by Elijah Boothe MD - 11/17/24 17:42> Patient was examined and case was reviewed with team including attending physician. Note reviewed, I agree with most of its contents and agree with the patient's care as documented by Dr. Moura Patient seen today at the bedside found awake, alert, orientedx3. No overnight events reported. Vitals and labs reviewed. Symptoms seem to have improved compared to previous examinations while on BiPAP and diuresis given the previous day. Diuresis dose was adjusted today and will continue to monitor urinary output and respiratory status closely. Nephrology recommended IV fluid administration however we encouraged the patient to have oral hydration through diet. Case discussed with my attending Dr. Purvi Boothe MD PGY-2 Disclaimer: Despite multiple revisions, due to the dictation software being used, the document bellow may not be free of grammatical errors including phonetic/typographic errors. However, this does not deter from our commitment to providing health care in the patient's best interest in mind. Documentation for date of: 11/17/24 Subjective Subjective Interval history: Patient was seen at the bedside this morning. No acute overnight events reported. She was able to use her CPAP last night and reports improvement in respiratory status, which she attributes to both CPAP use and the Bumex administered yesterday. Bumex has been decreased from 2 mg to 1 mg daily. Will continue at this dose today and monitor urinary output and respiratory status closely. She has not had a bowel movement since admission, likely secondary to recent bowel prep for colonoscopy. Patient was informed that she may take Colace or Senna for constipation. Both medications have been ordered for PRN. BUN has increased from 85 to 95. Nephrology has recommended IV fluids, but we will hold off for now as the patient is tolerating oral intake and can receive hydration through diet. Exam Vital Signs Temp Pulse Resp BP Pulse Ox O2 Del Method O2 Flow Rate 97.8 F 107 H 23 H 113/80 98 Room Air 3 11/17/24 12:00 11/17/24 12:00 11/17/24 12:00 11/17/24 12:00 11/17/24 12:00 11/17/24 12:00 11/17/24 08:00 FiO2 30 11/16/24 12:00 Narrative Exam Physical Exam General: Awake and in no acute distress. Conversational and non-toxic appearing. Pale. HEENT: Normocephalic, atraumatic. Heart: Regular rate and rhythm, no murmurs. Lungs: Clear to auscultation with no wheezing or crackles. No use of accessory muscles. Abdomen: Soft, nondistended, nontender. No guarding or rebound tenderness. Neurologic: Alert and oriented x3, no gross neurological deficit, and patient able to move all 4 extremities. Extremities: No edema. Skin: No rash or ecchymoses. Objective Labs 11/18/24 06:12 11/18/24 06:12 Labs: Laboratory Results - last 24 hr 11/17/24 07:23 WBC 12.6 H RBC 4.56 Hgb 12.9 Hct 39.5 MCV 87 MCH 28.3 MCHC 32.7 RDW Std Deviation 47.8 H Plt Count 364 Neut % (Auto) 73 Lymph % (Auto) 15 [place] % (Auto) 7 Eos % (Auto) 3 Baso % (Auto) 1 Neut # (Auto) 9.2 H Lymph # (Auto) 1.8 [place] # (Auto) 0.9 H Eos # (Auto) 0.4 Baso # (Auto) 0.1 Immature Gran # (Auto) 0.17 H Absolute Nucleated RBC 0.00 Immature Gran % 1 H Nucleated RBC % 0 Sodium 137 Potassium 5.0 Chloride 98 Carbon Dioxide 26.6 Anion Gap 12 BUN 95 H Creatinine 2.1 H Estim Creat Clear Calc 26.4 L eGFR 23 L BUN/Creatinine Ratio 45 H Glucose 129 H D Calculated Osmolality 305 H Calcium 10.1 Corrected Calcium 10.4 H Phosphorus 4.4 Magnesium 2.3 Total Bilirubin 0.4 AST 25 ALT 36 Alkaline Phosphatase 109 Total Protein 6.4 Albumin 3.6 Globulin 2.8 Albumin/Globulin Ratio 1.3 Quality Measures Quality Measures VTE prophylaxis Advance care planning discussed with:: patient Assessment & Plan Assessment Current Active Medications: Generic Name Dose Route Start Last Admin Trade Name Freq PRN Reason Stop Dose Admin Acetaminophen 650 mg 11/14/24 08:45 11/15/24 18:07 Acetaminophen 325 Mg Tablet PO 12/11/24 20:24 650 mg Q6H PRN Administration Fever >100.4 or pain 1-3 Amoxicillin 500 mg 11/16/24 09:00 11/17/24 08:20 Amoxicillin 250 Mg Capsule PO 11/23/24 08:59 500 mg BID TRINH Administration Aspirin 81 mg 11/14/24 14:00 11/14/24 14:45 Aspirin Ec 81 Mg Tabec PO 12/14/24 13:59 Not Given QDAY TRINH Azithromycin 500 mg 11/15/24 09:00 11/17/24 08:19 Azithromycin 250 Mg Tablet PO 11/18/24 09:01 500 mg QDAY TRINH Administration Protocol Bumetanide 2 mg 11/13/24 18:00 11/14/24 09:29 Bumetanide 0.5 Mg Tablet PO 12/13/24 17:59 2 mg QDAY TRINH Administration Bumetanide 1 mg 11/16/24 10:00 11/17/24 08:17 Bumetanide Inj 0.25 Mg/Ml Vial 4 Ml IVP 12/16/24 09:59 1 mg QDAY TRINH Administration Clopidogrel Bisulfate 75 mg 11/14/24 14:00 11/14/24 14:48 Clopidogrel Bisulfate 75 Mg Tablet PO 12/14/24 13:59 75 mg QDAY TRINH Administration Dextrose 25 ml 11/15/24 17:03 Dextrose 50%-Water Inj 50 Ml Syringe IV 12/15/24 17:02 Q15MIN PRN BG 50-70 responsive npo pt Dextrose 50 ml 11/15/24 17:03 Dextrose 50%-Water Inj 50 Ml Syringe IV 12/15/24 17:02 Q15MIN PRN BG <50 OR BG <70 & pt unresponsive Docusate Sodium 100 mg 11/15/24 12:04 Docusate Sod 100 Mg Capsule PO 12/15/24 12:03 QDAY PRN CONSTIPATION Protocol Glucagon 1 mg 11/15/24 17:03 Glucagon Inj 1 Mg Vial IM Q15MIN PRN BG <70, and no IV access Insulin Degludec 25 unit 11/15/24 09:00 11/17/24 08:20 Insulin Degludec 5 Unit/0.05 Ml (Per 5 Units) SC 12/15/24 08:59 25 unit QDAY TRINH Administration Insulin Human Lispro 2 unit 11/15/24 11:30 11/17/24 11:37 Insulin Lispro (Admelog) 1 Unit/0.01 Ml Unit SC 12/15/24 11:29 2 unit AC TRINH Administration Insulin Human Lispro 0 unit 11/16/24 07:56 11/17/24 11:37 Insulin Lispro (Admelog) 1 Unit/0.01 Ml Unit SC 12/15/24 17:09 3 unit AC TRINH Administration Protocol Levothyroxine Sodium 175 mcg 11/14/24 06:00 11/17/24 05:04 Levothyroxine Sodium 25 Mcg Tablet PO 12/14/24 05:59 175 mcg ACBR TRINH Administration Metoprolol Succinate 50 mg 11/13/24 19:15 11/17/24 08:19 Metoprolol Succinate Xl 25 Mg Tabcr PO 12/13/24 19:14 50 mg BID TRINH Administration Nitroglycerin 0.4 mg 11/13/24 13:03 11/15/24 20:27 Nitroglycerin 0.4 Mg Subl Btl #25 SL 12/13/24 13:02 0.4 mg Q5MIN PRN Administration Chest Pain Ondansetron HCl 4 mg 11/13/24 07:42 11/13/24 08:06 Ondansetron Odt 4 Mg Tabrap PO 12/13/24 07:41 4 mg Q6HR PRN Administration NAUSEA OR VOMITING Protocol Pantoprazole Sodium 40 mg 11/14/24 21:00 11/17/24 08:18 Pantoprazole Inj 40 Mg Vial IVP 12/14/24 20:59 40 mg Q12HR TRINH Administration Ranolazine 500 mg 11/13/24 21:00 11/17/24 08:17 Ranolazine 500 Mg Julia (Non Formulary) PO 12/13/24 20:59 500 mg BID TRINH Administration Sennosides 1 tab 11/15/24 12:04 Senna Tablet PO 12/15/24 12:03 QDAY PRN CONSTIPATION Protocol Sodium Chloride 3 ml 11/11/24 18:46 Sodium Chloride Rt [place] 0.9% 3 Ml Nebu INH 12/11/24 18:45 PRN PRN SOLN Tamoxifen Citrate 10 mg 11/13/24 09:00 11/17/24 10:47 Tamoxifen Citrate 10 Mg Tablet PO 12/13/24 08:59 10 mg QDAY TRINH Administration Plan 84 year-old female with past medical history of CAD s/p 9 stents, hypertension, diabetes, CKD, CHF, invasive ductal carcinoma in situ (ER+) s/p right breast partial lumpectomy and radiation on chemotherapy, presented with abdominal pain and coffee-ground emesis, EGD and colonscopy did not identify a source of bleed, planning for outpatient capsule endoscopy. #Coronary artery disease status post stents #Chronic systolic heart failure (HFrEF, EF 40%) #Hypertension Patient has AV sequential dual-chamber pacemaker. CTA (09/27): Mild CHF. Echo (11/12): normal LV size and wall thickness with septal dyskinesi global hypokinesis. Estimated at 40%. Grade II diastolic dysfunction. RV is normal in size and systolic function. Moderate to severe calcific aortic stenosis. Moderate to heavy mitral annulus and apparatus calcification with mild to moderate MR. Mild TR. Troponin 1.019 on 11/14 with chest pain. Restarted home nitroglycerin. Cardiology restarted home medications for heart failure on 11/13: Entresto, Bumex, Metoprolol, Ranolazine, and Spironolactone. Held Bumex and fluid restriction removed on 11/15 for leukocytosis. CXR (11/16): mild HF, moderate left pleural effusion. 11/16: Received total of 2mg of Bumex with good urinary output and improvement in her breathing. Plan: - Continue IV Bumex at 1 mg. - Hold aspirin and Plavix for max of 1 week per cardiology. - Continue home nitroglyercin PRN chest pain. - Discontinued Entresto and Spironolactone until kidney function is back to patient's baseline. - Per cardiology recs: patient can be discharged with no antiplatelet drug therapy at least for the rest of the month and possibly next month. Follow up with Dr. Green outpatient. #Type 2 Diabetes Mellitus Hemoglobin A1c 6.8% as of 10/15/2024. Per chart review, patient's home medications include metformin - 500 mg daily, Tradjenta - 5 mg daily, Trulicity - 3 mg/0.5 mL 3 mg weekly. Plan: - Continue Insulin Degludec 25 units. - ISS Step 2. - Hold home medications. - Bedside blood glucose checks ACHS. - Diet changed to carb consistent low. #GI bleed (unknown origin) #Acute post hemorrhagic anemia (resolved). Coffee-ground emesis for two days. Diffuse abdominal tenderness and pallor on exam. FOBT positive. BUN elevated at 137. Initial hemoglobin on admission was 8.6 (baseline was ~14.6 one month ago). Received 2 units pRBCs in ED, with post-transfusion hemoglobin improved to 10.9. Patient is on aspirin and Plavix at home for CAD. EGD (11/12): esophagitis, erythematous mucosa in the antrum and duodenopathy, with no active bleeding source identified. Colonscopy (11/13): internal hemorrhoids (banded), one large (1 cm or greater) polyp in the sigmoid colon which was removed. One medium (7-9 mm) polyp in the cecum which was biopsied. Moderate diverticulosis in the sigmoid colon and in the descending colon. Received 1 unit of pRBCs (11/13). Colonscopy (11/13) biopsy results: cecal polyp is a tubular adenoma and the second polyp is hyperplastic. Plan - Monitor H&H. - Transfuse if Hgb <8 or if symptomatic. - Continue IV Pantoprazole 40 mg BID. - Hold aspirin and Plavix for max of 1 week per cardiology. - Dr. Bailon plans for outpatient capsule endoscopy since EGD and colonoscopy did not identify source of bleed. 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 Follows Dr. Samayoa (nephrology). Admission labs: BUN 137, Cr 2.4, eGFR 20. Baseline Cr: 0.9?1.3 (per chart review). BUN:Cr ratio 57, suggestive of a prerenal etiology (hypovolemia from GI bleed vs anemia-induced hypoperfusion). Renal Ultrasound 11/12: Bilateral renal cortical thinning. No hydronephrosis. Mild bilateral renal parenchymal scar formation. BUN 85 from 71, creatinine 2.1 from 1.8. BUN and creatinine were previously downtrending now rising unclear etiology. V/Q scan requested by nephrology to rule out PE: negative for pulmonary artery emboli Plan - Continue anemia management (as per GI bleed plan) to improve renal perfusion. - Daily renal panel to trend BUN, Cr, and electrolytes. - Avoid nephrotoxins. - Renally dose meds as appropriate. - Strict I&Os, monitor urine output closely. - Monitor for signs of volume overload or uremic symptoms. - Discontinued Entresto and Spironolactone until kidney function is back to patient's baseline. #Hyperkalemia (resolved) On presentation patient potassium 6.2. Patient has a history of chronic hyperkalemia, managed with Lokelma at home, however, potassium levels are not typically this elevated per chart review. Initial EKG showed paced rhythm. In the ED, patient was treated with D50, IV Insulin 10 units, IV calcium gluconate 1 gram. Following treatment, potassium decreased to 5.6. Plan: - Recheck BMP to monitor potassium trend and renal function. - Treatment as needed based on repeat labs and clinical status. - Maintain close electrolyte monitoring given underlying CKD and BETSY. #Community-acquired pneumonia #Leukocytosis (improving) Patient reports increased shortness of breath over past week, currently afebrile. CXR: atelectasis and/or pneumonia at the left lung base with moderate left pleural fluid. CTAP: pneumonia left base with mild to moderate left pleural fluid. WBC 17.7 Plan: - Continue Rocephin 1 g IV daily (started 11/11). - Continue Azithromycin 500 mg IV daily (started 11/11). - Encourage use of incentive spirometry. #[place] tract infection Denies dysuria, no CVA tenderness. CTAP: Significant bilateral renal scarring with perinephric stranding. UA: WBC 11, bacteria 1+ Urine culture showed Enterococcus faecalis. Plan: - Continue Rocephin 1 g IV daily (started 11/11). - Decrease Amoxicilllin 500 mg TID to BID (started 11/16). 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 ER positive, MD negative, HER2 negative. S/p right breast lumpectomy (02/12/2022). S/p radiation therapy (04/22/2022 - 06/26/2022). BRCA 1 and 2 negative. Plan - Follows with Dr. Mcclellan. - Resume home med tamoxifen 10 mg p.o. daily. #Hypothyroidism - Continue home Levothyroxine 175 mg daily. Health Maintenance: DVT prophylaxis: SCDs GI prophylaxis: Protonix twice daily Diet: Carb consistent low. Lines: Peripheral IV Code status: Full code Patient plan of care was discussed with the senior resident, , and attending physician, . Huber Moura DO PGY-1 Attending Provider Attestation/Addendum Kirill, Teresita Loja DO, attest that I was physically present for the tena portions of the service and evaluated the patient with the resident and I reviewed and discussed the case with the resident and agree with the resident's findings and plans of care as documented above Patient seen and evaluated this AM. She states she is feeling much improved. Renal function appears unchanged. H/H otherwise stable. Patient remains on 2l/NC. She denies any shortness of breath at this time. Patient states she was able to tolerate her diet this morning and feels stronger today. Will keep Bumex 1mg IVP daily as fluid restrictions are lifted. Anticipate DC within next 24-48h if renal function improves and patient remains stable/ improved. Will have PT work with patient today.
--- NOTE | 2024-11-17 20:16 | PD.IMPROG ---
Documentation for date of: 11/17/24 Subjective Subjective Interval history: Hemoglobin hematocrit 12.9 and 39.5 No signs of any active bleeding Hemoglobin hematocrit stable Exam Vital Signs Temp Pulse Resp BP Pulse Ox O2 Del Method O2 Flow Rate 98.6 F 113 H 24 H 116/70 98 Nasal Cannula 2 11/17/24 16:00 11/17/24 16:00 11/17/24 16:00 11/17/24 16:00 11/17/24 16:00 11/17/24 16:00 11/17/24 16:00 FiO2 30 11/16/24 12:00 Objective Labs 11/17/24 07:23 11/17/24 07:23 Labs: Laboratory Results - last 24 hr 11/17/24 07:23 WBC 12.6 H RBC 4.56 Hgb 12.9 Hct 39.5 MCV 87 MCH 28.3 MCHC 32.7 RDW Std Deviation 47.8 H Plt Count 364 Neut % (Auto) 73 Lymph % (Auto) 15 [place] % (Auto) 7 Eos % (Auto) 3 Baso % (Auto) 1 Neut # (Auto) 9.2 H Lymph # (Auto) 1.8 [place] # (Auto) 0.9 H Eos # (Auto) 0.4 Baso # (Auto) 0.1 Immature Gran # (Auto) 0.17 H Absolute Nucleated RBC 0.00 Immature Gran % 1 H Nucleated RBC % 0 Sodium 137 Potassium 5.0 Chloride 98 Carbon Dioxide 26.6 Anion Gap 12 BUN 95 H Creatinine 2.1 H Estim Creat Clear Calc 26.4 L eGFR 23 L BUN/Creatinine Ratio 45 H Glucose 129 H D Calculated Osmolality 305 H Calcium 10.1 Corrected Calcium 10.4 H Phosphorus 4.4 Magnesium 2.3 Total Bilirubin 0.4 AST 25 ALT 36 Alkaline Phosphatase 109 Total Protein 6.4 Albumin 3.6 Globulin 2.8 Albumin/Globulin Ratio 1.3 Impressions Impression: Tubular adenoma cecum Hyperplastic polyp sigmoid colon Gastritis Continue current management Assessment & Plan A&P Narrative # Coffee-ground hematemesis significant drop in hemoglobin hematocrit# complicated by the use of aspirin and Plavix for her PTCA Plan Serial CBC Fiberoptic esophagogastroduodenoscopy with possible biopsy possible therapeutic intervention under intravenous moderate sedation scheduled for tomorrow N.p.o. IV Protonix Other medical problems include IDDM Coronary artery disease status post PTCA Essential hypertension Right breast carcinoma status post right lumpectomy followed by radiation and chemo currently on tamoxifen followed by a local oncologist Thank you very much for the opportunity to participate in care of this patient Time Spent With Patient Time: Total time spent is greater than 50% in coordination of care (as documented) at patient's floor/unit and/or counseling patient:
--- NOTE | 2024-11-17 20:48 | ESPR_ITS ---
<Statement entered by Akiko Green MD - 11/18/24 16:21> I personally examined the patient with resident physician PGY2 agree with treatment plan recommendation as documented patient is clinically improving heart failure symptoms improved once Dr. Bailon feels it is safe will restart the patient possibly on Plavix. Single antiplatelet drug therapy should be sufficient. Documentation for date of: 11/17/24 Subjective Subjective Interval history: No acute overnight events. Denies new or worsening symptoms denies fever, chills, headaches, chest pain, sob, cough, GI or urinary symptoms. Exam Vital Signs Temp Pulse Resp BP Pulse Ox O2 Del Method O2 Flow Rate 98.6 F 71 24 H 122/76 98 Nasal Cannula 2 11/17/24 16:00 11/17/24 20:30 11/17/24 16:00 11/17/24 20:30 11/17/24 16:00 11/17/24 16:00 11/17/24 16:00 FiO2 30 11/16/24 12:00 Narrative Exam General: Lethargic, pale, obese lady. Conversational and non-toxic appearing. Neurologic: GCS 15. Alert and oriented x3, no gross neurological deficit, and patient able to move all 4 extremities. HEENT: Normocephalic, atraumatic, mucous membranes moist. Pupils reactive to light. Heart: Grade 3 systolic ejection murmur. Regular rate and rhythm, normal S1 and S2, no murmurs. Lungs: Clear to auscultation bilaterally with no wheezing or crackles. Abdomen: Obese, soft, nondistended, slightly tender to palpation, positive bowel sounds. No guarding or rebound tenderness. Extremities: No edema. 2+ radial and dorsalis pedis pulses bilaterally. Skin: Warm. Dry. No rash or ecchymoses. Objective Labs 11/17/24 07:23 11/17/24 07:23 Labs: Laboratory Results - last 24 hr 11/17/24 07:23 WBC 12.6 H RBC 4.56 Hgb 12.9 Hct 39.5 MCV 87 MCH 28.3 MCHC 32.7 RDW Std Deviation 47.8 H Plt Count 364 Neut % (Auto) 73 Lymph % (Auto) 15 Bee % (Auto) 7 Eos % (Auto) 3 Baso % (Auto) 1 Neut # (Auto) 9.2 H Lymph # (Auto) 1.8 Bee # (Auto) 0.9 H Eos # (Auto) 0.4 Baso # (Auto) 0.1 Immature Gran # (Auto) 0.17 H Absolute Nucleated RBC 0.00 Immature Gran % 1 H Nucleated RBC % 0 Sodium 137 Potassium 5.0 Chloride 98 Carbon Dioxide 26.6 Anion Gap 12 BUN 95 H Creatinine 2.1 H Estim Creat Clear Calc 26.4 L eGFR 23 L BUN/Creatinine Ratio 45 H Glucose 129 H D Calculated Osmolality 305 H Calcium 10.1 Corrected Calcium 10.4 H Phosphorus 4.4 Magnesium 2.3 Total Bilirubin 0.4 AST 25 ALT 36 Alkaline Phosphatase 109 Total Protein 6.4 Albumin 3.6 Globulin 2.8 Albumin/Globulin Ratio 1.3 Quality Measures Quality Measures VTE prophylaxis Advance care planning discussed with:: patient Assessment & Plan Assessment Current Active Medications: Generic Name Dose Route Start Last Admin Trade Name Freq PRN Reason Stop Dose Admin Acetaminophen 650 mg 11/14/24 08:45 11/15/24 18:07 Acetaminophen 325 Mg Tablet PO 12/11/24 20:24 650 mg Q6H PRN Administration Fever >100.4 or pain 1-3 Amoxicillin 500 mg 11/16/24 09:00 11/17/24 20:30 Amoxicillin 250 Mg Capsule PO 11/23/24 08:59 500 mg BID TRINH Administration Aspirin 81 mg 11/14/24 14:00 11/14/24 14:45 Aspirin Ec 81 Mg Tabec PO 12/14/24 13:59 Not Given QDAY TRINH Azithromycin 500 mg 11/15/24 09:00 11/17/24 08:19 Azithromycin 250 Mg Tablet PO 11/18/24 09:01 500 mg QDAY TRINH Administration Protocol Bumetanide 2 mg 11/13/24 18:00 11/14/24 09:29 Bumetanide 0.5 Mg Tablet PO 12/13/24 17:59 2 mg QDAY TRINH Administration Bumetanide 1 mg 11/16/24 10:00 11/17/24 08:17 Bumetanide Inj 0.25 Mg/Ml Vial 4 Ml IVP 12/16/24 09:59 1 mg QDAY TRINH Administration Clopidogrel Bisulfate 75 mg 11/14/24 14:00 11/14/24 14:48 Clopidogrel Bisulfate 75 Mg Tablet PO 12/14/24 13:59 75 mg QDAY TRINH Administration Dextrose 25 ml 11/15/24 17:03 Dextrose 50%-Water Inj 50 Ml Syringe IV 12/15/24 17:02 Q15MIN PRN BG 50-70 responsive npo pt Dextrose 50 ml 11/15/24 17:03 Dextrose 50%-Water Inj 50 Ml Syringe IV 12/15/24 17:02 Q15MIN PRN BG <50 OR BG <70 & pt unresponsive Docusate Sodium 100 mg 11/15/24 12:04 Docusate Sod 100 Mg Capsule PO 12/15/24 12:03 QDAY PRN CONSTIPATION Protocol Glucagon 1 mg 11/15/24 17:03 Glucagon Inj 1 Mg Vial IM Q15MIN PRN BG <70, and no IV access Insulin Degludec 25 unit 11/15/24 09:00 11/17/24 08:20 Insulin Degludec 5 Unit/0.05 Ml (Per 5 Units) SC 12/15/24 08:59 25 unit QDAY TRINH Administration Insulin Human Lispro 2 unit 11/15/24 11:30 11/17/24 16:44 Insulin Lispro (Admelog) 1 Unit/0.01 Ml Unit SC 12/15/24 11:29 2 unit AC TRINH Administration Insulin Human Lispro 0 unit 11/16/24 07:56 11/17/24 16:45 Insulin Lispro (Admelog) 1 Unit/0.01 Ml Unit SC 12/15/24 17:09 2 unit AC TRINH Administration Protocol Levothyroxine Sodium 175 mcg 11/14/24 06:00 11/17/24 05:04 Levothyroxine Sodium 25 Mcg Tablet PO 12/14/24 05:59 175 mcg ACBR TRINH Administration Metoprolol Succinate 50 mg 11/13/24 19:15 11/17/24 20:30 Metoprolol Succinate Xl 25 Mg Tabcr PO 12/13/24 19:14 50 mg BID TRINH Administration Nitroglycerin 0.4 mg 11/13/24 13:03 11/15/24 20:27 Nitroglycerin 0.4 Mg Subl Btl #25 SL 12/13/24 13:02 0.4 mg Q5MIN PRN Administration Chest Pain Ondansetron HCl 4 mg 11/13/24 07:42 11/13/24 08:06 Ondansetron Odt 4 Mg Tabrap PO 12/13/24 07:41 4 mg Q6HR PRN Administration NAUSEA OR VOMITING Protocol Pantoprazole Sodium 40 mg 11/14/24 21:00 11/17/24 20:31 Pantoprazole Inj 40 Mg Vial IVP 12/14/24 20:59 40 mg Q12HR TRINH Administration Ranolazine 500 mg 11/13/24 21:00 11/17/24 20:30 Ranolazine 500 Mg Julia (Non Formulary) PO 12/13/24 20:59 500 mg BID TRINH Administration Sennosides 1 tab 11/15/24 12:04 Senna Tablet PO 12/15/24 12:03 QDAY PRN CONSTIPATION Protocol Sodium Chloride 3 ml 11/11/24 18:46 Sodium Chloride Rt Merline 0.9% 3 Ml Nebu INH 12/11/24 18:45 PRN PRN SOLN Tamoxifen Citrate 10 mg 11/13/24 09:00 11/17/24 10:47 Tamoxifen Citrate 10 Mg Tablet PO 12/13/24 08:59 10 mg QDAY TRINH Administration Plan 84-year-old female with a PMH of CAD with 9 stents, hypertension, diabetes, CKD, breast cancer status post partial mastectomy and radiation therapy on chemo, who presented to the ED on 11/11/2024 with abdominal pain and coffee-ground emesis for the past 2 days. The patient was admitted for GI bleed. Cardiology was consulted for management of the patient's history of coronary artery disease on anticoagulation status post 9 stents in the presence of a possible GI bleed. #CAD status post stents #Hypertension #GI bleed #Angina pectoralis * The patient's most previous stent was in November 2023 * The patient's chest pain and elevated troponins are likely ischemic in nature * EKG on 11/13/2024 was significant for sinus tachycardia, no significant ST segment changes, pacemaker rhythm on background afib * No indication for coronary angiogram at this time Cath showed left ventricle is normal in size and thickness with septal dyskinesis, global hypokinesis, and an EF of ~40%, along with grade II diastolic dysfunction. The right ventricle is normal. There is moderate to severe calcific aortic stenosis (Vmax 3.3 m/sec, mean gradient 27 mmHg), moderate mitral annular calcification with mild?moderate regurgitation, and mild tricuspid regurgitation. 11/17/2024: Vitals remain within normal limits. Hemoglobin appears stable. Renal function remains poor, agree to holding diuresis for now. Nephrology team is following. RECOMMENDATIONS: Maintain hemoglobin >10 to prevent further episode of angina pectoralis. May hold PLAVIX/ASPIRIN up to 10 days in settings of GI bleed, anemia. Continue working towards GDMT as tolerated. Maintain K>4.0 and Mag>2.0. Resume diuresis when renal function improves to prevent CHF exacerbation, tachyarrhythmia. Continue hold on all anticoagulants. Follow-up with Dr. Grene outpatient. #Upper GI bleed #Symptomatic anemia #BETSY on CKD #Community-acquired pneumonia #UTI, possible pyelonephritis #Hyperkalemia #Right-sided breast cancer status postmastectomy and radiotherapy #Diabetes The remainder of the patient's hospital problems will be managed per the primary team. Case was discussed with attending physician, Dr. Green. Isauro Carranza, DO PGY II This document was transcribed using voice recognition technology. Minor inaccuracies may be present.
[2024-11-18] VITALS (17 sets, daily range): BP systolic 104–136; BP diastolic 58–83; PULSE 60–107; RESP 15–96; TEMP 36.1–36.5; O2SAT 94–99; BMI 31.4
[2024-11-18] MEDS: NITROGLYCERIN 0.4 MG SUBL BTL #25 SL ×2 (00:31→23:53)
[2024-11-18] MEDS: LEVOTHYROXINE SODIUM 25 MCG TABLET 175 MCG PO (05:23)
[2024-11-18 06:28] LABS: Basophils # (Auto) 0.1 Thou/mm3 (0.0-0.2); Basophils % (Auto) 1 % (0-2.5); Eosinophils # (Auto) 0.5 Thou/mm3 (0.0-0.5); Eosinophils % (Auto) 5 % (0-10); Hematocrit 36.9 % (36.0-46.0); Hemoglobin 12.2 g/dL (12.0-16.0); Immature Granulocytes Auto 0.10 Thou/mm3 (0.00-0.00); Lymphocytes # (Auto) 2.3 Thou/mm3 (1.0-4.8); Lymphocytes % (Auto) 24 % (10-50); Mean Corpuscular HGB Conc 33.1 g/dl (31.0-37.0); Mean Corpuscular Hemoglobin 28.5 pg (25.0-35.0); Mean Corpuscular Volume 86 fL (80-100); Monocytes # (Auto) 0.8 Thou/mm3 (0.0-0.8); Monocytes % (Auto) 8 % (0-12); Neutrophils # (Auto) 5.9 Thou/mm3 (1.8-7.7); Neutrophils % (Auto) 62 % (37-80); Nucleated Red Blood Cell # 0.00 Thou/mm3 (0.00-0.00); Nucleated Red Blood Cell % 0 /100 WBC (0); Platelet Count 364 Thou/mm3 (140-440); RDW Standard Deviation 47.8 fL (36.4-46.3); Red Blood Count 4.28 Miln/mm3 (4.00-5.20); White Blood Count 9.6 Thou/mm3 (3.6-11.0)
[2024-11-18 07:02] LABS: Alanine Aminotransferase 34 U/L (10-49); Albumin, Serum 3.1 gm/dL (3.4-4.8); Albumin/Globulin Ratio 1.3 (1.2-2.2); Alkaline Phosphatase 86 U/L (46-116); Anion Gap 10 (7-16); Aspartate Amino Transferase 23 U/L (0-34); BUN/Creatinine Ratio 33 Ratio (12-20); Bilirubin,Total 0.4 mg/dL (0.3-1.2); Blood Urea Nitrogen 65 mg/dL (9-23); Calcium 9.5 mg/dL (8.3-10.6); Calcium (Corrected) 10.2 mg/dL (8.5-10.1); Carbon Dioxide 25.7 mMol/L (20.0-31.0); Chloride 102 mMol/L (98-107); Creatinine (Component) 2.0 mg/dL (0.6-1.3); Estimated Creatinine Clearance 27.7 mL/min (>60); Globulin 2.4 gm/dL (2.3-3.5); Glucose 112 mg/dL (74-106); Magnesium 2.0 mg/dL (1.6-2.6); Osmolality,Calculated 295 (275-295); Phosphorous 3.8 mg/dL (2.4-5.1); Potassium 4.5 mMol/L (3.4-5.1); Sodium 138 mMol/L (136-145); Total Protein 5.5 gm/dL (5.7-8.2); eGFR 24 See Note
[2024-11-18] MEDS: INSULIN LISPRO (AdmeLOG) 1 UNIT/0.01 ML UNIT 2 UNIT SC ×3 (07:36→17:02)
--- NOTE | 2024-11-18 08:07 | ESPR_ITS ---
<Statement entered by Akil Thomason MD - 11/18/24 16:05> Senior Resident Attestation: I supervised/discussed management plan with internal communications specialist physician Dr. Ovalles, and was involved in the care of this patient. I personally saw and examined the patient and discussed the assessment and plan with the entire medicine team, including my attending. I agree with the assessment and plan as documented. Patient's care was discussed with attending physician, Dr. Reid. Akil Thomason MD PGY-3. Documentation for date of: 11/18/24 Subjective Subjective Interval history: NAEO BP 146-142/61-93. 97% 2L O2. 0 BM. Patient evaluated at bedside. Reports that she is sleep, but does not have any pain. Denies new symptoms. Social reported that SNF will not take her on Trulicity, will need to d/c patient on another medication. Exam Vital Signs Temp Pulse Resp BP Pulse Ox O2 Del Method O2 Flow Rate 97.0 F 60 15 104/61 97 Nasal Cannula 2 11/18/24 04:00 11/18/24 04:00 11/18/24 04:00 11/18/24 04:00 11/18/24 04:00 11/18/24 04:00 11/18/24 04:00 FiO2 30 11/18/24 00:00 Narrative Exam General: Awake and in no acute distress. Conversational and non-toxic appearing. Pale. HEENT: Normocephalic, atraumatic. Heart: Regular rate and rhythm, no murmurs. Lungs: Clear to auscultation with no wheezing or crackles. No use of accessory muscles. Abdomen: Soft, nondistended, nontender. No guarding or rebound tenderness. Neurologic: Alert and oriented x3, no gross neurological deficit, and patient able to move all 4 extremities. Extremities: No edema. Skin: No rash or ecchymoses. Objective Labs 11/18/24 06:12 11/18/24 06:12 Labs: Laboratory Results - last 24 hr 11/17/24 11/18/24 07:23 06:12 WBC 12.6 H 9.6 RBC 4.56 4.28 Hgb 12.9 12.2 Hct 39.5 36.9 MCV 87 86 MCH 28.3 28.5 MCHC 32.7 33.1 RDW Std Deviation 47.8 H 47.8 H Plt Count 364 364 Neut % (Auto) 73 62 Lymph % (Auto) 15 24 [place] % (Auto) 7 8 Eos % (Auto) 3 5 Baso % (Auto) 1 1 Neut # (Auto) 9.2 H 5.9 Lymph # (Auto) 1.8 2.3 [place] # (Auto) 0.9 H 0.8 Eos # (Auto) 0.4 0.5 Baso # (Auto) 0.1 0.1 Immature Gran # (Auto) 0.17 H 0.10 H Absolute Nucleated RBC 0.00 0.00 Immature Gran % 1 H 1 H Nucleated RBC % 0 0 Sodium 137 138 Potassium 5.0 4.5 D Chloride 98 102 Carbon Dioxide 26.6 25.7 Anion Gap 12 10 BUN 95 H 65 H Creatinine 2.1 H 2.0 H Estim Creat Clear Calc 26.4 L 27.7 L eGFR 23 L 24 L BUN/Creatinine Ratio 45 H 33 H Glucose 129 H D 112 H Calculated Osmolality 305 H 295 Calcium 10.1 9.5 Corrected Calcium 10.4 H 10.2 H Phosphorus 4.4 3.8 Magnesium 2.3 2.0 Total Bilirubin 0.4 0.4 AST 25 23 ALT 36 34 Alkaline Phosphatase 109 86 D Total Protein 6.4 5.5 L Albumin 3.6 3.1 L D Globulin 2.8 2.4 Albumin/Globulin Ratio 1.3 1.3 Quality Measures Quality Measures VTE prophylaxis Advance care planning discussed with:: patient Assessment & Plan Assessment Current Active Medications: Generic Name Dose Route Start Last Admin Trade Name Freq PRN Reason Stop Dose Admin Acetaminophen 650 mg 11/14/24 08:45 11/15/24 18:07 Acetaminophen 325 Mg Tablet PO 12/11/24 20:24 650 mg Q6H PRN Administration Fever >100.4 or pain 1-3 Amoxicillin 500 mg 11/16/24 09:00 11/17/24 20:30 Amoxicillin 250 Mg Capsule PO 11/23/24 08:59 500 mg BID TRINH Administration Aspirin 81 mg 11/14/24 14:00 11/14/24 14:45 Aspirin Ec 81 Mg Tabec PO 12/14/24 13:59 Not Given QDAY TRINH Azithromycin 500 mg 11/15/24 09:00 11/17/24 08:19 Azithromycin 250 Mg Tablet PO 11/18/24 09:01 500 mg QDAY TRINH Administration Protocol Bumetanide 2 mg 11/13/24 18:00 11/14/24 09:29 Bumetanide 0.5 Mg Tablet PO 12/13/24 17:59 2 mg QDAY TRINH Administration Bumetanide 1 mg 11/16/24 10:00 11/17/24 08:17 Bumetanide Inj 0.25 Mg/Ml Vial 4 Ml IVP 12/16/24 09:59 1 mg QDAY TRINH Administration Clopidogrel Bisulfate 75 mg 11/14/24 14:00 11/14/24 14:48 Clopidogrel Bisulfate 75 Mg Tablet PO 12/14/24 13:59 75 mg QDAY TRINH Administration Dextrose 25 ml 11/15/24 17:03 Dextrose 50%-Water Inj 50 Ml Syringe IV 12/15/24 17:02 Q15MIN PRN BG 50-70 responsive npo pt Dextrose 50 ml 11/15/24 17:03 Dextrose 50%-Water Inj 50 Ml Syringe IV 12/15/24 17:02 Q15MIN PRN BG <50 OR BG <70 & pt unresponsive Docusate Sodium 100 mg 11/15/24 12:04 Docusate Sod 100 Mg Capsule PO 12/15/24 12:03 QDAY PRN CONSTIPATION Protocol Glucagon 1 mg 11/15/24 17:03 Glucagon Inj 1 Mg Vial IM Q15MIN PRN BG <70, and no IV access Insulin Degludec 25 unit 11/15/24 09:00 11/17/24 08:20 Insulin Degludec 5 Unit/0.05 Ml (Per 5 Units) NM 12/15/24 08:59 25 unit QDAY TRINH Administration Insulin Human Lispro 2 unit 11/15/24 11:30 11/18/24 07:36 Insulin Lispro (Admelog) 1 Unit/0.01 Ml Unit SC 12/15/24 11:29 2 unit AC [facility] Administration Insulin Human Lispro 0 unit 11/16/24 07:56 11/18/24 07:35 Insulin Lispro (Admelog) 1 Unit/0.01 Ml Unit SC 12/15/24 17:09 Not Given [facility] Protocol Levothyroxine Sodium 175 mcg 11/14/24 06:00 11/18/24 05:23 Levothyroxine Sodium 25 Mcg Tablet PO 12/14/24 05:59 175 mcg ACBR TRINH Administration Metoprolol Succinate 50 mg 11/13/24 19:15 11/17/24 20:30 Metoprolol Succinate Xl 25 Mg Tabcr PO 12/13/24 19:14 50 mg BID TRINH Administration Nitroglycerin 0.4 mg 11/13/24 13:03 11/18/24 00:31 Nitroglycerin 0.4 Mg Subl Btl #25 SL 12/13/24 13:02 0.4 mg Q5MIN PRN Administration Chest Pain Ondansetron HCl 4 mg 11/13/24 07:42 11/13/24 08:06 Ondansetron Odt 4 Mg Tabrap PO 12/13/24 07:41 4 mg Q6HR PRN Administration NAUSEA OR VOMITING Protocol Pantoprazole Sodium 40 mg 11/14/24 21:00 11/17/24 20:31 Pantoprazole Inj 40 Mg Vial IVP 12/14/24 20:59 40 mg Q12HR TRINH Administration Ranolazine 500 mg 11/13/24 21:00 11/17/24 20:30 Ranolazine 500 Mg Julia (Non Formulary) PO 12/13/24 20:59 500 mg BID TRINH Administration Sennosides 1 tab 11/15/24 12:04 Senna Tablet PO 12/15/24 12:03 QDAY PRN CONSTIPATION Protocol Sodium Chloride 3 ml 11/11/24 18:46 Sodium Chloride Rt Merline 0.9% 3 Ml Nebu INH 12/11/24 18:45 PRN PRN SOLN Tamoxifen Citrate 10 mg 11/13/24 09:00 11/17/24 10:47 Tamoxifen Citrate 10 Mg Tablet PO 12/13/24 08:59 10 mg QDAY TRINH Administration Plan 84 year-old female with past medical history of CAD s/p 9 stents, hypertension, diabetes, CKD, CHF, invasive ductal carcinoma in situ (ER+) s/p right breast partial lumpectomy and radiation on chemotherapy, presented with abdominal pain and coffee-ground emesis, EGD and colonscopy did not identify a source of bleed, planning for outpatient capsule endoscopy. #Coronary artery disease status post stents #Chronic systolic heart failure (HFrEF, EF 40%) #Hypertension Patient has AV sequential dual-chamber pacemaker. CTA (09/27): Mild CHF. Echo (11/12): normal LV size and wall thickness with septal dyskinesi global hypokinesis. Estimated at 40%. Grade II diastolic dysfunction. RV is normal in size and systolic function. Moderate to severe calcific aortic stenosis. Moderate to heavy mitral annulus and apparatus calcification with mild to moderate MR. Mild TR. Troponin 1.019 on 11/14 with chest pain. Restarted home nitroglycerin. Cardiology restarted home medications for heart failure on 11/13: Entresto, Bumex, Metoprolol, Ranolazine, and Spironolactone. Held Bumex and fluid restriction removed on 11/15 for leukocytosis. CXR (11/16): mild HF, moderate left pleural effusion. 11/16: Received total of 2mg of Bumex with good urinary output and improvement in her breathing. Plan: - Continue IV Bumex at 1 mg. - Started Aspirin 81 mg PO daily. Hgb stable x5 days. Pt's last stent documented 11/2023. Can d/c Plavix. - Continue home nitroglyercin PRN chest pain. - Discontinued Entresto and Spironolactone until kidney function is back to patient's baseline. #Type 2 Diabetes Mellitus Hemoglobin A1c 6.8% as of 10/15/2024. Per chart review, patient's home medications include metformin - 500 mg daily, Tradjenta - 5 mg daily, Trulicity - 3 mg/0.5 mL 3 mg weekly. Plan: - Continue Insulin Degludec 25 units. - ISS Step 2. - Hold home medications. - Bedside blood glucose checks ACHS. - Diet changed to carb consistent low. - Continue Gabapentin 100 mg PO BID - Hold ACEi and ARBs at this time i/s/o BETSY - Patient cannot be d/c on Trulicity due to SNF guidelines #GI bleed (unknown origin) #Acute post hemorrhagic anemia (resolved). Coffee-ground emesis for two days. Diffuse abdominal tenderness and pallor on exam. FOBT positive. BUN elevated at 137. Initial hemoglobin on admission was 8.6 (baseline was ~14.6 one month ago). Received 2 units pRBCs in ED, with post-transfusion hemoglobin improved to 10.9. Patient is on aspirin and Plavix at home for CAD. EGD (11/12): esophagitis, erythematous mucosa in the antrum and duodenopathy, with no active bleeding source identified. Colonscopy (11/13): internal hemorrhoids (banded), one large (1 cm or greater) polyp in the sigmoid colon which was removed. One medium (7-9 mm) polyp in the cecum which was biopsied. Moderate diverticulosis in the sigmoid colon and in the descending colon. Received 1 unit of pRBCs (11/13). Colonscopy (11/13) biopsy results: cecal polyp is a tubular adenoma and the second polyp is hyperplastic. Plan - Monitor H&H. - Transfuse if Hgb <8 or if symptomatic. - Continue IV Pantoprazole 40 mg BID. - Dr. Bailon plans for outpatient capsule endoscopy since EGD and colonoscopy did not identify source of bleed. 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 Follows Dr. Samayoa (nephrology). Admission labs: BUN 137, Cr 2.4, eGFR 20. Baseline Cr: 0.9?1.3 (per chart review). BUN:Cr ratio 57, suggestive of a prerenal etiology (hypovolemia from GI bleed vs anemia-induced hypoperfusion). Renal Ultrasound 11/12: Bilateral renal cortical thinning. No hydronephrosis. Mild bilateral renal parenchymal scar formation. BUN 85 from 71, creatinine 2.1 from 1.8. BUN and creatinine were previously downtrending now rising unclear etiology. V/Q scan requested by nephrology to rule out PE: negative for pulmonary artery emboli Plan - Continue anemia management (as per GI bleed plan) to improve renal perfusion. - Daily renal panel to trend BUN, Cr, and electrolytes. - Avoid nephrotoxins. - Renally dose meds as appropriate. - Strict I&Os, monitor urine output closely. - Monitor for signs of volume overload or uremic symptoms. - Discontinued Entresto and Spironolactone until kidney function is back to patient's baseline. #Hyperkalemia (resolved) On presentation patient potassium 6.2. Patient has a history of chronic hyperkalemia, managed with Lokelma at home, however, potassium levels are not typically this elevated per chart review. Initial EKG showed paced rhythm. In the ED, patient was treated with D50, IV Insulin 10 units, IV calcium gluconate 1 gram. Following treatment, potassium decreased to 5.6. Plan: - Recheck BMP to monitor potassium trend and renal function. - Treatment as needed based on repeat labs and clinical status. - Maintain close electrolyte monitoring given underlying CKD and BETSY. #Community-acquired pneumonia #Leukocytosis (improving) Patient reports increased shortness of breath over past week, currently afebrile. CXR: atelectasis and/or pneumonia at the left lung base with moderate left pleural fluid. CTAP: pneumonia left base with mild to moderate left pleural fluid. WBC 17.7 Plan: - D/C Rocephin 1 g IV daily (started 11/11). - Continue Azithromycin 500 mg IV daily (started 11/11). - Encourage use of incentive spirometry. #[place] tract infection Denies dysuria, no CVA tenderness. CTAP: Significant bilateral renal scarring with perinephric stranding. UA: WBC 11, bacteria 1+ Urine culture showed Enterococcus faecalis. Plan: - D/C Rocephin 1 g IV daily (started 11/11). - Decrease Amoxicilllin 500 mg TID to BID (started 11/16). 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 ER positive, [place] negative, HER2 negative. S/p right breast lumpectomy (02/12/2022). S/p radiation therapy (04/22/2022 - 06/26/2022). BRCA 1 and 2 negative. Plan - Follows with Dr. Mcclellan. - Resume home med tamoxifen 10 mg p.o. daily. #Hypothyroidism - Continue home Levothyroxine 175 mg daily. Health Maintenance: DVT prophylaxis: SCDs GI prophylaxis: Protonix twice daily Diet: Carb consistent low. Lines: Peripheral IV Code status: Full code Plan discussed with Dr. Thomason and Dr. Franklin Ovalles MD PGY1
[2024-11-18] MEDS: BUMETANIDE INJ 0.25 MG/ML VIAL 4 ML 1 MG IVP (08:11)
[2024-11-18] MEDS: TAMOXIFEN CITRATE 10 MG TABLET PO (08:12)
[2024-11-18] MEDS: METOPROLOL SUCCINATE XL 25 MG TABCR 50 MG PO ×2 (08:12→20:41)
[2024-11-18] MEDS: AZITHROMYCIN 250 MG TABLET 500 MG PO (08:13)
[2024-11-18] MEDS: INSULIN DEGLUDEC 5 UNIT/0.05 ML (PER 5 UNITS) 25 UNIT SC (08:13)
[2024-11-18] MEDS: AMOXICILLIN 250 MG CAPSULE 500 MG PO ×2 (08:13→20:41)
--- NOTE | 2024-11-18 09:09 | PC.CC ---
Addendum entered by Sarah Becerra 11/18/24 13:28: ASW informed resident that the SNF is requesting to change the Trulicity be changed to another medication due to expense and the resident stated they can accommodate the request. Addendum entered by Sarah Becerra 11/18/24 10:10: [id number] contacted [facility] to confirm the placement/acceptance. Sheri confirmed and asked if the attending can change pts specific med Trulicity to another medication, as this medication is too costly for the SNF. ASW will correspond with the residents and attending regarding the request. Addendum entered by Sarah Becerra 11/18/24 10:00: [id number] made face to face contact with pt informing her that once she has had BM and is medically cleared, ASW will arrange transportation for the pt. ASW asked pt if she has questions and she asked if ASW could contact her family to inform them of the placement. ASW confirmed that chief underwriter will contact family, as per pts request. Addendum entered by Sarah Becerra 11/18/24 09:39: [id number] spoke with JOANNA Forde who reported the pt has not had a BM. RN will request an enema for the pt as she accepted [facility] and needs to have a BM to be medically cleared and ready for d/c. Original Note: 09-ASW received a call from the pt who stated she accepted the SN[facility] placement. ASW will arrange the placement once the pt is medically cleared and ready for d/c.
[2024-11-18] MEDS: DOCUSATE SOD 100 MG CAPSULE PO (09:43)
[2024-11-18] MEDS: RANOLAZINE 500 MG TABER (NON FORMULARY) PO ×2 (09:45→20:48)
--- NOTE | 2024-11-18 11:07 | PD.RESPRO ---
Documentation for date of: 11/18/24 Subjective Subjective Interval history: D performed: esophagitis in lower third of esophagus, diffuse moderately erythematpus mucosa without bleeding in the gastric antrum, erythematous duodenopathy. patchy mildly erythematous mucosa without active bleeding and with no stigmata of bleeding was found in the duodenal bulb. pending colonoscopy, golytely prep. BUN 156, Cr 2.5. Renal US Bilateral renal cortical thinning No hydronephrosis Mild bilateral renal parenchymal scar formation. Renal Artery duplex No Doppler sonographic findings of renal artery stenosis, Small kidneys with bilateral renal cortical thinning. TTE with EF 40% 11/13/2024: Nephrology consulted. Patient seen and examined at bedside. pt with ongoing prep for colonoscopy with golytely. Pt is alert and oriented x3. BUN 128, Cr 2.1. Given pt has significant cardiac history, c/f volume overload, BUN is downtrending, and Cr is downtrending, reccomend holding IV fluids. reassess after colonoscopy. No HD. 11/14/2024: pt is s/p colonoscopy, internal hemrrhoids banded, large polyp resected, 1 medium polyp biopsied. pt had episode of chest pain yesterday that resolved with nitroglycerin, pt recieved 1 unit prbc, trop was elevated to 1.019, now 1.0. BUN downtrending to 104 from 128, Cr downtrending 1.7 from 2.1. 11/15/2024: Patient seen and examined at bedside, she is sitting upright in bed following breakfast. pt has no new complaints, no chest pain, no shortness of breath. Labs are significant for: Hgb stable 11, BUN 71 from 104, Cr 1.8 from 1.7, On exam she does not appear volume overloaded, no LE edema, lungs aree CTAB, OK to discharge from nephro perspective BUN is resolving, dispo per primary team. 11/16/2024: Patient seen and examined at bedside, she is sitting upright in bed with nasal cannula in place. She did not eat much of breakfast. Patient reports feeling like she cannot breathe if patient is satting 95% on 3 L nasal cannula, heart rate within normal limits,normotensive,bilateral clear to auscultation, no lower extremity edema. BUN 85 from 71, creatinine 2.1 from 1.8. BUN and creatinine were previously downtrending now rising unclear etiology. Of note patient not on anticoagulation, query PE, plan for VQ scan and chest x-ray per primary team 11/17/2024 patient currently seen in telemetry. Breathing seems to be much better on CPAP. Pending placement. Creatinine tad elevated. Encouraged p.o. fluids. Hold Bumex today. 11/18/2024 Patient seen and examined at bedside. she reports some shortness of breath when laying flat. Per primary team she is pending SNF placement, BUN down to 65 from 95, Cr 2.0, from 2.1. ok to discharge per primary team Exam Vital Signs Temp Pulse Resp BP Pulse Ox O2 Del Method O2 Flow Rate 96.9 F 107 H 15 113/58 L 99 Room Air 2 11/18/24 08:00 11/18/24 09:45 11/18/24 09:00 11/18/24 09:45 11/18/24 08:00 11/18/24 08:00 11/18/24 04:00 FiO2 30 11/18/24 00:00 Narrative Exam Patient currently seen in telemetry. Comfortable today. NECK: Neck supple, no JVD or bruit CARDIOVASCULAR: Heart regular, 2/6 murmurs LUNGS/CHEST: few expiratory wheeze noted ABDOMEN: Soft, nontender, nondistended. No masses. Normal bowel sounds. EXTREMITIES: trace edema noted in the lower extremities SKIN: Skin exam normal without any rashes MUSCULOSKELETAL: In bed NEUROLOGICAL : No neurological deficits Objective Labs 11/18/24 06:12 11/18/24 06:12 Labs: Laboratory Results - last 24 hr 11/18/24 06:12 WBC 9.6 RBC 4.28 Hgb 12.2 Hct 36.9 MCV 86 MCH 28.5 MCHC 33.1 RDW Std Deviation 47.8 H Plt Count 364 Neut % (Auto) 62 Lymph % (Auto) 24 [place] % (Auto) 8 Eos % (Auto) 5 Baso % (Auto) 1 Neut # (Auto) 5.9 Lymph # (Auto) 2.3 [place] # (Auto) 0.8 Eos # (Auto) 0.5 Baso # (Auto) 0.1 Immature Gran # (Auto) 0.10 H Absolute Nucleated RBC 0.00 Immature Gran % 1 H Nucleated RBC % 0 Sodium 138 Potassium 4.5 D Chloride 102 Carbon Dioxide 25.7 Anion Gap 10 BUN 65 H Creatinine 2.0 H Estim Creat Clear Calc 27.7 L eGFR 24 L BUN/Creatinine Ratio 33 H Glucose 112 H Calculated Osmolality 295 Calcium 9.5 Corrected Calcium 10.2 H Phosphorus 3.8 Magnesium 2.0 Total Bilirubin 0.4 AST 23 ALT 34 Alkaline Phosphatase 86 D Total Protein 5.5 L Albumin 3.1 L D Globulin 2.4 Albumin/Globulin Ratio 1.3 Quality Measures Quality Measures VTE prophylaxis Advance care planning discussed with:: patient Assessment & Plan Assessment Current Active Medications: Generic Name Dose Route Start Last Admin Trade Name Freq PRN Reason Stop Dose Admin Acetaminophen 650 mg 11/14/24 08:45 11/15/24 18:07 Acetaminophen 325 Mg Tablet PO 12/11/24 20:24 650 mg Q6H PRN Administration Fever >100.4 or pain 1-3 Amoxicillin 500 mg 11/16/24 09:00 11/18/24 08:13 Amoxicillin 250 Mg Capsule PO 11/23/24 08:59 500 mg BID TRINH Administration Aspirin 81 mg 11/14/24 14:00 11/14/24 14:45 Aspirin Ec 81 Mg Tabec PO 12/14/24 13:59 Not Given QDAY TRINH Bumetanide 2 mg 11/13/24 18:00 11/14/24 09:29 Bumetanide 0.5 Mg Tablet PO 12/13/24 17:59 2 mg QDAY TRINH Administration Bumetanide 1 mg 11/16/24 10:00 11/18/24 08:11 Bumetanide Inj 0.25 Mg/Ml Vial 4 Ml IVP 12/16/24 09:59 1 mg QDAY TRINH Administration Clopidogrel Bisulfate 75 mg 11/14/24 14:00 11/14/24 14:48 Clopidogrel Bisulfate 75 Mg Tablet PO 12/14/24 13:59 75 mg QDAY TRINH Administration Dextrose 25 ml 11/15/24 17:03 Dextrose 50%-Water Inj 50 Ml Syringe IV 12/15/24 17:02 Q15MIN PRN BG 50-70 responsive npo pt Dextrose 50 ml 11/15/24 17:03 Dextrose 50%-Water Inj 50 Ml Syringe IV 12/15/24 17:02 Q15MIN PRN BG <50 OR BG <70 & pt unresponsive Docusate Sodium 100 mg 11/15/24 12:04 11/18/24 09:43 Docusate Sod 100 Mg Capsule PO 12/15/24 12:03 100 mg QDAY PRN Administration CONSTIPATION Protocol Glucagon 1 mg 11/15/24 17:03 Glucagon Inj 1 Mg Vial IM Q15MIN PRN BG <70, and no IV access Insulin Degludec 25 unit 11/15/24 09:00 11/18/24 08:13 Insulin Degludec 5 Unit/0.05 Ml (Per 5 Units) SC 12/15/24 08:59 25 unit QDAY TRINH Administration Insulin Human Lispro 2 unit 11/15/24 11:30 11/18/24 07:36 Insulin Lispro (Admelog) 1 Unit/0.01 Ml Unit SC 12/15/24 11:29 2 unit AC TRINH Administration Insulin Human Lispro 0 unit 11/16/24 07:56 11/18/24 07:35 Insulin Lispro (Admelog) 1 Unit/0.01 Ml Unit SC 12/15/24 17:09 Not Given AC [facility] Protocol Levothyroxine Sodium 175 mcg 11/14/24 06:00 11/18/24 05:23 Levothyroxine Sodium 25 Mcg Tablet PO 12/14/24 05:59 175 mcg ACBR TRINH Administration Metoprolol Succinate 50 mg 11/13/24 19:15 11/18/24 08:12 Metoprolol Succinate Xl 25 Mg Tabcr PO 12/13/24 19:14 50 mg BID TRINH Administration Nitroglycerin 0.4 mg 11/13/24 13:03 11/18/24 00:31 Nitroglycerin 0.4 Mg Subl Btl #25 SL 12/13/24 13:02 0.4 mg Q5MIN PRN Administration Chest Pain Ondansetron HCl 4 mg 11/13/24 07:42 11/13/24 08:06 Ondansetron Odt 4 Mg Tabrap PO 12/13/24 07:41 4 mg Q6HR PRN Administration NAUSEA OR VOMITING Protocol Pantoprazole Sodium 40 mg 11/14/24 21:00 11/18/24 08:12 Pantoprazole Inj 40 Mg Vial IVP 12/14/24 20:59 40 mg Q12HR TRINH Administration Ranolazine 500 mg 11/13/24 21:00 11/18/24 09:45 Ranolazine 500 Mg Julia (Non Formulary) PO 12/13/24 20:59 500 mg BID TRINH Administration Sennosides 1 tab 11/15/24 12:04 11/18/24 09:43 Senna Tablet PO 12/15/24 12:03 1 tab QDAY PRN Administration CONSTIPATION Protocol Sodium Chloride 3 ml 11/11/24 18:46 Sodium Chloride Rt [place] 0.9% 3 Ml Nebu INH 12/11/24 18:45 PRN PRN SOLN Tamoxifen Citrate 10 mg 11/13/24 09:00 11/18/24 08:12 Tamoxifen Citrate 10 Mg Tablet PO 12/13/24 08:59 10 mg QDAY TRINH Administration Plan s Cam is an 84 yo woman with a hx of CAD s/p 9 stents on asa and plavix, HFrEF (EF40% on 10/2024), breast cancer s/p partial mastectomy, radiation, and chemo, HTN, HLD, HF, and hypothyroidism undergoing workup for GI bleed, s/p egd s/p colonoscopy with biopsy and large polyp removal and internal hemorrhoids banded. BUN very elevated on admission, downtrending. Creatinine stable at 2. Patient cleared by GI for anticoagulation. VQ scan without pulm artery emboli, no mismatch pending lacement . #BETSY on CKD IV Yao PCP On admission BUN 156, Cr 2.4, eGFR 20 renal US: no hydronephrosis, Bilateral renal cortical thinning, Mild bilateral renal parenchymal scar formation Renal duplex: no renal artery stenosis, Small kidneys with bilateral renal cortical thinning On 11/13: BUN 128 from 156, Cr 2.1 from 2.5 On 11/14: BUN 104 from 128, Cr 1.7 from 2.1 ON 11/15: BUN 71 from 104, Cr 1.8 from 1.7 On 11/16: BUN 85 from 71, Cr 2.1 from 1.8, does not appear hypervolemic on exam, no LE edema. 11/17-BUN slightly elevated. Will increase p.o. fluids and hold Bumex. on 11/18 BUN 61 from 95, Cr 2.0 from 2.1, Plan: -no HD at this time -Bumex per primary team, -avoid nephrotoxic agents -renally dose medications #HFrEF (EF 40% 10/2024) #T2DM on insulin - A1c: 6.8 in 09/2024 AM FBS: 117 home medications include metformin - 500 mg daily, Tradjenta - 5 mg daily, Trulicity - 3 mg/0.5 mL 3 mg Weekly. - 2 units lispro with meals scheduled #shantell- on CPAP #CAD status post 9 stents #Hypertension SBP 110s #GI bleed- ruled out, hgb stable #Upper GI bleed- ruled out #Lower GI bleed- s/p colonoscopy -1 large polyp removed, 1 medium polyp biopsied, internal hemrrhoids banded. #Symptomatic anemia s/p 3 units PRBC #Community-acquired pneumonia #UTI, possible pyelonephritis- WBC now wnl #Hyperkalemia- resolved #Right-sided breast cancer status postmastectomy and radiotherapy- Followed by Dr. Mcclellan S/p right breast lumpectomy (02/12/2022) S/p radiation therapy (04/22/2022 - 06/26/2022) #Constipation - managment per primary team Plan discussed with nephrology attending Dr. Yao Keller MD Internal Medicine PGY-1 Attending Provider Attestation/Addendum Patient seen and examined with resident physician Dr. Keller. Note reviewed, agree with findings and recommendations. Patient has extensive cardiac history and is on Aspirin, Plavix. Under the care of Dr. Goel. Has underlying CKD and is under my care. Presented with GI bleed and severe azotemia. BUN out of proportion to the creatinine. Agree with fluids and blood transfusion. BUN improving. Status post endoscopy and colonoscopy. No active bleeding. Polyps were removed. Noted WBC still elevated-15.5. urine cultures positive for Enterococcus faecalis. Spoke to primary team-on antibiotics 11/18/2024 patient currently seen in telemetry. Frustrated that she is not able to go to rehab. Blood sugar 245. Vital signs stable. WBC markedly improved at 9.6, hemoglobin 12.2. Sodium 138, potassium 4.5, creatinine 2, BUN65. LFTs normal albumin 3.1 VQ scan showed no PE. Pending placement. On low-dose Bumex with extensive history of CHF.
[2024-11-18] MEDS: INSULIN LISPRO (AdmeLOG) 1 UNIT/0.01 ML UNIT SC ×2 (11:48→17:02)
[2024-11-18] MEDS: ASPIRIN EC 81 MG TABEC PO (12:44)
[2024-11-18] MEDS: GABAPENTIN 100 MG CAPSULE PO ×2 (12:44→20:41)
[2024-11-18] MEDS: LACTULOSE SYRUP 20 GM/30 ML UDC PO (14:24)
--- NOTE | 2024-11-18 16:07 | ESPR_ITS ---
Documentation for date of: 11/18/24 Subjective Subjective Interval history: Patient evaluated hemoglobin hematocrit stable Patient can be fully anticoagulated Exam Vital Signs Temp Pulse Resp BP Pulse Ox O2 Del Method O2 Flow Rate 97.4 F 67 20 113/78 94 L Nasal Cannula 2 11/18/24 12:00 11/18/24 12:00 11/18/24 12:00 11/18/24 12:00 11/18/24 12:00 11/18/24 12:00 11/18/24 12:00 FiO2 30 11/18/24 00:00 Objective Labs 11/18/24 06:12 11/18/24 06:12 Labs: Laboratory Results - last 24 hr 11/18/24 06:12 WBC 9.6 RBC 4.28 Hgb 12.2 Hct 36.9 MCV 86 MCH 28.5 MCHC 33.1 RDW Std Deviation 47.8 H Plt Count 364 Neut % (Auto) 62 Lymph % (Auto) 24 [place] % (Auto) 8 Eos % (Auto) 5 Baso % (Auto) 1 Neut # (Auto) 5.9 Lymph # (Auto) 2.3 [place] # (Auto) 0.8 Eos # (Auto) 0.5 Baso # (Auto) 0.1 Immature Gran # (Auto) 0.10 H Absolute Nucleated RBC 0.00 Immature Gran % 1 H Nucleated RBC % 0 Sodium 138 Potassium 4.5 D Chloride 102 Carbon Dioxide 25.7 Anion Gap 10 BUN 65 H Creatinine 2.0 H Estim Creat Clear Calc 27.7 L eGFR 24 L BUN/Creatinine Ratio 33 H Glucose 112 H Calculated Osmolality 295 Calcium 9.5 Corrected Calcium 10.2 H Phosphorus 3.8 Magnesium 2.0 Total Bilirubin 0.4 AST 23 ALT 34 Alkaline Phosphatase 86 D Total Protein 5.5 L Albumin 3.1 L D Globulin 2.4 Albumin/Globulin Ratio 1.3 Impressions Impression: Tubular adenoma cecum Hyperplastic polyp sigmoid colon Gastritis Patient can be fully anticoagulated Case discussed with the internal medicine team Assessment & Plan A&P Narrative # Coffee-ground hematemesis significant drop in hemoglobin hematocrit# complicated by the use of aspirin and Plavix for her PTCA Plan Serial CBC Fiberoptic esophagogastroduodenoscopy with possible biopsy possible therapeutic intervention under intravenous moderate sedation scheduled for tomorrow N.p.o. IV Protonix Other medical problems include IDDM Coronary artery disease status post PTCA Essential hypertension Right breast carcinoma status post right lumpectomy followed by radiation and chemo currently on tamoxifen followed by a local oncologist Thank you very much for the opportunity to participate in care of this patient Time Spent With Patient Time: Total time spent is greater than 50% in coordination of care (as documented) at patient's floor/unit and/or counseling patient:
--- NOTE | 2024-11-18 18:54 | ESPR_ITS ---
RE: STACY MEDRANO : 1940 DATE OF SERVICE: 11/18/2024 SUBJECTIVE: The patient is doing much better_. Hemoglobin is stable. Dr. Bailon is giving clearance to start back on anticoagulation; however, we probably start on the Plavix and hold back on aspirin. She does not complain of any chest pain. Shortness of breath improved as well. She still has generalized weakness, but requests physical therapy. PHYSICAL EXAMINATION: Vital Signs: Blood pressure 113/78 and pulse rate 60. Neck: Supple. No JVD. Lungs: Decreased breath sounds at bases. No rales or rhonchi. Heart: S1 and S2 regular. No gallops. No murmurs. Abdomen: Thin and soft. Extremities: No edema. Genitourinary and Rectal: Not performed. ASSESSMENT: 1. Congestive heart failure, well compensated. 2. Coronary artery disease, status post stent placement. 3. Gastrointestinal bleeding, resolved. RECOMMENDATIONS: We will resume the Plavix 75 mg daily, but stop the aspirin. Single antiplatelet drug therapy with Plavix __ for now. The patient probably will require physical therapy rehabilitation for a couple of weeks. Continue with diuretic therapy as tolerated and discharged home on oral diuretics and home medications that includes ranexa_ for angina. DT: 16:13:57 TT: 18:50:00 Ref: [id number] - TID: [id number] MTDD
--- NOTE | 2024-11-18 20:26 | PD.RESDS ---
Planned Discharge Date 11/18/24 DS: Providers Provider Date of admission: 11/11/24 20:20 Primary care physician: Physician No Primary/Family Admitting Provider: Harry Acosta MD Attending Provider on Admission: Teresita Loja DO Consults: 11/11/24 18:53 Consult to Gastroenterology Stat Comment: UGIB Consulting Provider: Kimi Bailon 11/12/24 09:52 Consult to Cardiology Stat Comment: CAD Consulting Provider: Akiko Green 11/12/24 14:33 Consult to Nephrology Routine Comment: Consulting Provider: Juan Luis Samayoa 11/14/24 12:32 Referral Physical Therapy Stat Comment: Physician Instructions: Attending Provider on DC: Dr. Crystal Reid Discharging Provider: Cici Ovalles, DS: Diagnosis Problem List Completed Was Problem List Reviewed/Reconciled?: Yes Hospital Course Hospital Course Hospital course: Hospital Course Ms. 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 ED labs significant for leukocytosis, FOBT positive. CT A/P showed left basilar pneumonia. UA significant for pyuria and bacteria. Patient was started on Protonix 80 mg IV, 1 L LR bolus, 2U PRBC. Patient was admitted for upper GI bleed and symptomatic anemia, CAP, UTI. Patient was started on Protonix 40 mg IV twice daily, ceftriaxone 1 g IV daily, azithromycin 500 mg IV daily, resumed home tamoxifen 10 mg p.o. daily. EGD showed esophagitis, erythematous mucosa in the antrum and duodenopathy, no active bleeding source identified. Colonoscopy showed internal hemorrhoids that were banded, 1 large polyp in the sigmoid colon removed with hot snare, 1 medium polyp in the cecum that was biopsied, moderate diverticulosis in the sigmoid and descending colon. Given these findings, Dr. Bialon plans for outpatient capsule endoscopy since EGD and colonoscopy did not identify source of bleed. H&H remained stable. Biopsies from colonoscopy showed cecal polyp is a tubular adenoma, second polyp is hyperplastic. Urine cultures grew Enterococcus faecalis, managed with amoxicillin 500 mg BID. During hospitalization patient had several episodes of chest pain most likely secondary to angina that radiated down both arms, relieved with nitroglycerin. Overnight on 11/13 patient had sinus tachycardia with HR 130s to 140s, experienced palpitations. EKG showed left bundle branch block. Treated with nitroglycerin x 3, ranolazine, 1 unit PRBCs. Patient also found to have BETSY on CKD. Held home Entresto and spironolactone until kidney function improved. Once kidney function improved patient was restarted on IV Bumex 1 mg. Patient's diabetes was managed with insulin degludec 25U nightly, ISS type II. Given that patient's last stent was in November 2023, H&H remained stable, no signs of active bleeding during hospitalization, patient was restarted on home aspirin 81 mg daily. Also continued home gabapentin 100 mg p.o. twice daily, levothyroxine 175 mcg daily. Patient stable and medically cleared for discharge. Diagnoses #Coronary artery disease status post stents #Chronic systolic heart failure (HFrEF, EF 40%) #Hypertension #Type 2 Diabetes Mellitus #GI bleed (unknown origin) #Acute post hemorrhagic anemia (resolved) #Acute Kidney Injury on CKD IV #Community-acquired pneumonia #[place] tract infection #History of Invasive Ductal Carcinoma of Right breast #Hypothyroidism Discharge Instructions Stop taking Plavix until seen by cardiology Dr. Green. Your Trulicity was changed to Mounjaro weekly. Continue other home medications as prescribed. Take amoxicillin 500 mg twice daily for uti for 3 more days. Follow up with nephrology Dr Samayoa, cardiology Dr. Green and PCP within 1 week of discharge. Cici Ovalles MD PGY1 Time Spent with Patient Time attestation: Total time spent providing and/or coordinating discharge services: Time spent: Greater than 30 minutes Exam Vital Signs Temp Pulse Resp BP Pulse Ox O2 Del Method O2 Flow Rate 97.7 F 70 16 113/62 99 Nasal Cannula 1 11/18/24 16:00 11/18/24 16:00 11/18/24 16:00 11/18/24 16:00 11/18/24 16:00 11/18/24 16:00 11/18/24 16:00 FiO2 30 11/18/24 00:00 Narrative Exam General: Awake and in no acute distress. Conversational and non-toxic appearing. Pale. HEENT: Normocephalic, atraumatic. Heart: Regular rate and rhythm, no murmurs. Lungs: Clear to auscultation with no wheezing or crackles. No use of accessory muscles. Abdomen: Soft, nondistended, nontender. No guarding or rebound tenderness. Neurologic: Alert and oriented x3, no gross neurological deficit, and patient able to move all 4 extremities. Extremities: No edema. Skin: No rash or ecchymoses. Discharge Plan Plan Patient Disposition: Xfer Skilled Nsg Fac (SNF) Patient condition on transfer: Stable Care Plan Goals: Stop taking aspirin until seen by cardiology Dr. Green. Continue Plavix and atorvastatin as prescribed. Your Trulicity was changed to Mounjaro weekly. Continue other home medications as prescribed. Take amoxicillin 500 mg twice daily for UTI for 2 more days. Follow up with nephrology Dr Samayoa, cardiology Dr. Green and PCP within 1 week of discharge. Prescriptions/Referrals Prescriptions/Med Rec: New Mounjaro 2.5 mg/0.5 mL pen injector 2.5 mg subcut QWEEK Qty: 2 0RF Rx Instructions: for 4 weeks amoxicillin 500 mg tablet 500 mg PO BID 2 Days Qty: 4 0RF Continued Gemtesa 75 mg tablet 75 mg PO QDAY (DME) Dexcom G6 General Internist Misc See Rx Instructions .Route Rx Instructions: As directed gabapentin 100 MG capsule 100 mg PO BID Qty: 0 levothyroxine [Synthroid] 175 mcg Tablet 175 mcg PO QDAY nitroglycerin [Nitrostat] 0.4 mg Tablet, Sublingual 0.4 mg BUCCAL Q5MIN PRN (Reason: Chest Pain) Rx Instructions: take 1 sublingual tablet every 5 minutes for a max of 3 doses tamoxifen 10 mg Tablet 10 mg PO QDAY insulin glargine [Lantus U-100 Insulin] 100 unit/mL solution 60 unit SUBCUT DAILY Rx Instructions: 60 units in the morning inject 50 units subcutaneously in the evening insulin glargine [Lantus U-100 Insulin] 100 unit/mL solution 50 unit SUBCUT HS Rx Instructions: inject 60 units Subcutaneously in the morning 50 units in the evening spironolactone [Aldactone] 25 mg Tablet 25 mg PO DAILY ranolazine 500 mg Tablet Extended Release 12 Hr 500 mg PO BID Lokelma 10 gram powder in packet 10 g PO QDAY cranberry 500 mg capsule 500 mg PO QDAY Rx Instructions: administer with a meal fatty acid 3-E-salmon,soy oils Capsule 1 cap PO QDAY metoprolol succinate 100 mg capsule,sprinkle,ER 24hr 100 mg PO QDAY Rx Instructions: start to take metoprolol 50mg twice a day Entresto 24-26 mg tablet 1 tab PO BID PresserVision 1 cap PO QDAY bumetanide 2 mg tablet 2 mg PO QDAY clopidogrel [Plavix] 75 mg Tablet 75 mg PO QDAY Qty: 30 0RF Held aspirin 81 mg tablet,delayed release (DR/EC) 81 mg PO QDAY Hold Instructions: until seen by cardiology Discontinued nitrofurantoin monohyd/m-cryst [Macrobid] 100 mg capsule 100 mg PO QDAY Rx Instructions: must administer with a meal/food Trulicity 3 mg/0.5 mL pen injector 3 mg SUBCUT QWEEK Rx Instructions: on wednesday Referrals: No Primary/Family,Physician [Primary Care Provider] - Patient/Caregiver Discharge Instructions Print Language: Kazakh Stand Alone Forms: [facility]rat Award Info., Patient Portal Info Letter Discharge Order Discharge Orders: Discharge (Routine); Ordered 11/19/24 Ordered By: Akil Thomason Quality Discharge Quality Measures VTE prophylaxis Attestestation MD Attestation I Iesha Reid MD reviewed the note and agree with the resident's assessment & plan with modifications/additions/exceptions as below. I have personally reviewed labs, imaging, home meds/prior records, examined the patient, formulated and discussed management plan with the IM team. Patient with multiple comorbidities including HFrEF, CAD with extensive PCI, PPM, on immunotherapy for breast cancer admitted with GI bleed. EGD and colonoscopy unremarkable, continue diuresis with GDMT and CAD management with ranolazine, beta-blockers and aspirin, holding Plavix. Patient is going to have capsule endoscopy in outpatient settings. Also noted to have UTI for which we will discharge on 2 days of Augmentin to complete antibiotic course.
[2024-11-18] MEDS: INSULIN LISPRO (AdmeLOG) 1 UNIT/0.01 ML UNIT 3 UNIT SC (21:32)
[2024-11-19] VITALS (10 sets, daily range): BP systolic 111–127; BP diastolic 59–86; PULSE 60–85; RESP 14–99; TEMP 36.1–36.3; O2SAT 99–100
[2024-11-19] MEDS: LEVOTHYROXINE SODIUM 25 MCG TABLET 175 MCG PO (05:19)
[2024-11-19] MEDS: BUMETANIDE INJ 0.25 MG/ML VIAL 4 ML 1 MG IVP (08:24)
[2024-11-19] MEDS: INSULIN DEGLUDEC 5 UNIT/0.05 ML (PER 5 UNITS) 25 UNIT SC (08:25)
[2024-11-19] MEDS: AMOXICILLIN 250 MG CAPSULE 500 MG PO (08:25)
[2024-11-19] MEDS: GABAPENTIN 100 MG CAPSULE PO (08:26)
[2024-11-19] MEDS: RANOLAZINE 500 MG TABER (NON FORMULARY) PO (08:26)
[2024-11-19] MEDS: TAMOXIFEN CITRATE 10 MG TABLET PO (08:26)
[2024-11-19] MEDS: METOPROLOL SUCCINATE XL 25 MG TABCR 50 MG PO (08:26)
--- NOTE | 2024-11-19 09:24 | PC.SS ---
Addendum entered by Sarah Becerra 11/19/24 13:33: [id number] contacted [facility] and arranged transportation for pt. P/u eta 1430 to [facility] Original Note: [id number] met face to face at bedside with the pt and confirmed that she may be d/c today pending Cardio recs. Pt stated she is aware and confirmed she is still willing to d/c to [facility].
--- NOTE | 2024-11-19 10:27 | PD.RESPRO ---
Documentation for date of: 11/19/24 Subjective Subjective Interval history: D performed: esophagitis in lower third of esophagus, diffuse moderately erythematpus mucosa without bleeding in the gastric antrum, erythematous duodenopathy. patchy mildly erythematous mucosa without active bleeding and with no stigmata of bleeding was found in the duodenal bulb. pending colonoscopy, golytely prep. BUN 156, Cr 2.5. Renal US Bilateral renal cortical thinning No hydronephrosis Mild bilateral renal parenchymal scar formation. Renal Artery duplex No Doppler sonographic findings of renal artery stenosis, Small kidneys with bilateral renal cortical thinning. TTE with EF 40% 11/13/2024: Nephrology consulted. Patient seen and examined at bedside. pt with ongoing prep for colonoscopy with golytely. Pt is alert and oriented x3. BUN 128, Cr 2.1. Given pt has significant cardiac history, c/f volume overload, BUN is downtrending, and Cr is downtrending, reccomend holding IV fluids. reassess after colonoscopy. No HD. 11/14/2024: pt is s/p colonoscopy, internal hemrrhoids banded, large polyp resected, 1 medium polyp biopsied. pt had episode of chest pain yesterday that resolved with nitroglycerin, pt recieved 1 unit prbc, trop was elevated to 1.019, now 1.0. BUN downtrending to 104 from 128, Cr downtrending 1.7 from 2.1. 11/15/2024: Patient seen and examined at bedside, she is sitting upright in bed following breakfast. pt has no new complaints, no chest pain, no shortness of breath. Labs are significant for: Hgb stable 11, BUN 71 from 104, Cr 1.8 from 1.7, On exam she does not appear volume overloaded, no LE edema, lungs aree CTAB, OK to discharge from nephro perspective BUN is resolving, dispo per primary team. 11/16/2024: Patient seen and examined at bedside, she is sitting upright in bed with nasal cannula in place. She did not eat much of breakfast. Patient reports feeling like she cannot breathe if patient is satting 95% on 3 L nasal cannula, heart rate within normal limits,normotensive,bilateral clear to auscultation, no lower extremity edema. BUN 85 from 71, creatinine 2.1 from 1.8. BUN and creatinine were previously downtrending now rising unclear etiology. Of note patient not on anticoagulation, query PE, plan for VQ scan and chest x-ray per primary team 11/17/2024 patient currently seen in telemetry. Breathing seems to be much better on CPAP. Pending placement. Creatinine tad elevated. Encouraged p.o. fluids. Hold Bumex today. 11/18/2024 Patient seen and examined at bedside. she reports some shortness of breath when laying flat. Per primary team she is pending SNF placement, BUN down to 65 from 95, Cr 2.0, from 2.1. ok to discharge per primary team 11/19/2024: Patient was seen and examined at bedside this AM. No acute events overnight. Nephrology following for underlying CKD. Was noted to have azotemia on admission, presented with GI bleed. Patient tolerating diet, adequate urine output and mentation is at baseline. She was given IV fluids and blood transfusion during hospitalization. She is status post endoscopy and colonoscopy. No active bleeding. Polyps were removed. Urine cultures positive for Enterococcus faecalis, primary team started on antibiotics. Patient to be discharged to SNF for rehab, pending placement. Patient's leukocytosis has resolved, improved hemoglobin post RBC transfusion, renal function appears to be at baseline. She is cleared for discharge from nephrology standpoint. Exam Vital Signs Temp Pulse Resp BP Pulse Ox O2 Del Method O2 Flow Rate 97 F 67 18 127/59 L 100 Nasal Cannula 2 11/19/24 07:57 11/19/24 08:26 11/19/24 07:57 11/19/24 08:26 11/19/24 07:57 11/19/24 07:57 11/19/24 07:57 FiO2 30 11/18/24 00:00 Narrative Exam Constitutional Alert, oriented x3 and comfortable. Obese BMI 30 HEENT Vision grossly intact, PERRL. Patent nares. Trachea midline. Respiratory Chest normal on inspection, lungs clear to auscultation. Cardiovascular S1 and S2, RRR. 3/6 murmur- and MR, no carotid bruit. No gross JVD. Abdominal Soft and BS + ; non tender to palpation in all quadrants. Genitourinary No bladder tenderness, no flank pain. Normal to palpation. Musculoskeletal Extremities tone within normal limits. No LE edema. Neurological CN II - XII grossly intact. Extremity motor and sensation grossly intact. Skin Warm, dry and intact. Senile purpura noted, benign Psychiatric Patient has a good affect, is cooperative. Objective Labs 11/18/24 06:12 11/18/24 06:12 Quality Measures Quality Measures VTE prophylaxis Advance care planning discussed with:: patient Assessment & Plan Assessment Current Active Medications: Generic Name Dose Route Start Last Admin Trade Name Freq PRN Reason Stop Dose Admin Acetaminophen 650 mg 11/14/24 08:45 11/15/24 18:07 Acetaminophen 325 Mg Tablet PO 12/11/24 20:24 650 mg Q6H PRN Administration Fever >100.4 or pain 1-3 Amoxicillin 500 mg 11/16/24 09:00 11/19/24 08:25 Amoxicillin 250 Mg Capsule PO 11/23/24 08:59 500 mg BID TRINH Administration Bumetanide 2 mg 11/13/24 18:00 11/14/24 09:29 Bumetanide 0.5 Mg Tablet PO 12/13/24 17:59 2 mg QDAY TRINH Administration Bumetanide 1 mg 11/16/24 10:00 11/19/24 08:24 Bumetanide Inj 0.25 Mg/Ml Vial 4 Ml IVP 12/16/24 09:59 1 mg QDAY TRINH Administration Clopidogrel Bisulfate 75 mg 11/14/24 14:00 11/14/24 14:48 Clopidogrel Bisulfate 75 Mg Tablet PO 12/14/24 13:59 75 mg QDAY TRINH Administration Dextrose 25 ml 11/15/24 17:03 Dextrose 50%-Water Inj 50 Ml Syringe IV 12/15/24 17:02 Q15MIN PRN BG 50-70 responsive npo pt Dextrose 50 ml 11/15/24 17:03 Dextrose 50%-Water Inj 50 Ml Syringe IV 12/15/24 17:02 Q15MIN PRN BG <50 OR BG <70 & pt unresponsive Docusate Sodium 100 mg 11/15/24 12:04 11/18/24 09:43 Docusate Sod 100 Mg Capsule PO 12/15/24 12:03 100 mg QDAY PRN Administration CONSTIPATION Protocol Gabapentin 100 mg 11/18/24 12:00 11/19/24 08:26 Gabapentin 100 Mg Capsule PO 12/18/24 11:59 100 mg BID TRINH Administration Glucagon 1 mg 11/15/24 17:03 Glucagon Inj 1 Mg Vial IM Q15MIN PRN BG <70, and no IV access Insulin Degludec 25 unit 11/15/24 09:00 11/19/24 08:25 Insulin Degludec 5 Unit/0.05 Ml (Per 5 Units) SC 12/15/24 08:59 25 unit QDAY TRINH Administration Insulin Human Lispro 2 unit 11/15/24 11:30 11/19/24 07:48 Insulin Lispro (Admelog) 1 Unit/0.01 Ml Unit SC 12/15/24 11:29 Not Given AC TRINH Insulin Human Lispro 0 unit 11/16/24 07:56 11/19/24 07:48 Insulin Lispro (Admelog) 1 Unit/0.01 Ml Unit SC 12/15/24 17:09 Not Given AC [facility] Protocol Lactulose 20 gm 11/18/24 14:30 11/19/24 05:16 Lactulose Syrup 20 Gm/30 Ml Udc PO 12/18/24 14:29 Not Given TID [facility] Protocol Levothyroxine Sodium 175 mcg 11/14/24 06:00 11/19/24 05:19 Levothyroxine Sodium 25 Mcg Tablet PO 12/14/24 05:59 175 mcg ACBR TRINH Administration Metoprolol Succinate 50 mg 11/13/24 19:15 11/19/24 08:26 Metoprolol Succinate Xl 25 Mg Tabcr PO 12/13/24 19:14 50 mg BID TRINH Administration Nitroglycerin 0.4 mg 11/13/24 13:03 11/18/24 23:53 Nitroglycerin 0.4 Mg Subl Btl #25 SL 12/13/24 13:02 0.4 mg Q5MIN PRN Administration Chest Pain Ondansetron HCl 4 mg 11/13/24 07:42 11/13/24 08:06 Ondansetron Odt 4 Mg Tabrap PO 12/13/24 07:41 4 mg Q6HR PRN Administration NAUSEA OR VOMITING Protocol Pantoprazole Sodium 40 mg 11/14/24 21:00 11/19/24 08:23 Pantoprazole Inj 40 Mg Vial IVP 12/14/24 20:59 40 mg Q12HR TRINH Administration Ranolazine 500 mg 11/13/24 21:00 11/19/24 08:26 Ranolazine 500 Mg Julia (Non Formulary) PO 12/13/24 20:59 500 mg BID TRINH Administration Sennosides 1 tab 11/15/24 12:04 11/18/24 09:43 Senna Tablet PO 12/15/24 12:03 1 tab QDAY PRN Administration CONSTIPATION Protocol Sodium Chloride 3 ml 11/11/24 18:46 Sodium Chloride Rt Merline 0.9% 3 Ml Nebu INH 12/11/24 18:45 PRN PRN SOLN Tamoxifen Citrate 10 mg 11/13/24 09:00 11/19/24 08:26 Tamoxifen Citrate 10 Mg Tablet PO 12/13/24 08:59 10 mg QDAY TRINH Administration Plan Ms Levy is an 84 yo woman with a hx of CAD s/p 9 stents on asa and plavix, HFrEF (EF40% on 10/2024), breast cancer s/p partial mastectomy, radiation, and chemo, HTN, HLD, HF, and hypothyroidism undergoing workup for GI bleed, s/p egd s/p colonoscopy with biopsy and large polyp removal and internal hemorrhoids banded. BUN very elevated on admission, downtrending. Creatinine stable at 2. Patient cleared by GI for anticoagulation. VQ scan without pulm artery emboli, no mismatch pending lacement . BETSY on CKD IV- improved Hyperkalemia- resolved Leukocytosis?resolved secondary to UTI and CAP Yao PCP On admission BUN 156, Cr 2.4, eGFR 20 renal US: no hydronephrosis, Bilateral renal cortical thinning, Mild bilateral renal parenchymal scar formation Renal duplex: no renal artery stenosis, Small kidneys with bilateral renal cortical thinning On 11/13 - 11/19 BUN 95 -> 61 ; Cr 2.1 -> 2.0 Plan: -Avoid nephrotoxic agents. Renally dose medications -Patient to be discharged to SNF for rehab, pending placement per primary team. -Patient's leukocytosis has resolved, to be discharged on antibiotics. -Renal function appears to be at baseline. She is cleared for discharge from nephrology standpoint. Symptomatic anemia secondary to LGIB - Upper GI bleed- ruled out on endoscopy - Lower GI bleed- s/p colonoscopy : 1 large polyp removed, 1 medium polyp biopsied, internal hemorrhoids banded. Plan: - s/p 3 units PRBC - H&H improved as hemoglobin wnl post RBC transfusion Other chronic problems: CJ- on CPAP CAD status post 9 stents HFrEF (EF 40% 10/2024) Secondary hypertension - SBP 110s - Bumex per primary team Insulin dependant T2DM A1c: 6.8 in 09/2024 AM FBS: 117 Plan: - Home medications : metformin - 500 mg daily, Tradjenta - 5 mg daily, Trulicity - 3 mg/0.5 mL 3 mg Weekly. - 2 units lispro 3 times daily WM while inpatient + SSI Hx of Right-sided breast cancer status postmastectomy and radiotherapy- Followed by Dr. Mcclellan - S/p right breast lumpectomy (02/12/2022) - S/p radiation therapy (04/22/2022 - 06/26/2022) Constipation - managment per primary team Health maintenance: Disposition: Renal function appears to be at baseline. She is cleared for discharge from nephrology standpoint Code status: FULL CODE Plan discussed with nephrology attending Dr. Yao Rosenthal M.D. PGY3 Disclaimer: Minor errors in senior customer service representative may be present as this note was dictated using voice recognition software. Attending Provider Attestation/Addendum Patient seen and examined with resident physician Dr. Rosenthal. Note reviewed, agree with findings and recommendations. Patient has extensive cardiac history and is on Aspirin, Plavix. Under the care of Dr. Goel. Has underlying CKD and is under my care. Presented with GI bleed and severe azotemia. BUN out of proportion to the creatinine. Agree with fluids and blood transfusion. BUN improving. Status post endoscopy and colonoscopy. No active bleeding. Polyps were removed. Noted WBC still elevated-15.5. urine cultures positive for Enterococcus faecalis. Spoke to primary team-on antibiotics 11/19/2024 patient currently seen in telemetry. Frustrated that she is not able to go to rehab. Blood sugar 245. Vital signs stable. WBC markedly improved at 9.6, hemoglobin 12.2. Sodium 138, potassium 4.5, creatinine 2, BUN 65. LFTs normal albumin 3.1 VQ scan showed no PE. Pending placement. On low-dose Bumex with extensive history of CHF.
[2024-11-19] MEDS: INSULIN LISPRO (AdmeLOG) 1 UNIT/0.01 ML UNIT 2 UNIT SC (11:43)
[2024-11-19] MEDS: INSULIN LISPRO (AdmeLOG) 1 UNIT/0.01 ML UNIT SC (11:43)
--- NOTE | 2024-11-19 13:44 | PC.NURSE ---
Called report for discharge spoke with Delores
--- NOTE | 2024-11-19 15:15 | ESDS_ITS ---
Planned Discharge Date 11/19/24 DS: Providers Provider Date of admission: 11/11/24 20:20 Primary care physician: Physician No Primary/Family Admitting Provider: Harry Acosta MD Attending Provider on Admission: Teresita Loja DO Consults: 11/11/24 18:53 Consult to Gastroenterology Stat Comment: UGIB Consulting Provider: Kimi Bailon 11/12/24 09:52 Consult to Cardiology Stat Comment: CAD Consulting Provider: Akiko Green 11/12/24 14:33 Consult to Nephrology Routine Comment: Consulting Provider: Juan Luis Samayoa 11/14/24 12:32 Referral Physical Therapy Stat Comment: Physician Instructions: Attending Provider on DC: Iesha Reid MD Discharging Provider: Huber Moura DO Anticipated date of discharge: 11/19/24 DS: Diagnosis Problem List Completed Was Problem List Reviewed/Reconciled?: Yes Hospital Course Hospital Course Hospital course: 84 y/o woman with PMH of CAD s/p 9 stents, HFrEF 40%, hypertension, diabetes mellitus, CKD IV, 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 ED labs significant for leukocytosis, FOBT positive. CT A/P showed left basilar pneumonia. UA significant for pyuria and bacteria. Patient was started on Protonix 80 mg IV, 1 L LR bolus, 2U PRBC. Patient was admitted for upper GI bleed and symptomatic anemia, CAP, UTI. Patient was started on Protonix 40 mg IV twice daily, ceftriaxone 1 g IV daily, azithromycin 500 mg IV daily, resumed home tamoxifen 10 mg p.o. daily. EGD showed esophagitis, erythematous mucosa in the antrum and duodenopathy, no active bleeding source identified. Colonoscopy showed internal hemorrhoids that were banded, 1 large polyp in the sigmoid colon removed with hot snare, 1 medium polyp in the cecum that was biopsied, moderate diverticulosis in the sigmoid and descending colon. Given these findings, Dr. Bailon plans for outpatient capsule endoscopy since EGD and colonoscopy did not identify source of bleed. H&H remained stable. Biopsies from colonoscopy showed cecal polyp is a tubular adenoma, second polyp is hyperplastic. Urine cultures grew Enterococcus faecalis, managed with amoxicillin 500 mg BID. During hospitalization patient had several episodes of chest pain most likely secondary to angina that radiated down both arms, relieved with nitroglycerin. Overnight on 11/13 patient had sinus tachycardia with HR 130s to 140s, experienced palpitations. EKG showed left bundle branch block. Treated with nitroglycerin x 3, ranolazine, 1 unit PRBCs. Patient also found to have BETSY on CKD. Held home Entresto and spironolactone until kidney function improved. Once kidney function improved patient was restarted on IV Bumex 1 mg. Patient's diabetes was managed with insulin degludec 25U nightly, ISS type II. Given that patient's last stent was in November 2023, H&H remained stable, no signs of active bleeding during hospitalization, patient was restarted on home aspirin 81 mg daily. Also continued home gabapentin 100 mg p.o. twice daily, levothyroxine 175 mcg daily. Patient is medically and physically stable for discharge. Diagnosis: #Coronary artery disease status post stents #Chronic systolic heart failure (HFrEF, EF 40%) #Hypertension #Type 2 Diabetes Mellitus #GI bleed (unknown origin) #Acute post hemorrhagic anemia (resolved) #Acute Kidney Injury on CKD IV #Community-acquired pneumonia #[place] tract infection #History of Invasive Ductal Carcinoma of Right breast #Hypothyroidism Discharge Plan: Stop taking aspirin until seen by cardiology Dr. Green. Continue Plavix and atorvastatin as prescribed. Your Trulicity was changed to Mounjaro weekly. Continue other home medications as prescribed. Take amoxicillin 500 mg twice daily for UTI for 2 more days. Follow up with nephrology Dr Samayoa, cardiology Dr. Green and PCP within 1 week of discharge. Case discussed with my senior resident Dr. Thomason and with my attending Dr. Reid. Huber Moura DO PGY 1 Status at Discharge Overall status at discharge: patient is progressing back to baseline Time Spent with Patient Time attestation: Total time spent providing and/or coordinating discharge services: Time spent: Greater than 30 minutes Exam Vital Signs Temp Pulse Resp BP Pulse Ox O2 Del Method O2 Flow Rate 97.4 F 73 18 114/59 L 99 Nasal Cannula 2 11/19/24 14:22 11/19/24 14:22 11/19/24 14:22 11/19/24 14:22 11/19/24 14:22 11/19/24 14:22 11/19/24 14:22 FiO2 30 11/18/24 00:00 Narrative Exam General: Awake and in no acute distress. Conversational and non-toxic appearing. Pale. HEENT: Normocephalic, atraumatic. Heart: Regular rate and rhythm, no murmurs. Lungs: Clear to auscultation with no wheezing or crackles. No use of accessory muscles. Abdomen: Soft, nondistended, nontender. No guarding or rebound tenderness. Neurologic: Alert and oriented x3, no gross neurological deficit, and patient able to move all 4 extremities. Extremities: No edema. Skin: No rash or ecchymoses. Discharge Plan Plan Patient Disposition: Xfer Skilled Nsg Fac (SNF) Patient condition on transfer: Stable Care Plan Goals: Stop taking aspirin until seen by cardiology Dr. Green. Continue Plavix and atorvastatin as prescribed. Your Trulicity was changed to Mounjaro weekly. Continue other home medications as prescribed. Take amoxicillin 500 mg twice daily for UTI for 2 more days. Follow up with nephrology Dr Samayoa, cardiology Dr. Green and PCP within 1 week of discharge. 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 See Rx Instructions .Route Rx Instructions: As directed gabapentin 100 MG capsule 100 mg PO BID Qty: 0 levothyroxine [Synthroid] 175 mcg Tablet 175 mcg PO QDAY nitroglycerin [Nitrostat] 0.4 mg Tablet, Sublingual 0.4 mg BUCCAL Q5MIN PRN (Reason: Chest Pain) Rx Instructions: take 1 sublingual tablet every 5 minutes for a max of 3 doses tamoxifen 10 mg Tablet 10 mg PO QDAY insulin glargine [Lantus U-100 Insulin] 100 unit/mL solution 60 unit SUBCUT DAILY Rx Instructions: 60 units in the morning inject 50 units subcutaneously in the evening insulin glargine [Lantus U-100 Insulin] 100 unit/mL solution 50 unit SUBCUT HS Rx Instructions: inject 60 units Subcutaneously in the morning 50 units in the evening spironolactone [Aldactone] 25 mg Tablet 25 mg PO DAILY ranolazine 500 mg Tablet Extended Release 12 Hr 500 mg PO BID Lokelma 10 gram powder in packet 10 g PO QDAY cranberry 500 mg capsule 500 mg PO QDAY Rx Instructions: administer with a meal fatty acid 3-E-salmon,soy oils Capsule 1 cap PO QDAY metoprolol succinate 100 mg capsule,sprinkle,ER 24hr 100 mg PO QDAY Rx Instructions: start to take metoprolol 50mg twice a day Entresto 24-26 mg tablet 1 tab PO BID PresserVision 1 cap PO QDAY bumetanide 2 mg tablet 2 mg PO QDAY clopidogrel [Plavix] 75 mg Tablet 75 mg PO QDAY Qty: 30 0RF Held aspirin 81 mg tablet,delayed release (DR/EC) 81 mg PO QDAY Hold Instructions: until seen by cardiology Discontinued nitrofurantoin monohyd/m-cryst [Macrobid] 100 mg capsule 100 mg PO QDAY Rx Instructions: must administer with a meal/food Trulicity 3 mg/0.5 mL pen injector 3 mg SUBCUT QWEEK Rx Instructions: on wednesday Referrals: No Primary/Family,Physician [Primary Care Provider] - Patient/Caregiver Discharge Instructions Print Language: [place] Stand Alone Forms: Nusrat Award Info., Patient Portal Info Letter Discharge Order Discharge Orders: Discharge (Routine); Ordered 11/19/24 Ordered By: Akil Thomason Quality Discharge Quality Measures none MD Attestestation MD Attestation Patient was discharged yesterday however left today on 11/19/2024 before being seen.
== END 2024-11-19 14:44 | disposition skilled nursing facility (03) | DRG 368 ==
LOC: SERX 20:27 → SERHOLD 20:56 → S2NX 22:55
PROVIDERS: Nurse Practitioner Family; Specialist; Student in an Organized Health Care Education/Training Program; Admitting Provider Internal Medicine; Emergency Provider Emergency Medicine; Visit Provider Internal Medicine
PROC: 0DJ08ZZ Inspection of Upper Intestinal Tract, Via Natural or Artificial Opening Endoscopic (ICD-10-PCS; CPT 43239; principal; 2024-11-12 11:45)
PROC: 0DJD8ZZ Inspection of Lower Intestinal Tract, Via Natural or Artificial Opening Endoscopic (ICD-10-PCS; CPT 45378; principal; 2024-11-13 13:00)
DX: K20.91 Esophagitis, unspecified with bleeding (principal); J18.9 Pneumonia, unspecified organism; K29.71 Gastritis, unspecified, with bleeding; D62 Acute posthemorrhagic anemia; I50.22 Chronic systolic (congestive) heart failure; N17.9 Acute kidney failure, unspecified; I13.0 Hypertensive heart and chronic kidney disease with heart failure and stage 1 through stage 4 chronic kidney disease, or unspecified chronic kidney disease; N39.0 Urinary tract infection, site not specified; I24.89 Other forms of acute ischemic heart disease; N18.4 Chronic kidney disease, stage 4 (severe); I25.10 Atherosclerotic heart disease of native coronary artery without angina pectoris; Z17.0 Estrogen receptor positive status [ER+]; Z86.000 Personal history of in-situ neoplasm of breast; E87.5 Hyperkalemia; I35.0 Nonrheumatic aortic (valve) stenosis; E03.9 Hypothyroidism, unspecified; B95.2 Enterococcus as the cause of diseases classified elsewhere; D12.0 Benign neoplasm of cecum; E10.22 Type 1 diabetes mellitus with diabetic chronic kidney disease; E10.65 Type 1 diabetes mellitus with hyperglycemia; E78.5 Hyperlipidemia, unspecified; G47.33 Obstructive sleep apnea (adult) (pediatric); I25.119 Atherosclerotic heart disease of native coronary artery with unspecified angina pectoris; I25.2 Old myocardial infarction; K59.00 Constipation, unspecified; K64.8 Other hemorrhoids; Z17.22 Progesterone receptor negative status; Z17.32 Human epidermal growth factor receptor 2 negative status; Z79.01 Long term (current) use of anticoagulants; Z79.02 Long term (current) use of antithrombotics/antiplatelets; Z79.4 Long term (current) use of insulin; Z79.810 Long term (current) use of selective estrogen receptor modulators (SERMs); Z79.82 Long term (current) use of aspirin; Z79.84 Long term (current) use of oral hypoglycemic drugs; Z79.890 Hormone replacement therapy; Z79.899 Other long term (current) drug therapy; Z91.041 Radiographic dye allergy status; Z95.5 Presence of coronary angioplasty implant and graft; K86.89 Other specified diseases of pancreas; Z92.3 Personal history of irradiation; Z90.11 Acquired absence of right breast and nipple; Z85.3 Personal history of malignant neoplasm of breast; K57.30 Diverticulosis of large intestine without perforation or abscess without bleeding; Z92.21 Personal history of antineoplastic chemotherapy; I34.81 Nonrheumatic mitral (valve) annulus calcification; I15.9 Secondary hypertension, unspecified; I44.7 Left bundle-branch block, unspecified
CPT/HCPCS: 36415; 71045; 74176; 76770; 78582; 80048; 80053; 81001; 82306; 83735; 83970; 84100; 84132; 84484; 85014; 85018; 85025; 85610; 85730; 86850; 86900; 86901; 86920; 86923; 87077; 87086; 87186; 87811; 93005; 93306; 93975; 94660; 94664; 96361; 96365; 96366; 96375; 96376; 97162; 99284; A4649; A9539; A9540; J0290; J0456; J0612; J0696; J1580; J1815; J2175; J2250; J2405; J2470; J2704; J3010; J3475; J3490; J7050; J7120; J7999; P9016; Q0162; S0187; A9270

== ENCOUNTER 2024-12-17 02:34 | Emergency (ER) | payer MEDICARE, BC, SELFPAY ==
[2024-12-17 02:36] VITALS: PULSE 70; RESP 20; O2SAT 100
[2024-12-17 02:50] VITALS: BP 148/87; PULSE 74; RESP 18; TEMP 36.4; O2SAT 100
--- NOTE | 2024-12-17 02:54 | EKG_ITS ---
[facility] Test Date: 2024-12-17 Pat Name: STACY MEDRANO Department: Room: - Gender: Female [employer] Consultant: : 1940 Requested By: Lulu Espinoza Order Number: [id number] Reading MD: Lulu Espinoza Measurements Intervals Malin Rate: 76 P: 53 VT: 198 QRS: -64 QRSD: 217 T: 126 QT: 488 QTc: 549 Interpretive Statements ELECTRONIC VENTRICULAR PACEMAKER ABNORMAL RHYTHM ECG Compared to ECG 11/13/2024 19:46:44 Sinus tachycardia no longer present Left bundle-branch block no longer present /store/S0/[id number]
--- NOTE | 2024-12-17 03:08 | PD.EDADULT ---
ED General RME/HPI General Chief complaint: General Adult/Misc Complain Stated complaint: HYPOGLYCEMIA Time Seen by Provider: 12/17/24 02:50 Source: patient and EMS Arrival date/time: 12/17/24 02:34 Mode of arrival: EMS RME / HPI RME / HPI narrative: Ms. Roberson is a 84-year-old female with past medical history of coronary artery disease status post 9 stents, HFrEF 40%, hypertension, diabetes mellitus, CKD stage IV, invasive ductal carcinoma of right breast status post partial mastectomy, radiation therapy and chemotherapy presented to [facility] emergency department on 12/17/2024 with a chief complaint of hypoglycemia. Patient lives at intermediate facility where she was found to have low blood sugar, patient reported that her roommate found her groaning and called the nursing staff, she was found to have blood glucose 42, was given D10 W, on presentation in ED patient's blood glucose 183. Per snf documentation patient is on 55 units of Lantus in the morning and 50 units of Lantus in the evening for diabetes management. Related Data Home Medications ?Medication ?Instructions ?Recorded ?Confirmed gabapentin 100 mg capsule 100 mg PO BID #0 caps 06/09/11/12/24 levothyroxine 175 mcg tablet 175 mcg PO QDAY 10/11/20 11/12/24 (Synthroid) nitroglycerin 0.4 mg sublingual 0.4 mg buccal Q5MIN PRN Chest Pain 10/11/20 11/12/24 tablet (Nitrostat) blood-glucose,rn medication,cont 01/01/22 11/12/24 (Dexcom G6 Airport Manager) insulin glargine 100 unit/mL 50 unit subcut HS 02/11/22 11/12/24 subcutaneous solution (Lantus U-100 Insulin) insulin glargine 100 unit/mL 60 unit subcut DAILY 02/11/22 11/12/24 subcutaneous solution (Lantus U-100 Insulin) tamoxifen 10 mg tablet 10 mg PO QDAY 11/25/22 11/12/24 vibegron 75 mg tablet (Gemtesa) 75 mg PO QDAY 10/26/23 11/12/24 ranolazine 500 mg tablet,extended 500 mg PO BID 12/20/23 11/12/24 release,12 hr spironolactone 25 mg tablet 25 mg PO DAILY 12/20/23 11/12/24 (Aldactone) PresserVision 1 cap PO QDAY 11/12/24 11/12/24 aspirin 81 mg tablet,delayed 81 mg PO QDAY 11/12/24 11/12/24 release Held on 11/19/24. Instructions: until seen by cardiology bumetanide 2 mg tablet 2 mg PO QDAY 11/12/24 11/12/24 cranberry 500 mg capsule 500 mg PO QDAY 11/12/24 11/12/24 fatty acid comb no.3-vit E-salmon 1 cap PO QDAY 11/12/24 11/12/24 oil-soybean oil capsule metoprolol succinate 100 mg 100 mg PO QDAY 11/12/24 11/12/24 capsule sprinkle, ext. release 24 hr sacubitril 24 mg-valsartan 26 mg 1 tab PO BID 11/12/24 11/12/24 tablet (Entresto) sodium zirconium cyclosilicate 10 10 g PO QDAY 11/12/24 11/12/24 gram oral powder packet ([facility]) Previous Rx's ?Medication ?Instructions ?Recorded tirzepatide 2.5 mg/0.5 mL 2.5 mg (0.5 mL) subcut QWEEK #2 mL 11/18/24 subcutaneous pen injector (Janette) clopidogrel 75 mg tablet (Plavix) 75 mg PO QDAY #30 tabs 11/19/24 Allergies Allergy/AdvReac Type Severity Reaction Status Date / Time Iodinated Contrast Media Allergy Severe Vomiting Verified 11/16/24 08:30 Sulfa (Sulfonamide Allergy Intermediate THROAT Verified 05/16/24 12:51 Antibiotics) CORETTALLS SHUT hydralazine Allergy Diarrhea Verified 05/16/24 12:51 codeine AdvReac Intermediate Vomiting Verified 05/16/24 12:51 midazolam (From Versed) AdvReac Insomnia Verified 05/16/24 12:51 Review of Systems Review of Systems Systems Reviewed: All systems reviewed, normal except as documented Past Medical History Past Medical History NEUROLOGIC: Negative Neurological Disorders, Cerebrovascular Accident, Transient Ischemic Attacks (TIA), Dementia, Alzheimer's Disease, Parkinson's Disease, Brain Tumor, Meningitis, Seizures, Epilepsy, Multiple Sclerosis, Cerebral Palsy, Amyotrophic Lateral Sclerosis (ALS/Chrissy Gehrig's), Guillain-[place] Syndrome, Spina Bifida, Paralysis, Peripheral Neuropathy, Grove's Palsy, Subdural Hematoma, Migraine, Head Trauma, Spinal Cord Injury or Traumatic Brain Injury CARDIAC: Positive Cardiac Disorders, Myocardial Infarction, Heart Murmur, Coronary Artery Disease, Atherosclerotic Heart Disease, Hypercholesterolemia, Congestive Heart Failure, Rheumatic Fever and Hypertension; Negative Edema, Cellulitis or Varicose Veins RESPIRATORY: Positive Asthma, Pneumonia and Sleep Apnea; Negative Chronic Obstructive Pulmonary Disease (COPD) or Pulmonary Embolism GASTROINTESTINAL: Positive Gastrointestinal Disorders, Colitis, Diverticulitis, Irritable Bowel, Gastroesophageal Reflux Disease and Obesity; Negative Hepatitis or Colorectal Cancer GENITOURINARY: Positive Genitourinary Disorders; Negative Renal Disease REPRODUCTIVE: Positive Breast Cancer, Endometriosis and Previous Pregnancies MUSCULOSKELETAL: Positive Musculoskeletal Disorders, Arthritis and Fractures; Negative Muscular Dystrophy, Myasthenia Gravis, Marfan's Syndrome, Rheumatoid Arthritis, Osteoporosis or Degenerative Disk Disease ENT: Positive Cataracts and Macular Degeneration; Negative Head Trauma ENDOCRINE: Positive Endocrine Disorders, Diabetes Mellitus Type 2 and Hypothyroidism; Negative Diabetes Mellitus Type 1 HEMATOLOGIC: Negative Blood Disorders, Anemia, Leukemia, Hemophilia, Thalassemia, Sickle Cell Disease or Clotting Problems PSYCHO/SOCIAL: Positive Depression and Anxiety; Negative Psychiatric Problems, Schizophrenia, Recreational Drug Use, Bipolar Disorder, Behavior Problems, Self-Mutilation, Attention Deficit Disorder, Attention Deficit Hyperactivity Disorder, Depression, Post Traumatic Stress Disorder or Eating Disorder OTHER HISTORY: Positive Autoimmune Disease, Shingles, Blood Transfusions, Radiation Therapy, Chicken Pox, Measles, Mumps, Cancer and Breast Cancer; Negative Hospitalization, Autism, Falls, Blood Transfusion Reaction, Anesthesia Reactions, Organ Transplant, Chemotherapy, MRSA, VRSA, Vancomycin-Resistant Enterococci, Clostridium Difficile, Cervical Cancer, Colorectal Cancer, Lung Cancer or Ovarian Cancer Family History FAMILY HISTORY: Positive Family Cardiac Disorders and Family Surgery; Negative Family Psychiatric Problems, Family Respiratory Disorders, Family Gastrointestinal Problems, Family Cancer or Family Anesthesia Reaction Surgical History SURGICAL: Positive Cardiac Surgery, Coronary Stent, Cardiac Catheterization, Pacemaker, Angiogram, Endocrine Surgery, Ear Surgery, Eye Surgery, Oral Surgery, Tonsillectomy, Abdominal Surgery, Joint Replacement, Mastectomy (right (right limb alert)), Lumpectomy and Hysterectomy; Negative Open Heart Surgery, Coronary Artery Bypass Graft, Valve Replacement, Vascular Surgery, Auto Implanted Cardiovert Defib, Carotid Endarterectomy, Thyroidectomy, Gastric Bypass Surgery, Gastrostomy, Bowel Surgery or Organ Transplant OTHER SURGICAL HX: as per hpi Social History SOCIAL: as per hpi SMOKING STATUS: Never smoker Past Medical History Comments PMH COMMENT: PMH: CAD, HTN, DM, CKD, breast cancer PSH: Partial right mastectomy SH: Denies alcohol, tobacco, illicit drug use. Allergies:?Hydralazine, codeine, sulfa drugs, Versed ED Exam Narrative Physical exam: General: Awake and in no acute distress. Conversational and non-toxic appearing. Pale. HEENT: Normocephalic, atraumatic. On 2 L nasal cannula. Heart: Regular rate and rhythm, no murmurs. Lungs: Clear to auscultation with no wheezing or crackles. No use of accessory muscles. Abdomen: Soft, nondistended, nontender. No guarding or rebound tenderness. Neurologic: Alert and oriented x3, no gross neurological deficit, and patient able to move all 4 extremities. Extremities: Trace bilateral lower extremity edema. Skin: No rash or ecchymoses. Course Quality Measures none Orders Category Date Time Status Bedside Blood Glucose Q2HX3 Care 12/17/24 02:52 Active Bedside COVID-19 Antigen Test NOW Care 12/17/24 02:52 Active Bedside Influenza A&B Antigen Test NOW Care 12/17/24 02:52 Completed Ceramic Worker Q4H START 00 Care 12/17/24 02:53 Active Continuous Pulse Oximetry NOW Care 12/17/24 02:53 Completed EKG (ED ONLY) *Do not use* NOW Care 12/17/24 02:54 Completed In and Out Catheter X1 Care 12/17/24 04:45 Active Insert IV NOW Care 12/17/24 02:53 Active EKG (ED Only) Stat Exams 12/17/24 02:54 Draft BNP [B-Type Natriuretic Peptide] Stat Lab 12/17/24 03:15 Completed CBC Stat Lab 12/17/24 03:15 Completed CMP [Comprehensive Metabolic Panel] Stat Lab 12/17/24 03:15 Completed Free T4 (Free Thyroxine) Stat Lab 12/17/24 03:15 Completed INR [Prothrombin Time with INR] Stat Lab 12/17/24 03:15 Completed Lactate (Lactic Acid) Stat Lab 12/17/24 03:15 Completed Magnesium Stat Lab 12/17/24 03:15 Completed PTT [Partial Thromboplastin Time] Stat Lab 12/17/24 03:15 Completed Phosphorous Stat Lab 12/17/24 03:15 Completed Procalcitonin Stat Lab 12/17/24 03:15 Completed Thyroid Stimulating Hormone Stat Lab 12/17/24 03:15 Completed Troponin I Stat Lab 12/17/24 03:15 Completed Urinalysis, C/S if Indicated Stat Lab 12/17/24 05:00 Completed Dextrose 50% Syr [D50w Syringe Abboject] Med 12/17/24 02:51 Active 25 ml IV Q15MIN PRN Dextrose 50% Syr [D50w Syringe Abboject] Med 12/17/24 05:14 Discontinued 25 ml IVP X1 ONE Dextrose 50% Syr [D50w Syringe Abboject] Med 12/17/24 02:51 Active 50 ml IV Q15MIN PRN Glucagon Inj Med 12/17/24 02:51 Active 1 mg IM Q15MIN PRN Vital Signs Vital signs: Vital Signs Temperature 97.5 F 12/17/24 02:50 Pulse Rate 74 12/17/24 02:50 Respiratory Rate 18 12/17/24 02:50 Blood Pressure 148/87 H 12/17/24 02:50 Pulse Oximetry (%) 100 12/17/24 02:50 Oxygen Delivery Method Room Air 12/17/24 02:50 Discharge Plan Plan Patient Disposition: Xfer Skilled Nsg Fac (SNF) Patient condition on transfer: Stable Prescriptions/Referrals Prescriptions/Med Rec: No Action Gemtesa 75 mg tablet 75 mg PO QDAY (DME) Dexcom G6 Airport Manager Misc See Rx Instructions .Route Rx Instructions: As directed gabapentin 100 MG capsule 100 mg PO BID Qty: 0 levothyroxine [Synthroid] 175 mcg Tablet 175 mcg PO QDAY nitroglycerin [Nitrostat] 0.4 mg Tablet, Sublingual 0.4 mg BUCCAL Q5MIN PRN (Reason: Chest Pain) Rx Instructions: take 1 sublingual tablet every 5 minutes for a max of 3 doses tamoxifen 10 mg Tablet 10 mg PO QDAY insulin glargine [Lantus U-100 Insulin] 100 unit/mL solution 60 unit SUBCUT DAILY Rx Instructions: 60 units in the morning inject 50 units subcutaneously in the evening insulin glargine [Lantus U-100 Insulin] 100 unit/mL solution 50 unit SUBCUT HS Rx Instructions: inject 60 units Subcutaneously in the morning 50 units in the evening spironolactone [Aldactone] 25 mg Tablet 25 mg PO DAILY ranolazine 500 mg Tablet Extended Release 12 Hr 500 mg PO BID Lokelma 10 gram powder in packet 10 g PO QDAY cranberry 500 mg capsule 500 mg PO QDAY Rx Instructions: administer with a meal fatty acid 3-E-salmon,soy oils Capsule 1 cap PO QDAY metoprolol succinate 100 mg capsule,sprinkle,ER 24hr 100 mg PO QDAY Rx Instructions: start to take metoprolol 50mg twice a day Entresto 24-26 mg tablet 1 tab PO BID PresserVision 1 cap PO QDAY bumetanide 2 mg tablet 2 mg PO QDAY aspirin 81 mg tablet,delayed release (DR/EC) 81 mg PO QDAY Mounjaro 2.5 mg/0.5 mL pen injector 2.5 mg subcut QWEEK Qty: 2 0RF Rx Instructions: for 4 weeks clopidogrel [Plavix] 75 mg Tablet 75 mg PO QDAY Qty: 30 0RF Referrals: Juan Luis Samayoa MD [Primary Care Provider, Nephrology] - In 1 week Problem List Clinical Impression: Hypoglycemia Patient/Caregiver Discharge Instructions Discharge Activity: activity as tolerated Education Materials: Hypoglycemia (Low Blood Sugar) Additional Instructions: You were seen in the emergency department today for hypoglycemia, we did a comprehensive workup, you do not have COVID and flu, you also were negative for urinary tract infection. We recommend decreasing your insulin dose to 30 units of Lantus twice a day and we can uptitrate it as needed. However to discuss it with your snf facility physician. Otherwise you did have minimal troponin elevation however no acute EKG changes were noted as you are scheduled to see your photograph mounter today, discussed the findings with him Your renal function has improved your creatinine is 1.4 GFR 38 and BUN 33, continue to follow-up with your incident engineer. Follow-up with your primary care physician within 1 week Return to emergency department if your symptoms worsen Print Language: Occitan Stand Alone Forms: [employer]rat Award Info., Patient Portal Info Letter MDM Narrative MDM hospital course (for use when minimal MDM required): #Hypoglycemic episode. #Insulin-dependent diabetes mellitus 84-year-old female with past medical history of coronary artery disease status post 9 stents, HFrEF 40%, hypertension, diabetes mellitus, CKD stage IV, invasive ductal carcinoma of right breast status post partial mastectomy, radiation therapy and chemotherapy presented with hypoglycemia. Was found to have low blood sugar, patient reported that her roommate found her groaning and called the nursing staff, she was found to have blood glucose 42, was given D10W, On presentation in ED patient's blood glucose 183. Per snf documentation patient is on 55 units of Lantus in the morning and 50 units of Lantus in the evening for diabetes management. Workup: CBC: WBC 8.5, hemoglobin 13.7, platelet 232 Coags: INR 1.0, APTT 21.8, PT 10.6 Chemistry: Sodium 141 potassium 4.5 chloride 110, bicarb 23.2, BUN 33 creatinine 1.4, GFR 38, glucose 86, lactate 1.4, phosphorus 4.2, magnesium 2.1, troponin 0.154, BNP 1135 troponin albumin globulin Pro-Jaime TSH and free T4 within normal limits EKG shows pacemaker rhythm, rate 76 Urinalysis: pH 5.5, specific gravity 1.010, protein negative, glucose negative, ketone negative, blood negative, nitrate negative, bilirubin negative, urobilinogen negative, leukocyte esterase negative RBC 1 WBC 1 bacteria none 0519: Patient's blood glucose 91, will be given 25 cc of D50 Patient is stable for discharge, scheduled to follow-up with cardiology on 12/18 Case discussed with Attending Physician Dr. Louisa Espinoza MD Internal Medicine PGY-2 Disclaimer: This note was dictated by speech recognition. Minor errors in registered medical transcriptionist may be present due to voice recognition software. Clinical Information Provided by: patient and EMS [facility] Meds/Rx considered, not ordered None Labs/Rad/Tests considered, not ordered None Chronic Illness/Social Conditions which may negatively complicate care or outcome(s)-explain: None or not applicable EKG Interpretation EKG #1: EKG Interpretation: EKG shows pacemaker rhythm, rate 76 Labs Lab(s) Interpretation(s): CBC: WBC 8.5, hemoglobin 13.7, platelet 232 Coags: INR 1.0, APTT 21.8, PT 10.6 Chemistry: Sodium 141 potassium 4.5 chloride 110, bicarb 23.2, BUN 33 creatinine 1.4, GFR 38, glucose 86, lactate 1.4, phosphorus 4.2, magnesium 2.1, troponin 0.154, BNP 1135 troponin albumin globulin Pro-Jaime TSH and free T4 within normal limits Urinalysis: pH 5.5, specific gravity 1.010, protein negative, glucose negative, ketone negative, blood negative, nitrate negative, bilirubin negative, urobilinogen negative, leukocyte esterase negative RBC 1 WBC 1 bacteria none Imaging Imaging interpretation: none Medication Administration(s) Medication Administration History Dextrose (Dextrose 50%-Water Inj 50 Ml Syringe) 25 ml IV Q15MIN PRN PRN Reason: BG 50-70 responsive npo pt Stop: 01/16/25 02:50 Dextrose (Dextrose 50%-Water Inj 50 Ml Syringe) 50 ml IV Q15MIN PRN PRN Reason: BG <50 OR BG <70 & pt unresponsive Stop: 01/16/25 02:50 Glucagon (Glucagon Inj 1 Mg Vial) 1 mg IM Q15MIN PRN PRN Reason: BG <70, and no IV access Discontinued Medications Dextrose (Dextrose 50%-Water Inj 50 Ml Syringe) 25 ml IVP X1 ONE Stop: 12/17/24 05:15 Last Admin: 12/17/24 06:03 Dose: 25 ml Documented By: CCT As Above Diagnosis Differential Diagnosis ED Complaint MDM: Hypoglycemia
[2024-12-17 03:09] VITALS: BMI 27.8
[2024-12-17 03:36] LABS: Lactate (Lactic Acid) 1.4 mMol/L (0.4-2.0)
[2024-12-17 03:38] LABS: Basophils # (Auto) 0.1 Thou/mm3 (0.0-0.2); Basophils % (Auto) 1 % (0-2.5); Eosinophils # (Auto) 0.1 Thou/mm3 (0.0-0.5); Eosinophils % (Auto) 1 % (0-10); Hematocrit 43.2 % (36.0-46.0); Hemoglobin 13.7 g/dL (12.0-16.0); Immature Granulocytes Auto 0.03 Thou/mm3 (0.00-0.00); Lymphocytes # (Auto) 1.5 Thou/mm3 (1.0-4.8); Lymphocytes % (Auto) 17 % (10-50); Mean Corpuscular HGB Conc 31.7 g/dl (31.0-37.0); Mean Corpuscular Hemoglobin 29.0 pg (25.0-35.0); Mean Corpuscular Volume 91 fL (80-100); Monocytes # (Auto) 0.6 Thou/mm3 (0.0-0.8); Monocytes % (Auto) 7 % (0-12); Neutrophils # (Auto) 6.2 Thou/mm3 (1.8-7.7); Neutrophils % (Auto) 73 % (37-80); Nucleated Red Blood Cell # 0.00 Thou/mm3 (0.00-0.00); Nucleated Red Blood Cell % 0 /100 WBC (0); Platelet Count 232 Thou/mm3 (140-440); RDW Standard Deviation 55.1 fL (36.4-46.3); Red Blood Count 4.73 Miln/mm3 (4.00-5.20); White Blood Count 8.5 Thou/mm3 (3.6-11.0)
[2024-12-17 03:52] LABS: INR 1.0 (0.9-1.3); Partial Thromboplastin Time 21.8 Seconds (22.0-36.0); Prothrombin Time 10.6 Seconds (9.0-12.2)
[2024-12-17 04:00] VITALS: PULSE 68
[2024-12-17 04:01] LABS: B-Type Natriuretic Peptide 1135 pg/mL (0-100)
[2024-12-17 04:12] LABS: Alanine Aminotransferase < 7 U/L (10-49); Albumin, Serum 3.7 gm/dL (3.4-4.8); Albumin/Globulin Ratio 1.5 (1.2-2.2); Alkaline Phosphatase 66 U/L (46-116); Anion Gap 8 (7-16); Aspartate Amino Transferase 16 U/L (0-34); BUN/Creatinine Ratio 24 Ratio (12-20); Bilirubin,Total 0.5 mg/dL (0.3-1.2); Blood Urea Nitrogen 33 mg/dL (9-23); Calcium 9.7 mg/dL (8.3-10.6); Calcium (Corrected) 9.9 mg/dL (8.5-10.1); Carbon Dioxide 23.2 mMol/L (20.0-31.0); Chloride 110 mMol/L (98-107); Creatinine (Component) 1.4 mg/dL (0.6-1.3); Estimated Creatinine Clearance 38.5 mL/min (>60); Free T4 (Free Thyroxine) 1.68 ng/dL (0.89-1.76); Globulin 2.4 gm/dL (2.3-3.5); Glucose 86 mg/dL (74-106); Magnesium 2.1 mg/dL (1.6-2.6); Osmolality,Calculated 287 (275-295); Phosphorous 4.2 mg/dL (2.4-5.1); Potassium 4.5 mMol/L (3.4-5.1); Procalcitonin 0.06 ng/ml (0.0-0.49); Sodium 141 mMol/L (136-145); Thyroid Stimulating Hormone 1.52 uIU/mL (0.55-4.78); Total Protein 6.1 gm/dL (5.7-8.2); eGFR 38 See Note
[2024-12-17 04:17] LABS: Troponin I 0.154 ng/mL (0.0-0.045)
[2024-12-17 04:50] VITALS: BP 141/87; PULSE 70; RESP 18; TEMP 36.5; O2SAT 100
[2024-12-17 05:10] LABS: Collection Type, Urine Clean Catch
[2024-12-17 05:16] LABS: Bilirubin,Urine Negative (Negative); Blood,Urine Negative (Negative); Clarity,Urine Clear (Clear/Hazy); Color,Urine Lt-Yellow (Lt Yel-Yel); Culture Indicated,Urine Not Indicated; Glucose, Urine Negative (Negative); Hyaline Casts,Urine < 1 /hpf (0-1); Ketones,Urine Negative (Negative); Leukocyte Esterase,Urine Negative (Negative); Nitrite,Urine Negative (Negative); PH,Urine 5.5 (5.0-7.0); Protein,Urine Negative (Neg - Trace); RBC,Urine 1 /hpf (0-3); Specific Gravity,Urine 1.010 (1.001-1.035); Squamous Epithelial Cell,Urine 4 /hpf (0-5); Urobilinogen,Urine Negative mg/dL (0.0-1.0); WBC,Urine 1 /hpf (0-5)
[2024-12-17] MEDS: DEXTROSE 50%-WATER INJ 50 ML SYRINGE 25 ML IVP (06:03)
[2024-12-17 06:40] VITALS: BP 160/94; PULSE 90; RESP 20; TEMP 36.4; O2SAT 100
--- NOTE | 2024-12-17 06:59 | PC.NURSE ---
Report given to JOANNA Jean at [facility] via telephone
[2024-12-17 07:39] VITALS: BP 152/84; PULSE 88; RESP 18; O2SAT 98
== END 2024-12-17 07:41 | disposition skilled nursing facility (03) ==
PROVIDERS: Emergency Provider Emergency Medicine; PCP Internal Medicine
DX: E11.649 Type 2 diabetes mellitus with hypoglycemia without coma (principal); I13.0 Hypertensive heart and chronic kidney disease with heart failure and stage 1 through stage 4 chronic kidney disease, or unspecified chronic kidney disease; I50.22 Chronic systolic (congestive) heart failure; N18.4 Chronic kidney disease, stage 4 (severe); E78.00 Pure hypercholesterolemia, unspecified; I25.10 Atherosclerotic heart disease of native coronary artery without angina pectoris; E11.22 Type 2 diabetes mellitus with diabetic chronic kidney disease; Z79.4 Long term (current) use of insulin; Z95.5 Presence of coronary angioplasty implant and graft; Z95.0 Presence of cardiac pacemaker; Z95.1 Presence of aortocoronary bypass graft
CPT/HCPCS: 36415; 80053; 81001; 83605; 83735; 83880; 84100; 84145; 84439; 84443; 84484; 85025; 85610; 85730; 87400; 87811; 93005; 99284